=== PATIENT | male | born 1955 | race Caucasian/White ===

== ENCOUNTER 2018-04-03 13:55 | Outpatient (CLI) | payer MEDICARE | END 2018-04-03 13:56 | disposition critical access hospital (66) | LOC: EMS 13:55 | PROVIDERS: ATTEND Surgery | DX: R41.82 Altered mental status, unspecified (principal); R46.89 Other symptoms and signs involving appearance and behavior; Z72.89 Other problems related to lifestyle | CPT/HCPCS: A0425; A0427 ==

== ENCOUNTER 2018-04-03 14:35 | Inpatient (IN) | payer MEDICARE ==
[2018-04-03] MEDS ORDERED: LORazepam 2 MG/ML VIAL IVP STA (15:31)
[2018-04-03] MEDS ORDERED: THIAMINE INJ 100 MG, FOLIC ACID INJ 1 MG in SODIUM CHLORIDE 0.9% 100ML 100 ML IV STA (15:31)
[2018-04-03] MEDS ORDERED: MULTIVITAMIN 10 ML in SODIUM CHLORIDE 0.9% 1,000 ML IV STA (15:31)
[2018-04-03] MEDS ORDERED: MAGNESIUM SULFATE 2 GRAM 2 GM/50 ML BAG IV STA (15:31)
[2018-04-03 15:46] LABS: BASOPHILS % (AUTO) 0.2 %; EOSINOPHILS % (AUTO) 0.3 %; HGB - HEMOGLOBIN 11.1 g/dL (14.0-18.0); LYMPHOCYTES # (AUTO) 0.7 10^3/uL (1.5-3.5); LYMPHOCYTES % (AUTO) 10.5 %; MEAN CORPUSCULAR HEMOGLOBIN 34.9 pg (27.0-31.0); MEAN CORPUSCULAR HGB CONC 34.4 g/dL (32.0-36.0); MEAN CORPUSCULAR VOLUME 101.6 fL (80.0-94.0); MEAN PLATELET VOLUME 8.9 fL (7.4-11.4); MONOCYTES # (AUTO) 0.8 10^3/uL (0.0-1.0); MONOCYTES % (AUTO) 11.7 %; NEUTROPHILS # (AUTO) 5.2 10^3/uL (1.5-6.6); NEUTROPHILS % (AUTO) 77.3 %; PLT - PLATELET COUNT 57 10^3/uL (130-450); RED BLOOD COUNT 3.19 10^6/uL (4.70-6.10); RED CELL DISTRIBUTION WIDTH 14.8 % (12.0-15.0); WHITE BLOOD COUNT 6.7 x10^3/uL (4.8-10.8)
[2018-04-03 15:47] LABS: ALBUMIN/GLOBULIN RATIO 0.7 (1.0-2.2); BILIRUBIN,TOTAL 5.7 mg/dL (0.2-1.0); CALCIUM 7.7 mg/dL (8.5-10.3); CREATININE 0.6 mg/dL (0.6-1.2); TOTAL PROTEIN 7.4 g/dL (6.7-8.2)
--- NOTE | 2018-04-03 16:35 | ED Physician Documentation ---
PD HPI SEIZURE - Stated complaint Stated Complaint: BILAT LEGS NUMB - Chief complaint Chief Complaint: General - History obtained from History obtained from: Patient, Family, EMS - History of Present Illness Timing - onset: Today Witnessed: Witnessed Number of seizures: Single Description of seizure activity: Generalized Injury during seizure: None History of seizures: Prior EtOH wdrawal sz Contributing factors: EtOH withdrawal Similar symptoms before: No diagnosis Recently seen: Not recently seen - Additional information Additional information: 62-year-old male who is a very poor historian has history of alcohol abuse and he indicates that he feels fine and does not think he has any problem with alcohol. In the field he noted to the paramedics that he had HIV and he indicated to me history that he has had HIV for 15 years and he has never had treatment. He was unable to explain why he has never had treatment. He was later found to be HIV negative. He does complain of some difficulty walking stating that his legs are weak. He has been living with his sister in a house done on [facility] be there is apparently overgrown and the report from the sister is that he usually drinks about 5 glasses of vodka per day and yesterday he only had 2 and today he has had none. The sister indicates that he has had alcohol withdrawal seizure before. The patient will shakings heavily denies that he has any shakes. He is an unreliable historian. . Review of Systems Unable to obtain: Other (unreliable historian) Constitutional: denies: Fever Eyes: denies: Decreased vision Ears: denies: Ear pain Nose: denies: Rhinorrhea / runny nose, Congestion Throat: denies: Sore throat Cardiac: denies: Chest pain / pressure, Palpitations Respiratory: reports: Cough. denies: Dyspnea GI: denies: Abdominal Pain, Nausea, Vomiting : denies: Dysuria, Frequency Skin: denies: Rash Musculoskeletal: denies: Neck pain, Back pain, Extremity pain Neurologic: reports: Generalized weakness, Focal weakness (to both legs), Seizure PD PAST MEDICAL HISTORY - Past Medical History Past Medical History: Yes Cardiovascular: Hypertension Respiratory: COPD Endocrine/Autoimmune: None GI: None : None Psych: None Musculoskeletal: Chronic back pain Derm: None - Past Surgical History Past Surgical History: Yes Ortho: Rotator cuff repair - Present Medications Home Medications: Ambulatory Orders Medication Instructions Recorded Confirmed No Known Home Medications [No 04/03/18 04/03/18 Known Home Medications] - Allergies Allergies/Adverse Reactions: Allergies Allergy/AdvReac Type Severity Reaction Status Date / Time No Known Drug Allergies Allergy Verified 04/03/18 14:44 - Social History Does the pt smoke?: Yes Smoking Status: Current every day smoker Does the pt drink ETOH?: Yes ETOH Use: Liquor Does the pt have substance abuse?: No - Immunizations Immunizations are current?: Yes PD ED PE NORMAL - Vitals Vital signs reviewed: Yes - General General: Well developed/nourished, Other (Unkempt 62-year-old male who is shaking and having a difficult time keeping his eyes open.) - HEENT HEENT: Atraumatic, PERRL, EOMI, Ears normal, Other (dry mucous membranes ) - Neck Neck: Supple, no meningeal sign, No bony TTP - Cardiac Cardiac: No murmur, Other (tachy with distant heart sounds. ) - Respiratory Respiratory: No respiratory distress, Other (diminished breath sounds.) - Abdomen Abdomen: Soft, Non tender, Non distended - Back Back: No CVA TTP, No spinal TTP - Derm Derm: Other (his body is covered with bruises of various ages to the knees elbows feet calves and chest. ) - Extremities Extremities: No deformity, No edema, Other (There are multiple veruca to the fingers on both hands. ) - Neuro Neuro: Normal speech, Other (slow to respond with delay in execution of motor commands. ) Eye Opening: To Voice Motor: Obeys Commands Verbal: Confused GCS Score: 13 - Psych Psych: Normal mood, Normal affect Results - Vitals Vitals: Vital Signs - 24 hr 04/03/18 04/03/18 04/03/18 14:37 14:46 16:25 Temperature 37.4 C Heart Rate 106 H 94 Respiratory 15 15 Rate Blood Pressure 113/81 H 113/81 H 111/66 O2 Saturation 97 97 Oxygen O2 Source Room air - Labs Labs: Laboratory Tests 04/03/18 04/03/18 04/03/18 15:17 15:17 15:17 WBC 6.7 RBC 3.19 L Hgb 11.1 L Hct 32.4 L MCV 101.6 H MCH 34.9 H MCHC 34.4 RDW 14.8 Plt Count 57 L MPV 8.9 Neut # (Auto) 5.2 Lymph # (Auto) 0.7 L [place] # (Auto) 0.8 Eos # (Auto) 0.0 Baso # (Auto) 0.0 Absolute Nucleated RBC 0.01 Nucleated RBC % 0.1 Sodium 131 L Potassium 2.6 L Chloride 97 L Carbon Dioxide 24 Anion Gap 10.0 BUN 14 Creatinine 0.6 Estimated GFR (MDRD) 137 Glucose 102 H Calcium 7.7 L Total Bilirubin 5.7 H AST 173 H ALT 49 Alkaline Phosphatase 71 Troponin I < 0.04 Total Protein 7.4 Albumin 3.0 L Globulin 4.4 H Albumin/Globulin Ratio 0.7 L Lipase 40 - Rads (name of study) 2 veiw chest Radiology: Prelim report reviewed (Impression: Mildly low lung volumes with some hypoventilatory crowding. No focal consolidation or pleural effusions.), EMP read indepedently, See rad report CT head without Radiology: Prelim report reviewed (Impression: No acute intracranial abnormality identified.), EMP read indepedently, See rad report PD MEDICAL DECISION MAKING - ED course Complexity details: reviewed results, re-evaluated patient, considered differential, d/w patient ED course: 62-year-old male with no prior record here in the emergency department appears unkempt and is extremely weak. He is unable to sit up in bed for examination of the lungs. His body is covered in bruises he appears to have altered mental status despite an adequate time frame from his seizure. He is given IV banana bag after a liter of saline and ativan 2mg IV. He is too weak to sit up in the bed. Admission is sought and Dr. Granado has graciously agreed to care for the patient in the hospital. - Sepsis Event Vital Signs: Vital Signs - 24 hr 04/03/18 04/03/18 04/03/18 14:37 14:46 16:25 Temperature 37.4 C Heart Rate 106 H 94 Respiratory 15 15 Rate Blood Pressure 113/81 H 113/81 H 111/66 O2 Saturation 97 97 Oxygen O2 Source Room air Departure - Departure Disposition: [address] [facility] DC/Xfer Clinical Impression: Hypokalemia Alcohol withdrawal seizure Qualifiers: Complication of substance-induced condition: with perceptual disturbance Qualified Code(s): F10.232 - Alcohol dependence with withdrawal with perceptual disturbance Anemia Qualifiers: Anemia type: unspecified type Qualified Code(s): D64.9 - Anemia, unspecified Condition: Serious
[2018-04-03] MEDS ORDERED: POTASSIUM CHLORIDE 20 MEQ TABLET PO STA (17:02)
--- NOTE | 2018-04-03 17:43 | CT Report ---
Procedure Date: 04/03/2018 Accession Number: [id number] / [id number] Procedure: CT - Head W/O CPT Code: FULL RESULT: EXAM: CT HEAD EXAM DATE: 04/03/2018 05:27 PM. CLINICAL HISTORY: Cough, seizure, weakness, EtOH, altered mental status COMPARISON: None. TECHNIQUE: Multiaxial CT images were obtained from the foramen magnum to the vertex. Reformats: Coronal. IV contrast: None. In accordance with CT protocol optimization, one or more of the following dose reduction techniques were utilized for this exam: automated exposure control, adjustment of mA and/or KV based on patient size, or use of iterative reconstructive technique. FINDINGS: Parenchyma: No acute intracranial abnormality identified. No acute hemorrhage, mass effect, or midline shift. Small area of encephalomalacia at the high right frontal region. Minimal low-attenuation in the periventricular white matter. Extraaxial Spaces: No acute extra-axial collection. Ventricles: Appropriate in size and configuration. Sinuses and Orbits: Imaged paranasal sinuses, orbits, and mastoids show no significant abnormality. Bones: No depressed skull fracture. Other: None. IMPRESSION: No acute intracranial abnormality identified. RADIA
--- NOTE | 2018-04-03 17:44 | XRAY Report ---
Procedure Date: 04/03/2018 Accession Number: [id number] / [id number] Procedure: XR - Chest 2 View X-Ray CPT Code: 27315 FULL RESULT: EXAM: CHEST RADIOGRAPHY EXAM DATE: 04/03/2018 05:22 PM. CLINICAL HISTORY: Cough and seizure. COMPARISON: None. TECHNIQUE: 2 views. FINDINGS: Lungs/Pleura: Mildly low lung volumes on the frontal view was crowding. No focal consolidation. No pleural effusion. No pneumothorax. Mediastinum: Cardiac silhouette size appears unremarkable. Other: Degenerative change of the spine. IMPRESSION: Mildly low lung volumes with some hypoventilatory crowding. No focal consolidation or pleural effusions. RADIA
[2018-04-03] MEDS ORDERED: NICOTINE 14 MG PATCH TOP STA (19:53)
[2018-04-03] MEDS ORDERED: ONDANSETRON 4 MG/2 ML VIAL IVP PRN (19:54)
[2018-04-03] MEDS ORDERED: THIAMINE INJ 100 MG, FOLIC ACID INJ 1 MG in SODIUM CHLORIDE 0.9% 100ML 100 ML IV SCH (20:00)
[2018-04-03] MEDS: SODIUM CHLORIDE 0.9% 1,000 ML IV SCH (20:48)
[2018-04-03] MEDS: PANTOPRAZOLE 40 MG VIAL IVP SCH (20:49)
[2018-04-03 21:01] LABS: MUDS CUTOFF CONCENTRATIONS CUTOFF CONC BELOW:
[2018-04-03 21:04] LABS: GLUCOSE, URINE (UA) NEGATIVE (NEGATIVE); KETONES,URINE (UA) NEGATIVE (NEGATIVE); LEUKOCYTE ESTERASE, URINE NEGATIVE (NEGATIVE); NITRITE,URINE NEGATIVE (NEGATIVE); OCCULT BLOOD,URINE TRACE-LYSE (NEGATIVE); PH,URINE 6.5 PH (5.0-7.5); PROTEIN,URINE NEGATIVE (NEGATIVE); UROBILINOGEN,URINE >=8.0 E.U./dL (NORMAL)
[2018-04-03] MEDS: LORazepam 2 MG/ML VIAL IVP PRN (21:04)
[2018-04-03] MEDS: SODIUM CHLORIDE FLUSH 0.9% 10 ML SYRINGE IVP PRN (21:05)
[2018-04-03 21:20] LABS: BILIRUBIN,URINE NEGATIVE (NEGATIVE); CLARITY,URINE CLEAR (CLEAR); ICTOTEST,URINE NEGATIVE
[2018-04-03 21:21] LABS: AMPHETAMINE SCREEN,URINE NEGATIVE (NEGATIVE); BENZODIAZEPINES SCREEN, URINE POSITIVE (NEGATIVE); COCAINE SCREEN URINE NEGATIVE (NEGATIVE); METHADONE SCREEN, URINE NEGATIVE (NEGATIVE); METHAMPHETAMINES SCREEN, URINE NEGATIVE (NEGATIVE); OPIATE SCREEN, URINE NEGATIVE (NEGATIVE); OXYCODONE SCREEN, URINE NEGATIVE (NEGATIVE); PROPOXYPHENE SCREEN, URINE NEGATIVE (NEGATIVE); TRICYCLIC ANTIDEPRESSANT,URINE NEGATIVE (NEGATIVE)
[2018-04-03] MEDS: POTASSIUM CHLOR 10 MEQ/100 ML 10 MEQ/100 ML BAG IV SCH ×2 (22:03→23:06)
[2018-04-04] MEDS: POTASSIUM CHLOR 10 MEQ/100 ML 10 MEQ/100 ML BAG IV SCH ×10 (00:06→10:24)
[2018-04-04] MEDS: SODIUM CHLORIDE FLUSH 0.9% 10 ML SYRINGE IVP SCH ×4 (00:07→21:04)
[2018-04-04] MEDS: LORazepam 2 MG/ML VIAL IVP PRN ×2 (00:07→20:20)
[2018-04-04] MEDS ORDERED: IBUPROFEN 400 MG TABLET PO PRN (00:38)
--- NOTE | 2018-04-04 01:38 | HISTORY & PHYSICAL EXAMINATION ---
DATE OF SERVICE: 04/03/2018 Physician: Kiara Paez MD HISTORY OF PRESENT ILLNESS: This is a 62-year-old white male who is on no prescription medications, has had no prior emergency room visits or admissions here. He has a history of alcohol abuse. Apparently, the patient is a heavy alcohol drinker of 5 glasses of vodka per day. He decreased this to three glasses one day, then two glasses and then today stopped and had a seizure that was witnessed by his sister. The patient lives with his sister. He was brought in after the seizure; very obtunded, but also very weak, even after awakening, unable to sit and hold up his posture, sitting upright and dangling his feet. The patient is being admitted for alcohol withdrawal and management of his electrolyte abnormalities. PAST MEDICAL HISTORY: Alcohol abuse. MEDICATIONS: None. ALLERGIES: NONE. REVIEW OF SYSTEMS: A comprehensive review of systems was performed by speaking to the emergency room doctor who reached out to the family and chart review as the patient is currently obtunded after Ativan dosing in the ER. SOCIAL HISTORY: The patient is an alcoholic who also smokes daily, uses no illicit drugs. FAMILY HISTORY: No inherited diseases. PHYSICAL EXAMINATION GENERAL: A very disheveled white male who appears older than his age. He is somnolent after Ativan dosing. He moves his right arm and it is shaky. VITAL SIGNS: Blood pressure 113/81, pulse of 106 in sinus rhythm, afebrile, room air saturation 97%. HEENT: Unremarkable, except disheveled, poor dentition, dry oral mucosa. NECK: Without JVD or carotid bruits. LUNGS: Clear. HEART: Heart sounds distant. ABDOMEN: Soft. EXTREMITIES: Without clubbing, cyanosis or edema. Multiple skin tears, ecchymoses, especially large bilateral knee ecchymoses. L hand middle finger has warty, crusty yellow growth. NEUROLOGIC: Obtunded from Ativan. R hand tremulous when he moves it. LABORATORY DATA: Sodium 131, potassium 2.6, BUN 14, creatinine 0.6. AST 173, ALT 49, bilirubin 5.7. Troponin not detectable. No INR was done. White blood count 6.7 with a normal differential, hemoglobin 11.1 with an elevated MCV of 101.6, platelet count low at 57. IMAGING: Chest x-ray was done that showed hypoventilation, but no acute problems. Head CT was done that showed no stroke, no mass, hemorrhage or shift. No EKG was done. IMPRESSION 1. Alcohol withdrawal seizure. 2. Alcohol abuse. 3. Hypokalemia. 4. Hyponatremia. 5. Elevated liver function tests along with elevated bilirubin and low platelet count, all suggestive of alcoholic liver disease. 6. Anemia. PLAN: Admit the patient to the ICU. Begin neuro checks every 2 hours. Begin a CIWA protocol every 2 hours. Continue with his Ativan for management of his alcohol detoxification. Begin IV fluids with D5 normal saline with potassium. Replace thiamine and banana bag and multivitamins. Start a Nicoderm patch. Check a hepatitis panel because of the elevated liver tests and consider CT imaging of the abdomen if the LFTs do not decline. An abdomen ultrasound will be ordered to evaluate the gallbladder because of the out of proportion elevation of bilirubin compared to his LFTs. Obtain a serum toxicology screen and a urinalysis, culture if it is abnormal. Follow his daily CBC and CMP, magnesium. DEEP VENOUS THROMBOSIS PROPHYLAXIS: Sequential compression devices. CODE STATUS: FULL CODE. ATTESTATION: The patient is expected to be discharged or transferred to another facility within 96 hours: Yes. TD: 04/03/2018 19:03 CHA
[2018-04-04 05:11] LABS: VBG PH 7.519 (7.31-7.41)
[2018-04-04] MEDS ORDERED: POTASSIUM PHOSPHATE 15 MMOL in SODIUM CHLORIDE 0.9% 250 ML IV ONE (05:50)
[2018-04-04] MEDS ORDERED: MAGNESIUM SULFATE 2 GRAM 2 GM/50 ML BAG IV ONE (06:15)
[2018-04-04] MEDS ORDERED: CALCIUM GLUCONATE 2,000 MG in SODIUM CHLORIDE 0.9% 100ML 100 ML IV ONE (08:00)
--- NOTE | 2018-04-04 08:13 | Ultrasound Report ---
Procedure Date: 04/04/2018 Accession Number: [id number] / [id number] Procedure: US - Abdomen Limited CPT Code: FULL RESULT: EXAM: Abdomen Limited DATE: 04/04/2018 7:50 AM CLINICAL HISTORY: elevated bili, eval liver, pancr and gallbladder TECHNIQUE: Real-time scanning was performed, with advertising sales representative static images obtained. COMPARISON: None FINDINGS: The liver is diffusely echogenic, limiting evaluation. It measures 18.3 cm. There is apparent reversal of flow in the portal vein, but the patient's inability to comply with breathing instructions does hamper evaluation. The common bile duct measures 5 mm. The gallbladder demonstrates cholelithiasis, without evidence of wall thickening or pericholecystic fluid. Limited visualization of the pancreas is grossly unremarkable. IMPRESSION: Diffusely echogenic liver, with possible reversal of flow within the portal vein. This may represent cirrhosis and portal hypertension. Cholelithiasis. No evidence of biliary obstruction.
[2018-04-04] MEDS: PANTOPRAZOLE 40 MG VIAL IVP SCH ×2 (08:14→21:04)
[2018-04-04] MEDS ORDERED: D5NS W/20 MEQ KCL 1,000 ML IV STA (08:54)
[2018-04-04 09:15] LABS: INR 1.6 (0.8-1.2); PT - PROTHROMBIN TIME 17.5 secs (9.9-12.6)
[2018-04-04] MEDS ORDERED: POTASSIUM PHOSPHATE 15 MMOL in SODIUM CHLORIDE 0.9% 250 ML IV SCH ×2 (11:00→14:00)
[2018-04-04] MEDS: MINERAL OIL/HYDROPHIL PETROLAT 454 GM JAR TOP SCH ×2 (13:38→20:26)
[2018-04-04] MEDS: IBUPROFEN 800 MG TABLET PO PRN ×2 (13:53→20:21)
--- NOTE | 2018-04-04 13:58 | PROVIDER PROGRESS NOTE ---
Assessment/Plan - Problem List (1) Alcohol withdrawal seizure Qualifiers: Complication of substance-induced condition: uncomplicated Qualified Code(s ): F10.230 - Alcohol dependence with withdrawal, uncomplicated Assessment/Plan: No furthjer seizures. Pt is receiving Ativan during these first days of alcohol deox, on a CIWA protocoll Continue to monitor with Neuro checks and CIWA score and Ativan dosing. (2) Alcoholic cirrhosis of liver Qualifiers: Ascites presence: without ascites Qualified Code(s): K70.30 - Alcoholic cirrhosis of liver without ascites Assessment/Plan: Imaging shows cirrhotic liver with cysts and gallstones without obstruction. Avoid hepatotoxic agents. Continue to monitor LFTs. (3) Portal hypertension Assessment/Plan: No ascites seen, but imaging confirmed portal HTN. Continue gentle rehydration till able to hydrate po and more awake. (4) Hypokalemia Assessment/Plan: Replace K. Monitor BMP. (5) Hypophosphatemia Assessment/Plan: Replace phos. Monitor labs. (6) Anemia Qualifiers: Anemia type: unspecified type Qualified Code(s): D64.9 - Anemia, unspecified Assessment/Plan: Alex sample for guaic is still pending. Pt on empiric iv Protonix for GI ulcer prophylaxis. Will order B12, folate and Iron panel. - Current Meds Current Meds: Current Medications Generic Name Dose Route Start Last Admin Trade Name Freq PRN Reason Stop Dose Admin Emollient Ointment 1 applic 04/04/18 12:10 04/04/18 13:38 Hydrophor TOP 1 applic BID MIGUELITO Administration Sodium Chloride 1,000 mls @ 100 mls/hr 04/03/18 20:00 04/04/18 09:12 Normal Saline 0.9% IV 04/04/18 15:59 Infused .Q10H MIGUELITO Infusion Potassium Chloride/Dextrose/Sod Cl 1,000 mls @ 83.333 mls/hr 04/04/18 08:54 04/04/18 11:30 IV 04/04/18 20:53 83.333 mls/hr .Q12H STA Administration Lorazepam 1 mg 04/03/18 19:39 04/04/18 00:07 Ativan Inj (Vial) IVP 1 mg Q30M PRN Administration CIWA >8 Protocol Pantoprazole Sodium 40 mg 04/03/18 21:00 04/04/18 08:14 Protonix IVP 40 mg BID MIGUELITO Administration Sodium Chloride 10 ml 04/04/18 01:00 04/04/18 08:14 Normal Saline Flush 0.9% IVP 10 ml 0100,0900,1700 MIGUELITO Administration Sodium Chloride 10 ml 04/03/18 19:33 04/03/18 21:05 Normal Saline Flush 0.9% IVP 10 ml PRN PRN Administration NEEDED PER PROVIDER ORDERS - Lab Result Fish Bone Diagrams: 04/03/18 15:17 04/03/18 15:17 - EKG Results EKG Interpreted Independently: Yes EKG Comparison: No prior EKG EKG Findings: Sinus tachycardia, LA enlargement, low voltage in limb leads. - Additional Planning My Orders: My Active Orders 04/03/18 20:58 Guiaic [OCCULT BLOOD IN PAT. SINGLE] [RAPID] Routine 04/04/18 08:54 D5ns W/20 Meq KCl 1,000 ml IV 83.333 mls/hr 04/04/18 08:55 EKG - Electrocardiogram [RC] .ONCE 04/04/18 12:10 Mineral Oil/Hydrophil Petrolat [Hydrophor] 1 applic TOP BID 04/04/18 14:00 Potassium Phosphate 15 mmol Sodium Chloride 0.9% [Normal Saline 0.9%] 250 ml IV Q4H 04/04/18 Lunch DIET [Dysphagia Puree Diet] [DIET] 04/05/18 05:00 CALCIUM, IONIZED ([facility]) [BG] DAILYLAB CBC - COMP BLD CT W/AUTO DIFF [HEME] DAILYLAB CMP [COMPREHENSIVE METABOLIC PANEL] [CHEM] DAILYLAB MAGNESIUM [CHEM] DAILYLAB PHOSPHORUS [CHEM] DAILYLAB POTASSIUM [CHEM] DAILYLAB 04/06/18 05:00 CALCIUM, IONIZED ([facility]) [BG] DAILYLAB CBC - COMP BLD CT W/AUTO DIFF [HEME] DAILYLAB CMP [COMPREHENSIVE METABOLIC PANEL] [CHEM] DAILYLAB MAGNESIUM [CHEM] DAILYLAB PHOSPHORUS [CHEM] DAILYLAB POTASSIUM [CHEM] DAILYLAB 04/07/18 05:00 CALCIUM, IONIZED ([facility]) [BG] DAILYLAB MAGNESIUM [CHEM] DAILYLAB PHOSPHORUS [CHEM] DAILYLAB POTASSIUM [CHEM] DAILYLAB Subjective - Subjective Patient Reports: Resting Comfortably Nursing Reports: Other (Awakens briefly) Objective Vital Signs: Vital Signs - 24 hr 04/03/18 04/03/18 04/03/18 18:41 19:49 20:57 Temperature 37.0 C Heart Rate 84 Heart Rate [ 92 Monitoring electrodes] Respiratory 15 16 24 Rate Blood Pressure 108/44 L 118/68 Blood Pressure 123/69 [Right Brachial artery] O2 Saturation 98 98 04/03/18 04/03/18 04/03/18 21:05 22:00 22:39 Temperature Heart Rate Heart Rate [ 85 89 91 Monitoring electrodes] Respiratory 28 H 23 30 H Rate Blood Pressure Blood Pressure 125/79 96/52 L 117/79 [Right Brachial artery] O2 Saturation 98 98 97 04/03/18 04/04/18 04/04/18 23:00 00:00 01:00 Temperature 37.4 C Heart Rate Heart Rate [ 89 98 101 H Monitoring electrodes] Respiratory 24 115 H 19 Rate Blood Pressure Blood Pressure 118/79 121/86 H 116/77 [Right Brachial artery] O2 Saturation 98 93 95 04/04/18 04/04/18 04/04/18 02:00 02:09 03:01 Temperature Heart Rate Heart Rate [ 87 82 Monitoring electrodes] Respiratory 20 30 H Rate Blood Pressure Blood Pressure 115/74 116/79 [Right Brachial artery] O2 Saturation 95 97 97 04/04/18 04/04/18 04/04/18 04:00 05:00 06:00 Temperature 37.3 C Heart Rate Heart Rate [ 80 84 81 Monitoring electrodes] Respiratory 30 H 30 H 30 H Rate Blood Pressure Blood Pressure 115/73 121/78 126/86 H [Right Brachial artery] O2 Saturation 97 95 95 04/04/18 04/04/18 04/04/18 07:00 08:00 09:00 Temperature 36.2 C L Heart Rate Heart Rate [ 79 78 76 Monitoring electrodes] Respiratory 28 H 29 H 38 H Rate Blood Pressure Blood Pressure 125/80 96/75 106/62 [Right Brachial artery] O2 Saturation 99 94 94 04/04/18 04/04/18 04/04/18 10:00 11:00 12:00 Temperature Heart Rate Heart Rate [ 80 80 82 Monitoring electrodes] Respiratory 31 H 30 H 30 H Rate Blood Pressure Blood Pressure 171/90 H 121/96 H 134/78 H [Right Brachial artery] O2 Saturation 94 97 94 04/04/18 13:00 Temperature Heart Rate Heart Rate [ 98 Monitoring electrodes] Respiratory 44 H Rate Blood Pressure Blood Pressure 139/79 H [Right Brachial artery] O2 Saturation Oxygen O2 Source Room air I&O (Last 24 Hrs): Intake and Output Totals x24h 04/02/18 04/03/18 04/04/18 23:59 23:59 23:59 Intake Total 1261.2 2490 Output Total 200 675 Balance 1061.2 1815 General: Other (Awake but lethargic) HEENT: Other (Dry mucosa) Neck: Supple Neuro: Non Focal, Other (Lethargic) Cardiovascular: No murmurs Respiratory: No respiratory distress Abdomen: Soft, No tenderness Extremities: No edema, Other (Multiple ecchymoses) - Results Results: Laboratory Results WBC 6.7 x10^3/uL (4.8-10.8) 04/03/18 15:17 RBC 3.19 10^6/uL (4.70-6.10) L 04/03/18 15:17 Hgb 11.1 g/dL (14.0-18.0) L 04/03/18 15:17 Hct 32.4 % (42.0-52.0) L 04/03/18 15:17 MCV 101.6 fL (80.0-94.0) H 04/03/18 15:17 MCH 34.9 pg (27.0-31.0) H 04/03/18 15:17 MCHC 34.4 g/dL (32.0-36.0) 04/03/18 15:17 RDW 14.8 % (12.0-15.0) 04/03/18 15:17 Plt Count 57 10^3/uL (130-450) L 04/03/18 15:17 MPV 8.9 fL (7.4-11.4) 04/03/18 15:17 Neut # (Auto) 5.2 10^3/uL (1.5-6.6) 04/03/18 15:17 Lymph # (Auto) 0.7 10^3/uL (1.5-3.5) L 04/03/18 15:17 [place] # (Auto) 0.8 10^3/uL (0.0-1.0) 04/03/18 15:17 Eos # (Auto) 0.0 10^3/uL (0.0-0.7) 04/03/18 15:17 Baso # (Auto) 0.0 10^3/uL (0.0-0.1) 04/03/18 15:17 Absolute Nucleated RBC 0.01 x10^3/uL 04/03/18 15:17 Nucleated RBC % 0.1 /100WBC 04/03/18 15:17 PT 17.5 secs (9.9-12.6) H 04/04/18 09:02 INR 1.6 (0.8-1.2) H 04/04/18 09:02 VBG pH 7.519 (7.31-7.41) H 04/04/18 04:35 Ionized Calcium 0.95 mmol/L (1.15-1.33) L 04/04/18 04:35 Sodium 131 mmol/L (135-145) L 04/03/18 15:17 Potassium 2.6 mmol/L (3.5-5.0) L 04/03/18 15:17 Chloride 97 mmol/L (101-111) L 04/03/18 15:17 Carbon Dioxide 24 mmol/L (21-32) 04/03/18 15:17 Anion Gap 10.0 (6-13) 04/03/18 15:17 BUN 14 mg/dL (6-20) 04/03/18 15:17 Creatinine 0.6 mg/dL (0.6-1.2) 04/03/18 15:17 Estimated GFR (MDRD) 137 (>89) 04/03/18 15:17 Glucose 102 mg/dL (70-100) H 04/03/18 15:17 Calcium 7.7 mg/dL (8.5-10.3) L 04/03/18 15:17 Phosphorus 2.3 mg/dL (2.5-4.6) L 04/04/18 04:35 Total Bilirubin 5.7 mg/dL (0.2-1.0) H 04/03/18 15:17 GGT 215 IU/L (8-55) H 04/03/18 15:17 AST 173 IU/L (10-42) H 04/03/18 15:17 ALT 49 IU/L (10-60) 04/03/18 15:17 Alkaline Phosphatase 71 IU/L (42-121) 04/03/18 15:17 Troponin I < 0.04 ng/mL (<0.49) 04/03/18 15:17 Total Protein 7.4 g/dL (6.7-8.2) 04/03/18 15:17 Albumin 3.0 g/dL (3.2-5.5) L 04/03/18 15:17 Globulin 4.4 g/dL (2.1-4.2) H 04/03/18 15:17 Albumin/Globulin Ratio 0.7 (1.0-2.2) L 04/03/18 15:17 Lipase 40 U/L (22-51) 04/03/18 15:17 Urine Color ORANGE 04/03/18 20:55 Urine Clarity CLEAR (CLEAR) 04/03/18 20:55 Urine pH 6.5 PH (5.0-7.5) 04/03/18 20:55 Ur Specific [place] 1.015 (1.002-1.030) 04/03/18 20:55 Urine Protein NEGATIVE mg/dL (NEGATIVE) 04/03/18 20:55 Urine Glucose (UA) NEGATIVE mg/dL (NEGATIVE) 04/03/18 20:55 Urine Ketones NEGATIVE mg/dL (NEGATIVE) 04/03/18 20:55 Urine Occult Blood TRACE-LYSE (NEGATIVE) 04/03/18 20:55 Urine Nitrite NEGATIVE (NEGATIVE) 04/03/18 20:55 Urine Bilirubin NEGATIVE (NEGATIVE) 04/03/18 20:55 Urine Urobilinogen >=8.0 E.U./dL (NORMAL) H 04/03/18 20:55 Ur Leukocyte Esterase NEGATIVE (NEGATIVE) 04/03/18 20:55 Ur Microscopic Review NOT INDICATED 04/03/18 20:55 Urine Culture Comments NOT INDICATED 04/03/18 20:55 Urine Opiates Screen NEGATIVE (NEGATIVE) 04/03/18 20:56 Ur Oxycodone Screen NEGATIVE (NEGATIVE) 04/03/18 20:56 Urine Methadone Screen NEGATIVE (NEGATIVE) 04/03/18 20:56 Ur Propoxyphene Screen NEGATIVE (NEGATIVE) 04/03/18 20:56 Ur Barbiturates Screen NEGATIVE (NEGATIVE) 04/03/18 20:56 Ur Tricyclics Screen NEGATIVE (NEGATIVE) 04/03/18 20:56 Ur Phencyclidine Scrn NEGATIVE (NEGATIVE) 04/03/18 20:56 Ur Amphetamine Screen NEGATIVE (NEGATIVE) 04/03/18 20:56 U Methamphetamines Scrn NEGATIVE (NEGATIVE) 04/03/18 20:56 U Benzodiazepines Scrn POSITIVE (NEGATIVE) H 04/03/18 20:56 Urine Cocaine Screen NEGATIVE (NEGATIVE) 04/03/18 20:56 U Cannabinoids Screen NEGATIVE (NEGATIVE) 04/03/18 20:56 ABX Reporting Has patient been on IV antibiotics over the past 48 hours?: No
[2018-04-04] MEDS: THIAMINE INJ 100 MG, FOLIC ACID INJ 1 MG in SODIUM CHLORIDE 0.9% 100ML 100 ML IV SCH (18:42)
[2018-04-04] MEDS: MULTIVITAMIN 10 ML in SODIUM CHLORIDE 0.9% 1,000 ML IV SCH (18:42)
[2018-04-04] MEDS: SODIUM CHLORIDE 0.9% 1,000 ML IV SCH (21:32)
[2018-04-05] MEDS: LORazepam 2 MG/ML VIAL IVP PRN (01:37)
[2018-04-05] MEDS: SODIUM CHLORIDE FLUSH 0.9% 10 ML SYRINGE IVP SCH ×3 (01:38→16:27)
[2018-04-05 05:41] LABS: VBG PH 7.474 (7.31-7.41)
[2018-04-05 05:53] LABS: FOLATE 15.87 ng/mL (5.90 - >24.8)
[2018-04-05 06:41] LABS: BASOPHILS % (AUTO) 0.6 %; EOSINOPHILS # (AUTO) 0.1 10^3/uL (0.0-0.7); EOSINOPHILS % (AUTO) 1.7 %; HGB - HEMOGLOBIN 12.3 g/dL (14.0-18.0); LYMPHOCYTES # (AUTO) 1.2 10^3/uL (1.5-3.5); MEAN CORPUSCULAR HGB CONC 35.2 g/dL (32.0-36.0); MEAN CORPUSCULAR VOLUME 93.7 fL (80.0-94.0); MONOCYTES # (AUTO) 0.6 10^3/uL (0.0-1.0); MONOCYTES % (AUTO) 7.2 %; NEUTROPHILS # (AUTO) 5.7 10^3/uL (1.5-6.6); NEUTROPHILS % (AUTO) 74.5 %; PLT - PLATELET COUNT 180 10^3/uL (130-450); RED BLOOD COUNT 3.72 10^6/uL (4.70-6.10); RED CELL DISTRIBUTION WIDTH 14.1 % (12.0-15.0); WHITE BLOOD COUNT 7.7 x10^3/uL (4.8-10.8)
[2018-04-05 06:59] LABS: ALBUMIN 2.6 g/dL (3.2-5.5); ALBUMIN/GLOBULIN RATIO 0.7 (1.0-2.2); BILIRUBIN,TOTAL 4.1 mg/dL (0.2-1.0); CALCIUM 7.3 mg/dL (8.5-10.3); CREATININE 0.5 mg/dL (0.6-1.2); MAGNESIUM 1.4 mg/dL (1.7-2.8); PHOSPHORUS 1.9 mg/dL (2.5-4.6); TOTAL PROTEIN 6.6 g/dL (6.7-8.2)
[2018-04-05] MEDS ORDERED: POTASSIUM CHLORIDE 20 MEQ TABLET PO SCH (07:35)
[2018-04-05] MEDS: IBUPROFEN 800 MG TABLET PO PRN ×3 (08:21→18:04)
[2018-04-05] MEDS: MAGNESIUM OXIDE 400 MG TABLET PO SCH ×2 (08:22→14:20)
[2018-04-05] MEDS ORDERED: POTASSIUM PHOSPHATE 21 MMOL in SODIUM CHLORIDE 0.9% 250 ML IV ONE (08:30)
[2018-04-05] MEDS: PANTOPRAZOLE 40 MG VIAL IVP SCH ×2 (09:21→21:00)
[2018-04-05] MEDS: CALCIUM CITRATE 250 MG TABLET PO SCH ×4 (09:21→21:00)
[2018-04-05] MEDS: NEUTRA-PHOS 250 MG TABLET PO SCH ×2 (10:12→13:11)
[2018-04-05] MEDS: MINERAL OIL/HYDROPHIL PETROLAT 454 GM JAR TOP SCH ×2 (11:30→21:00)
--- NOTE | 2018-04-05 12:28 | XRAY Report ---
Procedure Date: 04/05/2018 Accession Number: [id number] / [id number] Procedure: XR - Chest 1 View X-Ray CPT Code: 52808 FULL RESULT: EXAM: Chest 1 View X-Ray DATE: 04/05/2018 10:41 AM CLINICAL HISTORY: new increased resp rate and rhonchi COMPARISON: 04/03/2018 TECHNIQUE: Single view of the chest. FINDINGS: Lungs/Pleura: Minimal left basilar atelectasis. No effusion or pneumothorax. Mediastinum: Within exam limitations, cardiomediastinal contour is normal. Other: Surgical anchors right humeral head. IMPRESSION: Minimal left basilar atelectasis. RADIA
[2018-04-05] MEDS: POTASSIUM CHLORIDE 20 MEQ TABLET PO SCH (13:10)
[2018-04-05] MEDS: guaiFENesin 600 MG TABLET PO SCH ×2 (13:11→21:00)
[2018-04-05] MEDS ORDERED: IOPAMIDOL-300 100 ML VIAL ONE (13:26)
[2018-04-05 13:41] LABS: CALCIUM 7.6 mg/dL (8.5-10.3); CREATININE 0.5 mg/dL (0.6-1.2)
[2018-04-05] MEDS ORDERED: IOPAMIDOL-300 100 ML VIAL IVP ONE (14:06)
[2018-04-05] MEDS: MAGNESIUM SULFATE 2 GRAM 2 GM/50 ML BAG IV SCH ×2 (14:27→15:23)
--- NOTE | 2018-04-05 14:45 | CT Report ---
Procedure Date: 04/05/2018 Accession Number: [id number] / [id number] Procedure: CT - Chest Angio (PE) CPT Code: FULL RESULT: EXAM: Chest Angio (PE) DATE: 04/05/2018 2:05 PM CLINICAL HISTORY: increased resp rate, new Aflutter COMPARISON: Plain film 04/05/2018 TECHNIQUE: Routine helical imaging was performed through the chest in the pulmonary arterial phase. IV Contrast: 100 mL Isovue 300 Reconstructions: Coronal and sagittal 3-D MIP reconstructions. Sagittal and coronal. In accordance with CT protocol optimization, one or more of the following dose reduction techniques were utilized for this exam: automated exposure control, adjustment of mA and/or KV based on patient size, or use of iterative reconstructive technique. FINDINGS: Pulmonary Arteries: Diagnostic quality: Adequate through the segmental arteries. No evidence for acute or chronic pulmonary emboli. RV/LV is within normal limits. There is no interventricular septal bowing. There is no reflux of contrast material in the IVC. Lungs/Pleura: Left greater than right basilar airspace disease, likely representing atelectasis. No effusion or pneumothorax. Mediastinum: Normal. No cardiac enlargement or adenopathy. No aortic dissection or aneurysm. Thoracic Aorta: Unremarkable. Upper Abdomen: Prominent vasculature in the upper abdomen, suggestive of varices. Nodular contour to the liver, suspicious for cirrhosis. Other: None. IMPRESSION: No evidence of pulmonary embolus. Mild basilar airspace disease, right likely representing atelectasis. Prominent vascular structures in the upper abdomen and nodular contour to the liver, suggestive of cirrhosis and varices. RADIA
[2018-04-05] MEDS: POTASSIUM CHLOR 10 MEQ/100 ML 10 MEQ/100 ML BAG IV SCH ×6 (15:16→18:12)
[2018-04-05] MEDS: NICOTINE 14 MG PATCH TOP SCH (15:28)
--- NOTE | 2018-04-05 16:14 | PROVIDER PROGRESS NOTE ---
Assessment/Plan - Problem List (1) Alcohol withdrawal seizure Qualifiers: Complication of substance-induced condition: uncomplicated Qualified Code(s ): F10.230 - Alcohol dependence with withdrawal, uncomplicated Assessment/Plan: Continue CIWA protocol and Ativan. Tomorrow will be >72 hours and will start to taper Ativan down. Will determine his wishes regarding any further inpt detox, after he awakens. (2) Alcoholic cirrhosis of liver Qualifiers: Ascites presence: without ascites Qualified Code(s): K70.30 - Alcoholic cirrhosis of liver without ascites Assessment/Plan: Low plts, elevated INR and elevated AST and bili noted. Continue to monitor. (3) Portal hypertension Assessment/Plan: No ascites was seen. Pt not edematous. Continue gentle hydration while sedated. (4) Hypokalemia Assessment/Plan: Replace and monitor. (5) Hypophosphatemia Assessment/Plan: Resolved with replacement. (6) Anemia Qualifiers: Anemia type: iron deficiency Qualified Code(s): D64.9 - Anemia, unspecified Assessment/Plan: B12 and folate levels are adequate. Luis mcintosh still pending. Fe studies are low, will start Iron po replacement. - Current Meds Current Meds: Current Medications Generic Name Dose Route Start Last Admin Trade Name Freq PRN Reason Stop Dose Admin Calcium Citrate 500 mg 04/05/18 09:00 04/05/18 13:11 PO 04/05/18 21:01 Not Given QID [facility] Protocol Emollient Ointment 1 applic 04/04/18 12:10 04/05/18 11:30 Hydrophor TOP 1 applic BID MIGUELITO Administration Guaifenesin 600 mg 04/05/18 10:00 04/05/18 13:11 Mucinex PO Not Given BID MIGUELITO Multivitamins 10 ml/ Sodium 1,010 mls @ 100 mls/hr 04/04/18 18:00 04/05/18 07 :41 Chloride IV Infused Q24H MIGUELITO Infusion Thiamine HCl 100 mg/ Folic 101.2 mls @ 50.6 mls/hr 04/04/18 18:00 04/04/18 21 :05 Acid 1 mg/ Sodium Chloride IV Infused Q24H MIGUELITO Infusion Ibuprofen 400 mg 04/04/18 07:56 04/05/18 14:31 Motrin PO 400 mg Q4HR PRN Administration PAIN Lorazepam 1 mg 04/03/18 19:39 04/05/18 01:37 Ativan Inj (Vial) IVP 1 mg Q30M PRN Administration CIWA >8 Protocol Nicotine 1 patch 04/05/18 16:00 04/05/18 15:28 Nicoderm TOP 1 patch DAILY MIGUELITO Administration Pantoprazole Sodium 40 mg 04/03/18 21:00 04/05/18 09:21 Protonix IVP 40 mg BID MIGUELITO Administration Potassium Chloride 40 meq 04/05/18 08:00 04/05/18 13:10 K-Dur PO Not Given DAILYWM MIGUELITO Sodium Chloride 10 ml 04/04/18 01:00 04/05/18 09:21 Normal Saline Flush 0.9% IVP 20 ml 0100,[id number],1700 MIGUELITO Administration Sodium Chloride 10 ml 04/03/18 19:33 04/03/18 21:05 Normal Saline Flush 0.9% IVP 10 ml PRN PRN Administration NEEDED PER PROVIDER ORDERS - Lab Result Fish Bone Diagrams: 04/05/18 06:30 04/05/18 13:25 - Additional Planning My Orders: My Active Orders 04/05/18 CUL, RESPIRATORY [RM] Urgent Guiaic [OCCULT BLOOD IN PAT. SINGLE] [RAPID] Urgent 04/05/18 08:00 Potassium Chloride [K-Dur] 40 meq PO DAILYWM 04/05/18 10:00 guaiFENesin [Mucinex] 600 mg PO BID 04/05/18 16:00 Nicotine 14 mg Patch [Nicoderm] 1 patch TOP DAILY 04/06/18 05:00 CALCIUM, IONIZED ([facility]) [BG] DAILYLAB CBC - COMP BLD CT W/AUTO DIFF [HEME] DAILYLAB CMP [COMPREHENSIVE METABOLIC PANEL] [CHEM] DAILYLAB MAGNESIUM [CHEM] DAILYLAB PHOSPHORUS [CHEM] DAILYLAB POTASSIUM [CHEM] DAILYLAB 04/07/18 05:00 CALCIUM, IONIZED ([facility]) [BG] DAILYLAB MAGNESIUM [CHEM] DAILYLAB PHOSPHORUS [CHEM] DAILYLAB POTASSIUM [CHEM] DAILYLAB Subjective - Subjective Patient Reports: Resting Comfortably Nursing Reports: Other (Pt awakens to eat and takes his pureed diet without complaints. His respiratory rate is increased today.) Objective Vital Signs: Vital Signs - 24 hr 04/04/18 04/04/18 04/04/18 17:00 18:00 19:00 Temperature Heart Rate [ 97 93 97 Monitoring electrodes] Respiratory 35 H 28 H 23 Rate Blood Pressure 129/110 H 133/86 H 159/103 H [Right Brachial artery] O2 Saturation 96 99 99 04/04/18 04/04/18 04/04/18 20:00 21:00 22:00 Temperature 37.0 C Heart Rate [ 95 92 96 Monitoring electrodes] Respiratory 35 H 36 H 31 H Rate Blood Pressure 153/91 H 132/96 H 160/98 H [Right Brachial artery] O2 Saturation 100 98 95 04/04/18 04/05/18 04/05/18 23:00 00:00 01:00 Temperature 36.4 C L Heart Rate [ 86 91 87 Monitoring electrodes] Respiratory 31 H 30 H 30 H Rate Blood Pressure 130/85 H 112/72 153/99 H [Right Brachial artery] O2 Saturation 96 97 97 04/05/18 04/05/18 04/05/18 02:00 03:00 04:00 Temperature 36.2 C L Heart Rate [ 92 98 81 Monitoring electrodes] Respiratory 28 H 29 H 32 H Rate Blood Pressure 127/81 H 142/90 H 135/85 H [Right Brachial artery] O2 Saturation 97 97 98 04/05/18 04/05/18 04/05/18 05:00 06:00 07:44 Temperature Heart Rate [ 84 92 94 Monitoring electrodes] Respiratory 32 H 39 H 15 Rate Blood Pressure 124/74 108/64 139/90 H [Right Brachial artery] O2 Saturation 95 98 04/05/18 04/05/18 04/05/18 07:53 08:51 10:00 Temperature 37.5 C Heart Rate [ 84 94 94 Monitoring electrodes] Respiratory 40 H 42 H 31 H Rate Blood Pressure 139/90 H 136/83 H [Right Brachial artery] O2 Saturation 95 100 98 04/05/18 04/05/18 04/05/18 11:00 11:54 12:00 Temperature 37.5 C Heart Rate [ 83 145 H 146 H Monitoring electrodes] Respiratory 25 H 27 H 28 H Rate Blood Pressure 146/90 H 101/72 98/71 [Right Brachial artery] O2 Saturation 96 97 04/05/18 04/05/18 04/05/18 13:00 13:33 14:00 Temperature Heart Rate [ 148 H 122 H 138 H Monitoring electrodes] Respiratory 30 H 27 H 27 H Rate Blood Pressure 103/78 113/76 [Right Brachial artery] O2 Saturation 96 97 98 04/05/18 04/05/18 14:14 15:00 Temperature Heart Rate [ 77 85 Monitoring electrodes] Respiratory 26 H 34 H Rate Blood Pressure 131/92 H 115/77 [Right Brachial artery] O2 Saturation 98 100 Oxygen O2 Source Room air I&O (Last 24 Hrs): Intake and Output Totals x24h 04/03/18 04/04/18 04/05/18 23:59 23:59 23:59 Intake Total 1261.2 5461.2 4623.667 Output Total 200 3100 2225 Balance 1061.2 2361.2 2398.667 General: Other (Sedated) HEENT: Mucous membr. moist/pink Neck: Supple, No JVD Neuro: Other (Sedated) Cardiovascular: Regular rate, No murmurs Respiratory: Rhonchi Abdomen: Soft, No tenderness, No hepatospenomegaly Extremities: No edema, Other (Multiple ecchymoses, his wart on L finger is covered with salve.) - Results Results: Laboratory Results WBC 7.7 x10^3/uL (4.8-10.8) 04/05/18 06:30 RBC 3.72 10^6/uL (4.70-6.10) L 04/05/18 06:30 Hgb 12.3 g/dL (14.0-18.0) L 04/05/18 06:30 Hct 34.9 % (42.0-52.0) L 04/05/18 06:30 MCV 93.7 fL (80.0-94.0) 04/05/18 06:30 MCH 33.0 pg (27.0-31.0) H 04/05/18 06:30 MCHC 35.2 g/dL (32.0-36.0) 04/05/18 06:30 RDW 14.1 % (12.0-15.0) 04/05/18 06:30 Plt Count 180 10^3/uL (130-450) 04/05/18 06:30 MPV 9.0 fL (7.4-11.4) 04/05/18 06:30 Neut # (Auto) 5.7 10^3/uL (1.5-6.6) 04/05/18 06:30 Lymph # (Auto) 1.2 10^3/uL (1.5-3.5) L 04/05/18 06:30 [place] # (Auto) 0.6 10^3/uL (0.0-1.0) 04/05/18 06:30 Eos # (Auto) 0.1 10^3/uL (0.0-0.7) 04/05/18 06:30 Baso # (Auto) 0.0 10^3/uL (0.0-0.1) 04/05/18 06:30 Absolute Nucleated RBC 0.00 x10^3/uL 04/05/18 06:30 Nucleated RBC % 0.0 /100WBC 04/05/18 06:30 PT 17.5 secs (9.9-12.6) H 04/04/18 09:02 INR 1.6 (0.8-1.2) H 04/04/18 09:02 VBG pH 7.474 (7.31-7.41) H 04/05/18 04:40 Ionized Calcium 1.00 mmol/L (1.15-1.33) L 04/05/18 04:40 Sodium 136 mmol/L (135-145) 04/05/18 13:25 Potassium 3.7 mmol/L (3.5-5.0) 04/05/18 13:25 Chloride 108 mmol/L (101-111) 04/05/18 13:25 Carbon Dioxide 22 mmol/L (21-32) 04/05/18 13:25 Anion Gap 6.0 (6-13) 04/05/18 13:25 BUN 6 mg/dL (6-20) 04/05/18 13:25 Creatinine 0.5 mg/dL (0.6-1.2) L 04/05/18 13:25 Estimated GFR (MDRD) 169 (>89) 04/05/18 13:25 Glucose 99 mg/dL (70-100) 04/05/18 13:25 Lactic Acid 1.2 mmol/L (0.5-2.2) 04/05/18 13:25 Calcium 7.6 mg/dL (8.5-10.3) L 04/05/18 13:25 Phosphorus 1.9 mg/dL (2.5-4.6) L 04/05/18 04:40 Magnesium 1.4 mg/dL (1.7-2.8) L 04/05/18 04:40 Iron 20 ug/dL (45-182) L 04/05/18 04:40 TIBC 193 ug/dL (250-450) L 04/05/18 04:40 % Saturation 10 % (20-50) L 04/05/18 04:40 Transferrin 138 mg/dL (180-329) L 04/05/18 04:40 Total Bilirubin 4.1 mg/dL (0.2-1.0) H 04/05/18 04:40 GGT 215 IU/L (8-55) H 04/03/18 15:17 AST 141 IU/L (10-42) H 04/05/18 04:40 ALT 42 IU/L (10-60) 04/05/18 04:40 Alkaline Phosphatase 68 IU/L (42-121) 04/05/18 04:40 Troponin I < 0.04 ng/mL (<0.49) 04/05/18 12:25 B-Natriuretic Peptide 1069 pg/mL (5-100) H 04/05/18 12:25 Total Protein 6.6 g/dL (6.7-8.2) L 04/05/18 04:40 Albumin 2.6 g/dL (3.2-5.5) L 04/05/18 04:40 Globulin 4.0 g/dL (2.1-4.2) 04/05/18 04:40 Albumin/Globulin Ratio 0.7 (1.0-2.2) L 04/05/18 04:40 Lipase 40 U/L (22-51) 04/03/18 15:17 Vitamin B12 1256 pg/mL (180-914) H 04/05/18 04:40 Folate 15.87 ng/mL (5.90 - >24.8) 04/05/18 04:40 Urine Color ORANGE 04/03/18 20:55 Urine Clarity CLEAR (CLEAR) 04/03/18 20:55 Urine pH 6.5 PH (5.0-7.5) 04/03/18 20:55 Ur Specific [place] 1.015 (1.002-1.030) 04/03/18 20:55 Urine Protein NEGATIVE mg/dL (NEGATIVE) 04/03/18 20:55 Urine Glucose (UA) NEGATIVE mg/dL (NEGATIVE) 04/03/18 20:55 Urine Ketones NEGATIVE mg/dL (NEGATIVE) 04/03/18 20:55 Urine Occult Blood TRACE-LYSE (NEGATIVE) 04/03/18 20:55 Urine Nitrite NEGATIVE (NEGATIVE) 04/03/18 20:55 Urine Bilirubin NEGATIVE (NEGATIVE) 04/03/18 20:55 Urine Urobilinogen >=8.0 E.U./dL (NORMAL) H 04/03/18 20:55 Ur Leukocyte Esterase NEGATIVE (NEGATIVE) 04/03/18 20:55 Ur Microscopic Review NOT INDICATED 04/03/18 20:55 Urine Culture Comments NOT INDICATED 04/03/18 20:55 Urine Opiates Screen NEGATIVE (NEGATIVE) 04/03/18 20:56 Ur Oxycodone Screen NEGATIVE (NEGATIVE) 04/03/18 20:56 Urine Methadone Screen NEGATIVE (NEGATIVE) 04/03/18 20:56 Ur Propoxyphene Screen NEGATIVE (NEGATIVE) 04/03/18 20:56 Ur Barbiturates Screen NEGATIVE (NEGATIVE) 04/03/18 20:56 Ur Tricyclics Screen NEGATIVE (NEGATIVE) 04/03/18 20:56 Ur Phencyclidine Scrn NEGATIVE (NEGATIVE) 04/03/18 20:56 Ur Amphetamine Screen NEGATIVE (NEGATIVE) 04/03/18 20:56 U Methamphetamines Scrn NEGATIVE (NEGATIVE) 04/03/18 20:56 U Benzodiazepines Scrn POSITIVE (NEGATIVE) H 04/03/18 20:56 Urine Cocaine Screen NEGATIVE (NEGATIVE) 04/03/18 20:56 U Cannabinoids Screen NEGATIVE (NEGATIVE) 04/03/18 20:56 ABX Reporting Has patient been on IV antibiotics over the past 48 hours?: No
[2018-04-05] MEDS: THIAMINE INJ 100 MG, FOLIC ACID INJ 1 MG in SODIUM CHLORIDE 0.9% 100ML 100 ML IV SCH (18:37)
[2018-04-05] MEDS: MULTIVITAMIN 10 ML in SODIUM CHLORIDE 0.9% 1,000 ML IV SCH (18:37)
[2018-04-05] MEDS ORDERED: ACETAMINOPHEN 500 MG TABLET PO PRN (20:31)
[2018-04-06] MEDS: IBUPROFEN 800 MG TABLET PO PRN (00:02)
[2018-04-06 06:02] LABS: VBG PH 7.456 (7.31-7.41)
[2018-04-06 06:03] LABS: BASOPHILS % (AUTO) 1.1 %; EOSINOPHILS # (AUTO) 0.2 10^3/uL (0.0-0.7); EOSINOPHILS % (AUTO) 3.9 %; MEAN CORPUSCULAR HEMOGLOBIN 35.7 pg (27.0-31.0); MEAN CORPUSCULAR HGB CONC 33.8 g/dL (32.0-36.0); MEAN CORPUSCULAR VOLUME 105.7 fL (80.0-94.0); MEAN PLATELET VOLUME 7.9 fL (7.4-11.4); MONOCYTES # (AUTO) 0.9 10^3/uL (0.0-1.0); MONOCYTES % (AUTO) 18.8 %; NEUTROPHILS # (AUTO) 2.5 10^3/uL (1.5-6.6); NEUTROPHILS % (AUTO) 54.2 %; PLT - PLATELET COUNT 80 10^3/uL (130-450); RED CELL DISTRIBUTION WIDTH 14.7 % (12.0-15.0); WHITE BLOOD COUNT 4.7 x10^3/uL (4.8-10.8)
[2018-04-06] MEDS: SODIUM CHLORIDE FLUSH 0.9% 10 ML SYRINGE IVP SCH ×3 (06:09→16:24)
[2018-04-06 06:16] LABS: ALBUMIN 2.6 g/dL (3.2-5.5); ALBUMIN/GLOBULIN RATIO 0.7 (1.0-2.2); BILIRUBIN,TOTAL 3.3 mg/dL (0.2-1.0); CALCIUM 7.9 mg/dL (8.5-10.3); CREATININE 0.6 mg/dL (0.6-1.2); MAGNESIUM 1.6 mg/dL (1.7-2.8); PHOSPHORUS 2.5 mg/dL (2.5-4.6); TOTAL PROTEIN 6.6 g/dL (6.7-8.2)
[2018-04-06] MEDS ORDERED: MAGNESIUM SULFATE 2 GRAM 2 GM/50 ML BAG IV ONE (08:00)
[2018-04-06] MEDS: guaiFENesin 600 MG TABLET PO SCH ×2 (08:28→20:23)
[2018-04-06] MEDS: POTASSIUM CHLORIDE 20 MEQ TABLET PO SCH (08:28)
[2018-04-06] MEDS: NICOTINE 14 MG PATCH TOP SCH (08:29)
[2018-04-06] MEDS: PANTOPRAZOLE 40 MG VIAL IVP SCH (08:29)
--- NOTE | 2018-04-06 08:36 | PROVIDER PROGRESS NOTE ---
Assessment/Plan - Problem List (1) Acute exacerbation of chronic low back pain Assessment/Plan: Pt reports that NSAIDS and Tylenol do not control his pain. He reports being on Morphine in the past and hated how he felt so he stopped using it. Will give Oxycodone po and may need Oxycontin. Will order PT to start. (2) Paroxysmal A-fib Assessment/Plan: Aflutter with 2:1 block, ventr rate 140, developed yesterday afternoon, and spontaneously resolved after several hours. W/U showed low K and Mg, normal troponin and very elevated BNP, no PE by CTA of chest. Will recheck a CXR today, for CHF, since Pt has been on iv hydration for 3 days. Will check a cardiac Echo for possible (alcoholic) cardiomyopathy. Pt has a CHADS score of 0 and he is at high risk of bleeding due to "auto- anticoagulation" with high INR from liver disease and low plts from liver disease. Therefore, he is not on anticogaulation or daily ASA. (3) Alcohol withdrawal seizure Qualifiers: Complication of substance-induced condition: uncomplicated Qualified Code(s ): F10.230 - Alcohol dependence with withdrawal, uncomplicated Assessment/Plan: No seizures since admission with CIWA protocol and intermittent Ativan iv dosing. Will taper off CIWA protocol. as today is 3rd day. Will transfer to [facility] bed. Will order PT and OT. (4) Alcoholic cirrhosis of liver Qualifiers: Ascites presence: without ascites Qualified Code(s): K70.30 - Alcoholic cirrhosis of liver without ascites Assessment/Plan: Esophageal varices were seen on chest imaging yesterday. Will try to advance his pureed diet to solids with protein and calorie snacks/ supplements. Will also assess Echo for possible alcoholic cardiomyopathy, given elevated BNP yesterday. (5) Portal hypertension Assessment/Plan: As above in #3. (6) Hypokalemia Assessment/Plan: He is on po KCl daily. Continue to monitor daily BMP. (7) Anemia Qualifiers: Anemia type: iron deficiency Assessment/Plan: Stool guaic test still pending. Pt on Iron replacement now, for low Iron stores found by Iron panel. Continue to monitor CBC daily. - Current Meds Current Meds: Current Medications Generic Name Dose Route Start Last Admin Trade Name Freq PRN Reason Stop Dose Admin Emollient Ointment 1 applic 04/04/18 12:10 04/05/18 21:00 Hydrophor TOP 1 applic BID MIGUELITO Administration Guaifenesin 600 mg 04/05/18 10:00 04/06/18 08:28 Mucinex PO 600 mg BID MIGUELITO Administration Multivitamins 10 ml/ Sodium 1,010 mls @ 100 mls/hr 04/04/18 18:00 04/06/18 04 :45 Chloride IV Infused Q24H MIGUELITO Infusion Thiamine HCl 100 mg/ Folic 101.2 mls @ 50.6 mls/hr 04/04/18 18:00 04/05/18 21 :00 Acid 1 mg/ Sodium Chloride IV Infused Q24H MIGUELITO Infusion Magnesium Sulfate 2 gm in 50 mls @ 50 mls/hr 04/06/18 08:00 04/06/18 08:28 Magnesium Sulfate IV 04/06/18 08:59 50 mls/hr ONCE ONE Administration Protocol Ibuprofen 400 mg 04/04/18 07:56 04/06/18 00:02 Motrin PO 400 mg Q4HR PRN Administration PAIN Lorazepam 1 mg 04/03/18 19:39 04/05/18 01:37 Ativan Inj (Vial) IVP 1 mg Q30M PRN Administration CIWA >8 Protocol Nicotine 1 patch 04/05/18 16:00 04/06/18 08:29 Nicoderm TOP 1 patch DAILY MIGUELITO Administration Pantoprazole Sodium 40 mg 04/03/18 21:00 04/06/18 08:29 Protonix IVP 40 mg BID MIGUELITO Administration Potassium Chloride 40 meq 04/05/18 08:00 04/06/18 08:28 K-Dur PO 40 meq DAILYWM MIGUELITO Administration Sodium Chloride 10 ml 04/04/18 01:00 04/06/18 08:29 Normal Saline Flush 0.9% IVP 30 ml 0100,0900,1700 MIGUELITO Administration Sodium Chloride 10 ml 04/03/18 19:33 04/03/18 21:05 Normal Saline Flush 0.9% IVP 10 ml PRN PRN Administration NEEDED PER PROVIDER ORDERS - Lab Result Fish Bone Diagrams: 04/06/18 05:45 04/06/18 05:45 - Additional Planning My Orders: My Active Orders 04/05/18 08:00 Potassium Chloride [K-Dur] 40 meq PO DAILYWM 04/05/18 10:00 guaiFENesin [Mucinex] 600 mg PO BID 04/05/18 16:00 Nicotine 14 mg Patch [Nicoderm] 1 patch TOP DAILY 04/05/18 16:15 CUL, RESPIRATORY [RM] Urgent 04/06/18 08:00 Magnesium Sulfate 2 Gram [Magnesium Sulfate] 2 gm in 50 ml IV ONCE 04/06/18 08:32 Chest 1 View X-Ray [XR] Routine 04/07/18 Echo Transthoracic Complete [ECHO] Routine 04/07/18 05:00 CBC - COMP BLD CT W/AUTO DIFF [HEME] DAILYLAB CMP [COMPREHENSIVE METABOLIC PANEL] [CHEM] DAILYLAB MAGNESIUM [CHEM] DAILYLAB 04/08/18 05:00 CBC - COMP BLD CT W/AUTO DIFF [HEME] DAILYLAB CMP [COMPREHENSIVE METABOLIC PANEL] [CHEM] DAILYLAB MAGNESIUM [CHEM] DAILYLAB 04/09/18 05:00 CBC - COMP BLD CT W/AUTO DIFF [HEME] DAILYLAB CMP [COMPREHENSIVE METABOLIC PANEL] [CHEM] DAILYLAB MAGNESIUM [CHEM] DAILYLAB Subjective - Subjective Patient Reports: Feeling Better, Resting Comfortably Nursing Reports: Other (Pt has LBP since an L1-L2 infection in his past. Yesterday he had calf "achiness" and also gets foot numbness sometimes.) Objective Vital Signs: Vital Signs - 24 hr 04/05/18 04/05/18 04/05/18 08:51 10:00 11:00 Temperature Heart Rate [ 94 94 83 Monitoring electrodes] Respiratory 42 H 31 H 25 H Rate Blood Pressure 139/90 H 136/83 H 146/90 H [Right Brachial artery] O2 Saturation 100 98 04/05/18 04/05/18 04/05/18 11:54 12:00 13:00 Temperature 37.5 C Heart Rate [ 145 H 146 H 148 H Monitoring electrodes] Respiratory 27 H 28 H 30 H Rate Blood Pressure 101/72 98/71 103/78 [Right Brachial artery] O2 Saturation 96 97 96 04/05/18 04/05/18 04/05/18 13:33 14:00 14:14 Temperature Heart Rate [ 122 H 138 H 77 Monitoring electrodes] Respiratory 27 H 27 H 26 H Rate Blood Pressure 113/76 131/92 H [Right Brachial artery] O2 Saturation 97 98 98 04/05/18 04/05/18 04/05/18 15:00 16:00 17:00 Temperature Heart Rate [ 85 75 87 Monitoring electrodes] Respiratory 34 H 24 25 H Rate Blood Pressure 115/77 105/71 [Right Brachial artery] O2 Saturation 100 97 100 04/05/18 04/05/18 04/05/18 18:00 19:00 20:00 Temperature 36.7 C Heart Rate [ 90 91 85 Monitoring electrodes] Respiratory 28 H 22 19 Rate Blood Pressure 110/79 116/77 115/67 [Right Brachial artery] O2 Saturation 98 99 99 04/05/18 04/05/18 04/05/18 21:00 22:00 23:00 Temperature Heart Rate [ 94 84 79 Monitoring electrodes] Respiratory 30 H 23 28 H Rate Blood Pressure 144/91 H 129/73 133/84 H [Right Brachial artery] O2 Saturation 100 99 99 04/06/18 04/06/18 04/06/18 00:00 01:00 02:00 Temperature 36.7 C Heart Rate [ 82 77 84 Monitoring electrodes] Respiratory 34 H 26 H 29 H Rate Blood Pressure 136/96 H 154/94 H 142/87 H [Right Brachial artery] O2 Saturation 99 100 04/06/18 04/06/18 04/06/18 03:00 04:00 05:00 Temperature Heart Rate [ 85 85 85 Monitoring electrodes] Respiratory 27 H 30 H 27 H Rate Blood Pressure 151/90 H 154/98 H 155/93 H [Right Brachial artery] O2 Saturation 100 99 99 04/06/18 04/06/18 04/06/18 06:00 07:00 08:00 Temperature 37.3 C Heart Rate [ 81 76 81 Monitoring electrodes] Respiratory 26 H 29 H 22 Rate Blood Pressure 153/98 H 122/70 141/89 H [Right Brachial artery] O2 Saturation 98 Oxygen O2 Source Room air I&O (Last 24 Hrs): Intake and Output Totals x24h 04/04/18 04/05/18 04/06/18 23:59 23:59 23:59 Intake Total 5461.2 6673.200 2751.667 Output Total 3100 2750 2375 Balance 2361.2 3923.200 376.667 General: Alert, Oriented x3 HEENT: Mucous membr. moist/pink Neck: Supple, No JVD Neuro: Other (Tremulous hands) Cardiovascular: Regular rate, No murmurs Respiratory: No respiratory distress, Breath sounds nml Abdomen: Soft Extremities: No edema, Other (Ecchymoses and L finger warts) - Results Results: Laboratory Results WBC 4.7 x10^3/uL (4.8-10.8) L 04/06/18 05:45 RBC 2.80 10^6/uL (4.70-6.10) L 04/06/18 05:45 Hgb 10.0 g/dL (14.0-18.0) L 04/06/18 05:45 Hct 29.5 % (42.0-52.0) L 04/06/18 05:45 MCV 105.7 fL (80.0-94.0) H 04/06/18 05:45 MCH 35.7 pg (27.0-31.0) H 04/06/18 05:45 MCHC 33.8 g/dL (32.0-36.0) 04/06/18 05:45 RDW 14.7 % (12.0-15.0) 04/06/18 05:45 Plt Count 80 10^3/uL (130-450) L 04/06/18 05:45 MPV 7.9 fL (7.4-11.4) 04/06/18 05:45 Neut # (Auto) 2.5 10^3/uL (1.5-6.6) 04/06/18 05:45 Lymph # (Auto) 1.0 10^3/uL (1.5-3.5) L 04/06/18 05:45 [place] # (Auto) 0.9 10^3/uL (0.0-1.0) 04/06/18 05:45 Eos # (Auto) 0.2 10^3/uL (0.0-0.7) 04/06/18 05:45 Baso # (Auto) 0.0 10^3/uL (0.0-0.1) 04/06/18 05:45 Absolute Nucleated RBC 0.00 x10^3/uL 04/06/18 05:45 Nucleated RBC % 0.0 /100WBC 04/06/18 05:45 PT 17.5 secs (9.9-12.6) H 04/04/18 09:02 INR 1.6 (0.8-1.2) H 04/04/18 09:02 VBG pH 7.456 (7.31-7.41) H 04/06/18 05:45 Ionized Calcium 1.08 mmol/L (1.15-1.33) L 04/06/18 05:45 Sodium 134 mmol/L (135-145) L 04/06/18 05:45 Potassium 3.9 mmol/L (3.5-5.0) 04/06/18 05:45 Chloride 105 mmol/L (101-111) 04/06/18 05:45 Carbon Dioxide 23 mmol/L (21-32) 04/06/18 05:45 Anion Gap 6.0 (6-13) 04/06/18 05:45 BUN 7 mg/dL (6-20) 04/06/18 05:45 Creatinine 0.6 mg/dL (0.6-1.2) 04/06/18 05:45 Estimated GFR (MDRD) 137 (>89) 04/06/18 05:45 Glucose 110 mg/dL (70-100) H 04/06/18 05:45 Lactic Acid 1.2 mmol/L (0.5-2.2) 04/05/18 13:25 Calcium 7.9 mg/dL (8.5-10.3) L 04/06/18 05:45 Phosphorus 2.5 mg/dL (2.5-4.6) 04/06/18 05:45 Magnesium 1.6 mg/dL (1.7-2.8) L 04/06/18 05:45 Iron 20 ug/dL (45-182) L 04/05/18 04:40 TIBC 193 ug/dL (250-450) L 04/05/18 04:40 % Saturation 10 % (20-50) L 04/05/18 04:40 Transferrin 138 mg/dL (180-329) L 04/05/18 04:40 Total Bilirubin 3.3 mg/dL (0.2-1.0) H 04/06/18 05:45 GGT 215 IU/L (8-55) H 04/03/18 15:17 AST 124 IU/L (10-42) H 04/06/18 05:45 ALT 44 IU/L (10-60) 04/06/18 05:45 Alkaline Phosphatase 93 IU/L (42-121) 04/06/18 05:45 Troponin I < 0.04 ng/mL (<0.49) 04/05/18 12:25 B-Natriuretic Peptide 1069 pg/mL (5-100) H 04/05/18 12:25 Total Protein 6.6 g/dL (6.7-8.2) L 04/06/18 05:45 Albumin 2.6 g/dL (3.2-5.5) L 04/06/18 05:45 Globulin 4.0 g/dL (2.1-4.2) 04/06/18 05:45 Albumin/Globulin Ratio 0.7 (1.0-2.2) L 04/06/18 05:45 Lipase 40 U/L (22-51) 04/03/18 15:17 Vitamin B12 1256 pg/mL (180-914) H 04/05/18 04:40 Folate 15.87 ng/mL (5.90 - >24.8) 04/05/18 04:40 Urine Color ORANGE 04/03/18 20:55 Urine Clarity CLEAR (CLEAR) 04/03/18 20:55 Urine pH 6.5 PH (5.0-7.5) 04/03/18 20:55 Ur Specific [place] 1.015 (1.002-1.030) 04/03/18 20:55 Urine Protein NEGATIVE mg/dL (NEGATIVE) 04/03/18 20:55 Urine Glucose (UA) NEGATIVE mg/dL (NEGATIVE) 04/03/18 20:55 Urine Ketones NEGATIVE mg/dL (NEGATIVE) 04/03/18 20:55 Urine Occult Blood TRACE-LYSE (NEGATIVE) 04/03/18 20:55 Urine Nitrite NEGATIVE (NEGATIVE) 04/03/18 20:55 Urine Bilirubin NEGATIVE (NEGATIVE) 04/03/18 20:55 Urine Urobilinogen >=8.0 E.U./dL (NORMAL) H 04/03/18 20:55 Ur Leukocyte Esterase NEGATIVE (NEGATIVE) 04/03/18 20:55 Ur Microscopic Review NOT INDICATED 04/03/18 20:55 Urine Culture Comments NOT INDICATED 04/03/18 20:55 Urine Opiates Screen NEGATIVE (NEGATIVE) 04/03/18 20:56 Ur Oxycodone Screen NEGATIVE (NEGATIVE) 04/03/18 20:56 Urine Methadone Screen NEGATIVE (NEGATIVE) 04/03/18 20:56 Ur Propoxyphene Screen NEGATIVE (NEGATIVE) 04/03/18 20:56 Ur Barbiturates Screen NEGATIVE (NEGATIVE) 04/03/18 20:56 Ur Tricyclics Screen NEGATIVE (NEGATIVE) 04/03/18 20:56 Ur Phencyclidine Scrn NEGATIVE (NEGATIVE) 04/03/18 20:56 Ur Amphetamine Screen NEGATIVE (NEGATIVE) 04/03/18 20:56 U Methamphetamines Scrn NEGATIVE (NEGATIVE) 04/03/18 20:56 U Benzodiazepines Scrn POSITIVE (NEGATIVE) H 04/03/18 20:56 Urine Cocaine Screen NEGATIVE (NEGATIVE) 04/03/18 20:56 U Cannabinoids Screen NEGATIVE (NEGATIVE) 04/03/18 20:56 ABX Reporting Has patient been on IV antibiotics over the past 48 hours?: No
--- NOTE | 2018-04-06 09:12 | XRAY Report ---
Procedure Date: 04/06/2018 Accession Number: [id number] / [id number] Procedure: XR - Chest 1 View X-Ray CPT Code: 69339 FULL RESULT: EXAM: CHEST RADIOGRAPHY EXAM DATE: 04/06/2018 08:51 AM. CLINICAL HISTORY: Airspace opacities on prior CT. Poss CHF. COMPARISON: CT and chest radiography 04/05/2018. TECHNIQUE: 1 view. FINDINGS: Lungs/Pleura: Mild retrocardiac opacities are similar to prior and may reflect atelectasis. No pneumothorax or large pleural effusion. Mediastinum: Within exam limitations, the cardiomediastinal contour is normal. Other: None. IMPRESSION: No definite evidence of congestive heart failure. No significant change from prior. [facility]
[2018-04-06] MEDS: MINERAL OIL/HYDROPHIL PETROLAT 454 GM JAR TOP SCH ×2 (11:25→20:23)
[2018-04-06] MEDS: oxyCODONE 5 MG TABLET PO PRN ×3 (12:20→21:17)
[2018-04-06] MEDS ORDERED: MAGNESIUM OXIDE 400 MG TABLET PO SCH (16:00)
[2018-04-06] MEDS: FOLIC ACID 1 MG TABLET PO SCH (16:24)
[2018-04-06] MEDS: FAMOTIDINE 20 MG TABLET PO SCH ×2 (16:24→20:23)
[2018-04-06] MEDS: OXYBUTYNIN 5MG TABLET PO SCH ×2 (16:24→20:23)
[2018-04-06] MEDS: THIAMINE 100 MG TABLET PO SCH (16:24)
[2018-04-07] MEDS: ACETAMINOPHEN 325 MG TABLET PO PRN ×3 (01:17→20:28)
[2018-04-07] MEDS: SODIUM CHLORIDE FLUSH 0.9% 10 ML SYRINGE IVP SCH ×3 (01:19→16:12)
[2018-04-07 05:46] LABS: BASOPHILS # (AUTO) 0.1 10^3/uL (0.0-0.1); BASOPHILS % (AUTO) 1.1 %; EOSINOPHILS # (AUTO) 0.1 10^3/uL (0.0-0.7); EOSINOPHILS % (AUTO) 2.3 %; HGB - HEMOGLOBIN 10.9 g/dL (14.0-18.0); LYMPHOCYTES # (AUTO) 1.2 10^3/uL (1.5-3.5); LYMPHOCYTES % (AUTO) 21.7 %; MEAN CORPUSCULAR HEMOGLOBIN 35.2 pg (27.0-31.0); MEAN CORPUSCULAR HGB CONC 33.3 g/dL (32.0-36.0); MEAN CORPUSCULAR VOLUME 105.8 fL (80.0-94.0); MEAN PLATELET VOLUME 7.8 fL (7.4-11.4); MONOCYTES # (AUTO) 1.1 10^3/uL (0.0-1.0); MONOCYTES % (AUTO) 19.7 %; NEUTROPHILS # (AUTO) 3.1 10^3/uL (1.5-6.6); NEUTROPHILS % (AUTO) 55.2 %; PLT - PLATELET COUNT 127 10^3/uL (130-450); RED CELL DISTRIBUTION WIDTH 14.9 % (12.0-15.0); WHITE BLOOD COUNT 5.6 x10^3/uL (4.8-10.8)
[2018-04-07 06:01] LABS: ALBUMIN 2.9 g/dL (3.2-5.5); ALBUMIN/GLOBULIN RATIO 0.7 (1.0-2.2); BILIRUBIN,TOTAL 3.7 mg/dL (0.2-1.0); CALCIUM 8.5 mg/dL (8.5-10.3); CREATININE 0.6 mg/dL (0.6-1.2); MAGNESIUM 1.5 mg/dL (1.7-2.8); TOTAL PROTEIN 7.3 g/dL (6.7-8.2)
[2018-04-07] MEDS: oxyCODONE 5 MG TABLET PO PRN (06:40)
[2018-04-07] MEDS ORDERED: MAGNESIUM SULFATE 2 GRAM 2 GM/50 ML BAG IV ONE (08:20)
[2018-04-07] MEDS: MULTIVITAMIN TABLET PO SCH (09:18)
[2018-04-07] MEDS: MAGNESIUM OXIDE 400 MG TABLET PO SCH ×2 (09:18→16:12)
[2018-04-07] MEDS: FOLIC ACID 1 MG TABLET PO SCH (09:18)
[2018-04-07] MEDS: guaiFENesin 600 MG TABLET PO SCH ×2 (09:19→20:28)
[2018-04-07] MEDS: POTASSIUM CHLORIDE 20 MEQ TABLET PO SCH (09:19)
[2018-04-07] MEDS: FAMOTIDINE 20 MG TABLET PO SCH ×2 (09:19→20:28)
[2018-04-07] MEDS: OXYBUTYNIN 5MG TABLET PO SCH ×2 (09:19→20:28)
[2018-04-07] MEDS: THIAMINE 100 MG TABLET PO SCH (09:19)
[2018-04-07] MEDS: MINERAL OIL/HYDROPHIL PETROLAT 454 GM JAR TOP SCH ×2 (09:20→20:28)
[2018-04-07] MEDS: NICOTINE 14 MG PATCH TOP SCH (09:20)
--- NOTE | 2018-04-07 12:15 | PROVIDER PROGRESS NOTE ---
Assessment/Plan - Problem List (1) Fever Assessment/Plan: Unclear etiology, therefore will get U/A and culture, blood culture x 2, repeat CXR. No DCh today. (2) Acute exacerbation of chronic low back pain Assessment/Plan: Stable with pain meds prn. (3) Paroxysmal A-fib Assessment/Plan: No recurrence of Afib on telemetry for 2 days. It was likely due to respiratory distress that day. CHADS score = 0 and with low plts and elevated INR plus esophageal varices, patient is not an ASA candidate. Echo, to check for alcoholic cardiomyopathy, is still pending. No DCh today yet. (4) Alcohol withdrawal seizure Qualifiers: Complication of substance-induced condition: uncomplicated Qualified Code(s ): F10.230 - Alcohol dependence with withdrawal, uncomplicated Assessment/Plan: Pt is off CIWA protocol, out of ICU and is ambulating, He does not want inpatient detox. (5) Alcoholic cirrhosis of liver Qualifiers: Ascites presence: without ascites Qualified Code(s): K70.30 - Alcoholic cirrhosis of liver without ascites Assessment/Plan: Continue Mg, Thiamine and MOV supplementation. Continue Pepcid. No ascites or leg edema present to start Spironolactone. No asterixis or clouded sensorium to start Lactulose. Will check an ammonia level. (6) Portal hypertension Assessment/Plan: As in #5 (7) Hypokalemia Assessment/Plan: Continue to replace electrolytes and trace elements and monitor daily labs. (8) Anemia Qualifiers: Anemia type: iron deficiency Assessment/Plan: B12 and Folate levels are adequate. Stool was guaic neg. Will start Iron replacement for low Iron levels. - Current Meds Current Meds: Current Medications Generic Name Dose Route Start Last Admin Trade Name Freq PRN Reason Stop Dose Admin Acetaminophen 650 mg 04/07/18 00:37 04/07/18 06:40 Tylenol PO 650 mg Q4HR PRN Administration Pain or Fever > 38C (100.4F) Emollient Ointment 1 applic 04/04/18 12:10 04/07/18 09:20 Hydrophor TOP 1 applic BID MIGUELITO Administration Famotidine 20 mg 04/06/18 16:00 04/07/18 09:19 Pepcid PO 20 mg BID MIGUELITO Administration Folic Acid 1 mg 04/06/18 17:00 04/07/18 09:18 PO 1 mg DAILY MIGUELITO Administration Guaifenesin 600 mg 04/05/18 10:00 04/07/18 09:19 Mucinex PO 600 mg BID MIGUELITO Administration Magnesium Oxide 400 mg 04/07/18 09:00 04/07/18 09:18 Mag Ox PO 400 mg BIDWM MIGUELITO Administration Multivitamins 1 tab 04/07/18 09:00 04/07/18 09:18 Theragran PO 1 tab DAILYWM MIGUELITO Administration Nicotine 1 patch 04/05/18 16:00 04/07/18 09:20 Nicoderm TOP 1 patch DAILY MIGUELITO Administration Oxybutynin Chloride 5 mg 04/06/18 16:00 04/07/18 09:19 Ditropan PO 5 mg BID MIGUELITO Administration Oxycodone HCl 5 mg 04/06/18 11:27 04/07/18 06:40 Roxicodone PO 5 mg Q4HR PRN Administration PAIN Potassium Chloride 20 meq 04/07/18 08:00 04/07/18 09:19 K-Dur PO 20 meq DAILYWM MIGUELITO Administration Sodium Chloride 10 ml 04/04/18 01:00 04/07/18 09:20 Normal Saline Flush 0.9% IVP 10 ml [id number],1700 MIGUELITO Administration Sodium Chloride 10 ml 04/03/18 19:33 04/03/18 21:05 Normal Saline Flush 0.9% IVP 10 ml PRN PRN Administration NEEDED PER PROVIDER ORDERS Thiamine HCl 100 mg 04/06/18 17:00 04/07/18 09:19 Vitamin B-1 PO 100 mg DAILY MIGUELITO Administration - Lab Result Fish Bone Diagrams: 04/07/18 05:25 04/07/18 05:25 - Additional Planning My Orders: My Active Orders 04/06/18 11:27 oxyCODONE [Roxicodone] 5 mg PO Q4HR PRN 04/06/18 16:00 Famotidine [Pepcid] 20 mg PO BID Oxybutynin [Ditropan] 5 mg PO BID 04/06/18 17:00 Folic Acid 1 mg PO DAILY Thiamine [Vitamin B-1] 100 mg PO DAILY 04/06/18 Dinner DIET [Regular Diet] [DIET] 04/07/18 Urinalysis w/ Micro, Reflex Cult If [UA w/ MICROSCOPIC, CULT IF] [URIN] Urgent 06/17/18 07:00 Echo Transthoracic Complete [ECHO] Routine 04/07/18 08:00 Potassium Chloride [K-Dur] 20 meq PO DAILYWM 04/07/18 08:18 Chest 1 View X-Ray [XR] Routine 04/07/18 08:54 CULTURE, BLOOD #1 [RM] Urgent 04/07/18 09:00 Magnesium Oxide [Mag Ox] 400 mg PO BIDWM Multivitamin [Theragran] 1 tab PO DAILYWM 04/07/18 09:37 CULTURE, BLOOD #2 [RM] Urgent 04/08/18 05:00 CBC - COMP BLD CT W/AUTO DIFF [HEME] DAILYLAB CMP [COMPREHENSIVE METABOLIC PANEL] [CHEM] DAILYLAB MAGNESIUM [CHEM] DAILYLAB 04/09/18 05:00 CBC - COMP BLD CT W/AUTO DIFF [HEME] DAILYLAB CMP [COMPREHENSIVE METABOLIC PANEL] [CHEM] DAILYLAB MAGNESIUM [CHEM] DAILYLAB Subjective - Subjective Patient Reports: Feeling Better, Resting Comfortably Nursing Reports: Other (Still has bilateral arm tremor) Objective Vital Signs: Vital Signs - 24 hr 04/06/18 04/06/18 04/06/18 15:31 16:47 20:57 Temperature 37.8 C H 37.8 C H 37.6 C H Heart Rate [ 84 77 Brachial] Heart Rate [ 83 Monitoring electrodes] Respiratory 28 H 18 18 Rate Blood Pressure 145/93 H 145/93 H 151/87 H [Right Brachial artery] O2 Saturation 99 99 99 04/06/18 04/07/18 04/07/18 23:40 03:33 05:10 Temperature 38.2 C H 37.9 C H 38.2 C H Heart Rate [ 132 H 83 Brachial] Heart Rate [ Monitoring electrodes] Respiratory 18 16 Rate Blood Pressure 137/99 H 147/73 H [Right Brachial artery] O2 Saturation 100 100 04/07/18 10:15 Temperature 37.1 C Heart Rate [ 72 Brachial] Heart Rate [ Monitoring electrodes] Respiratory 18 Rate Blood Pressure 129/81 H [Right Brachial artery] O2 Saturation 97 Oxygen O2 Source [With Activity] Room air O2 Source Room air I&O (Last 24 Hrs): Intake and Output Totals x24h 04/05/18 04/06/18 04/07/18 23:59 23:59 23:59 Intake Total 6673.200 4902.667 450 Output Total 2750 4520 200 Balance 3923.200 382.667 250 General: Alert, Oriented x3 HEENT: Mucous membr. moist/pink Neck: Supple, No JVD Neuro: Other (Fine tremor of hands) Cardiovascular: Regular rate, No murmurs Respiratory: No respiratory distress, Breath sounds nml Abdomen: Soft Extremities: No edema - Results Results: Laboratory Results WBC 5.6 x10^3/uL (4.8-10.8) 04/07/18 05:25 RBC 3.10 10^6/uL (4.70-6.10) L 04/07/18 05:25 Hgb 10.9 g/dL (14.0-18.0) L 04/07/18 05:25 Hct 32.8 % (42.0-52.0) L 04/07/18 05:25 MCV 105.8 fL (80.0-94.0) H 04/07/18 05:25 MCH 35.2 pg (27.0-31.0) H 04/07/18 05:25 MCHC 33.3 g/dL (32.0-36.0) 04/07/18 05:25 RDW 14.9 % (12.0-15.0) 04/07/18 05:25 Plt Count 127 10^3/uL (130-450) L 04/07/18 05:25 MPV 7.8 fL (7.4-11.4) 04/07/18 05:25 Neut # (Auto) 3.1 10^3/uL (1.5-6.6) 04/07/18 05:25 Lymph # (Auto) 1.2 10^3/uL (1.5-3.5) L 04/07/18 05:25 [place] # (Auto) 1.1 10^3/uL (0.0-1.0) H 04/07/18 05:25 Eos # (Auto) 0.1 10^3/uL (0.0-0.7) 04/07/18 05:25 Baso # (Auto) 0.1 10^3/uL (0.0-0.1) 04/07/18 05:25 Absolute Nucleated RBC 0.00 x10^3/uL 04/07/18 05:25 Nucleated RBC % 0.0 /100WBC 04/07/18 05:25 PT 17.5 secs (9.9-12.6) H 04/04/18 09:02 INR 1.6 (0.8-1.2) H 04/04/18 09:02 VBG pH 7.456 (7.31-7.41) H 04/06/18 05:45 Ionized Calcium 1.08 mmol/L (1.15-1.33) L 04/06/18 05:45 Sodium 133 mmol/L (135-145) L 04/07/18 05:25 Potassium 3.8 mmol/L (3.5-5.0) 04/07/18 05:25 Chloride 101 mmol/L (101-111) 04/07/18 05:25 Carbon Dioxide 26 mmol/L (21-32) 04/07/18 05:25 Anion Gap 6.0 (6-13) 04/07/18 05:25 BUN 8 mg/dL (6-20) 04/07/18 05:25 Creatinine 0.6 mg/dL (0.6-1.2) 04/07/18 05:25 Estimated GFR (MDRD) 137 (>89) 04/07/18 05:25 Glucose 109 mg/dL (70-100) H 04/07/18 05:25 Lactic Acid 1.4 mmol/L (0.5-2.2) 04/07/18 08:54 Calcium 8.5 mg/dL (8.5-10.3) 04/07/18 05:25 Phosphorus 2.5 mg/dL (2.5-4.6) 04/06/18 05:45 Magnesium 1.5 mg/dL (1.7-2.8) L 04/07/18 05:25 Iron 20 ug/dL (45-182) L 04/05/18 04:40 TIBC 193 ug/dL (250-450) L 04/05/18 04:40 % Saturation 10 % (20-50) L 04/05/18 04:40 Transferrin 138 mg/dL (180-329) L 04/05/18 04:40 Total Bilirubin 3.7 mg/dL (0.2-1.0) H 04/07/18 05:25 GGT 215 IU/L (8-55) H 04/03/18 15:17 AST 109 IU/L (10-42) H 04/07/18 05:25 ALT 47 IU/L (10-60) 04/07/18 05:25 Alkaline Phosphatase 85 IU/L (42-121) 04/07/18 05:25 Troponin I < 0.04 ng/mL (<0.49) 04/05/18 12:25 B-Natriuretic Peptide 1069 pg/mL (5-100) H 04/05/18 12:25 Total Protein 7.3 g/dL (6.7-8.2) 04/07/18 05:25 Albumin 2.9 g/dL (3.2-5.5) L 04/07/18 05:25 Globulin 4.4 g/dL (2.1-4.2) H 04/07/18 05:25 Albumin/Globulin Ratio 0.7 (1.0-2.2) L 04/07/18 05:25 Lipase 40 U/L (22-51) 04/03/18 15:17 Vitamin B12 1256 pg/mL (180-914) H 04/05/18 04:40 Folate 15.87 ng/mL (5.90 - >24.8) 04/05/18 04:40 Urine Color ORANGE 04/03/18 20:55 Urine Clarity CLEAR (CLEAR) 04/03/18 20:55 Urine pH 6.5 PH (5.0-7.5) 04/03/18 20:55 Ur Specific [place] 1.015 (1.002-1.030) 04/03/18 20:55 Urine Protein NEGATIVE mg/dL (NEGATIVE) 04/03/18 20:55 Urine Glucose (UA) NEGATIVE mg/dL (NEGATIVE) 04/03/18 20:55 Urine Ketones NEGATIVE mg/dL (NEGATIVE) 04/03/18 20:55 Urine Occult Blood TRACE-LYSE (NEGATIVE) 04/03/18 20:55 Urine Nitrite NEGATIVE (NEGATIVE) 04/03/18 20:55 Urine Bilirubin NEGATIVE (NEGATIVE) 04/03/18 20:55 Urine Urobilinogen >=8.0 E.U./dL (NORMAL) H 04/03/18 20:55 Ur Leukocyte Esterase NEGATIVE (NEGATIVE) 04/03/18 20:55 Ur Microscopic Review NOT INDICATED 04/03/18 20:55 Urine Culture Comments NOT INDICATED 04/03/18 20:55 Urine Opiates Screen NEGATIVE (NEGATIVE) 04/03/18 20:56 Ur Oxycodone Screen NEGATIVE (NEGATIVE) 04/03/18 20:56 Urine Methadone Screen NEGATIVE (NEGATIVE) 04/03/18 20:56 Ur Propoxyphene Screen NEGATIVE (NEGATIVE) 04/03/18 20:56 Ur Barbiturates Screen NEGATIVE (NEGATIVE) 04/03/18 20:56 Ur Tricyclics Screen NEGATIVE (NEGATIVE) 04/03/18 20:56 Ur Phencyclidine Scrn NEGATIVE (NEGATIVE) 04/03/18 20:56 Ur Amphetamine Screen NEGATIVE (NEGATIVE) 04/03/18 20:56 U Methamphetamines Scrn NEGATIVE (NEGATIVE) 04/03/18 20:56 U Benzodiazepines Scrn POSITIVE (NEGATIVE) H 04/03/18 20:56 Urine Cocaine Screen NEGATIVE (NEGATIVE) 04/03/18 20:56 U Cannabinoids Screen NEGATIVE (NEGATIVE) 04/03/18 20:56
--- NOTE | 2018-04-07 13:23 | XRAY Report ---
Procedure Date: 04/07/2018 Accession Number: [id number] / [id number] Procedure: XR - Chest 1 View X-Ray CPT Code: 84746 FULL RESULT: EXAM: CHEST RADIOGRAPHY EXAM DATE: 04/07/2018 08:39 AM. CLINICAL HISTORY: Cough, fever, eval for pneumonia. COMPARISON: 04/06/2018. TECHNIQUE: 1 view. FINDINGS: Exam mildly limited due to patient rotation. Lungs/pleura: No new opacities evident. No pleural effusion. No pneumothorax. Mediastinum: Within exam limitations, the cardiomediastinal contour is normal. Other: None. IMPRESSION: No acute radiographic abnormality identified. Exam mildly limited due to patient rotation. RADIA
[2018-04-07] MEDS: cefTRIAXone 1 GM in SODIUM CHLORIDE 0.9% MINIBAG 100 ML IV SCH (14:32)
[2018-04-07] MEDS: SODIUM CHLORIDE FLUSH 0.9% 10 ML SYRINGE IVP PRN (14:32)
[2018-04-07] MEDS ORDERED: VANCOMYCIN INJ 1 GM, VANCOMYCIN INJ 500 MG in SODIUM CHLORIDE 0.9% 500 ML IV ONE ×6 (16:00)
[2018-04-07 19:37] LABS: BILIRUBIN,URINE NEGATIVE (NEGATIVE); CLARITY,URINE CLEAR (CLEAR); GLUCOSE, URINE (UA) NEGATIVE (NEGATIVE); KETONES,URINE (UA) NEGATIVE (NEGATIVE); LEUKOCYTE ESTERASE, URINE NEGATIVE (NEGATIVE); NITRITE,URINE NEGATIVE (NEGATIVE); OCCULT BLOOD,URINE NEGATIVE (NEGATIVE); PH,URINE 7.5 PH (5.0-7.5); PROTEIN,URINE NEGATIVE (NEGATIVE); UROBILINOGEN,URINE 0.2 (NORMAL) E.U./dL (NORMAL)
[2018-04-07 19:41] LABS: BACTERIA,URINE None Seen /HPF (None Seen); RBC,URINE None Seen /HPF (0-5); SQUAMOUS EPITHELIAL CELL,UR NONE SEEN (<= Few)
[2018-04-08] MEDS: oxyCODONE 5 MG TABLET PO PRN (01:02)
[2018-04-08] MEDS: VANCOMYCIN INJ 1 GM in SODIUM CHLORIDE 0.9% 250 ML IV SCH ×4 (01:03→23:33)
[2018-04-08] MEDS: SODIUM CHLORIDE FLUSH 0.9% 10 ML SYRINGE IVP SCH ×4 (01:03→23:33)
[2018-04-08 05:33] LABS: BASOPHILS # (AUTO) 0.1 10^3/uL (0.0-0.1); BASOPHILS % (AUTO) 1.2 %; EOSINOPHILS # (AUTO) 0.1 10^3/uL (0.0-0.7); LYMPHOCYTES # (AUTO) 1.3 10^3/uL (1.5-3.5); LYMPHOCYTES % (AUTO) 19.6 %; MEAN CORPUSCULAR HEMOGLOBIN 35.1 pg (27.0-31.0); MEAN CORPUSCULAR HGB CONC 33.5 g/dL (32.0-36.0); MEAN CORPUSCULAR VOLUME 104.5 fL (80.0-94.0); MEAN PLATELET VOLUME 7.8 fL (7.4-11.4); MONOCYTES # (AUTO) 1.4 10^3/uL (0.0-1.0); MONOCYTES % (AUTO) 20.5 %; NEUTROPHILS # (AUTO) 3.9 10^3/uL (1.5-6.6); NEUTROPHILS % (AUTO) 57.7 %; PLT - PLATELET COUNT 150 10^3/uL (130-450); RED BLOOD COUNT 3.13 10^6/uL (4.70-6.10); RED CELL DISTRIBUTION WIDTH 14.8 % (12.0-15.0); WHITE BLOOD COUNT 6.7 x10^3/uL (4.8-10.8)
[2018-04-08 05:42] LABS: ALBUMIN 2.8 g/dL (3.2-5.5); ALBUMIN/GLOBULIN RATIO 0.6 (1.0-2.2); BILIRUBIN,TOTAL 3.4 mg/dL (0.2-1.0); CALCIUM 8.3 mg/dL (8.5-10.3); CREATININE 0.6 mg/dL (0.6-1.2); MAGNESIUM 1.6 mg/dL (1.7-2.8); TOTAL PROTEIN 7.6 g/dL (6.7-8.2)
[2018-04-08] MEDS: MAGNESIUM OXIDE 400 MG TABLET PO SCH ×2 (09:30→16:52)
[2018-04-08] MEDS: MULTIVITAMIN TABLET PO SCH (09:30)
[2018-04-08] MEDS: OXYBUTYNIN 5MG TABLET PO SCH ×2 (09:30→21:54)
[2018-04-08] MEDS: cefTRIAXone 1 GM in SODIUM CHLORIDE 0.9% MINIBAG 100 ML IV SCH (09:30)
[2018-04-08] MEDS: FAMOTIDINE 20 MG TABLET PO SCH ×2 (09:30→21:54)
[2018-04-08] MEDS: THIAMINE 100 MG TABLET PO SCH (09:30)
[2018-04-08] MEDS: FOLIC ACID 1 MG TABLET PO SCH (09:30)
[2018-04-08] MEDS: guaiFENesin 600 MG TABLET PO SCH ×2 (09:30→21:54)
[2018-04-08] MEDS: NICOTINE 14 MG PATCH TOP SCH (09:31)
[2018-04-08] MEDS: MINERAL OIL/HYDROPHIL PETROLAT 454 GM JAR TOP SCH ×2 (09:31→21:54)
[2018-04-08] MEDS: POTASSIUM CHLORIDE 20 MEQ TABLET PO SCH (09:39)
[2018-04-08] MEDS ORDERED: oxyCODONE 5 MG TABLET PO PRN (12:34)
--- NOTE | 2018-04-08 13:01 | PROVIDER PROGRESS NOTE ---
Assessment/Plan - Problem List (1) Fever Assessment/Plan: Patient again had a fever overnight, and may be lethargic from this again today. No source of infection is obvious yet: he had urinary frequency 2 days ago and cough with sputum 3 days ago but several CXRs showed no infiltrate. Continue empiric broad spectrum iv antibiotics. Await cultures. Check abdomen for spontaneous bacterial peritonitis. The patient will need several more days of inpatient care to evaluate the fever and treat the source. (2) Paroxysmal A-fib Assessment/Plan: No recurrence. It was likely due to abnormal electrolyte values or bronchitis. No ASA or anticoagulant can be used due to thrombocytopenia and elevated INR due to hepatic dysfunction. (3) Alcoholic cirrhosis of liver Qualifiers: Ascites presence: without ascites Qualified Code(s): K70.30 - Alcoholic cirrhosis of liver without ascites Assessment/Plan: Will assess for ascites with US. (4) Hypokalemia Assessment/Plan: Replace and monitor daily labs. (5) Hypomagnesemia Assessment/Plan: Replace and monitor daily labs. (6) Anemia Qualifiers: Anemia type: iron deficiency Assessment/Plan: Iron added to multivitamin. (7) Acute exacerbation of chronic low back pain Assessment/Plan: Resolved with pain meds. Will decrease narcotics which could be adding to his lethargy. Patient needs PT. (8) Alcohol withdrawal seizure Qualifiers: Complication of substance-induced condition: uncomplicated Qualified Code(s ): F10.230 - Alcohol dependence with withdrawal, uncomplicated Assessment/Plan: Resolved. - Current Meds Current Meds: Current Medications Generic Name Dose Route Start Last Admin Trade Name Freq PRN Reason Stop Dose Admin Acetaminophen 650 mg 04/07/18 00:37 04/07/18 20:28 Tylenol PO 650 mg Q4HR PRN Administration Pain or Fever > 38C (100.4F) Emollient Ointment 1 applic 04/04/18 12:10 04/08/18 09:31 Hydrophor TOP Not Given BID MIGUELITO Famotidine 20 mg 04/06/18 16:00 04/08/18 09:30 Pepcid PO 20 mg BID MIGUELITO Administration Folic Acid 1 mg 04/06/18 17:00 04/08/18 09:30 PO 1 mg DAILY MIGUELITO Administration Guaifenesin 600 mg 04/05/18 10:00 04/08/18 09:30 Mucinex PO 600 mg BID MIGUELITO Administration Ceftriaxone Sodium 1 gm/ 100 mls @ 200 mls/hr 04/07/18 14:01 04/08/18 11:21 Sodium Chloride IV Infused DAILY MIGUELITO Infusion Vancomycin HCl 1 gm/ Sodium 250 mls @ 166.667 mls/hr 04/08/18 00:00 04/08/18 11:22 Chloride IV Infused Q8H MIGUELITO Infusion Nicotine 1 patch 04/05/18 16:00 04/08/18 09:31 Nicoderm TOP 1 patch DAILY MIGUELITO Administration Oxybutynin Chloride 5 mg 04/06/18 16:00 04/08/18 09:30 Ditropan PO 5 mg BID MIGUELITO Administration Potassium Chloride 20 meq 04/07/18 08:00 04/08/18 09:39 K-Dur PO 20 meq DAILYWM MIGUELITO Administration Sodium Chloride 10 ml 04/04/18 01:00 04/08/18 09:31 Normal Saline Flush 0.9% IVP 10 ml 0100,0900,1700 MIGUELITO Administration Sodium Chloride 10 ml 04/03/18 19:33 04/07/18 14:32 Normal Saline Flush 0.9% IVP 10 ml PRN PRN Administration NEEDED PER PROVIDER ORDERS Thiamine HCl 100 mg 04/06/18 17:00 04/08/18 09:30 Vitamin B-1 PO 100 mg DAILY MIGUELITO Administration - Lab Result Fish Bone Diagrams: 04/08/18 05:20 04/08/18 05:20 - Additional Planning My Orders: My Active Orders 04/07/18 14:01 cefTRIAXone [Rocephin] 1 gm Sodium Chloride 0.9% Minibag [Normal Saline 0.9% Minibag] 100 ml IV DAILY 04/08/18 00:00 Vancomycin Inj [Vancomycin] 1 gm Sodium Chloride 0.9% [Normal Saline 0.9%] 250 ml IV Q8H 04/08/18 12:34 oxyCODONE [Roxicodone] 5 mg PO Q8HR PRN 04/08/18 13:00 Magnesium Sulfate 2 Gram [Magnesium Sulfate] 2 gm in 50 ml IV Q20M 04/08/18 15:30 VANCOMYCIN TROUGH [CHEM] Timed 04/08/18 17:00 Magnesium Oxide [Mag Ox] 400 mg PO TIDWM 04/09/18 05:00 CBC - COMP BLD CT W/AUTO DIFF [HEME] DAILYLAB CMP [COMPREHENSIVE METABOLIC PANEL] [CHEM] DAILYLAB MAGNESIUM [CHEM] DAILYLAB 04/09/18 08:00 Multivitamin W/Minerals [Theragran M] 1 tab PO DAILYWM Subjective - Subjective Patient Reports: Other (Fatigued) Nursing Reports: Other (Sleepy, but able to get OOB for breakfast) Objective Vital Signs: Vital Signs - 24 hr 04/07/18 04/07/18 04/07/18 15:35 19:49 23:55 Temperature 38.0 C H 38.3 C H 37.1 C Heart Rate [ Activity] Heart Rate [ 84 89 Brachial] Heart Rate [ 81 Monitoring electrodes] Heart Rate [ Supine] Respiratory 18 18 18 Rate Respiratory Rate [With Activity] Blood Pressure [Activity] Blood Pressure 134/75 H 148/93 H 124/81 H [Right Brachial artery] Blood Pressure [Supine] O2 Saturation 100 96 96 O2 Saturation [ With Activity] 04/08/18 04/08/18 04/08/18 05:00 08:11 10:53 Temperature 38.1 C H 37.9 C H Heart Rate [ 120 H Activity] Heart Rate [ 96 80 Brachial] Heart Rate [ Monitoring electrodes] Heart Rate [ 88 Supine] Respiratory 20 20 Rate Respiratory 24 Rate [With Activity] Blood Pressure 167/99 H [Activity] Blood Pressure 131/83 H 141/76 H [Right Brachial artery] Blood Pressure 149/95 H [Supine] O2 Saturation 95 95 O2 Saturation [ 95 With Activity] 04/08/18 11:51 Temperature 37.1 C Heart Rate [ Activity] Heart Rate [ 81 Brachial] Heart Rate [ Monitoring electrodes] Heart Rate [ Supine] Respiratory 20 Rate Respiratory Rate [With Activity] Blood Pressure [Activity] Blood Pressure 135/85 H [Right Brachial artery] Blood Pressure [Supine] O2 Saturation 99 O2 Saturation [ With Activity] Oxygen O2 Source [With Activity] Room air O2 Source Room air I&O (Last 24 Hrs): Intake and Output Totals x24h 04/06/18 04/07/18 04/08/18 23:59 23:59 23:59 Intake Total 4902.667 1680 1820 Output Total 4520 750 Balance 382.812 776 4859 General: Other (Lethargic) HEENT: Mucous membr. moist/pink Neck: Supple, No JVD Neuro: Other (Lethargic) Cardiovascular: Regular rate, No murmurs Respiratory: No respiratory distress, Breath sounds nml Abdomen: Soft Extremities: No edema, Other (Multiple ecchymoses and bandaged fingers) - Results Results: Laboratory Results WBC 6.7 x10^3/uL (4.8-10.8) 04/08/18 05:20 RBC 3.13 10^6/uL (4.70-6.10) L 04/08/18 05:20 Hgb 11.0 g/dL (14.0-18.0) L 04/08/18 05:20 Hct 32.7 % (42.0-52.0) L 04/08/18 05:20 MCV 104.5 fL (80.0-94.0) H 04/08/18 05:20 MCH 35.1 pg (27.0-31.0) H 04/08/18 05:20 MCHC 33.5 g/dL (32.0-36.0) 04/08/18 05:20 RDW 14.8 % (12.0-15.0) 04/08/18 05:20 Plt Count 150 10^3/uL (130-450) 04/08/18 05:20 MPV 7.8 fL (7.4-11.4) 04/08/18 05:20 Neut # (Auto) 3.9 10^3/uL (1.5-6.6) 04/08/18 05:20 Lymph # (Auto) 1.3 10^3/uL (1.5-3.5) L 04/08/18 05:20 [place] # (Auto) 1.4 10^3/uL (0.0-1.0) H 04/08/18 05:20 Eos # (Auto) 0.1 10^3/uL (0.0-0.7) 04/08/18 05:20 Baso # (Auto) 0.1 10^3/uL (0.0-0.1) 04/08/18 05:20 Absolute Nucleated RBC 0.00 x10^3/uL 04/08/18 05:20 Nucleated RBC % 0.0 /100WBC 04/08/18 05:20 PT 17.5 secs (9.9-12.6) H 04/04/18 09:02 INR 1.6 (0.8-1.2) H 04/04/18 09:02 VBG pH 7.456 (7.31-7.41) H 04/06/18 05:45 Ionized Calcium 1.08 mmol/L (1.15-1.33) L 04/06/18 05:45 Sodium 132 mmol/L (135-145) L 04/08/18 05:20 Potassium 3.8 mmol/L (3.5-5.0) 04/08/18 05:20 Chloride 102 mmol/L (101-111) 04/08/18 05:20 Carbon Dioxide 23 mmol/L (21-32) 04/08/18 05:20 Anion Gap 7.0 (6-13) 04/08/18 05:20 BUN 8 mg/dL (6-20) 04/08/18 05:20 Creatinine 0.6 mg/dL (0.6-1.2) 04/08/18 05:20 Estimated GFR (MDRD) 137 (>89) 04/08/18 05:20 Glucose 105 mg/dL (70-100) H 04/08/18 05:20 Lactic Acid 1.4 mmol/L (0.5-2.2) 04/07/18 08:54 Calcium 8.3 mg/dL (8.5-10.3) L 04/08/18 05:20 Phosphorus 2.5 mg/dL (2.5-4.6) 04/06/18 05:45 Magnesium 1.6 mg/dL (1.7-2.8) L 04/08/18 05:20 Iron 20 ug/dL (45-182) L 04/05/18 04:40 TIBC 193 ug/dL (250-450) L 04/05/18 04:40 % Saturation 10 % (20-50) L 04/05/18 04:40 Transferrin 138 mg/dL (180-329) L 04/05/18 04:40 Total Bilirubin 3.4 mg/dL (0.2-1.0) H 04/08/18 05:20 GGT 215 IU/L (8-55) H 04/03/18 15:17 AST 89 IU/L (10-42) H 04/08/18 05:20 ALT 44 IU/L (10-60) 04/08/18 05:20 Alkaline Phosphatase 67 IU/L (42-121) 04/08/18 05:20 Troponin I < 0.04 ng/mL (<0.49) 04/05/18 12:25 B-Natriuretic Peptide 1069 pg/mL (5-100) H 04/05/18 12:25 Total Protein 7.6 g/dL (6.7-8.2) 04/08/18 05:20 Albumin 2.8 g/dL (3.2-5.5) L 04/08/18 05:20 Globulin 4.8 g/dL (2.1-4.2) H 04/08/18 05:20 Albumin/Globulin Ratio 0.6 (1.0-2.2) L 04/08/18 05:20 Lipase 40 U/L (22-51) 04/03/18 15:17 Vitamin B12 1256 pg/mL (180-914) H 04/05/18 04:40 Folate 15.87 ng/mL (5.90 - >24.8) 04/05/18 04:40 Urine Color YELLOW 04/07/18 18:30 Urine Clarity CLEAR (CLEAR) 04/07/18 18:30 Urine pH 7.5 PH (5.0-7.5) 04/07/18 18:30 Ur Specific [place] 1.015 (1.002-1.030) 04/07/18 18:30 Urine Protein NEGATIVE mg/dL (NEGATIVE) 04/07/18 18:30 Urine Glucose (UA) NEGATIVE mg/dL (NEGATIVE) 04/07/18 18:30 Urine Ketones NEGATIVE mg/dL (NEGATIVE) 04/07/18 18:30 Urine Occult Blood NEGATIVE (NEGATIVE) 04/07/18 18:30 Urine Nitrite NEGATIVE (NEGATIVE) 04/07/18 18:30 Urine Bilirubin NEGATIVE (NEGATIVE) 04/07/18 18:30 Urine Urobilinogen 0.2 (NORMAL) E.U./dL (NORMAL) 04/07/18 18:30 Ur Leukocyte Esterase NEGATIVE (NEGATIVE) 04/07/18 18:30 Urine RBC None Seen /HPF (0-5) 04/07/18 18:30 Urine WBC 0-3 /HPF (0-3) 04/07/18 18:30 Ur Squamous Epith Cells NONE SEEN (<= Few) 04/07/18 18:30 Urine Bacteria None Seen /HPF (None Seen) 04/07/18 18:30 Ur Microscopic Review NOT INDICATED 04/03/18 20:55 Urine Culture Comments NOT INDICATED 04/07/18 18:30 Urine Opiates Screen NEGATIVE (NEGATIVE) 04/03/18 20:56 Ur Oxycodone Screen NEGATIVE (NEGATIVE) 04/03/18 20:56 Urine Methadone Screen NEGATIVE (NEGATIVE) 04/03/18 20:56 Ur Propoxyphene Screen NEGATIVE (NEGATIVE) 04/03/18 20:56 Ur Barbiturates Screen NEGATIVE (NEGATIVE) 04/03/18 20:56 Ur Tricyclics Screen NEGATIVE (NEGATIVE) 04/03/18 20:56 Ur Phencyclidine Scrn NEGATIVE (NEGATIVE) 04/03/18 20:56 Ur Amphetamine Screen NEGATIVE (NEGATIVE) 04/03/18 20:56 U Methamphetamines Scrn NEGATIVE (NEGATIVE) 04/03/18 20:56 U Benzodiazepines Scrn POSITIVE (NEGATIVE) H 04/03/18 20:56 Urine Cocaine Screen NEGATIVE (NEGATIVE) 04/03/18 20:56 U Cannabinoids Screen NEGATIVE (NEGATIVE) 04/03/18 20:56
[2018-04-08] MEDS: MAGNESIUM SULFATE 2 GRAM 2 GM/50 ML BAG IV SCH ×2 (13:12→14:17)
[2018-04-08 16:19] LABS: VANCOMYCIN,TROUGH 11.5 ug/mL (10.0-20.0)
[2018-04-09] MEDS: SODIUM CHLORIDE FLUSH 0.9% 10 ML SYRINGE IVP PRN (01:14)
--- NOTE | 2018-04-09 02:16 | Ultrasound Report ---
Procedure Date: 04/08/2018 Accession Number: [id number] / [id number] Procedure: US - Abdomen Complete CPT Code: FULL RESULT: EXAM: ABDOMEN ULTRASOUND EXAM DATE: 04/08/2018 10:51 PM. CLINICAL HISTORY: Poss ascites and SBP. COMPARISON: Right upper quadrant ultrasound 04/04/2018. TECHNIQUE: Real-time scanning was performed with static images obtained. FINDINGS: Liver: Heterogeneous, unchanged. 17.6 cm. Main portal vein flow: Hepatofugal Gallbladder: The gallbladder again appears contracted, with small calculi. Biliary System: Common bile duct measures 6 mm. No intrahepatic or extrahepatic ductal dilatation. Pancreas: Obscured by bowel gas. Kidneys: Right: 11.7 cm longitudinally. Normal. No contour-deforming mass, stones, or hydronephrosis. Left: 11.7 cm longitudinally. Normal. No contour-deforming mass, stones, or hydronephrosis. Spleen: 12.0 cm. Normal in size and echotexture. Aorta and Inferior Vena Cava: Unremarkable. Other: Prominent vessels in the left upper quadrant, likely representing varices. IMPRESSION: No evidence of ascites. Prominent vessels in the left upper quadrant, likely representing varices. RADIA
[2018-04-09] MEDS: ACETAMINOPHEN 325 MG TABLET PO PRN (05:42)
[2018-04-09 08:36] LABS: BASOPHILS # (AUTO) 0.1 10^3/uL (0.0-0.1); BASOPHILS % (AUTO) 1.3 %; EOSINOPHILS # (AUTO) 0.1 10^3/uL (0.0-0.7); EOSINOPHILS % (AUTO) 2.2 %; HGB - HEMOGLOBIN 10.2 g/dL (14.0-18.0); LYMPHOCYTES # (AUTO) 1.4 10^3/uL (1.5-3.5); LYMPHOCYTES % (AUTO) 22.1 %; MEAN CORPUSCULAR HEMOGLOBIN 35.2 pg (27.0-31.0); MEAN CORPUSCULAR HGB CONC 33.8 g/dL (32.0-36.0); MEAN CORPUSCULAR VOLUME 104.2 fL (80.0-94.0); MONOCYTES # (AUTO) 1.4 10^3/uL (0.0-1.0); MONOCYTES % (AUTO) 22.1 %; NEUTROPHILS # (AUTO) 3.2 10^3/uL (1.5-6.6); NEUTROPHILS % (AUTO) 52.3 %; PLT - PLATELET COUNT 155 10^3/uL (130-450); RED BLOOD COUNT 2.89 10^6/uL (4.70-6.10); RED CELL DISTRIBUTION WIDTH 14.5 % (12.0-15.0); WHITE BLOOD COUNT 6.1 x10^3/uL (4.8-10.8)
[2018-04-09] MEDS: cefTRIAXone 1 GM in SODIUM CHLORIDE 0.9% MINIBAG 100 ML IV SCH (08:59)
[2018-04-09] MEDS: VANCOMYCIN INJ 1 GM in SODIUM CHLORIDE 0.9% 250 ML IV SCH ×2 (09:00→16:18)
[2018-04-09] MEDS: MULTIVITAMIN W/MINERALS TABLET PO SCH (09:00)
[2018-04-09] MEDS: POTASSIUM CHLORIDE 20 MEQ TABLET PO SCH (09:00)
[2018-04-09] MEDS: OXYBUTYNIN 5MG TABLET PO SCH ×2 (09:00→20:37)
[2018-04-09] MEDS: FAMOTIDINE 20 MG TABLET PO SCH ×2 (09:00→20:37)
[2018-04-09] MEDS: THIAMINE 100 MG TABLET PO SCH (09:00)
[2018-04-09] MEDS: MAGNESIUM OXIDE 400 MG TABLET PO SCH ×3 (09:00→20:36)
[2018-04-09] MEDS: guaiFENesin 600 MG TABLET PO SCH ×2 (09:00→20:37)
[2018-04-09] MEDS: FOLIC ACID 1 MG TABLET PO SCH (09:00)
[2018-04-09] MEDS: NICOTINE 14 MG PATCH TOP SCH (09:01)
[2018-04-09] MEDS: MINERAL OIL/HYDROPHIL PETROLAT 454 GM JAR TOP SCH ×2 (09:01→20:37)
[2018-04-09] MEDS: SODIUM CHLORIDE FLUSH 0.9% 10 ML SYRINGE IVP SCH ×2 (09:01→16:21)
[2018-04-09 09:02] LABS: ALBUMIN 2.6 g/dL (3.2-5.5); ALBUMIN/GLOBULIN RATIO 0.6 (1.0-2.2); BILIRUBIN,TOTAL 2.3 mg/dL (0.2-1.0); CALCIUM 8.2 mg/dL (8.5-10.3); CREATININE 0.6 mg/dL (0.6-1.2); MAGNESIUM 1.7 mg/dL (1.7-2.8); TOTAL PROTEIN 6.7 g/dL (6.7-8.2)
--- NOTE | 2018-04-09 13:11 | PROVIDER PROGRESS NOTE ---
Assessment/Plan - Problem List (1) Fever Assessment/Plan: Most likely source still is UTI Continue empiric iv antibiotics Await culture results. Poss DCh tomorrow if has no fever for 24 hours (2) Paroxysmal A-fib Assessment/Plan: No recurrence. No ASA or anticoag use possible. (3) Alcoholic cirrhosis of liver Qualifiers: Ascites presence: without ascites Qualified Code(s): K70.30 - Alcoholic cirrhosis of liver without ascites Assessment/Plan: No ascites seen on abdomen US, thereore no Spironolactone to be started. (4) Hypomagnesemia Assessment/Plan: Resolved with replacement. (5) Anemia Qualifiers: Anemia type: iron deficiency Assessment/Plan: Pt on replacement. (6) Acute exacerbation of chronic low back pain Assessment/Plan: Resolved. Will decrease narcotics for pain even further, only at hs, due to fatigue. - Current Meds Current Meds: Current Medications Generic Name Dose Route Start Last Admin Trade Name Freq PRN Reason Stop Dose Admin Acetaminophen 650 mg 04/07/18 00:37 04/09/18 05:42 Tylenol PO 650 mg Q4HR PRN Administration Pain or Fever > 38C (100.4F) Emollient Ointment 1 applic 04/04/18 12:10 04/09/18 09:01 Hydrophor TOP 1 applic BID MIGUELITO Administration Famotidine 20 mg 04/06/18 16:00 04/09/18 09:00 Pepcid PO 20 mg BID MIGUELITO Administration Folic Acid 1 mg 04/06/18 17:00 04/09/18 09:00 PO 1 mg DAILY MIGUELITO Administration Guaifenesin 600 mg 04/05/18 10:00 04/09/18 09:00 Mucinex PO 600 mg BID MIGUELITO Administration Ceftriaxone Sodium 1 gm/ 100 mls @ 200 mls/hr 04/07/18 14:01 04/09/18 08:59 Sodium Chloride IV 200 mls/hr DAILY MIGUELITO Administration Vancomycin HCl 1 gm/ Sodium 250 mls @ 166.667 mls/hr 04/08/18 00:00 04/09/18 09:00 Chloride IV 167 mls/hr Q8H MIGUELITO Administration Magnesium Oxide 400 mg 04/08/18 17:00 04/09/18 09:00 Mag Ox PO 400 mg TIDWM MIGUELITO Administration Multivitamins/Minerals 1 tab 04/09/18 08:00 04/09/18 09:00 Theragran M PO 1 tab DAILYWM MIGUELITO Administration Nicotine 1 patch 04/05/18 16:00 04/09/18 09:01 Nicoderm TOP 1 patch DAILY MIGUELITO Administration Oxybutynin Chloride 5 mg 04/06/18 16:00 04/09/18 09:00 Ditropan PO 5 mg BID MIGUELITO Administration Potassium Chloride 20 meq 04/07/18 08:00 04/09/18 09:00 K-Dur PO 20 meq DAILYWM MIGUELITO Administration Sodium Chloride 10 ml 04/04/18 01:00 04/09/18 09:01 Normal Saline Flush 0.9% IVP 10 ml 0100,[id number],1700 MIGUELITO Administration Sodium Chloride 10 ml 04/03/18 19:33 04/09/18 01:14 Normal Saline Flush 0.9% IVP 10 ml PRN PRN Administration NEEDED PER PROVIDER ORDERS Thiamine HCl 100 mg 04/06/18 17:00 04/09/18 09:00 Vitamin B-1 PO 100 mg DAILY MIGUELITO Administration - Lab Result Fish Bone Diagrams: 04/09/18 08:20 04/09/18 08:20 - Additional Planning My Orders: My Active Orders 04/08/18 17:00 Magnesium Oxide [Mag Ox] 400 mg PO TIDWM 04/09/18 08:00 Multivitamin W/Minerals [Theragran M] 1 tab PO DAILYWM 04/09/18 20:00 oxyCODONE [Roxicodone] 2.5 mg PO QPM PRN 04/09/18 Lunch Regular Diet [DIET] 04/10/18 05:00 CBC - COMP BLD CT W/AUTO DIFF [HEME] DAILYLAB CMP [COMPREHENSIVE METABOLIC PANEL] [CHEM] DAILYLAB MAGNESIUM [CHEM] DAILYLAB 04/11/18 05:00 CBC - COMP BLD CT W/AUTO DIFF [HEME] DAILYLAB CMP [COMPREHENSIVE METABOLIC PANEL] [CHEM] DAILYLAB MAGNESIUM [CHEM] DAILYLAB 04/12/18 05:00 CBC - COMP BLD CT W/AUTO DIFF [HEME] DAILYLAB CMP [COMPREHENSIVE METABOLIC PANEL] [CHEM] DAILYLAB MAGNESIUM [CHEM] DAILYLAB Subjective - Subjective Patient Reports: Fatigue Nursing Reports: Other (Still had a low grade fever of 37.6) Objective Vital Signs: Vital Signs - 24 hr 04/08/18 04/08/18 04/09/18 15:49 21:00 00:55 Temperature 37.2 C 36.9 C 36.9 C Heart Rate [ 71 86 77 Brachial] Respiratory 20 20 16 Rate Blood Pressure 117/66 138/71 H 132/80 H [Right Brachial artery] O2 Saturation 93 97 97 04/09/18 04/09/18 04/09/18 05:00 07:37 12:56 Temperature 37.5 C 37.6 C H 36.6 C Heart Rate [ 83 88 41 L Brachial] Respiratory 18 16 18 Rate Blood Pressure 118/81 H 123/61 131/53 H [Right Brachial artery] O2 Saturation 97 100 Oxygen O2 Source [With Activity] Room air O2 Source Room air I&O (Last 24 Hrs): Intake and Output Totals x24h 04/07/18 04/08/18 04/09/18 23:59 23:59 23:59 Intake Total 1680 2370 1006 Output Total 750 Balance 930 2370 1006 General: Alert, Other (Groggy) HEENT: Mucous membr. moist/pink, Other (Poor dentition) Neck: Supple, No JVD Neuro: Other (intentional treamor of hands) Cardiovascular: Regular rate, No murmurs Respiratory: No respiratory distress, Breath sounds nml Abdomen: Soft Extremities: No edema - Results Results: Laboratory Results WBC 6.1 x10^3/uL (4.8-10.8) 04/09/18 08:20 RBC 2.89 10^6/uL (4.70-6.10) L 04/09/18 08:20 Hgb 10.2 g/dL (14.0-18.0) L 04/09/18 08:20 Hct 30.2 % (42.0-52.0) L 04/09/18 08:20 MCV 104.2 fL (80.0-94.0) H 04/09/18 08:20 MCH 35.2 pg (27.0-31.0) H 04/09/18 08:20 MCHC 33.8 g/dL (32.0-36.0) 04/09/18 08:20 RDW 14.5 % (12.0-15.0) 04/09/18 08:20 Plt Count 155 10^3/uL (130-450) 04/09/18 08:20 MPV 8.0 fL (7.4-11.4) 04/09/18 08:20 Neut # (Auto) 3.2 10^3/uL (1.5-6.6) 04/09/18 08:20 Lymph # (Auto) 1.4 10^3/uL (1.5-3.5) L 04/09/18 08:20 [place] # (Auto) 1.4 10^3/uL (0.0-1.0) H 04/09/18 08:20 Eos # (Auto) 0.1 10^3/uL (0.0-0.7) 04/09/18 08:20 Baso # (Auto) 0.1 10^3/uL (0.0-0.1) 04/09/18 08:20 Absolute Nucleated RBC 0.00 x10^3/uL 04/09/18 08:20 Nucleated RBC % 0.0 /100WBC 04/09/18 08:20 PT 17.5 secs (9.9-12.6) H 04/04/18 09:02 INR 1.6 (0.8-1.2) H 04/04/18 09:02 VBG pH 7.456 (7.31-7.41) H 04/06/18 05:45 Ionized Calcium 1.08 mmol/L (1.15-1.33) L 04/06/18 05:45 Sodium 132 mmol/L (135-145) L 04/09/18 08:20 Potassium 3.6 mmol/L (3.5-5.0) 04/09/18 08:20 Chloride 103 mmol/L (101-111) 04/09/18 08:20 Carbon Dioxide 23 mmol/L (21-32) 04/09/18 08:20 Anion Gap 6.0 (6-13) 04/09/18 08:20 BUN 9 mg/dL (6-20) 04/09/18 08:20 Creatinine 0.6 mg/dL (0.6-1.2) 04/09/18 08:20 Estimated GFR (MDRD) 137 (>89) 04/09/18 08:20 Glucose 123 mg/dL (70-100) H 04/09/18 08:20 Lactic Acid 1.4 mmol/L (0.5-2.2) 04/07/18 08:54 Calcium 8.2 mg/dL (8.5-10.3) L 04/09/18 08:20 Phosphorus 2.5 mg/dL (2.5-4.6) 04/06/18 05:45 Magnesium 1.7 mg/dL (1.7-2.8) 04/09/18 08:20 Iron 20 ug/dL (45-182) L 04/05/18 04:40 TIBC 193 ug/dL (250-450) L 04/05/18 04:40 % Saturation 10 % (20-50) L 04/05/18 04:40 Transferrin 138 mg/dL (180-329) L 04/05/18 04:40 Total Bilirubin 2.3 mg/dL (0.2-1.0) H 04/09/18 08:20 GGT 215 IU/L (8-55) H 04/03/18 15:17 AST 77 IU/L (10-42) H 04/09/18 08:20 ALT 38 IU/L (10-60) 04/09/18 08:20 Alkaline Phosphatase 73 IU/L (42-121) 04/09/18 08:20 Troponin I < 0.04 ng/mL (<0.49) 04/05/18 12:25 B-Natriuretic Peptide 1069 pg/mL (5-100) H 04/05/18 12:25 Total Protein 6.7 g/dL (6.7-8.2) 04/09/18 08:20 Albumin 2.6 g/dL (3.2-5.5) L 04/09/18 08:20 Globulin 4.1 g/dL (2.1-4.2) 04/09/18 08:20 Albumin/Globulin Ratio 0.6 (1.0-2.2) L 04/09/18 08:20 Lipase 40 U/L (22-51) 04/03/18 15:17 Vitamin B12 1256 pg/mL (180-914) H 04/05/18 04:40 Folate 15.87 ng/mL (5.90 - >24.8) 04/05/18 04:40 Urine Color YELLOW 04/07/18 18:30 Urine Clarity CLEAR (CLEAR) 04/07/18 18:30 Urine pH 7.5 PH (5.0-7.5) 04/07/18 18:30 Ur Specific [place] 1.015 (1.002-1.030) 04/07/18 18:30 Urine Protein NEGATIVE mg/dL (NEGATIVE) 04/07/18 18:30 Urine Glucose (UA) NEGATIVE mg/dL (NEGATIVE) 04/07/18 18:30 Urine Ketones NEGATIVE mg/dL (NEGATIVE) 04/07/18 18:30 Urine Occult Blood NEGATIVE (NEGATIVE) 04/07/18 18:30 Urine Nitrite NEGATIVE (NEGATIVE) 04/07/18 18:30 Urine Bilirubin NEGATIVE (NEGATIVE) 04/07/18 18:30 Urine Urobilinogen 0.2 (NORMAL) E.U./dL (NORMAL) 04/07/18 18:30 Ur Leukocyte Esterase NEGATIVE (NEGATIVE) 04/07/18 18:30 Urine RBC None Seen /HPF (0-5) 04/07/18 18:30 Urine WBC 0-3 /HPF (0-3) 04/07/18 18:30 Ur Squamous Epith Cells NONE SEEN (<= Few) 04/07/18 18:30 Urine Bacteria None Seen /HPF (None Seen) 04/07/18 18:30 Ur Microscopic Review NOT INDICATED 04/03/18 20:55 Urine Culture Comments NOT INDICATED 04/07/18 18:30 Last Dose Date 04/08/18 04/08/18 06:04 Last Dose Time 1122 04/08/18 06:04 Vancomycin Trough 11.5 ug/mL (10.0-20.0) 04/08/18 06:04 Urine Opiates Screen NEGATIVE (NEGATIVE) 04/03/18 20:56 Ur Oxycodone Screen NEGATIVE (NEGATIVE) 04/03/18 20:56 Urine Methadone Screen NEGATIVE (NEGATIVE) 04/03/18 20:56 Ur Propoxyphene Screen NEGATIVE (NEGATIVE) 04/03/18 20:56 Ur Barbiturates Screen NEGATIVE (NEGATIVE) 04/03/18 20:56 Ur Tricyclics Screen NEGATIVE (NEGATIVE) 04/03/18 20:56 Ur Phencyclidine Scrn NEGATIVE (NEGATIVE) 04/03/18 20:56 Ur Amphetamine Screen NEGATIVE (NEGATIVE) 04/03/18 20:56 U Methamphetamines Scrn NEGATIVE (NEGATIVE) 04/03/18 20:56 U Benzodiazepines Scrn POSITIVE (NEGATIVE) H 04/03/18 20:56 Urine Cocaine Screen NEGATIVE (NEGATIVE) 04/03/18 20:56 U Cannabinoids Screen NEGATIVE (NEGATIVE) 04/03/18 20:56
[2018-04-09] MEDS ORDERED: oxyCODONE 5 MG TABLET PO PRN (20:00)
[2018-04-09] MEDS: IBUPROFEN 600 MG TABLET PO SCH (23:51)
[2018-04-10] MEDS: VANCOMYCIN INJ 1 GM in SODIUM CHLORIDE 0.9% 250 ML IV SCH (00:02)
[2018-04-10] MEDS: SODIUM CHLORIDE FLUSH 0.9% 10 ML SYRINGE IVP SCH ×2 (00:02→08:27)
[2018-04-10 06:22] LABS: BASOPHILS # (AUTO) 0.2 10^3/uL (0.0-0.1); BASOPHILS % (AUTO) 2.8 %; EOSINOPHILS # (AUTO) 0.2 10^3/uL (0.0-0.7); EOSINOPHILS % (AUTO) 2.7 %; HGB - HEMOGLOBIN 11.3 g/dL (14.0-18.0); LYMPHOCYTES # (AUTO) 1.3 10^3/uL (1.5-3.5); LYMPHOCYTES % (AUTO) 22.5 %; MEAN CORPUSCULAR HEMOGLOBIN 35.1 pg (27.0-31.0); MEAN CORPUSCULAR HGB CONC 33.3 g/dL (32.0-36.0); MEAN CORPUSCULAR VOLUME 105.4 fL (80.0-94.0); MEAN PLATELET VOLUME 7.8 fL (7.4-11.4); MONOCYTES # (AUTO) 1.1 10^3/uL (0.0-1.0); MONOCYTES % (AUTO) 18.4 %; NEUTROPHILS # (AUTO) 3.1 10^3/uL (1.5-6.6); NEUTROPHILS % (AUTO) 53.6 %; PLT - PLATELET COUNT 193 10^3/uL (130-450); RED BLOOD COUNT 3.21 10^6/uL (4.70-6.10); RED CELL DISTRIBUTION WIDTH 14.5 % (12.0-15.0); WHITE BLOOD COUNT 5.8 x10^3/uL (4.8-10.8)
[2018-04-10 06:32] LABS: ALBUMIN 2.8 g/dL (3.2-5.5); ALBUMIN/GLOBULIN RATIO 0.6 (1.0-2.2); BILIRUBIN,TOTAL 2.6 mg/dL (0.2-1.0); CALCIUM 8.4 mg/dL (8.5-10.3); CREATININE 0.6 mg/dL (0.6-1.2); MAGNESIUM 1.6 mg/dL (1.7-2.8); TOTAL PROTEIN 7.4 g/dL (6.7-8.2)
[2018-04-10 07:45] VITALS: BP 122/59
[2018-04-10] MEDS: THIAMINE 100 MG TABLET PO SCH (08:26)
[2018-04-10] MEDS: MAGNESIUM OXIDE 400 MG TABLET PO SCH (08:26)
[2018-04-10] MEDS: MULTIVITAMIN W/MINERALS TABLET PO SCH (08:26)
[2018-04-10] MEDS: POTASSIUM CHLORIDE 20 MEQ TABLET PO SCH (08:26)
[2018-04-10] MEDS: OXYBUTYNIN 5MG TABLET PO SCH (08:27)
[2018-04-10] MEDS: guaiFENesin 600 MG TABLET PO SCH (08:27)
[2018-04-10] MEDS: FAMOTIDINE 20 MG TABLET PO SCH (08:27)
[2018-04-10] MEDS: NICOTINE 14 MG PATCH TOP SCH (08:27)
[2018-04-10] MEDS: FOLIC ACID 1 MG TABLET PO SCH (08:27)
[2018-04-10] MEDS: IBUPROFEN 600 MG TABLET PO SCH (08:32)
[2018-04-10] MEDS: MINERAL OIL/HYDROPHIL PETROLAT 454 GM JAR TOP SCH (08:32)
--- NOTE | 2018-04-10 09:26 | Discharge Plan ---
Discharge Plan Disposition: Home, Self Care Condition: Fair Prescriptions: Lorazepam [Ativan] 1 mg PO Q6HR PRN #30 tablet PRN Reason: Agitation Folic Acid 1 mg PO DAILY #30 tablet Multivitamin W/Minerals [Theragran M] 1 tab PO DAILYWM #30 tablet Thiamine [Vitamin B-1] 100 mg PO DAILY #30 tablet Diet: Regular Activity Restrictions: Activity as Tolerated Assistance Devices: Walker Weight Bearing: Full Weight Instruction Topics: ED Seizure Alcohol Withdrawal Additional Instructions or Follow Up instructions: You came to emergency department because you had an alcohol withdrawal seizure. While you were in the hospital you went through alcohol withdrawal and also had daily fevers. We worked her up for the fevers and did not find any obvious source of infection. Your fevers seem to have resolved and he seemed to be stable from alcohol withdrawal standpoint. You are well enough to be discharged home. We recommend that you stop drinking alcohol and also stop smoking cigarettes. I have prescribed you a multivitamin, folic acid, thiamine and Ativan to help with your alcohol withdrawal. Please take the Ativan as needed when you feel anxious or agitated. It also appears that you have cirrhosis of your liver from your chronic alcohol use. It is very important that you stop drinking alcohol as this will only get worse otherwise and you will end up needing a liver transplant. You can only be a candidate for liver transplant if you have stopped drinking for at least 6 months therefore again it is extremely important that you quit drinking. No Smoking: If you smoke, Please STOP! Call for help.
--- NOTE | 2018-04-10 10:46 | DISCHARGE SUMMARY ---
Discharge Summary Admit Date: 04/03/18 Discharge Date: 04/10/18 Discharging Provider: Mahad Tristan MD Primary Care Provider: None Code Status: Attempt Resuscitation Condition at Discharge: Fair Discharge Disposition: 01 Home, Self Care - DIAGNOSES Admission Diagnoses: 1. Alcohol withdrawal seizure 2. Alcohol abuse 3. Hypokalemia 4. Hyponatremia 5. Elevated LFTs 6. Anemia Discharge Diagnoses with Status of Each Condition: 1. Alcohol withdrawal: Stable 2. Urinary tract infection: Resolved 3. Paroxysmal atrial fibrillation: Stable 4. Alcoholic cirrhosis of liver: Stable 5. Hypomagnesemia: Resolved 6. Anemia, iron deficiency: Stable 7. Chronic low back pain: Stable 8. Tobacco abuse: Stable - HPI History of Present Illness: Patient is a 62-year-old gentleman with no prior past medical history or emergency room visits or admissions who presented to the emergency department with chief complaint of seizures. The patient has a history of alcohol abuse and drinks 5 glasses of vodka per day. He had decreased down to 3 glasses then to 2 glasses and had stopped just prior to admission. On day of admission the patient had a witnessed seizure which was witnessed by his sister. The patient lives with his sister and was brought into the emergency department after having had the seizure. The patient was found to be obtundent and also very weak even after his postictal state when he was more awake. The patient was unable to sit up or hold himself up. The patient was admitted to the hospital for alcohol withdrawal and management of his electrolyte abnormalities. - HOSPITAL COURSE Hospital Course: The patient was treated throughout the hospitalization for alcohol withdrawal with CIWA protocol and was given IV fluids, thiamine, folic acid, multivitamins and Ativan as needed. During the hospitalization the patient developed fever which was thought to be secondary to a urinary tract infection. The patient's urinalysis, urine culture and blood cultures were all negative. The patient was treated with IV antibiotics through out the hospitalization and had resolution of fevers for over 24 hours prior to discharge. The patient's antibiotics were stopped at discharge given negative cultures. The patient was much more stable from alcohol withdrawal standpoint at the time of discharge. The patient was given a prescription for Ativan to help with any further withdrawals. Patient was counseled about alcohol abuse as well as tobacco abuse. The patient's abdominal ultrasound did show evidence of liver cirrhosis and patient was advised to quit drinking. The patient did not have any ascites on examination or on ultrasound. The patient was not started on any diuretics. The patient did have an elevated INR, low platelets and an elevated total bilirubin suggestive of end-stage liver disease. It was explained to the patient that if he does not stop drinking he will likely from the cirrhosis. He was also told that he will need to follow-up and establish himself with a primary care physician as he may need a liver transplant in the future. The patient's LFTs did improve slowly during the hospitalization and would likely elevated due to alcoholic hepatitis. The patient's electrolytes were replaced including his magnesium, potassium and phosphorus. The patient was found to have paroxysmal atrial fibrillation without any recurrence during the hospitalization. The patient was in sinus rhythm at the time of discharge. The patient was not started on aspirin or any anticoagulation given his liver failure, low platelets and elevated INR. The patient did complain of low back pain during the hospitalization which was an exacerbation of his chronic back pain. The patient did receive some opioids during the hospitalization but was not discharged on any opioids. The patient was in stable condition at the time of discharge and will return home and hopefully stop drinking. - ALLERGIES Allergies/Adverse Reactions: Allergies Allergy/AdvReac Type Severity Reaction Status Date / Time No Known Drug Allergies Allergy Verified 04/03/18 14:44 - MEDICATIONS Home Medications: Ambulatory Orders Medication Instructions Recorded Confirmed Folic Acid 1 mg PO DAILY #30 tablet 04/10/18 Lorazepam [Ativan] 1 mg PO Q6HR PRN #30 tablet 04/10/18 Multivitamin W/Minerals [Theragran 1 tab PO DAILYWM #30 tablet 04/10/18 M] Thiamine [Vitamin B-1] 100 mg PO DAILY #30 tablet 04/10/18 - PHYSICAL EXAM AT DISCHARGE General Appearance: positive: No acute distress, Alert Eyes Bilateral: positive: Normal inspection, PERRL, EOMI, No lid inflammation, Conjunctivae nml, No scleral icterus ENT: positive: ENT inspection nml, Pharynx nml, Dry mucous membranes. negative : Purulent nasal drainage, Pharyngeal erythema, Oral lesions Neck: positive: Nml inspection, Thyroid nml, No JVD, Trachea midline. negative : Lymphadenopathy (R), Lymphadenopathy (L), Stiff neck, Carotid bruit, Tracheal deviation Respiratory: positive: Chest non-tender, No respiratory distress, Breath sounds nml. negative: Wheezes, Rales, Rhonchi Cardiovascular: positive: Regular rate & rhythm, No murmur, No gallop Peripheral Pulses: positive: 2+ Abdomen: positive: Non-tender, No organomegaly, Nml bowel sounds, No distention. negative: Guarding, Rebound, Hepatomegaly Back: positive: Nml inspection. negative: CVA tenderness (R), CVA tenderness (L ) Skin: positive: Color nml, No rash, Warm. negative: Diaphoresis, Pallor, Skin rash Extremities: positive: Non-tender, Full ROM, Nml appearance, No pedal edema Neurologic/Psychiatric: positive: Oriented x3, CN's nml (2-12), Motor nml, Sensation nml, Mood/affect nml - LABS Result Diagrams: 04/10/18 06:00 04/10/18 06:00 Other Lab Results: Laboratory Results WBC 5.8 x10^3/uL (4.8-10.8) 04/10/18 06:00 RBC 3.21 10^6/uL (4.70-6.10) L 04/10/18 06:00 Hgb 11.3 g/dL (14.0-18.0) L 04/10/18 06:00 Hct 33.9 % (42.0-52.0) L 04/10/18 06:00 MCV 105.4 fL (80.0-94.0) H 04/10/18 06:00 MCH 35.1 pg (27.0-31.0) H 04/10/18 06:00 MCHC 33.3 g/dL (32.0-36.0) 04/10/18 06:00 RDW 14.5 % (12.0-15.0) 04/10/18 06:00 Plt Count 193 10^3/uL (130-450) 04/10/18 06:00 MPV 7.8 fL (7.4-11.4) 04/10/18 06:00 Neut # (Auto) 3.1 10^3/uL (1.5-6.6) 04/10/18 06:00 Lymph # (Auto) 1.3 10^3/uL (1.5-3.5) L 04/10/18 06:00 [place] # (Auto) 1.1 10^3/uL (0.0-1.0) H 04/10/18 06:00 Eos # (Auto) 0.2 10^3/uL (0.0-0.7) 04/10/18 06:00 Baso # (Auto) 0.2 10^3/uL (0.0-0.1) H 04/10/18 06:00 Absolute Nucleated RBC 0.01 x10^3/uL 04/10/18 06:00 Nucleated RBC % 0.2 /100WBC 04/10/18 06:00 PT 17.5 secs (9.9-12.6) H 04/04/18 09:02 INR 1.6 (0.8-1.2) H 04/04/18 09:02 VBG pH 7.456 (7.31-7.41) H 04/06/18 05:45 Ionized Calcium 1.08 mmol/L (1.15-1.33) L 04/06/18 05:45 Sodium 136 mmol/L (135-145) 04/10/18 06:00 Potassium 3.8 mmol/L (3.5-5.0) 04/10/18 06:00 Chloride 102 mmol/L (101-111) 04/10/18 06:00 Carbon Dioxide 26 mmol/L (21-32) 04/10/18 06:00 Anion Gap 8.0 (6-13) 04/10/18 06:00 BUN 8 mg/dL (6-20) 04/10/18 06:00 Creatinine 0.6 mg/dL (0.6-1.2) 04/10/18 06:00 Estimated GFR (MDRD) 137 (>89) 04/10/18 06:00 Glucose 95 mg/dL (70-100) 04/10/18 06:00 Lactic Acid 1.4 mmol/L (0.5-2.2) 04/07/18 08:54 Calcium 8.4 mg/dL (8.5-10.3) L 04/10/18 06:00 Phosphorus 2.5 mg/dL (2.5-4.6) 04/06/18 05:45 Magnesium 1.6 mg/dL (1.7-2.8) L 04/10/18 06:00 Iron 20 ug/dL (45-182) L 04/05/18 04:40 TIBC 193 ug/dL (250-450) L 04/05/18 04:40 % Saturation 10 % (20-50) L 04/05/18 04:40 Transferrin 138 mg/dL (180-329) L 04/05/18 04:40 Total Bilirubin 2.6 mg/dL (0.2-1.0) H 04/10/18 06:00 GGT 215 IU/L (8-55) H 04/03/18 15:17 AST 88 IU/L (10-42) H 04/10/18 06:00 ALT 45 IU/L (10-60) 04/10/18 06:00 Alkaline Phosphatase 85 IU/L (42-121) 04/10/18 06:00 Troponin I < 0.04 ng/mL (<0.49) 04/05/18 12:25 B-Natriuretic Peptide 1069 pg/mL (5-100) H 04/05/18 12:25 Total Protein 7.4 g/dL (6.7-8.2) 04/10/18 06:00 Albumin 2.8 g/dL (3.2-5.5) L 04/10/18 06:00 Globulin 4.6 g/dL (2.1-4.2) H 04/10/18 06:00 Albumin/Globulin Ratio 0.6 (1.0-2.2) L 04/10/18 06:00 Lipase 40 U/L (22-51) 04/03/18 15:17 Vitamin B12 1256 pg/mL (180-914) H 04/05/18 04:40 Folate 15.87 ng/mL (5.90 - >24.8) 04/05/18 04:40 Urine Color YELLOW 04/07/18 18:30 Urine Clarity CLEAR (CLEAR) 04/07/18 18:30 Urine pH 7.5 PH (5.0-7.5) 04/07/18 18:30 Ur Specific [place] 1.015 (1.002-1.030) 04/07/18 18:30 Urine Protein NEGATIVE mg/dL (NEGATIVE) 04/07/18 18:30 Urine Glucose (UA) NEGATIVE mg/dL (NEGATIVE) 04/07/18 18:30 Urine Ketones NEGATIVE mg/dL (NEGATIVE) 04/07/18 18:30 Urine Occult Blood NEGATIVE (NEGATIVE) 04/07/18 18:30 Urine Nitrite NEGATIVE (NEGATIVE) 04/07/18 18:30 Urine Bilirubin NEGATIVE (NEGATIVE) 04/07/18 18:30 Urine Urobilinogen 0.2 (NORMAL) E.U./dL (NORMAL) 04/07/18 18:30 Ur Leukocyte Esterase NEGATIVE (NEGATIVE) 04/07/18 18:30 Urine RBC None Seen /HPF (0-5) 04/07/18 18:30 Urine WBC 0-3 /HPF (0-3) 04/07/18 18:30 Ur Squamous Epith Cells NONE SEEN (<= Few) 04/07/18 18:30 Urine Bacteria None Seen /HPF (None Seen) 04/07/18 18:30 Ur Microscopic Review NOT INDICATED 04/03/18 20:55 Urine Culture Comments NOT INDICATED 04/07/18 18:30 Last Dose Date 04/08/18 04/08/18 06:04 Last Dose Time 1122 04/08/18 06:04 Vancomycin Trough 11.5 ug/mL (10.0-20.0) 04/08/18 06:04 Urine Opiates Screen NEGATIVE (NEGATIVE) 04/03/18 20:56 Ur Oxycodone Screen NEGATIVE (NEGATIVE) 04/03/18 20:56 Urine Methadone Screen NEGATIVE (NEGATIVE) 04/03/18 20:56 Ur Propoxyphene Screen NEGATIVE (NEGATIVE) 04/03/18 20:56 Ur Barbiturates Screen NEGATIVE (NEGATIVE) 04/03/18 20:56 Ur Tricyclics Screen NEGATIVE (NEGATIVE) 04/03/18 20:56 Ur Phencyclidine Scrn NEGATIVE (NEGATIVE) 04/03/18 20:56 Ur Amphetamine Screen NEGATIVE (NEGATIVE) 04/03/18 20:56 U Methamphetamines Scrn NEGATIVE (NEGATIVE) 04/03/18 20:56 U Benzodiazepines Scrn POSITIVE (NEGATIVE) H 04/03/18 20:56 Urine Cocaine Screen NEGATIVE (NEGATIVE) 04/03/18 20:56 U Cannabinoids Screen NEGATIVE (NEGATIVE) 04/03/18 20:56 - DIAGNOSTIC IMAGING Diagnostic Imaging Results: Final report reviewed Diagnostic Imaging Results Comments: Chest x-ray Impression: Mildly low lung volumes with some hypoventilatory crowding. No focal consolidation or pleural effusions. CT head Impression: No acute intracranial abnormality identified. Abdominal ultrasound Impression: Diffusely echogenic liver, with possible reversal of flow within the portal vein. This may represent cirrhosis and portal hypertension. Cholelithiasis. No evidence of biliary obstruction. Chest x-ray 04/05/2018 Impression Minimal left basilar atelectasis Chest/thorax CT angiogram Impression: No evidence of pulmonary embolism. Mild basilar airspace disease, right likely representing atelectasis. Prominent vascular structures in the upper abdomen and nodular contour to the liver, suggestive of cirrhosis and varices. Chest x-ray 04/06/2018 Impression: No definite evidence of congestive heart failure. No significant change from prior Chest x-ray 04/07/2018 Impression: No acute radiographic abnormality identified. Exam mildly limited due to patient rotation. Abdominal ultrasound 04/08/2018 Impression: No evidence of ascites. Prominent vessel in the left upper quadrant, likely represents varices. - FOLLOW UP Follow Up: [place] need to follow-up for his liver cirrhosis. The patient was advised to quit drinking and smoking. We explained to the patient the risks involved if he continued to drink as he already has liver cirrhosis. The patient will need evaluation by surgery or GI for EGD to determine whether he has varices. The patient will also need close monitoring in the future as he may need a liver transplant. The patient was discharged with Ativan to help with his alcohol withdrawal. The patient was in stable condition at the time of discharge. We did not give the patient any antibiotics to go home with as he was treated here in the hospital with IV antibiotics and his fevers had resolved and cultures were negative. - TIME SPENT Time Spent in Discharge (Minutes): 45
== END 2018-04-10 11:30 | disposition home or self-care (01) | DRG 897 ==
LOC: ED 14:35 → ICU 18:20 → MS2 04-06 15:54
PROVIDERS: ADMIT Internal Medicine; ATTEND Internal Medicine
DX: F10.232 Alcohol dependence with withdrawal with perceptual disturbance (principal); F10.230 Alcohol dependence with withdrawal, uncomplicated; E87.1 Hypo-osmolality and hyponatremia; D64.9 Anemia, unspecified; R53.1 Weakness; R40.2412 Glasgow coma scale score 13-15, at arrival to emergency department; I10 Essential (primary) hypertension; J44.9 Chronic obstructive pulmonary disease, unspecified; F17.200 Nicotine dependence, unspecified, uncomplicated; N39.0 Urinary tract infection, site not specified; K76.6 Portal hypertension; I48.92 Unspecified atrial flutter; I85.10 Secondary esophageal varices without bleeding; R56.9 Unspecified convulsions; K70.30 Alcoholic cirrhosis of liver without ascites; K70.10 Alcoholic hepatitis without ascites; E87.6 Hypokalemia; E83.42 Hypomagnesemia; E83.39 Other disorders of phosphorus metabolism; D50.9 Iron deficiency anemia, unspecified; I48.0 Paroxysmal atrial fibrillation; M54.5 Low back pain; G89.29 Other chronic pain; B94.9 Sequelae of unspecified infectious and parasitic disease; B07.9 Viral wart, unspecified; R35.0 Frequency of micturition; R05 Cough; D69.59 Other secondary thrombocytopenia; Z72.0 Tobacco use
CPT/HCPCS: 36415; 70450; 71045; 71046; 71275; 76700; 76705; 80048; 80053; 80074; 80202; 80306; 81001; 81003; 82270; 82330; 82607; 82746; 82977; 83540; 83605; 83690; 83735; 83880; 84100; 84132; 84466; 84484; 85025; 85610; 87040; 87070; 87086; 87150; 87205; 87389; 93005; 93306; 96365; 96366; 96368; 96375; 99284

== ENCOUNTER 2018-07-02 15:16 | Outpatient (CLI) | payer MEDICARE, MEDICAID | END 2018-07-02 15:17 | disposition critical access hospital (66) | LOC: EMS 15:16 | PROVIDERS: ATTEND Surgery | DX: S09.90XA Unspecified injury of head, initial encounter (principal); R56.9 Unspecified convulsions; R41.82 Altered mental status, unspecified; W18.39XA Other fall on same level, initial encounter; Y92.512 Supermarket, store or market as the place of occurrence of the external cause | CPT/HCPCS: A0425; A0429 ==

== ENCOUNTER 2018-07-02 15:40 | Emergency (ER) | payer MEDICARE, MEDICAID ==
[2018-07-02] MEDS ORDERED: THIAMINE INJ 100 MG in SODIUM CHLORIDE 0.9% 50 ML IV STA (15:52)
[2018-07-02] MEDS ORDERED: LORazepam 2 MG/ML VIAL IVP STA (15:52)
[2018-07-02] MEDS ORDERED: SODIUM CHLORIDE 0.9% 1,000 ML IV ONE (15:52)
[2018-07-02] MEDS ORDERED: LORazepam 2 MG/ML VIAL ONE (15:53)
--- NOTE | 2018-07-02 15:55 | ED Physician Documentation ---
PD HPI SEIZURE - Stated complaint Stated Complaint: SEIZURE - History obtained from History obtained from: Patient, EMS - History of Present Illness Timing - onset: Today (He quit drinking a couple of days ago, ran out of money for alcohol. Today had a seizure. No obvious injury. He is clearly in alcohol withdrawal and admits to same and denies seizures. Does have a mild headache.) Review of Systems Ten Systems: 10 systems reviewed and negative Constitutional: denies: Fever, Chills GI: denies: Abdominal Pain, Nausea, Vomiting, Diarrhea, Hematemesis, Bloody / black stool : denies: Dysuria, Frequency PD PAST MEDICAL HISTORY - Past Medical History Cardiovascular: Hypertension Respiratory: COPD Neuro: None Endocrine/Autoimmune: None GI: None : None Psych: None Musculoskeletal: Chronic back pain Derm: None - Past Surgical History Past Surgical History: Yes Ortho: Rotator cuff repair, Other - Present Medications Home Medications: Ambulatory Orders Medication Instructions Recorded Confirmed Multivitamin W/Minerals [Theragran 1 tab PO DAILYWM #30 tablet 04/10/18 M] Thiamine [Vitamin B-1] 100 mg PO DAILY #30 tablet 04/10/18 - Allergies Allergies/Adverse Reactions: Allergies Allergy/AdvReac Type Severity Reaction Status Date / Time No Known Drug Allergies Allergy Verified 07/02/18 16:05 - Social History Does the pt smoke?: Yes Smoking Status: Current every day smoker Does the pt drink ETOH?: Yes Does the pt have substance abuse?: No - Family History Family history: reports: Non contributory - Immunizations Immunizations are current?: Yes PD ED PE NORMAL - Vitals Vital signs reviewed: Yes - General General: Alert and oriented X 3, Other (He is very tachycardic and shaky. He is alert and oriented but somewhat agitated.) - HEENT HEENT: PERRL, EOMI, Other (No tongue laceration) - Neck Neck: No bony TTP, Other (There is a occipital laceration with a large hematoma) - Cardiac Cardiac: Other (Quite tachycardic but no murmur) - Respiratory Respiratory: No respiratory distress, Clear bilaterally - Abdomen Abdomen: Normal bowel sounds, Soft, Non tender - Back Back: No CVA TTP, No spinal TTP - Derm Derm: Other (He has pretty significant warts on the hands.) - Extremities Extremities: No deformity, No tenderness to palpate, Normal ROM s pain, No allyson a, No calf tenderness / cord - Neuro Neuro: Alert and oriented X 3 Eye Opening: Spontaneous Motor: Obeys Commands Verbal: Confused GCS Score: 14 - Psych Psych: Normal mood, Normal affect Results - Vitals Vitals: Vital Signs - 24 hr 07/02/18 07/02/18 07/02/18 15:59 16:11 16:16 Temperature 36.8 C Heart Rate 153 H 150 H 156 H Respiratory 18 18 20 Rate Blood Pressure 143/107 H 128/100 H 136/110 H O2 Saturation 100 100 100 07/02/18 07/02/18 07/02/18 16:25 16:45 16:51 Temperature Heart Rate 156 H 155 H 151 H Respiratory 18 20 22 Rate Blood Pressure 107/94 H 127/102 H 137/99 H O2 Saturation 99 92 94 07/02/18 07/02/18 16:57 17:35 Temperature Heart Rate 78 84 Respiratory 20 22 Rate Blood Pressure 128/88 H 139/90 H O2 Saturation 100 100 Oxygen O2 Source [] Room air O2 Source Room air - EKG (time done) 1606 Rate: Rate (enter#) (148) Rhythm: Atrial flutter (Mostly 2-1 block) [place]: RAD Ischemia: Non specific changes Computer interpretation: Agree with computer - Labs Labs: Laboratory Tests 07/02/18 07/02/18 16:00 16:00 WBC 6.4 RBC 3.83 L Hgb 13.0 L Hct 38.0 L MCV 99.2 H MCH 34.0 H MCHC 34.3 RDW 15.0 Plt Count 87 L MPV 8.8 Neut # (Auto) 3.6 Lymph # (Auto) 1.9 [place] # (Auto) 0.7 Eos # (Auto) 0.1 Baso # (Auto) 0.1 Absolute Nucleated RBC 0.00 Nucleated RBC % 0.1 Sodium 134 L Potassium 2.7 L Chloride 99 L Carbon Dioxide 14 L Anion Gap 21.0 H BUN 14 Creatinine 0.7 Estimated GFR (MDRD) 115 Glucose 146 H Calcium 8.5 Magnesium 1.1 L Total Bilirubin 3.7 H AST 80 H ALT 32 Alkaline Phosphatase 77 Total Protein 8.4 H Albumin 3.5 Globulin 5.0 H Albumin/Globulin Ratio 0.7 L Lipase 43 Ethyl Alcohol < 5.0 - Rads (name of study) Ct Head and Cspine Radiology: EMP read contemporaneously (Scalp hematoma, atrophy. No acute intracranial injury.) Procedures - Laceration (location) Occiput Length in cm: 2 Wound type: Linear, Curved Anesthesia: Lidocaine 1% with epi Wound Preparation: Irrigated copiously NS Skin layer closure: Chuck Other: Tetanus UTD Complexity: Simple PD MEDICAL DECISION MAKING - ED course ED course: 62-year-old gentleman presents with severe alcohol withdrawal and seizure. Treated initially with Ativan. He is also noted to have new atrial flutter. Administered diltiazem without effect, this was followed with metoprolol which converted him to sinus rhythm with normal rate. Head CT and C-spine CT with were without acute intracranial changes but noting the scalp injury. He will need to be admitted for further evaluation and treatment given the severity of his withdrawal symptoms. Magnesium and potassium were repleted IV. Spoke with Dr. Paez for admission at 5:20 PM. However while I was talking to the patient about this he refused to stay in the hospital. He was alert and oriented 3. We discussed the danger of alcohol withdrawal and seizures and he is able to verbalize this back to me and is signed out AGAINST MEDICAL ADVICE. - Sepsis Event Vital Signs: Vital Signs - 24 hr 07/02/18 07/02/18 07/02/18 15:59 16:11 16:16 Temperature 36.8 C Heart Rate 153 H 150 H 156 H Respiratory 18 18 20 Rate Blood Pressure 143/107 H 128/100 H 136/110 H O2 Saturation 100 100 100 07/02/18 07/02/18 07/02/18 16:25 16:45 16:51 Temperature Heart Rate 156 H 155 H 151 H Respiratory 18 20 22 Rate Blood Pressure 107/94 H 127/102 H 137/99 H O2 Saturation 99 92 94 07/02/18 07/02/18 16:57 17:35 Temperature Heart Rate 78 84 Respiratory 20 22 Rate Blood Pressure 128/88 H 139/90 H O2 Saturation 100 100 Oxygen O2 Source [] Room air O2 Source Room air Departure - Departure Disposition: 07 Against Medical Advice Clinical Impression: Hypokalemia, Hypomagnesemia, Paroxysmal A-fib Alcoholic cirrhosis of liver Qualifiers: Ascites presence: without ascites Qualified Code(s): K70.30 - Alcoholic cirrhosis of liver without ascites Alcohol withdrawal seizure Qualifiers: Complication of substance-induced condition: uncomplicated Qualified Code(s): F10.230 - Alcohol dependence with withdrawal, uncomplicated Condition: Serious Comments: Return anytime if you change your mind about admission or worsen in any way. The chuck in her head need to come out in about 10 days, follow-up with your doctor for this.
[2018-07-02] MEDS ORDERED: diltiaZEM INJ 5 MG/ML VIAL IVP STA (16:09)
[2018-07-02 16:15] LABS: BASOPHILS # (AUTO) 0.1 10^3/uL (0.0-0.1); BASOPHILS % (AUTO) 1.1 %; EOSINOPHILS # (AUTO) 0.1 10^3/uL (0.0-0.7); EOSINOPHILS % (AUTO) 2.3 %; LYMPHOCYTES # (AUTO) 1.9 10^3/uL (1.5-3.5); LYMPHOCYTES % (AUTO) 29.3 %; MEAN CORPUSCULAR HGB CONC 34.3 g/dL (32.0-36.0); MEAN CORPUSCULAR VOLUME 99.2 fL (80.0-94.0); MEAN PLATELET VOLUME 8.8 fL (7.4-11.4); MONOCYTES # (AUTO) 0.7 10^3/uL (0.0-1.0); MONOCYTES % (AUTO) 10.8 %; NEUTROPHILS # (AUTO) 3.6 10^3/uL (1.5-6.6); NEUTROPHILS % (AUTO) 56.5 %; PLT - PLATELET COUNT 87 10^3/uL (130-450); RED BLOOD COUNT 3.83 10^6/uL (4.70-6.10); WHITE BLOOD COUNT 6.4 x10^3/uL (4.8-10.8)
[2018-07-02 16:28] LABS: ALBUMIN 3.5 g/dL (3.2-5.5); ALBUMIN/GLOBULIN RATIO 0.7 (1.0-2.2); ALKALINE PHOSPHATASE 77 IU/L (42-121); ALT ALANINE AMINOTRANSFERASE 32 IU/L (10-60); AST ASPARTATE AMINOTRANSFERASE 80 IU/L (10-42); BILIRUBIN,TOTAL 3.7 mg/dL (0.2-1.0); BUN - BLOOD UREA NITROGEN 14 mg/dL (6-20); CALCIUM 8.5 mg/dL (8.5-10.3); CARBON DIOXIDE - CO2 14 mmol/L (21-32); CHLORIDE 99 mmol/L (101-111); CREATININE 0.7 mg/dL (0.6-1.2); GFR - MDRD 115 (>89); GLUCOSE 146 mg/dL (70-100); LIPASE 43 U/L (22-51); MAGNESIUM 1.1 mg/dL (1.7-2.8); SODIUM 134 mmol/L (135-145); TOTAL PROTEIN 8.4 g/dL (6.7-8.2)
[2018-07-02] MEDS ORDERED: POTASSIUM CHLOR 10 MEQ/100 ML 10 MEQ/100 ML BAG IV ONE (16:30)
[2018-07-02] MEDS ORDERED: MAGNESIUM SULFATE 2 GRAM 2 GM/50 ML BAG IV ONE (16:30)
[2018-07-02] MEDS ORDERED: METOPROLOL 5 MG/5 ML VIAL IVP STA (16:46)
--- NOTE | 2018-07-02 16:58 | CT Report ---
Reason: head inj Procedure Date: 07/02/2018 Accession Number: [id number] / [id number] Procedure: CT - Head W/O CPT Code: FULL RESULT: EXAM: CT HEAD WITHOUT CONTRAST EXAM DATE: 07/02/2018 04:42 PM. CLINICAL HISTORY: Head injury. Fall, possible head injury. COMPARISON: CT head without contrast 04/03/2018. TECHNIQUE: Multiaxial CT images were obtained from the foramen magnum to the vertex. Reformats: Coronal. IV contrast: None. In accordance with CT protocol optimization, one or more of the following dose reduction techniques were utilized for this exam: automated exposure control, adjustment of mA and/or KV based on patient size, or use of iterative reconstructive technique. FINDINGS: Mild generalized cerebral atrophy with enlargement of the ventricles and sulci. Small focal chronic encephalomalacia is seen at the right superior frontal lobe extending to the centrum semiovale white matter, unchanged. No evidence for edema. No mass effect or midline shift. No evidence for acute intracranial hemorrhage. No extra-axial hematomas. Large right posterior scalp hematoma and soft tissue swelling. No evidence for acute fracture. Paranasal sinuses and mastoid air cells appear clear. IMPRESSION: Mild generalized atrophy. Small chronic right frontal lobe infarct, unchanged. No acute intracranial abnormalities are seen. Large right posterior scalp hematoma and soft tissue swelling. RADIA
--- NOTE | 2018-07-02 17:08 | CT Report ---
Reason: poss head inj Procedure Date: 07/02/2018 Accession Number: [id number] / [id number] Procedure: CT - Cervical Spine W/O CPT Code: FULL RESULT: EXAM: CT CERVICAL SPINE WITHOUT CONTRAST DATE: 07/02/2018 04:42 PM. HISTORY: Possible head injury. Fall. COMPARISONS: Noncontrast CT head 04/03/2018. TECHNIQUE: Thin-section axial images were acquired of the cervical spine without contrast. Post-processing: Coronal and sagittal reformats. Other: None. In accordance with CT protocol optimization, one or more of the following dose reduction techniques were utilized for this exam: automated exposure control, adjustment of mA and/or KV based on patient size, or use of iterative reconstructive technique. FINDINGS: No significant spondylolisthesis. Mild leftward curve. Large anterior osteophytes at C4-C5 with partial osseous fusion with the osteophyte off the C5 vertebral body. Mild degenerative disk disease at C5-T1. Minimal degenerative disk disease at C2-C3 and C3-C4. Mild diffuse bilateral facet arthropathy. No evidence for acute fracture. No acute soft tissue findings. Mild biapical centrilobular emphysema. Mild right apex paraseptal emphysema. IMPRESSION: 1. No evidence for acute fracture. 2. Chronic and degenerative changes as above. RADIA
[2018-07-02 17:36] VITALS: BP 139/90
[2018-07-02] MEDS ORDERED: LIDOCAINE 1%-EPI 1:100000 30 ML MDV ONE (17:49)
== END 2018-07-02 18:15 | disposition left against medical advice (07) ==
LOC: ED 15:40
DX: E87.6 Hypokalemia (principal); E83.42 Hypomagnesemia; I48.0 Paroxysmal atrial fibrillation; K70.30 Alcoholic cirrhosis of liver without ascites; F10.230 Alcohol dependence with withdrawal, uncomplicated; I10 Essential (primary) hypertension; J44.9 Chronic obstructive pulmonary disease, unspecified; F17.200 Nicotine dependence, unspecified, uncomplicated; S01.01XA Laceration without foreign body of scalp, initial encounter; Z53.20 Procedure and treatment not carried out because of patient's decision for unspecified reasons
CPT/HCPCS: 12001; 36415; 70450; 72125; 80053; 83690; 83735; 85025; 93005; 96361; 96374; 96375; 99284; J2060; J3411; J7040; 80320

== ENCOUNTER 2018-08-18 23:30 | Outpatient (CLI) | payer MEDICARE, MEDICAID | END 2018-08-18 23:31 | disposition critical access hospital (66) | LOC: EMS 23:30 | PROVIDERS: ATTEND Surgery | DX: R56.9 Unspecified convulsions (principal) | CPT/HCPCS: A0425; A0429 ==

== ENCOUNTER 2018-08-19 00:08 | Inpatient (IN) | payer MEDICARE, MEDICAID ==
--- NOTE | 2018-08-19 00:11 | ED Physician Documentation ---
PD HPI SEIZURE - Stated complaint Stated Complaint: SZ - History obtained from History obtained from: Patient, EMS - History of Present Illness Witnessed: Witnessed Number of seizures: Single Description of seizure activity: Generalized Injury during seizure: Other (lip laceration) Pain level max: 0 Pain level now: 0 History of seizures: Prior EtOH wdrawal sz Similar symptoms before: Diagnosis (alcohol-withdrawal seizures) Recently seen: Emergency Dept (evaluated last month under similar circumstances; plan was to admit, but patient elected to leave AMA) - Additional information Additional information: BIBA. Per medic report, patient's sister was in an adjacent room when she heard patient fall. She immediately checked on patient and found him seizing, description is c/w GTC seizure, lasted several minutes. Post-ictal on medics arrival (no longer seizing, but somnolent with gradually improving mentation en route). Patient says he last drank alcohol 2-3 days ago but that he had been drinking heavily and daily until then. He says he is not on any prescription medications Review of Systems Constitutional: reports: Reviewed and negative Eyes: reports: Reviewed and negative Ears: reports: Reviewed and negative Nose: reports: Reviewed and negative Throat: reports: Reviewed and negative Cardiac: reports: Reviewed and negative Respiratory: reports: Reviewed and negative GI: reports: Reviewed and negative : denies: Dysuria, Frequency Skin: reports: Laceration (s) (lip) Musculoskeletal: denies: Neck pain, Back pain Neurologic: reports: Seizure. denies: Generalized weakness, Focal weakness, Numbness, Headache PD PAST MEDICAL HISTORY - Past Medical History Past Medical History: Yes Neuro: Seizure disorder - Present Medications Home Medications: Ambulatory Orders Medication Instructions Recorded Confirmed Multivitamin W/Minerals [Theragran 1 tab PO DAILYWM #30 tablet 04/10/18 M] Thiamine [Vitamin B-1] 100 mg PO DAILY #30 tablet 04/10/18 - Allergies Allergies/Adverse Reactions: Allergies Allergy/AdvReac Type Severity Reaction Status Date / Time No Known Drug Allergies Allergy Verified 08/19/18 00:18 - Living Situation Living Situation: reports: With family Living Arrangement: reports: At home - Social History Does the pt drink ETOH?: Yes ETOH Use: Liquor PD ED PE NORMAL - Vitals Vital signs reviewed: Yes - General General: Alert and oriented X 3, No acute distress, Well developed/nourished - HEENT HEENT: PERRL, EOMI - Neck Neck: No bony TTP - Cardiac Cardiac: RRR, No murmur - Respiratory Respiratory: No respiratory distress, Clear bilaterally - Abdomen Abdomen: Soft, Non tender, Non distended - Back Back: No CVA TTP, No spinal TTP - Derm Derm: Normal color, Warm and dry - Extremities Extremities: No edema - Neuro Neuro: Alert and oriented X 3, 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, No motor deficit, No sensory deficit Eye Opening: Spontaneous Motor: Obeys Commands Verbal: Oriented GCS Score: 15 PD ED PE EXPANDED - HEENT HEENT Visual: 1 - laceration 2 - bruising, swelling 3 - laceration (healed laceration with chuck; two chuck are still in place (laceration site, which was sustained and repaired last month), three chuck are no longer in contact with the skin but are stuck in a large clump of matted hair and clotted blood) Results - Vitals Vitals: Vital Signs - 24 hr 08/19/18 08/19/18 00:14 02:12 Temperature 37.0 C Heart Rate 104 H 98 Respiratory 20 24 Rate Blood Pressure 151/98 H 137/93 H O2 Saturation 96 98 Oxygen O2 Source [With Activity] Room air O2 Source Room air - Labs Labs: Laboratory Tests 08/19/18 08/19/18 08/19/18 00:35 00:35 00:35 WBC 3.9 L RBC 3.65 L Hgb 12.7 L Hct 36.8 L MCV 100.8 H MCH 34.8 H MCHC 34.5 RDW 14.9 Plt Count 37 L MPV 8.3 Neut # (Auto) 3.2 Lymph # (Auto) 0.2 L [place] # (Auto) 0.5 Eos # (Auto) 0.0 Baso # (Auto) 0.0 Absolute Nucleated RBC 0.00 Nucleated RBC % 0.0 PT 17.8 H INR 1.6 H APTT 35.6 H Sodium 139 Potassium 3.1 L Chloride 99 L Carbon Dioxide 24 Anion Gap 16.0 H BUN 10 Creatinine 0.9 Estimated GFR (MDRD) 86 L Glucose 152 H Calcium 8.2 L Magnesium Total Bilirubin 3.6 H AST 127 H ALT 43 Alkaline Phosphatase 89 Total Protein 7.6 Albumin 3.3 Globulin 4.3 H Albumin/Globulin Ratio 0.8 L Lipase 27 Ethyl Alcohol < 5.0 08/19/18 00:35 WBC RBC Hgb Hct MCV MCH MCHC RDW Plt Count MPV Neut # (Auto) Lymph # (Auto) [place] # (Auto) Eos # (Auto) Baso # (Auto) Absolute Nucleated RBC Nucleated RBC % PT INR APTT Sodium Potassium Chloride Carbon Dioxide Anion Gap BUN Creatinine Estimated GFR (MDRD) Glucose Calcium Magnesium 1.1 L Total Bilirubin AST ALT Alkaline Phosphatase Total Protein Albumin Globulin Albumin/Globulin Ratio Lipase Ethyl Alcohol - Rads (name of study) CT head Radiology: Prelim report reviewed, See rad report Procedures - Laceration (location) Lip Length in cm: 1 Wound type: Linear Neurovascular status: Sensory intact, Motor intact, Vascular intact Anesthesia: Lidocaine 1% Skin layer closure: Interrupted, Size #-0 - enter number (5-0), Other (Vicryl) Other: Patient tolerated well, No complications, Neurovascular intact, Tetanus UTD Complexity: Simple PD MEDICAL DECISION MAKING - ED course Complexity details: reviewed old records, reviewed results, re-evaluated patient, considered differential, d/w patient ED course: patient was very tremulous on initial presentation, but this improved significa ntly after IV ativan. While awaiting test results, he gradually became increasingly tremulous again, requiring more IV ativan. He has a repaired scalp laceration that he thinks he sustained a week ago, although chart indicates this was last month; he recalls this after I reminded him that it was last month, and recognizes that the chuck were meant to be removed by now. He is pleasant and agreeable during ED stay Departure - Departure Disposition: [facility] DC/Xfer Clinical Impression: Alcohol withdrawal seizure Qualifiers: Complication of substance-induced condition: with delirium Qualified Code(s): F10.231 - Alcohol dependence with withdrawal delirium Condition: Stable Discharge Date/Time: 08/19/18 04:19
[2018-08-19] MEDS ORDERED: LORazepam 2 MG/ML VIAL ONE (00:22)
[2018-08-19] MEDS ORDERED: LORazepam 2 MG/ML VIAL IVP STA ×2 (00:23→02:31)
[2018-08-19] MEDS ORDERED: SODIUM CHLORIDE 0.9% 1,000 ML IV STA ×2 (00:23→02:31)
[2018-08-19 00:40] LABS: BASOPHILS % (AUTO) 0.2 %; EOSINOPHILS % (AUTO) 0.3 %; HGB - HEMOGLOBIN 12.7 g/dL (14.0-18.0); LYMPHOCYTES # (AUTO) 0.2 10^3/uL (1.5-3.5); LYMPHOCYTES % (AUTO) 5.5 %; MEAN CORPUSCULAR HEMOGLOBIN 34.8 pg (27.0-31.0); MEAN CORPUSCULAR HGB CONC 34.5 g/dL (32.0-36.0); MEAN CORPUSCULAR VOLUME 100.8 fL (80.0-94.0); MEAN PLATELET VOLUME 8.3 fL (7.4-11.4); MONOCYTES # (AUTO) 0.5 10^3/uL (0.0-1.0); MONOCYTES % (AUTO) 13.4 %; NEUTROPHILS # (AUTO) 3.2 10^3/uL (1.5-6.6); NEUTROPHILS % (AUTO) 80.6 %; PLT - PLATELET COUNT 37 10^3/uL (130-450); RED BLOOD COUNT 3.65 10^6/uL (4.70-6.10); RED CELL DISTRIBUTION WIDTH 14.9 % (12.0-15.0); WHITE BLOOD COUNT 3.9 x10^3/uL (4.8-10.8)
[2018-08-19 00:54] LABS: INR 1.6 (0.8-1.2); PT - PROTHROMBIN TIME 17.8 secs (9.9-12.6)
[2018-08-19 01:10] LABS: ALBUMIN 3.3 g/dL (3.2-5.5); ALBUMIN/GLOBULIN RATIO 0.8 (1.0-2.2); ALKALINE PHOSPHATASE 89 IU/L (42-121); ALT ALANINE AMINOTRANSFERASE 43 IU/L (10-60); AST ASPARTATE AMINOTRANSFERASE 127 IU/L (10-42); BILIRUBIN,TOTAL 3.6 mg/dL (0.2-1.0); BUN - BLOOD UREA NITROGEN 10 mg/dL (6-20); CALCIUM 8.2 mg/dL (8.5-10.3); CARBON DIOXIDE - CO2 24 mmol/L (21-32); CHLORIDE 99 mmol/L (101-111); CREATININE 0.9 mg/dL (0.6-1.2); GFR - MDRD 86 (>89); GLUCOSE 152 mg/dL (70-100); LIPASE 27 U/L (22-51); SODIUM 139 mmol/L (135-145); TOTAL PROTEIN 7.6 g/dL (6.7-8.2)
--- NOTE | 2018-08-19 01:26 | CT Report ---
Reason: fall, head injury, seizure Procedure Date: 08/19/2018 Accession Number: [id number] / [id number] Procedure: CT - Head W/O CPT Code: FULL RESULT: EXAM: CT HEAD EXAM DATE: 08/19/2018 01:11 AM. CLINICAL HISTORY: Fall, head injury, seizure. COMPARISON: 07/02/2018. TECHNIQUE: Multiaxial CT images were obtained from the foramen magnum to the vertex. Reformats: Sagittal and coronal. IV contrast: None. In accordance with CT protocol optimization, one or more of the following dose reduction techniques were utilized for this exam: automated exposure control, adjustment of mA and/or KV based on patient size, or use of iterative reconstructive technique. FINDINGS: Parenchyma: Old right frontal lobe injury, unchanged. No evidence of intracranial hemorrhage, interval infarct. Extraaxial Spaces: Normal for age. No subdural or epidural collections identified. Ventricles: Normal in size and position. Sinuses and Orbits: Imaged paranasal sinuses, orbits, and mastoids show no significant abnormality. Bones: No evidence of fracture or calvarial defect. Other: None. IMPRESSION: Encephalomalacia right frontal lobe, unchanged. No acute intracranial process identified. RADIA
[2018-08-19] MEDS ORDERED: PROCHLORPERAZINE 10 MG/2 ML VIAL IVP PRN (02:56)
[2018-08-19] MEDS ORDERED: LIDOCAINE 1% 2 ML VIAL SUBQ STA (03:06)
[2018-08-19] MEDS: D5NS W/20 MEQ KCL 1,000 ML IV SCH ×2 (04:19→20:44)
[2018-08-19 04:20] LABS: GLUCOSE, URINE (UA) NEGATIVE (NEGATIVE); KETONES,URINE (UA) NEGATIVE (NEGATIVE); LEUKOCYTE ESTERASE, URINE NEGATIVE (NEGATIVE); NITRITE,URINE NEGATIVE (NEGATIVE); OCCULT BLOOD,URINE SMALL (NEGATIVE); PH,URINE 8.5 PH (5.0-7.5); PROTEIN,URINE TRACE mg/dL (NEGATIVE); UROBILINOGEN,URINE 4 E.U./dL (NORMAL)
[2018-08-19] MEDS: LORazepam 2 MG/ML VIAL IVP PRN ×9 (04:22→22:15)
[2018-08-19 04:25] LABS: BILIRUBIN,URINE SMALL (NEGATIVE); CLARITY,URINE CLEAR (CLEAR); ICTOTEST,URINE POSITIVE
[2018-08-19 04:28] LABS: BACTERIA,URINE Rare /HPF (None Seen); CASTS, URINE 6-10 Hyaline Casts /LPF; MUCUS,URINE Moderate Strands; SQUAMOUS EPITHELIAL CELL,UR MOD Squamous (<= Few)
[2018-08-19 04:43] LABS: BASOPHILS % (AUTO) 0.4 %; HGB - HEMOGLOBIN 11.8 g/dL (14.0-18.0); LYMPHOCYTES # (AUTO) 0.7 10^3/uL (1.5-3.5); MEAN CORPUSCULAR HEMOGLOBIN 34.7 pg (27.0-31.0); MEAN CORPUSCULAR HGB CONC 34.6 g/dL (32.0-36.0); MEAN CORPUSCULAR VOLUME 100.1 fL (80.0-94.0); MEAN PLATELET VOLUME 9.3 fL (7.4-11.4); MONOCYTES # (AUTO) 0.6 10^3/uL (0.0-1.0); MONOCYTES % (AUTO) 15.7 %; NEUTROPHILS # (AUTO) 2.4 10^3/uL (1.5-6.6); NEUTROPHILS % (AUTO) 64.9 %; RED BLOOD COUNT 3.41 10^6/uL (4.70-6.10); RED CELL DISTRIBUTION WIDTH 15.6 % (12.0-15.0); WHITE BLOOD COUNT 3.7 x10^3/uL (4.8-10.8)
[2018-08-19 04:46] LABS: PLT - PLATELET COUNT 31 10^3/uL (130-450)
[2018-08-19 04:58] LABS: ALBUMIN 3.3 g/dL (3.2-5.5); ALBUMIN/GLOBULIN RATIO 0.8 (1.0-2.2); BILIRUBIN,TOTAL 4.3 mg/dL (0.2-1.0); CREATININE 0.7 mg/dL (0.6-1.2); PHOSPHORUS 2.5 mg/dL (2.5-4.6); TOTAL PROTEIN 7.5 g/dL (6.7-8.2)
[2018-08-19] MEDS ORDERED: VANCOMYCIN PER PHARMACY 100 GM in SODIUM CHLORIDE 0.9% 250 ML IV PRN (05:00)
[2018-08-19] MEDS: ACETAMINOPHEN 1,000 MG/100 ML 100 ML IV PRN ×2 (05:01→11:09)
[2018-08-19 05:11] LABS: PLATELET ESTIMATE, MANUAL DECREASED (<130,000) (NORMAL); PLATELET MORPHOLOGY NORMAL APPEARANCE (NORMAL); RBC MORPHOLOGY (MULTIPLE) NORMAL APPEARANCE (NORMAL)
--- NOTE | 2018-08-19 05:19 | HISTORY & PHYSICAL EXAMINATION ---
DATE OF SERVICE: 08/19/2018 Physician: Kiara Paez MD HISTORY OF PRESENT ILLNESS: This is a 62-year-old, white male with history of hepatitis C positive, alcohol abuse, prior admission for alcohol withdrawal seizures in March 2018, evaluation in the ER for alcohol withdrawal seizures 1 month ago and advised admission, but he signed himself out AMA before being admitted. He presents now with alcohol withdrawal seizures. He lives with his sister who heard a thud and went to see him in his room, where he was having a seizure. An ambulance was called and he was postictal. He was brought to the emergency room and found to have a lip laceration. There were also still sutures in his scalp from an old laceration from many months ago that had never been removed. Apparently, the patient had stopped drinking several days ago for unknown reasons. He normally drinks about 5 glasses of vodka per day. He denies any headache or pain. His lip laceration was sutured in the emergency room. He is being admitted to the ICU for the alcohol withdrawal seizure. PAST MEDICAL HISTORY: Alcohol abuse, alcoholic hepatitis by imaging studies done in March 2018, abnormal liver function tests and INR, macrocytic anemia, all consistent with his heavy alcohol abuse. Patient has no PCP and takes no medications. ALLERGIES: NONE. MEDICATIONS: None. SOCIAL HISTORY: He drinks at least 5 glasses of vodka per day, it is unclear if he takes any other alcohol intake. He stopped drinking 2 days ago for unknown reasons. He does smoke cigarettes. In the past, he has denied illicit drug use. FAMILY HISTORY: Noncontributory. REVIEW OF SYSTEMS: A comprehensive review of systems as performed by chart review and the pertinent positives are in the HPI. PHYSICAL EXAMINATION GENERAL: Unkept, white male. He is answering with short word sentences. He is disoriented. He thinks it is 1925. He thinks he has a different address and he possibly is oriented to self only. VITAL SIGNS: Blood pressure 151/97, pulse of 104 in sinus tachycardia, temperature 38 and room air saturation 96%. HEENT: Reveals disheveled hair. There is an area that was shaved on the top of the head to evaluate the old laceration and sutures were removed. His lower lip has a bandage on it, where he was sutured. His neck shows no JVD. CHEST: Clear. HEART: Sounds are distant. ABDOMEN: Soft. SKIN: The skin on the abdomen has a brownish growth, like a wart. EXTREMITIES: No edema. His fingers have multiple areas of brown, large wart growths. NEUROLOGIC: He is tremulous. He is oriented only to person. He has received Ativan several times since first coming to the emergency room, however. LABORATORIES: Sodium 139, potassium 3.1, creatinine 0.9, magnesium 1.1, AST 127, ALT 43, normal alkaline phosphatase, bilirubin 3.6, lipase 27. Toxicology shows no alcohol in the serum. The INR is 1.6. White blood count 3.9, hemoglobin 12.7 with an MCV of 100, platelet count low at 37. A CT of the head showed an old trauma of the frontal area, but no acute findings. IMPRESSION/DIAGNOSES 1. Alcohol withdrawal seizure. 2. Alcohol abuse with evidence of liver dysfunction. 3. Lip laceration following the seizure. 4. Hypokalemia. 5. Elevated liver function tests. 6. Macrocytic anemia. 7. Hyomagnesemia. 8. Thrombocytopenia. 9. Fever. PLAN: Admit the patient to the ICU on telemetry. Begin a CIWA protocol with Ativan IV to get him through his withdrawal. Seizure precautions. N.p.o. status, and use IV management for his potassium and magnesium replacement, IV hydration with saline and D5, and IV Tylenol for his fever. Obtain urine and blood cultures. Start empiric antibiotics to cover skin omid, adjust this as needed for results of cultures and urinalysis. CODE STATUS: FULL CODE. DEEP VENOUS THROMBOSIS PROPHYLAXIS: SCDs. ATTESTATION: The patient is expected to be discharged or transferred to another facility within 96 hours: Yes. TD: 08/19/2018 04:43 [facility]
[2018-08-19] MEDS: MAGNESIUM SULFATE 2 GRAM 2 GM/50 ML BAG IV SCH ×2 (05:25→06:20)
[2018-08-19] MEDS: POTASSIUM CHLOR 10 MEQ/100 ML 10 MEQ/100 ML BAG IV SCH ×4 (05:25→08:38)
[2018-08-19] MEDS ORDERED: VANCOMYCIN INJ 1.5 GM in SODIUM CHLORIDE 0.9% 250 ML IV SCH (06:00)
[2018-08-19] MEDS: FAMOTIDINE 20 MG/50 ML 50 ML IV SCH ×2 (09:28→20:44)
[2018-08-19] MEDS: MULTIVITAMIN 10 ML, THIAMINE INJ 100 MG, FOLIC ACID INJ 1 MG in SODIUM CHLORIDE 0.9% 1,... IV SCH (09:28)
[2018-08-19 10:05] LABS: VBG PH 7.571 (7.31-7.41)
[2018-08-19] MEDS ORDERED: CALCIUM GLUCONATE 1,000 MG in SODIUM CHLORIDE 0.9% 50 ML IV ONE ×2 (11:00→21:54)
--- NOTE | 2018-08-19 12:19 | PROVIDER PROGRESS NOTE ---
Subjective - Prog Note Date Prog Note Date: 08/19/18 Prog Note Time: 12:18 - Subjective Pt reports feeling: Improved (Pt admitted earlier this am. See H&P. Now more comfortable, VSS, responding well to Ativan 2 mg IV q 1 hr. Will cont to follow and adjust meds as needed.) Objective - Vital Signs/Intake & Output Vital Signs: Vital Signs x48h Temp Pulse Resp BP Pulse Ox 08/19/18 11:38 94 36 H 123/96 H 95 08/19/18 11:00 38.1 C H 98 26 H 123/96 H 97 08/19/18 10:00 99 25 H 133/87 H 98 08/19/18 09:00 102 H 27 H 135/83 H 95 08/19/18 07:54 38.0 C H 08/19/18 07:43 92 23 136/78 H 95 08/19/18 07:00 101 H 27 H 136/78 H 95 08/19/18 06:00 94 22 126/74 95 08/19/18 05:00 104 H 24 146/94 H 97 08/19/18 04:30 98 25 H 131/80 H 95 Intake & Output: Intake & Output 08/16/18 08/17/18 08/18/18 08/19/18 23:59 23:59 23:59 23:59 Intake Total 2062.500 Output Total 235 Balance 1827.500 - Lab Results Fish Bones: 08/19/18 04:28 08/19/18 04:28 Other Labs: Lab Results x24hrs 08/19/18 08/19/18 08/19/18 Range/Units 09:48 09:48 04:28 WBC (4.8-10.8) x10^3/uL RBC (4.70-6.10) 10^6/uL Hgb (14.0-18.0) g/dL Hct (42.0-52.0) % MCV (80.0-94.0) fL MCH (27.0-31.0) pg MCHC (32.0-36.0) g/dL RDW (12.0-15.0) % Plt Count (130-450) 10^3/uL MPV (7.4-11.4) fL Neut # (Auto) (1.5-6.6) 10^3/uL Lymph # (Auto) (1.5-3.5) 10^3/uL [place] # (Auto) (0.0-1.0) 10^3/uL Eos # (Auto) (0.0-0.7) 10^3/uL Baso # (Auto) (0.0-0.1) 10^3/uL Absolute Nucleated RBC x10^3/uL Nucleated RBC % /100WBC Manual Slide Review Platelet Estimate (NORMAL) Platelet Morphology (NORMAL) RBC Morph Micro Appear (NORMAL) PT (9.9-12.6) secs INR (0.8-1.2) APTT (24.9-33.3) secs VBG pH 7.571 H (7.31-7.41) Ionized Calcium 0.94 L (1.15-1.33) mmol/L Sodium 140 (135-145) mmol/L Potassium 3.0 L (3.5-5.0) mmol/L Chloride 101 (101-111) mmol/L Carbon Dioxide 26 (21-32) mmol/L Anion Gap 13.0 (6-13) BUN 11 (6-20) mg/dL Creatinine 0.7 (0.6-1.2) mg/dL Estimated GFR (MDRD) 115 (>89) Glucose 106 H (70-100) mg/dL Calcium 8.0 L (8.5-10.3) mg/dL Phosphorus 2.5 (2.5-4.6) mg/dL Magnesium 2.0 1.0 L* (1.7-2.8) mg/dL Total Bilirubin 4.3 H (0.2-1.0) mg/dL AST 125 H (10-42) IU/L ALT 42 (10-60) IU/L Alkaline Phosphatase 88 (42-121) IU/L Total Protein 7.5 (6.7-8.2) g/dL Albumin 3.3 (3.2-5.5) g/dL Globulin 4.2 (2.1-4.2) g/dL Albumin/Globulin Ratio 0.8 L (1.0-2.2) Lipase (22-51) U/L Urine Color Urine Clarity (CLEAR) Urine pH (5.0-7.5) PH Ur Specific [place] (1.002-1.030) Urine Protein (NEGATIVE) mg/dL Urine Glucose (UA) (NEGATIVE) mg/dL Urine Ketones (NEGATIVE) mg/dL Urine Occult Blood (NEGATIVE) Urine Nitrite (NEGATIVE) Urine Bilirubin (NEGATIVE) Urine Urobilinogen (NORMAL) E.U./dL Ur Leukocyte Esterase (NEGATIVE) Urine RBC (0-5) /HPF Urine WBC (0-3) /HPF Ur Squamous Epith Cells (<= Few) Urine Bacteria (None Seen) /HPF Urine Casts /LPF Urine Mucus Ur Microscopic Review Urine Culture Comments Ethyl Alcohol mg/dL 08/19/18 08/19/18 08/19/18 Range/Units 04:28 04:17 00:35 WBC 3.7 L (4.8-10.8) x10^3/uL RBC 3.41 L (4.70-6.10) 10^6/uL Hgb 11.8 L (14.0-18.0) g/dL Hct 34.2 L (42.0-52.0) % MCV 100.1 H (80.0-94.0) fL MCH 34.7 H (27.0-31.0) pg MCHC 34.6 (32.0-36.0) g/dL RDW 15.6 H (12.0-15.0) % Plt Count 31 L* (130-450) 10^3/uL MPV 9.3 (7.4-11.4) fL Neut # (Auto) 2.4 (1.5-6.6) 10^3/uL Lymph # (Auto) 0.7 L (1.5-3.5) 10^3/uL [place] # (Auto) 0.6 (0.0-1.0) 10^3/uL Eos # (Auto) 0.0 (0.0-0.7) 10^3/uL Baso # (Auto) 0.0 (0.0-0.1) 10^3/uL Absolute Nucleated RBC 0.00 x10^3/uL Nucleated RBC % 0.1 /100WBC Manual Slide Review Indicated Platelet Estimate DECREASED (<130,000) (NORMAL) Platelet Morphology NORMAL APPEARANCE (NORMAL) RBC Morph Micro Appear NORMAL APPEARANCE (NORMAL) PT (9.9-12.6) secs INR (0.8-1.2) APTT (24.9-33.3) secs VBG pH (7.31-7.41) Ionized Calcium (1.15-1.33) mmol/L Sodium (135-145) mmol/L Potassium (3.5-5.0) mmol/L Chloride (101-111) mmol/L Carbon Dioxide (21-32) mmol/L Anion Gap (6-13) BUN (6-20) mg/dL Creatinine (0.6-1.2) mg/dL Estimated GFR (MDRD) (>89) Glucose (70-100) mg/dL Calcium (8.5-10.3) mg/dL Phosphorus (2.5-4.6) mg/dL Magnesium 1.1 L (1.7-2.8) mg/dL Total Bilirubin (0.2-1.0) mg/dL AST (10-42) IU/L ALT (10-60) IU/L Alkaline Phosphatase (42-121) IU/L Total Protein (6.7-8.2) g/dL Albumin (3.2-5.5) g/dL Globulin (2.1-4.2) g/dL Albumin/Globulin Ratio (1.0-2.2) Lipase (22-51) U/L Urine Color YELLOW Urine Clarity CLEAR (CLEAR) Urine pH 8.5 H (5.0-7.5) PH Ur Specific [place] 1.015 (1.002-1.030) Urine Protein TRACE (NEGATIVE) mg/dL Urine Glucose (UA) NEGATIVE (NEGATIVE) mg/dL Urine Ketones NEGATIVE (NEGATIVE) mg/dL Urine Occult Blood SMALL H (NEGATIVE) Urine Nitrite NEGATIVE (NEGATIVE) Urine Bilirubin SMALL H (NEGATIVE) Urine Urobilinogen 4 H (NORMAL) E.U./dL Ur Leukocyte Esterase NEGATIVE (NEGATIVE) Urine RBC 6-10 H (0-5) /HPF Urine WBC 0-3 (0-3) /HPF Ur Squamous Epith Cells MOD Squamous H (<= Few) Urine Bacteria Rare (None Seen) /HPF Urine Casts 6-10 Hyaline Casts /LPF Urine Mucus Moderate Strands Ur Microscopic Review INDICATED Urine Culture Comments NOT INDICATED Ethyl Alcohol mg/dL 08/19/18 08/19/18 08/19/18 Range/Units 00:35 00:35 00:35 WBC 3.9 L (4.8-10.8) x10^3/uL RBC 3.65 L (4.70-6.10) 10^6/uL Hgb 12.7 L (14.0-18.0) g/dL Hct 36.8 L (42.0-52.0) % MCV 100.8 H (80.0-94.0) fL MCH 34.8 H (27.0-31.0) pg MCHC 34.5 (32.0-36.0) g/dL RDW 14.9 (12.0-15.0) % Plt Count 37 L (130-450) 10^3/uL MPV 8.3 (7.4-11.4) fL Neut # (Auto) 3.2 (1.5-6.6) 10^3/uL Lymph # (Auto) 0.2 L (1.5-3.5) 10^3/uL [place] # (Auto) 0.5 (0.0-1.0) 10^3/uL Eos # (Auto) 0.0 (0.0-0.7) 10^3/uL Baso # (Auto) 0.0 (0.0-0.1) 10^3/uL Absolute Nucleated RBC 0.00 x10^3/uL Nucleated RBC % 0.0 /100WBC Manual Slide Review Platelet Estimate (NORMAL) Platelet Morphology (NORMAL) RBC Morph Micro Appear (NORMAL) PT 17.8 H (9.9-12.6) secs INR 1.6 H (0.8-1.2) APTT 35.6 H (24.9-33.3) secs VBG pH (7.31-7.41) Ionized Calcium (1.15-1.33) mmol/L Sodium 139 (135-145) mmol/L Potassium 3.1 L (3.5-5.0) mmol/L Chloride 99 L (101-111) mmol/L Carbon Dioxide 24 (21-32) mmol/L Anion Gap 16.0 H (6-13) BUN 10 (6-20) mg/dL Creatinine 0.9 (0.6-1.2) mg/dL Estimated GFR (MDRD) 86 L (>89) Glucose 152 H (70-100) mg/dL Calcium 8.2 L (8.5-10.3) mg/dL Phosphorus (2.5-4.6) mg/dL Magnesium (1.7-2.8) mg/dL Total Bilirubin 3.6 H (0.2-1.0) mg/dL AST 127 H (10-42) IU/L ALT 43 (10-60) IU/L Alkaline Phosphatase 89 (42-121) IU/L Total Protein 7.6 (6.7-8.2) g/dL Albumin 3.3 (3.2-5.5) g/dL Globulin 4.3 H (2.1-4.2) g/dL Albumin/Globulin Ratio 0.8 L (1.0-2.2) Lipase 27 (22-51) U/L Urine Color Urine Clarity (CLEAR) Urine pH (5.0-7.5) PH Ur Specific [place] (1.002-1.030) Urine Protein (NEGATIVE) mg/dL Urine Glucose (UA) (NEGATIVE) mg/dL Urine Ketones (NEGATIVE) mg/dL Urine Occult Blood (NEGATIVE) Urine Nitrite (NEGATIVE) Urine Bilirubin (NEGATIVE) Urine Urobilinogen (NORMAL) E.U./dL Ur Leukocyte Esterase (NEGATIVE) Urine RBC (0-5) /HPF Urine WBC (0-3) /HPF Ur Squamous Epith Cells (<= Few) Urine Bacteria (None Seen) /HPF Urine Casts /LPF Urine Mucus Ur Microscopic Review Urine Culture Comments Ethyl Alcohol < 5.0 mg/dL
[2018-08-19] MEDS ORDERED: MAGNESIUM SULFATE 2 GRAM 2 GM/50 ML BAG IV ONE (14:41)
[2018-08-19] MEDS: SODIUM CHLORIDE FLUSH 0.9% 10 ML SYRINGE IVP SCH ×3 (15:40→22:14)
[2018-08-19 15:52] LABS: VBG PH 7.57 (7.31-7.41)
[2018-08-19] MEDS ORDERED: CALCIUM GLUCONATE 2,000 MG in SODIUM CHLORIDE 0.9% 100ML 100 ML IV ONE ×2 (15:54→17:41)
[2018-08-19] MEDS: FERROUS SULFATE 325 MG TABLET PO SCH (17:15)
[2018-08-19] MEDS: VANCOMYCIN INJ 1 GM in SODIUM CHLORIDE 0.9% 250 ML IV SCH (17:21)
[2018-08-19] MEDS: SODIUM CHLORIDE FLUSH 0.9% 10 ML SYRINGE IVP PRN ×2 (19:20→22:31)
[2018-08-19 21:37] LABS: VBG PH 7.567 (7.31-7.41)
[2018-08-20] MEDS: SODIUM CHLORIDE FLUSH 0.9% 10 ML SYRINGE IVP SCH ×3 (00:10→18:43)
[2018-08-20] MEDS: LORazepam 2 MG/ML VIAL IVP PRN ×7 (00:10→12:37)
[2018-08-20] MEDS: VANCOMYCIN INJ 1 GM in SODIUM CHLORIDE 0.9% 250 ML IV SCH ×3 (01:03→19:25)
[2018-08-20] MEDS: D5NS W/20 MEQ KCL 1,000 ML IV SCH ×3 (01:54→23:52)
[2018-08-20] MEDS: SODIUM CHLORIDE FLUSH 0.9% 10 ML SYRINGE IVP PRN (03:15)
[2018-08-20 04:57] LABS: EOSINOPHILS % (AUTO) 0.2 %; HGB - HEMOGLOBIN 10.3 g/dL (14.0-18.0); LYMPHOCYTES # (AUTO) 1.2 10^3/uL (1.5-3.5); LYMPHOCYTES % (AUTO) 23.4 %; MEAN CORPUSCULAR HEMOGLOBIN 35.1 pg (27.0-31.0); MEAN CORPUSCULAR HGB CONC 34.8 g/dL (32.0-36.0); MEAN CORPUSCULAR VOLUME 100.8 fL (80.0-94.0); MONOCYTES # (AUTO) 0.7 10^3/uL (0.0-1.0); MONOCYTES % (AUTO) 14.6 %; NEUTROPHILS # (AUTO) 3.1 10^3/uL (1.5-6.6); NEUTROPHILS % (AUTO) 60.8 %; RED BLOOD COUNT 2.94 10^6/uL (4.70-6.10); RED CELL DISTRIBUTION WIDTH 15.2 % (12.0-15.0)
[2018-08-20 05:00] LABS: PLT - PLATELET COUNT 29 10^3/uL (130-450)
[2018-08-20 05:04] LABS: VBG PH 7.629 (7.31-7.41)
[2018-08-20 05:15] LABS: ALBUMIN 2.9 g/dL (3.2-5.5); ALBUMIN/GLOBULIN RATIO 0.8 (1.0-2.2); BILIRUBIN,TOTAL 4.4 mg/dL (0.2-1.0); CALCIUM 7.8 mg/dL (8.5-10.3); CREATININE 0.6 mg/dL (0.6-1.2); MAGNESIUM 1.2 mg/dL (1.7-2.8); PHOSPHORUS 2.1 mg/dL (2.5-4.6); TOTAL PROTEIN 6.7 g/dL (6.7-8.2)
[2018-08-20] MEDS ORDERED: CALCIUM GLUCONATE 2,000 MG in SODIUM CHLORIDE 0.9% 100ML 100 ML IV ONE (05:16)
[2018-08-20 05:30] LABS: PLATELET ESTIMATE, MANUAL DECREASED (<130,000) (NORMAL); PLATELET MORPHOLOGY NORMAL APPEARANCE (NORMAL); RBC MORPHOLOGY (MULTIPLE) NORMAL APPEARANCE (NORMAL)
[2018-08-20] MEDS: POTASSIUM CHLOR 10 MEQ/100 ML 10 MEQ/100 ML BAG IV SCH ×4 (06:09→09:45)
[2018-08-20] MEDS: MAGNESIUM SULFATE 2 GRAM 2 GM/50 ML BAG IV SCH ×2 (06:10→07:00)
[2018-08-20] MEDS: ACETAMINOPHEN 1,000 MG/100 ML 100 ML IV PRN ×2 (07:31→15:20)
[2018-08-20] MEDS ORDERED: POTASSIUM PHOSPHATE 15 MMOL in SODIUM CHLORIDE 0.9% 250 ML IV ONE (08:00)
[2018-08-20] MEDS: FERROUS SULFATE 325 MG TABLET PO SCH ×2 (08:18→17:40)
[2018-08-20] MEDS: FAMOTIDINE 20 MG/50 ML 50 ML IV SCH ×2 (09:48→20:53)
[2018-08-20 10:01] LABS: VBG PH 7.521 (7.31-7.41)
[2018-08-20] MEDS: MULTIVITAMIN 10 ML, THIAMINE INJ 100 MG, FOLIC ACID INJ 1 MG in SODIUM CHLORIDE 0.9% 1,... IV SCH (10:09)
[2018-08-20] MEDS ORDERED: CALCIUM GLUCONATE 1,000 MG in SODIUM CHLORIDE 0.9% 50 ML IV ONE (11:30)
--- NOTE | 2018-08-20 12:32 | PROVIDER PROGRESS NOTE ---
Subjective - Prog Note Date Prog Note Date: 08/20/18 Prog Note Time: 10:15 - Subjective Pt reports feeling: No change (Alcohol Withdrawal) Subjective: 62 yo male with PMH of hepatitis C, HTN, COPD and alcohol abuse presented to the ED following seizure from alcohol withdrawal. This is the third admission for seizures due to alcohol withdrawal this year. Pt was transported via EMS with the report stating pt sister found him following hearing a fall on the ground. EMS reported he was not currently seizing when arrived on scene in a post-ictal state - somnolent. Pt has been receiving CIWA protocol with Ativan drip initiated due to patient agitation. GCS score of 11. Current Medications - Current Medications Current Medications: Current Medications Generic Name Dose Route Start Last Admin Trade Name Freq PRN Reason Stop Dose Admin Ferrous Sulfate 325 mg 08/19/18 17:00 08/20/18 08:18 Feosol PO Not Given BIDWM MIGUELITO Potassium Chloride/Dextrose/Sod Cl 1,000 mls @ 125 mls/hr 08/19/18 03:00 08/20/18 01:54 IV 125 mls/hr .Q8H MIGUELITO Administration Famotidine 50 mls @ 100 mls/hr 08/19/18 09:00 08/20/18 10:20 Pepcid 20 Mg/50 Ml IV Infused BID MIGUELITO Infusion Multivitamins 10 ml/ Thiamine 1,011.2 mls @ 100 mls/hr 08/19/18 09:00 08/20/18 14:00 HCl 100 mg/ Folic Acid 1 mg/ IV 100 mls/hr Sodium Chloride DAILY MIGUELITO Infusion Acetaminophen 100 mls @ 400 mls/hr 08/19/18 04:34 08/20/18 08:17 Ofirmev IV Infused Q6HR PRN Infusion Pain or Fever > 38C (100.4F) Vancomycin HCl 1 gm/ Sodium 250 mls @ 167 mls/hr 08/19/18 17:00 08/20/18 10:51 Chloride IV Infused Q8H MIGUELITO Infusion Lorazepam 100 mls @ 5 mls/hr 08/20/18 13:00 08/20/18 14:29 Ativan IV 9 mg/hr .Q20H MIGUELITO 9 mls/hr Titration Protocol 5 MG/HR Lorazepam 2 mg 08/19/18 07:02 08/20/18 12:37 Ativan Inj (Vial) IVP 2 mg Q1H PRN Administration Alcohol Withdrawal Nicotine 1 patch 08/20/18 13:00 08/20/18 13:46 Nicoderm TOP 1 patch DAILY MIUGELITO Administration Sodium Chloride 10 ml 08/19/18 09:00 08/20/18 10:13 Normal Saline Flush 0.9% IVP 10 ml 0100,0900,1700 MIGUELITO Administration Sodium Chloride 10 ml 08/19/18 02:56 08/20/18 03:15 Normal Saline Flush 0.9% IVP 10 ml PRN PRN Administration NEEDED PER PROVIDER ORDERS Objective - Vital Signs/Intake & Output Vital Signs: Vital Signs x48h Temp Pulse Resp BP Pulse Ox 08/20/18 11:59 38.1 C H 84 32 H 128/90 H 95 08/20/18 11:00 37.8 C H 87 92 H 119/83 H 2 L 08/20/18 10:00 37.8 C H 83 30 H 117/75 96 08/20/18 09:00 38.1 C H 87 36 H 124/81 H 90 L 08/20/18 08:00 39 C H 87 38 H 137/73 H 97 08/20/18 07:00 83 32 H 141/76 H 96 08/20/18 06:00 37.6 C H 86 35 H 129/82 H 97 08/20/18 05:00 79 37 H 139/86 H 95 Intake & Output: Intake & Output 08/17/18 08/18/18 08/19/18 08/20/18 23:59 23:59 23:59 23:59 Intake Total 5499.117 1938.183 Output Total 1260 1775 Balance 4239.117 163.183 - Objective General Appearance: positive: Moderate distress Eyes Bilateral: positive: PERRL Respiratory: positive: Other (Productive cough). negative: No respiratory distress (Tachypnea), Wheezes, Rales, Rhonchi Cardiovascular: positive: No murmur, No gallop, Tachycardia Peripheral Pulses: 2+ Radial (R), 2+ Radial (L), 2+ Dorsalis pedis (R), 2+ Dorsalis pedis (L) Abdomen: positive: Nml bowel sounds, No distention. negative: Guarding Skin: positive: Color nml, Other (3 cm warty growth epigastric skin location) Extremities: positive: No pedal edema, Other (R hand 2nd and 4th finger 2 cm warty growth, L hand 3rd and 4th 2 cm warty growth) Neurologic/Psychiatric: positive: Disoriented to person, Disoriented to place, Disoriented to time. negative: Oriented x3 (confused) - Lab Results Fish Bones: 08/20/18 04:52 08/20/18 04:52 Other Labs: Lab Results x24hrs 08/20/18 08/20/18 08/20/18 Range/Units 10:00 09:54 04:52 WBC (4.8-10.8) x10^3/uL RBC (4.70-6.10) 10^6/uL Hgb (14.0-18.0) g/dL Hct (42.0-52.0) % MCV (80.0-94.0) fL MCH (27.0-31.0) pg MCHC (32.0-36.0) g/dL RDW (12.0-15.0) % Plt Count (130-450) 10^3/uL MPV (7.4-11.4) fL Neut # (Auto) (1.5-6.6) 10^3/uL Lymph # (Auto) (1.5-3.5) 10^3/uL [place] # (Auto) (0.0-1.0) 10^3/uL Eos # (Auto) (0.0-0.7) 10^3/uL Baso # (Auto) (0.0-0.1) 10^3/uL Absolute Nucleated RBC x10^3/uL Nucleated RBC % /100WBC Manual Slide Review Platelet Estimate (NORMAL) Platelet Morphology (NORMAL) RBC Morph Micro Appear (NORMAL) VBG pH 7.521 H 7.629 H (7.31-7.41) Ionized Calcium 1.04 L 0.91 L (1.15-1.33) mmol/L Sodium (135-145) mmol/L Potassium (3.5-5.0) mmol/L Chloride (101-111) mmol/L Carbon Dioxide (21-32) mmol/L Anion Gap (6-13) BUN (6-20) mg/dL Creatinine (0.6-1.2) mg/dL Estimated GFR (MDRD) (>89) Glucose (70-100) mg/dL Calcium (8.5-10.3) mg/dL Phosphorus (2.5-4.6) mg/dL Magnesium 2.0 (1.7-2.8) mg/dL Total Bilirubin (0.2-1.0) mg/dL AST (10-42) IU/L ALT (10-60) IU/L Alkaline Phosphatase (42-121) IU/L Total Protein (6.7-8.2) g/dL Albumin (3.2-5.5) g/dL Globulin (2.1-4.2) g/dL Albumin/Globulin Ratio (1.0-2.2) 08/20/18 08/20/18 08/19/18 Range/Units 04:52 04:52 21:30 WBC 5.0 (4.8-10.8) x10^3/uL RBC 2.94 L (4.70-6.10) 10^6/uL Hgb 10.3 L (14.0-18.0) g/dL Hct 29.7 L (42.0-52.0) % MCV 100.8 H (80.0-94.0) fL MCH 35.1 H (27.0-31.0) pg MCHC 34.8 (32.0-36.0) g/dL RDW 15.2 H (12.0-15.0) % Plt Count 29 L* (130-450) 10^3/uL MPV 9.0 (7.4-11.4) fL Neut # (Auto) 3.1 (1.5-6.6) 10^3/uL Lymph # (Auto) 1.2 L (1.5-3.5) 10^3/uL [place] # (Auto) 0.7 (0.0-1.0) 10^3/uL Eos # (Auto) 0.0 (0.0-0.7) 10^3/uL Baso # (Auto) 0.0 (0.0-0.1) 10^3/uL Absolute Nucleated RBC 0.01 x10^3/uL Nucleated RBC % 0.2 /100WBC Manual Slide Review Indicated Platelet Estimate DECREASED (<130,000) (NORMAL) Platelet Morphology NORMAL APPEARANCE (NORMAL) RBC Morph Micro Appear NORMAL APPEARANCE (NORMAL) VBG pH 7.567 H (7.31-7.41) Ionized Calcium 1.00 L (1.15-1.33) mmol/L Sodium 138 (135-145) mmol/L Potassium 3.2 L (3.5-5.0) mmol/L Chloride 108 (101-111) mmol/L Carbon Dioxide 23 (21-32) mmol/L Anion Gap 7.0 (6-13) BUN 8 (6-20) mg/dL Creatinine 0.6 (0.6-1.2) mg/dL Estimated GFR (MDRD) 137 (>89) Glucose 112 H (70-100) mg/dL Calcium 7.8 L (8.5-10.3) mg/dL Phosphorus 2.1 L (2.5-4.6) mg/dL Magnesium 1.2 L (1.7-2.8) mg/dL Total Bilirubin 4.4 H (0.2-1.0) mg/dL AST 112 H (10-42) IU/L ALT 36 (10-60) IU/L Alkaline Phosphatase 74 (42-121) IU/L Total Protein 6.7 (6.7-8.2) g/dL Albumin 2.9 L (3.2-5.5) g/dL Globulin 3.8 (2.1-4.2) g/dL Albumin/Globulin Ratio 0.8 L (1.0-2.2) 08/19/18 08/19/18 08/19/18 Range/Units 15:45 14:08 14:08 WBC (4.8-10.8) x10^3/uL RBC (4.70-6.10) 10^6/uL Hgb (14.0-18.0) g/dL Hct (42.0-52.0) % MCV (80.0-94.0) fL MCH (27.0-31.0) pg MCHC (32.0-36.0) g/dL RDW (12.0-15.0) % Plt Count (130-450) 10^3/uL MPV (7.4-11.4) fL Neut # (Auto) (1.5-6.6) 10^3/uL Lymph # (Auto) (1.5-3.5) 10^3/uL [place] # (Auto) (0.0-1.0) 10^3/uL Eos # (Auto) (0.0-0.7) 10^3/uL Baso # (Auto) (0.0-0.1) 10^3/uL Absolute Nucleated RBC x10^3/uL Nucleated RBC % /100WBC Manual Slide Review Platelet Estimate (NORMAL) Platelet Morphology (NORMAL) RBC Morph Micro Appear (NORMAL) VBG pH 7.570 H (7.31-7.41) Ionized Calcium 0.95 L (1.15-1.33) mmol/L Sodium (135-145) mmol/L Potassium (3.5-5.0) mmol/L Chloride (101-111) mmol/L Carbon Dioxide (21-32) mmol/L Anion Gap (6-13) BUN (6-20) mg/dL Creatinine (0.6-1.2) mg/dL Estimated GFR (MDRD) (>89) Glucose (70-100) mg/dL Calcium 7.7 L (8.5-10.3) mg/dL Phosphorus (2.5-4.6) mg/dL Magnesium 1.7 (1.7-2.8) mg/dL Total Bilirubin (0.2-1.0) mg/dL AST (10-42) IU/L ALT (10-60) IU/L Alkaline Phosphatase (42-121) IU/L Total Protein (6.7-8.2) g/dL Albumin (3.2-5.5) g/dL Globulin (2.1-4.2) g/dL Albumin/Globulin Ratio (1.0-2.2) - Diagnostic Imaging Diagnostic Imaging Results: positive: Prelim report reviewed, Final report reviewed ABX Reporting Has patient been on IV antibiotics over the past 48 hours?: Yes Assessment/Plan - Problem List (1) Acute respiratory failure with hypoxemia Impression: as the day has progressed he has worsened with increasing respiratory rate to 60's, and copious thick lung secretions and initial blood gas showed respiratory alkalosis but no hypoxia or hypercapnea. As the hours proceded, he has dropped his O2 sats, requiring more oxygen. Respiratory feels he won't be able to do Bipap bc of agitation. As such intubated to stabilize him. Now on propofol drip. CXR shows retrocardiac infiltrate and I will add zosyn to the vancomycin. (2) Alcohol withdrawal seizure Impression: Plan: Due to patient agitation, tachycardia and tachypnea - treatment with IV Ativan under CIWA protocol continued. I then switched him to ativan drip. After intubation, will use propofol Banana bag continues. Qualifiers: Complication of substance-induced condition: with delirium Qualified Code(s): F10.231 - Alcohol dependence with withdrawal delirium (3) Alcoholic cirrhosis of liver Impression: Chronic Alcoholic Cirrhosis with thrombocytopenia. Plan: Monitor and replace electrolytes His liver enzymes are worsening in spite of resuscitation; bili is rising and urine darker and darker. He may be sliding in full liver failure. add prednisolone if score is >32. Hepatiis discriminant funciton score was 28. MELD 17. continue PPI. Qualifiers: Ascites presence: without ascites Qualified Code(s): K70.30 - Alcoholic cirrhosis of liver without ascites (4) Anemia Impression: Chronic Anemia due to alcoholic cirrhosis Plan: monitor CBC supplement vitamins per bannana bag. Qualifiers: Anemia type: folate deficiency Folate deficiency anemia type: other folate deficiency Qualified Code(s): D52.8 - Other folate deficiency anemias (5) Hepatitis C Impression: Laboratory Tests 04/03/18 04/03/18 15:17 15:17 Hep Bs Antigen NON-REACTIVE Hepatitis C Antibody REACTIVE A Hep C Ab Signal/Cutoff 26.00 H HCV RNA (PCR) IUs/ml 38184 H HCV RNA PCR log IUs/ml 4.77 H HIV 1&2 Ag/Ab, 4th Gen NON-REACTIVE HIV 1&2 Antibody Rapid NEGATIVE Once he gets through the acute withdrawal phase, will speak to him about any outpatient consult he may have had. Any treatment options he may been offered. Qualifiers: Viral hepatitis chronicity: chronic
[2018-08-20] MEDS ORDERED: LORazepam 100MG/100ML 100 ML IV SCH (13:00)
--- NOTE | 2018-08-20 13:26 | XRAY Report ---
Reason: cough, thick phlegm, tachypnea Procedure Date: 08/20/2018 Accession Number: [id number] / [id number] Procedure: XR - Chest 1 View X-Ray CPT Code: 97468 FULL RESULT: EXAM: CHEST RADIOGRAPHY EXAM DATE: 08/20/2018 01:03 PM. CLINICAL HISTORY: Cough, thick phlegm, tachypnea. COMPARISON: CHEST 1 VIEW 04/07/2018 8:30 AM. TECHNIQUE: 1 view. FINDINGS: Lungs/Pleura: Interval development of left retrocardiac opacity. No sizable pleural effusion or pneumothorax. Mediastinum: Within exam limitations, the cardiomediastinal contour is normal. Other: None. IMPRESSION: Left retrocardiac airspace disease. RADIA
[2018-08-20] MEDS: NICOTINE 14 MG PATCH TOP SCH (13:46)
[2018-08-20 15:54] LABS: ABG HCO3 19.2 mmol/L (22.0-26.0); ABG OXYGEN SATURATION 95 % (94-98); ABG PCO2 26 mmHg (34-45); ABG PH 7.49 (7.35-7.45); ABG PO2 72 mmHg (80-100)
[2018-08-20 15:55] LABS: ALLEN TEST POSITIVE
[2018-08-20] MEDS ORDERED: PROPOFOL 200 MG/20 ML VIAL IVP ONE ×2 (16:21→16:23)
[2018-08-20] MEDS ORDERED: SUCCINYLCHOLINE 200 MG/10 ML VIAL IVP ONE (16:22)
--- NOTE | 2018-08-20 16:34 | ED Physician Documentation ---
ED Addendum - Addendum Addendum: 08/20/18 16:33 I was called to the ICU by Dr. Whiteside to intubate this patient, on arrival he is clearly critically ill breathing nearly 60 times a minute and basically obtunded. He was administered 100 mg of propofol and after double checking his potassium this morning 200 mg of succinylcholine. Using the glide scope he was intubated with a 7.5 endotracheal tube at 23 at the lips, technically easy with good color change and breath sounds albeit diminished on the right however the nurse tells me that because of the pneumonia.
[2018-08-20] MEDS ORDERED: PROPOFOL 1000 MG/100 ML 100 ML IV ONE (16:47)
[2018-08-20] MEDS: PROPOFOL 1000 MG/100 ML 100 ML IV SCH (17:54)
[2018-08-20 18:06] LABS: VANCOMYCIN,TROUGH 13.7 ug/mL (10.0-20.0)
[2018-08-20 18:24] LABS: ABG HCO3 21.5 mmol/L (22.0-26.0); ABG OXYGEN SATURATION 99 % (94-98); ABG PCO2 32 mmHg (34-45); ABG PH 7.44 (7.35-7.45); ABG TCO2 22.5 MMOL/L (21.0-29.0); ALLEN TEST POSITIVE
[2018-08-20 18:26] LABS: ABG PO2 259 mmHg (80-100)
[2018-08-20] MEDS: PIPERACILLIN/TAZOBACTAM 3.375 GM in SODIUM CHLORIDE 0.9% MINIBAG 100 ML IV SCH ×2 (18:27→23:52)
--- NOTE | 2018-08-20 18:55 | XRAY Report ---
Reason: post intubation, intubation being done now Procedure Date: 08/20/2018 Accession Number: [id number] / [id number] Procedure: XR - Chest 1 View X-Ray CPT Code: 06118 FULL RESULT: EXAM: CHEST RADIOGRAPHY EXAM DATE: 08/20/2018 04:52 PM. CLINICAL HISTORY: Post intubation, intubation being done now. COMPARISON: 08/20/2018. TECHNIQUE: 1 view. FINDINGS: Lungs/Pleura: Mild vascular congestion. Mild bilateral groundglass. No large effusion. No pneumothorax. Endotracheal tube tip terminates approximately 7.8 cm above the danis. Mediastinum: Cardiac silhouette size appears mildly enlarged. Enteric tube extends below the diaphragm. Other: None. IMPRESSION: 1. Endotracheal tube tip terminates approximately 7.8 cm above the danis. 2. Enteric tube extends below the diaphragm. 3. Mildly low lung volumes with mild increased crowding/congestion and small amount of probable atelectasis or edema. RADIA
[2018-08-20] MEDS: LORAZEPAM IV SCH (20:15)
[2018-08-20] MEDS: SCOPOLAMINE PATCH TOP SCH (23:07)
[2018-08-21] MEDS: VANCOMYCIN INJ 1 GM in SODIUM CHLORIDE 0.9% 250 ML IV SCH ×3 (00:49→16:49)
[2018-08-21] MEDS: SODIUM CHLORIDE FLUSH 0.9% 10 ML SYRINGE IVP SCH ×3 (00:55→16:48)
--- NOTE | 2018-08-21 00:59 | XRAY Report ---
Reason: NG tube placement Procedure Date: 08/20/2018 Accession Number: [id number] / [id number] Procedure: XR - Chest 1 View X-Ray CPT Code: 10628 FULL RESULT: EXAM: CHEST RADIOGRAPHY EXAM DATE: 08/20/2018 10:30 PM. CLINICAL HISTORY: NG tube placement. COMPARISON: CHEST 1 VIEW 08/20/2018 4:37 PM. TECHNIQUE: 1 view. FINDINGS: Lungs/Pleura: Dense atelectasis or consolidation at the left base. Possible small left pleural effusion. No pneumothorax. Mediastinum: Within exam limitations, heart size upper normal. Other: Enteric tube in the stomach. IMPRESSION: 1. Enteric tube in the stomach. 2. Borderline heart size with dense atelectasis or consolidation at the left base and possible small left effusion. RADIA
[2018-08-21] MEDS: PROPOFOL 1000 MG/100 ML 100 ML IV SCH ×2 (01:31→16:00)
[2018-08-21] MEDS: D5NS W/20 MEQ KCL 1,000 ML IV SCH ×3 (04:47→21:35)
[2018-08-21 05:19] LABS: VBG PH 7.332 (7.31-7.41)
[2018-08-21 05:20] LABS: HGB - HEMOGLOBIN 10.4 g/dL (14.0-18.0); MEAN CORPUSCULAR HGB CONC 33.1 g/dL (32.0-36.0)
[2018-08-21 05:28] LABS: ALBUMIN 2.5 g/dL (3.2-5.5); ALBUMIN/GLOBULIN RATIO 0.6 (1.0-2.2); CREATININE 0.6 mg/dL (0.6-1.2); MAGNESIUM 1.4 mg/dL (1.7-2.8); TOTAL PROTEIN 6.5 g/dL (6.7-8.2)
[2018-08-21 05:31] LABS: BASOPHILS % (AUTO) 0.6 %; EOSINOPHILS % (AUTO) 1.4 %; LYMPHOCYTES % (AUTO) 19.7 %; MEAN PLATELET VOLUME 8.2 fL (7.4-11.4); MONOCYTES % (AUTO) 15.4 %; NEUTROPHILS % (AUTO) 62.9 %
[2018-08-21 05:34] LABS: MEAN CORPUSCULAR HEMOGLOBIN 34.8 pg (27.0-31.0); RED BLOOD COUNT 2.98 10^6/uL (4.70-6.10); RED CELL DISTRIBUTION WIDTH 15.3 % (12.0-15.0); WHITE BLOOD COUNT 4.5 x10^3/uL (4.8-10.8)
[2018-08-21 05:36] LABS: PLT - PLATELET COUNT 27 10^3/uL (130-450)
[2018-08-21 05:37] LABS: ABNORMAL LYMPHS % (MANUAL) 0 %
[2018-08-21] MEDS ORDERED: CALCIUM GLUCONATE 1,000 MG in SODIUM CHLORIDE 0.9% 50 ML IV ONE (05:45)
[2018-08-21] MEDS ORDERED: MAGNESIUM SULFATE 2 GRAM 2 GM/50 ML BAG IV ONE (05:45)
[2018-08-21] MEDS: PIPERACILLIN/TAZOBACTAM 3.375 GM in SODIUM CHLORIDE 0.9% MINIBAG 100 ML IV SCH ×4 (05:51→23:53)
[2018-08-21 06:00] LABS: BAND NEUTROPHILS % (MANUAL) 13 %; LYMPHOCYTES # (MANUAL) 0.7 10^3/uL (1.5-3.5); LYMPHOCYTES % (MANUAL) 15 %; METAMYELOCYTES % (MANUAL) 1 %; MONOCYTES # (MANUAL) 0.4 10^3/uL (0.0-1.0); MYELOCYTES % (MANUAL) 1 %; NEUTROPHILS # (MANUAL) 3.3 10^3/uL (1.5-6.6); NEUTROPHILS % (MANUAL) 61 %; PLATELET ESTIMATE, MANUAL DECREASED (<130,000) (NORMAL); RBC MORPHOLOGY (MULTIPLE) NORMAL APPEARANCE (NORMAL)
[2018-08-21 06:01] LABS: DIFFERENTIAL COMMENT MANUAL DIFFERENTIAL
[2018-08-21] MEDS: POTASSIUM CHLOR 10 MEQ/100 ML 10 MEQ/100 ML BAG IV SCH ×4 (06:30→09:40)
[2018-08-21] MEDS: SODIUM CHLORIDE FLUSH 0.9% 10 ML SYRINGE IVP PRN (06:34)
[2018-08-21 07:23] LABS: ABG BASE EXCESS -3.7 mmol/L (-2.0-3.0); ABG HCO3 19.7 mmol/L (22.0-26.0); ABG OXYGEN SATURATION 97 % (94-98); ABG PCO2 30 mmHg (34-45); ABG PH 7.43 (7.35-7.45); ABG PO2 93 mmHg (80-100); ABG TCO2 20.7 MMOL/L (21.0-29.0); ALLEN TEST POSITIVE
[2018-08-21] MEDS: FAMOTIDINE 20 MG/50 ML 50 ML IV SCH ×2 (08:47→20:48)
[2018-08-21] MEDS: NICOTINE 14 MG PATCH TOP SCH (08:54)
[2018-08-21] MEDS: FERROUS SULFATE 325 MG TABLET PO SCH ×2 (08:56→18:12)
[2018-08-21] MEDS ORDERED: LORazepam 100MG/100ML 100 ML IV ONE (10:29)
[2018-08-21] MEDS: LORAZEPAM IV SCH (10:35)
[2018-08-21] MEDS ORDERED: LORazepam 100MG/100ML 100 ML IV SCH (11:00)
[2018-08-21] MEDS: MULTIVITAMIN 10 ML, THIAMINE INJ 100 MG, FOLIC ACID INJ 1 MG in SODIUM CHLORIDE 0.9% 1,... IV SCH (11:13)
--- NOTE | 2018-08-21 13:45 | PROVIDER PROGRESS NOTE ---
Subjective - Prog Note Date Prog Note Date: 08/21/18 Prog Note Time: 11:00 - Subjective Pt reports feeling: No change Subjective: 62 yo male with PMH of hepatitis C, HTN, COPD and alcohol abuse on inpatient Day 3 presented to the ED following seizure from alcohol withdrawal. Due to tachypnea and respiratory distress, the patient was intubated 1 day prior. Patient stills remains intubated with CIWA protocol. Patients significant other and her family member visited for the first time today. Discussed with pt friend and her family member the treatment of care and case management was able to obtain further information. Pt friends state the patient has been unwell since last admission for seizure. Pt friends state he has used a walker with aid to stand and sit at home. Pt friend family member states significant alcohol abuse by both the patient and significant other. Pts daughter is in [place] and was unable to be contacted via phone. Case management will follow up to further contact daughter for power of compliance attorney discussion. Current Medications - Current Medications Current Medications: Current Medications Generic Name Dose Route Start Last Admin Trade Name Freq PRN Reason Stop Dose Admin Ferrous Sulfate 325 mg 08/19/18 17:00 08/21/18 08:56 Feosol PO Not Given BIDWM MIGUELITO Potassium Chloride/Dextrose/Sod Cl 1,000 mls @ 125 mls/hr 08/19/18 03:00 08/21/18 05:51 IV 0 mls/hr .Q8H MIGUELITO Infusion Famotidine 50 mls @ 100 mls/hr 08/19/18 09:00 08/21/18 09:15 Pepcid 20 Mg/50 Ml IV Infused BID MIGUELITO Infusion Multivitamins 10 ml/ Thiamine 1,011.2 mls @ 100 mls/hr 08/19/18 09:00 11:13 HCl 100 mg/ Folic Acid 1 mg/ IV 100 mls/hr Sodium Chloride DAILY MIGUELITO Administration Acetaminophen 100 mls @ 400 mls/hr 08/19/18 04:34 08/20/18 15:38 Ofirmev IV Infused Q6HR PRN Infusion Pain or Fever > 38C (100.4F) Vancomycin HCl 1 gm/ Sodium 250 mls @ 167 mls/hr 08/19/18 17:00 08/21/18 11:13 Chloride IV Infused Q8H MIGUELITO Infusion Propofol 100 mls @ 4.62 mls/hr 08/20/18 18:00 08/21/18 06:13 Diprivan IV 15 mcg/kg/min .[id number] MIGUELITO 6.93 mls/hr Titration Protocol 10 MCG/KG/MIN Piperacillin Sod/Tazobactam 100 mls @ 200 mls/hr 08/20/18 18:00 08/21/18 12:00 Sod 3.375 gm/ Sodium Chloride IV 200 mls/hr Q6H MIGUELITO Administration Lorazepam 200 mls @ 5 mls/hr 08/20/18 19:00 08/21/18 10:39 Ativan IV 10 mg/hr .Q40H MIGUELITO 10 mls/hr Titration Protocol 5 MG/HR Lorazepam 2 mg 08/19/18 07:02 08/20/18 12:37 Ativan Inj (Vial) IVP 2 mg Q1H PRN Administration Alcohol Withdrawal Nicotine 1 patch 08/20/18 13:00 08/21/18 08:54 Nicoderm TOP 1 patch DAILY MIGUELITO Administration Scopolamine HBr 1 patch 08/20/18 23:00 08/20/18 23:07 Transderm-Scop TOP 1 patch Q3D MIGUELITO Administration Sodium Chloride 10 ml 08/19/18 09:00 08/21/18 09:30 Normal Saline Flush 0.9% IVP 10 ml 0100,0900,1700 MIGUELITO Administration Sodium Chloride 10 ml 08/19/18 02:56 08/21/18 06:34 Normal Saline Flush 0.9% IVP 10 ml PRN PRN Administration NEEDED PER PROVIDER ORDERS Objective - Vital Signs/Intake & Output Reviewed Vital Signs: Yes Vital Signs: Vital Signs x48h Temp Pulse Pulse Resp BP Pulse Ox 08/21/18 13:00 64 63 14 114/63 95 08/21/18 12:00 35.8 C L 64 20 111/64 08/21/18 11:00 67 20 132/78 H 95 08/21/18 10:19 70 08/21/18 10:00 75 26 H 155/73 H 100 08/21/18 09:00 68 16 132/72 H 97 08/21/18 08:07 68 08/21/18 08:00 37.4 C 67 15 145/81 H 08/21/18 07:00 64 15 126/72 99 08/21/18 06:00 36.6 C 77 82 24 147/89 H 100 Intake & Output: Intake & Output 08/18/18 08/19/18 08/20/18 08/21/18 23:59 23:59 23:59 23:59 Intake Total 5499.117 4477.884 2264.663 Output Total 1260 3035 1130 Balance 4239.117 6539.851 8839.663 - Objective General Appearance: positive: No acute distress Eyes Bilateral: positive: Normal inspection, PERRL ENT: positive: ENT inspection nml, Other (currently intubated) Neck: positive: Nml inspection, Trachea midline Respiratory: positive: No respiratory distress, Breath sounds nml Cardiovascular: positive: Regular rate & rhythm, No murmur, No gallop Abdomen: positive: Non-tender, Nml bowel sounds, No distention Skin: positive: Color nml, No rash, Other (warty growths on right hand (2nd and 4th digit) and left hand (3rd and 4th digit), as well as epigastric region.) Extremities: positive: Non-tender, No pedal edema Neurologic/Psychiatric: positive: Disoriented to person, Disoriented to place, Disoriented to time. negative: Oriented x3 (Sedated via Propofol drip and CIWA protocol via Ativan) - Lab Results Fish Bones: 08/21/18 04:55 08/21/18 04:55 Other Labs: Lab Results x24hrs 08/21/18 08/21/18 08/21/18 Range/Units 07:13 04:55 04:55 WBC (4.8-10.8) x10^3/uL RBC (4.70-6.10) 10^6/uL Hgb (14.0-18.0) g/dL Hct (42.0-52.0) % MCV (80.0-94.0) fL MCH (27.0-31.0) pg MCHC (32.0-36.0) g/dL RDW (12.0-15.0) % Plt Count (130-450) 10^3/uL MPV (7.4-11.4) fL Neut # (Auto) Lymph # (Auto) Linn # (Auto) Eos # (Auto) Baso # (Auto) Absolute Nucleated RBC Total Counted Band Neuts % (Manual) (0 - 10) % Abnorm Lymph % (Manual) % Metamyelocytes % ( - 0) % Myelocytes % ( - 0) % Nucleated RBC % Neutrophils # (Manual) (1.5-6.6) 10^3/uL Lymphocytes # (Manual) (1.5-3.5) 10^3/uL Monocytes # (Manual) (0.0-1.0) 10^3/uL Eosinophils # (Manual) (0-0.7) 10^3/uL Basophils # (Manual) (0-0.1) 10^3/uL Differential Comment Platelet Estimate (NORMAL) RBC Morph Micro Appear (NORMAL) Bld Gas Analysis Time 0722 Sample Site RIGHT RADIAL ABG pH 7.43 (7.35-7.45) ABG pCO2 30 L (34-45) mmHg ABG pO2 93 (80-100) mmHg ABG HCO3 19.7 L (22.0-26.0) mmol/L ABG Total CO2 20.7 L (21.0-29.0) MMOL/L ABG O2 Saturation 97 (94-98) % ABG Base Excess -3.7 L (-2.0-3.0) mmol/L Ap Test POSITIVE VBG pH 7.332 (7.31-7.41) Ionized Calcium 1.04 L (1.15-1.33) mmol/L Respiration Rate 15 b/min O2 Delivery Device VENTILATOR O2 Liters/Min LPM Vent Mode SIMV FiO2 35.00 Tidal Volume 600 mL PEEP 5 cmH2O Pressure Support Vent 10 cmH2O Sodium (135-145) mmol/L Potassium (3.5-5.0) mmol/L Chloride (101-111) mmol/L Carbon Dioxide (21-32) mmol/L Anion Gap (6-13) BUN (6-20) mg/dL Creatinine (0.6-1.2) mg/dL Estimated GFR (MDRD) (>89) Glucose (70-100) mg/dL Lactic Acid (0.5-2.2) mmol/L Calcium (8.5-10.3) mg/dL Phosphorus 2.9 (2.5-4.6) mg/dL Magnesium (1.7-2.8) mg/dL Total Bilirubin (0.2-1.0) mg/dL AST (10-42) IU/L ALT (10-60) IU/L Alkaline Phosphatase (42-121) IU/L Total Protein (6.7-8.2) g/dL Albumin (3.2-5.5) g/dL Globulin (2.1-4.2) g/dL Albumin/Globulin Ratio (1.0-2.2) Last Dose Date Last Dose Time Vancomycin Trough (10.0-20.0) ug/mL 08/21/18 08/21/18 08/20/18 Range/Units 04:55 04:55 18:00 WBC 4.5 L (4.8-10.8) x10^3/uL RBC 2.98 L (4.70-6.10) 10^6/uL Hgb 10.4 L (14.0-18.0) g/dL Hct 31.3 L (42.0-52.0) % MCV 105.0 H (80.0-94.0) fL MCH 34.8 H (27.0-31.0) pg MCHC 33.1 (32.0-36.0) g/dL RDW 15.3 H (12.0-15.0) % Plt Count 27 L* (130-450) 10^3/uL MPV 8.2 (7.4-11.4) fL Neut # (Auto) Not Reportable Lymph # (Auto) Not Reportable Linn # (Auto) Not Reportable Eos # (Auto) Not Reportable Baso # (Auto) Not Reportable Absolute Nucleated RBC Not Reportable Total Counted 100 Band Neuts % (Manual) 13 H (0 - 10) % Abnorm Lymph % (Manual) 0 % Metamyelocytes % 1 H ( - 0) % Myelocytes % 1 H ( - 0) % Nucleated RBC % Not Reportable Neutrophils # (Manual) 3.3 (1.5-6.6) 10^3/uL Lymphocytes # (Manual) 0.7 L (1.5-3.5) 10^3/uL Monocytes # (Manual) 0.4 (0.0-1.0) 10^3/uL Eosinophils # (Manual) 0.0 (0-0.7) 10^3/uL Basophils # (Manual) 0.0 (0-0.1) 10^3/uL Differential Comment MANUAL DIFFERENTIAL Platelet Estimate DECREASED (<130,000) (NORMAL) RBC Morph Micro Appear NORMAL APPEARANCE (NORMAL) Bld Gas Analysis Time 1810 Sample Site ABG pH 7.44 (7.35-7.45) ABG pCO2 32 L (34-45) mmHg ABG pO2 259 H* (80-100) mmHg ABG HCO3 21.5 L (22.0-26.0) mmol/L ABG Total CO2 22.5 (21.0-29.0) MMOL/L ABG O2 Saturation 99 H (94-98) % ABG Base Excess -2.0 (-2.0-3.0) mmol/L Ap Test POSITIVE VBG pH (7.31-7.41) Ionized Calcium (1.15-1.33) mmol/L Respiration Rate 18 b/min O2 Delivery Device VENTILATOR O2 Liters/Min LPM Vent Mode SIMV FiO2 0.70 Tidal Volume 450 mL PEEP 5 cmH2O Pressure Support Vent 12 cmH2O Sodium 139 (135-145) mmol/L Potassium 3.3 L (3.5-5.0) mmol/L Chloride 108 (101-111) mmol/L Carbon Dioxide 22 (21-32) mmol/L Anion Gap 9.0 (6-13) BUN 8 (6-20) mg/dL Creatinine 0.6 (0.6-1.2) mg/dL Estimated GFR (MDRD) 137 (>89) Glucose 117 H (70-100) mg/dL Lactic Acid (0.5-2.2) mmol/L Calcium 7.0 L (8.5-10.3) mg/dL Phosphorus (2.5-4.6) mg/dL Magnesium 1.4 L (1.7-2.8) mg/dL Total Bilirubin 4.0 H (0.2-1.0) mg/dL AST 74 H (10-42) IU/L ALT 31 (10-60) IU/L Alkaline Phosphatase 63 (42-121) IU/L Total Protein 6.5 L (6.7-8.2) g/dL Albumin 2.5 L (3.2-5.5) g/dL Globulin 4.0 (2.1-4.2) g/dL Albumin/Globulin Ratio 0.6 L (1.0-2.2) Last Dose Date Last Dose Time Vancomycin Trough (10.0-20.0) ug/mL 08/20/18 08/20/18 08/20/18 Range/Units 17:31 15:45 13:54 WBC (4.8-10.8) x10^3/uL RBC (4.70-6.10) 10^6/uL Hgb (14.0-18.0) g/dL Hct (42.0-52.0) % MCV (80.0-94.0) fL MCH (27.0-31.0) pg MCHC (32.0-36.0) g/dL RDW (12.0-15.0) % Plt Count (130-450) 10^3/uL MPV (7.4-11.4) fL Neut # (Auto) Lymph # (Auto) Linn # (Auto) Eos # (Auto) Baso # (Auto) Absolute Nucleated RBC Total Counted Band Neuts % (Manual) (0 - 10) % Abnorm Lymph % (Manual) % Metamyelocytes % ( - 0) % Myelocytes % ( - 0) % Nucleated RBC % Neutrophils # (Manual) (1.5-6.6) 10^3/uL Lymphocytes # (Manual) (1.5-3.5) 10^3/uL Monocytes # (Manual) (0.0-1.0) 10^3/uL Eosinophils # (Manual) (0-0.7) 10^3/uL Basophils # (Manual) (0-0.1) 10^3/uL Differential Comment Platelet Estimate (NORMAL) RBC Morph Micro Appear (NORMAL) Bld Gas Analysis Time 1554 Sample Site RIGHT RADIAL ABG pH 7.49 H (7.35-7.45) ABG pCO2 26 L (34-45) mmHg ABG pO2 72 L (80-100) mmHg ABG HCO3 19.2 L (22.0-26.0) mmol/L ABG Total CO2 20.0 L (21.0-29.0) MMOL/L ABG O2 Saturation 95 (94-98) % ABG Base Excess -3.0 L (-2.0-3.0) mmol/L Ap Test POSITIVE VBG pH (7.31-7.41) Ionized Calcium (1.15-1.33) mmol/L Respiration Rate b/min O2 Delivery Device NASAL CANNULA O2 Liters/Min 2.00 LPM Vent Mode FiO2 Tidal Volume mL PEEP cmH2O Pressure Support Vent cmH2O Sodium (135-145) mmol/L Potassium (3.5-5.0) mmol/L Chloride (101-111) mmol/L Carbon Dioxide (21-32) mmol/L Anion Gap (6-13) BUN (6-20) mg/dL Creatinine (0.6-1.2) mg/dL Estimated GFR (MDRD) (>89) Glucose (70-100) mg/dL Lactic Acid 1.2 (0.5-2.2) mmol/L Calcium (8.5-10.3) mg/dL Phosphorus (2.5-4.6) mg/dL Magnesium (1.7-2.8) mg/dL Total Bilirubin (0.2-1.0) mg/dL AST (10-42) IU/L ALT (10-60) IU/L Alkaline Phosphatase (42-121) IU/L Total Protein (6.7-8.2) g/dL Albumin (3.2-5.5) g/dL Globulin (2.1-4.2) g/dL Albumin/Globulin Ratio (1.0-2.2) Last Dose Date 08/20/18 Last Dose Time 0907 Vancomycin Trough 13.7 (10.0-20.0) ug/mL - Diagnostic Imaging Diagnostic Imaging Results: positive: Final report reviewed Diagnostic Imaging Comments: Full result: Exam: Chest radiography Exam Date: 08/20/2018 10:30 PM Clinical History: NG tube placement. Comparison: Chest 1 View 08/20/2018 4:37 PM Technique: 1 view. Findings: Lungs/pleura: Dense atelectasis or consolidation at the left base. Possible small left pleural effusion. No pneumothorax. Mediastinum: within exam limitations, heart size upper normal. Other: Enteric tube in the stomach. Impression: 1. Enteric tube in the stomach 2. Borderline heart size with dense atelectasis or consolidation at the left base and possible small left effusion. Reading Radiologist: Jae Martines MD 08/21/18 0100 ABX Reporting Has patient been on IV antibiotics over the past 48 hours?: Yes Assessment/Plan - Problem List (1) Acute respiratory failure with hypoxemia Impression: Patient intubated and sedated. Day #2. Chest x-ray shows dense atelectasis and possible small left effusion. Plan: ABG to monitor for changes in blood gas Monitor pt vitals for possible weening of CIWA protocol and intubation IV abx with Vancomycin Day #3 and Pip/Tazo Day #2. Blood cultures from ER neg at 48 hours. (2) Alcohol withdrawal seizure Impression: Patient currently under CIWA protocol with ativan drip and intubated due to respiratory distress and impending failure. Only had one seizure Plan: Monitor vitals and decrease CIWA protocol monitoring response to alcohol withdrawal Qualifiers: Complication of substance-induced condition: with delirium Qualified Code(s): F10.231 - Alcohol dependence with withdrawal delirium (3) Alcoholic cirrhosis of liver Impression: Chronic issue with labs being monitored. Platelet count continues to remain decreased. Plan: Monitor CBC and BMP Pt receiving IVF, thiamine and folate Replace electrolytes, monitor ecchymoses and patient status Qualifiers: Ascites presence: without ascites Qualified Code(s): K70.30 - Alcoholic cirrhosis of liver without ascites (4) Anemia Impression: Chronic anemia due to alcoholic cirrhosis Plan: Folate and Thiamine replace Continue to monitor CBC Qualifiers: Anemia type: folate deficiency Folate deficiency anemia type: other folate deficiency Qualified Code(s): D52.8 - Other folate deficiency anemias (5) Hepatitis C Impression: Chronic Hepatitis untreated. Plan: Follow liver enzymes with CMP Once he gets through the acute withdrawal phase, will speak to him about any outpatient consult he may have had. Any treatment options he may been offered. Qualifiers: Viral hepatitis chronicity: chronic
[2018-08-21] MEDS: CHLORHEXIDINE GLUCONATE 15 ML UDC PO SCH ×2 (15:59→20:48)
[2018-08-22] MEDS: SODIUM CHLORIDE FLUSH 0.9% 10 ML SYRINGE IVP SCH ×3 (00:58→17:26)
[2018-08-22] MEDS: VANCOMYCIN INJ 1 GM in SODIUM CHLORIDE 0.9% 250 ML IV SCH ×4 (00:58→18:15)
[2018-08-22] MEDS: PROPOFOL 1000 MG/100 ML 100 ML IV SCH ×2 (03:05→17:40)
[2018-08-22] MEDS ORDERED: DEXTROSE 5% 50 ML IV ONE (03:43)
[2018-08-22] MEDS: LORazepam 100MG/100ML 100 ML IV SCH ×2 (04:13→22:52)
[2018-08-22 04:58] LABS: VBG PH 7.371 (7.31-7.41)
[2018-08-22 05:07] LABS: BASOPHILS % (AUTO) 0.7 %; EOSINOPHILS % (AUTO) 4.6 %; HGB - HEMOGLOBIN 9.5 g/dL (14.0-18.0); LYMPHOCYTES % (AUTO) 22.1 %; MEAN CORPUSCULAR HEMOGLOBIN 35.5 pg (27.0-31.0); MEAN CORPUSCULAR HGB CONC 33.9 g/dL (32.0-36.0); MEAN CORPUSCULAR VOLUME 104.9 fL (80.0-94.0); MEAN PLATELET VOLUME 8.8 fL (7.4-11.4); MONOCYTES % (AUTO) 18.9 %; NEUTROPHILS % (AUTO) 53.7 %; PLT - PLATELET COUNT 44 10^3/uL (130-450); RED BLOOD COUNT 2.69 10^6/uL (4.70-6.10); RED CELL DISTRIBUTION WIDTH 15.4 % (12.0-15.0); WHITE BLOOD COUNT 4.2 x10^3/uL (4.8-10.8)
[2018-08-22 05:33] LABS: ALBUMIN 2.3 g/dL (3.2-5.5); ALBUMIN/GLOBULIN RATIO 0.6 (1.0-2.2); BILIRUBIN,TOTAL 3.2 mg/dL (0.2-1.0); CREATININE 0.6 mg/dL (0.6-1.2); MAGNESIUM 1.3 mg/dL (1.7-2.8)
[2018-08-22 05:41] LABS: ABNORMAL LYMPHS % (MANUAL) 0 %
[2018-08-22 05:45] LABS: BAND NEUTROPHILS % (MANUAL) 7 %; EOSINOPHILS # (MANUAL) 0.1 10^3/uL (0-0.7); LYMPHOCYTES # (MANUAL) 0.8 10^3/uL (1.5-3.5); LYMPHOCYTES % (MANUAL) 19 %; METAMYELOCYTES % (MANUAL) 3 %; MONOCYTES # (MANUAL) 0.4 10^3/uL (0.0-1.0); MYELOCYTES % (MANUAL) 3 %; NEUTROPHILS # (MANUAL) 2.6 10^3/uL (1.5-6.6); NEUTROPHILS % (MANUAL) 54 %
[2018-08-22 05:46] LABS: DIFFERENTIAL COMMENT MANUAL DIFFERENTIAL; PLATELET ESTIMATE, MANUAL DECREASED (<130,000) (NORMAL); RBC MORPHOLOGY (MULTIPLE) NORMAL APPEARANCE (NORMAL)
[2018-08-22 05:50] LABS: ABG PCO2 31 mmHg (34-45); ABG PH 7.41 (7.35-7.45)
[2018-08-22 05:51] LABS: ABG HCO3 18.8 mmol/L (22.0-26.0); ABG OXYGEN SATURATION 97 % (94-98); ABG PO2 91 mmHg (80-100); ABG TCO2 19.7 MMOL/L (21.0-29.0); ALLEN TEST POSITIVE
[2018-08-22] MEDS: PIPERACILLIN/TAZOBACTAM 3.375 GM in SODIUM CHLORIDE 0.9% MINIBAG 100 ML IV SCH ×3 (05:55→17:31)
[2018-08-22] MEDS ORDERED: CALCIUM GLUCONATE 1,000 MG in SODIUM CHLORIDE 0.9% 50 ML IV ONE (06:30)
[2018-08-22] MEDS: SODIUM CHLORIDE FLUSH 0.9% 10 ML SYRINGE IVP PRN ×2 (06:31→20:40)
[2018-08-22] MEDS: MAGNESIUM SULFATE 2 GRAM 2 GM/50 ML BAG IV SCH ×2 (06:41→07:28)
[2018-08-22] MEDS: D5NS W/20 MEQ KCL 1,000 ML IV SCH ×2 (06:45→20:39)
[2018-08-22] MEDS: POTASSIUM CHLOR 10 MEQ/100 ML 10 MEQ/100 ML BAG IV SCH ×4 (07:38→11:15)
[2018-08-22] MEDS: FERROUS SULFATE 325 MG TABLET PO SCH ×2 (07:39→17:06)
[2018-08-22] MEDS: FAMOTIDINE 20 MG/50 ML 50 ML IV SCH ×2 (08:42→21:28)
[2018-08-22] MEDS: CHLORHEXIDINE GLUCONATE 15 ML UDC PO SCH ×2 (08:56→21:28)
[2018-08-22] MEDS: NICOTINE 14 MG PATCH TOP SCH (09:03)
--- NOTE | 2018-08-22 09:20 | PROVIDER PROGRESS NOTE ---
Subjective - Prog Note Date Prog Note Date: 08/22/18 Prog Note Time: 08:45 - Subjective Pt reports feeling: Improved Subjective: 62 yo male with PMH of hepatitis C, HTN, COPD and alcohol abuse on inpatient Day 4 presented to the ED following seizure from alcohol withdrawal. Due to tachypnea and respiratory distress, the patient was intubated Day #2 day . Patient stills remains intubated with CIWA protocol. Patient CIWA protocol decreased with vitals monitored for cessation of alcohol withdrawal. With decreased Ativan, patient respiratory rate increased into the 40s with rates exceeding 70's. CIWA protocol was resumed and patient remains stable. Current Medications - Current Medications Current Medications: Current Medications Generic Name Dose Route Start Last Admin Trade Name Freq PRN Reason Stop Dose Admin Chlorhexidine Gluconate 15 ml 08/21/18 12:00 08/22/18 08:56 Peridex PO 15 ml BID MIGUELITO Administration Ferrous Sulfate 325 mg 08/19/18 17:00 08/22/18 07:39 Feosol PO Not Given BIDWM MIGUELITO Potassium Chloride/Dextrose/Sod Cl 1,000 mls @ 125 mls/hr 08/19/18 03:00 08/22/18 06:45 IV 125 mls/hr .Q8H MIGUELITO Administration Famotidine 50 mls @ 100 mls/hr 08/19/18 09:00 08/22/18 08:42 Pepcid 20 Mg/50 Ml IV 100 mls/hr BID MIGUELITO Administration Multivitamins 10 ml/ Thiamine 1,011.2 mls @ 100 mls/hr 08/19/18 09:00 08/21/18 19:40 HCl 100 mg/ Folic Acid 1 mg/ IV Infused Sodium Chloride DAILY MIGUELITO Infusion Acetaminophen 100 mls @ 400 mls/hr 08/19/18 04:34 08/20/18 15:38 Ofirmev IV Infused Q6HR PRN Infusion Pain or Fever > 38C (100.4F) Propofol 100 mls @ 4.62 mls/hr 08/20/18 18:00 08/22/18 08:50 Diprivan IV 10 mcg/kg/min .[id number] MIGUELITO 4.62 mls/hr Titration Protocol 10 MCG/KG/MIN Piperacillin Sod/Tazobactam 100 mls @ 200 mls/hr 08/20/18 18:00 08/22/18 06:30 Sod 3.375 gm/ Sodium Chloride IV Infused Q6H MIGUELITO Infusion Lorazepam 100 mls @ 5 mls/hr 08/22/18 04:15 08/22/18 08:00 Ativan IV 6 mg/hr .Q20H MIGUELITO 6 mls/hr Titration Protocol 5 MG/HR Potassium Chloride 10 meq in 100 mls @ 100 mls/hr 08/22/18 08:00 08/22/18 09:15 Potassium Chloride IV 08/22/18 11:59 100 mls/hr Q1H MIGUELITO Administration Protocol Lorazepam 2 mg 08/19/18 07:02 08/20/18 12:37 Ativan Inj (Vial) IVP 2 mg Q1H PRN Administration Alcohol Withdrawal Nicotine 1 patch 08/20/18 13:00 08/22/18 09:03 Nicoderm TOP 1 patch DAILY MIGUELITO Administration Scopolamine HBr 1 patch 08/20/18 23:00 08/20/18 23:07 Transderm-Scop TOP 1 patch Q3D MIGUELITO Administration Sodium Chloride 10 ml 08/19/18 09:00 08/22/18 07:29 Normal Saline Flush 0.9% IVP 10 ml 0100,0900,1700 MIGUELITO Administration Sodium Chloride 10 ml 08/19/18 02:56 08/22/18 06:31 Normal Saline Flush 0.9% IVP 10 ml PRN PRN Administration NEEDED PER PROVIDER ORDERS Objective - Vital Signs/Intake & Output Reviewed Vital Signs: Yes Vital Signs: Vital Signs x48h Temp Pulse Pulse Resp BP Pulse Ox 08/22/18 08:00 36.7 C 61 27 H 139/81 H 98 08/22/18 07:15 65 08/22/18 07:00 59 L 16 123/66 96 08/22/18 06:00 36.6 C 64 19 150/78 H 100 08/22/18 05:26 65 08/22/18 05:00 36.8 C 62 17 125/86 H 99 08/22/18 04:00 37.0 C 61 15 142/76 H 98 08/22/18 03:30 62 08/22/18 03:00 60 14 123/74 97 08/22/18 02:09 60 08/22/18 02:00 59 L 14 121/74 97 Intake & Output: Intake & Output 08/19/18 08/20/18 08/21/18 08/22/18 23:59 23:59 23:59 23:59 Intake Total 5499.117 4477.884 4016.001 1942.404 Output Total 1260 3035 1880 745 Balance 4239.117 0853.850 2999.001 1197.404 - Objective General Appearance: positive: No acute distress, Other (intubated, ET tube, peripheral IV's) Eyes Bilateral: positive: Normal inspection ENT: positive: Other (With ET tube in place the swollen tongue and sutures in the tongue or not visible. Lacerated lip is improving. Swollen lip is improving.) Neck: positive: Nml inspection Respiratory: positive: Chest non-tender, No respiratory distress, Breath sounds nml Cardiovascular: positive: Regular rate & rhythm, No murmur, No gallop Peripheral Pulses: 2+ Radial (R), 2+ Radial (L) Abdomen: positive: Non-tender, Nml bowel sounds, No distention Skin: positive: Color nml, No rash, Warm Extremities: positive: Non-tender, Other (finger tips still covered w verucous growths) Neurologic/Psychiatric: positive: Other (on propofol and ativan. opens eyes. will get agitated if reduce ativan dose as manifested by increased resp rate, diaphoresis). negative: Oriented x3 (continued sedation due to intubation) - Lab Results Fish Bones: 08/22/18 04:10 08/22/18 04:10 Other Labs: Lab Results x24hrs 08/22/18 08/22/18 08/22/18 Range/Units 05:40 04:10 04:10 WBC (4.8-10.8) x10^3/uL RBC (4.70-6.10) 10^6/uL Hgb (14.0-18.0) g/dL Hct (42.0-52.0) % MCV (80.0-94.0) fL MCH (27.0-31.0) pg MCHC (32.0-36.0) g/dL RDW (12.0-15.0) % Plt Count (130-450) 10^3/uL MPV (7.4-11.4) fL Neut # (Auto) Lymph # (Auto) Hamilton # (Auto) Eos # (Auto) Baso # (Auto) Absolute Nucleated RBC Total Counted Band Neuts % (Manual) (0 - 10) % Reactive Lymphs % (Man) % Abnorm Lymph % (Manual) % Metamyelocytes % ( - 0) % Myelocytes % ( - 0) % Nucleated RBC % Neutrophils # (Manual) (1.5-6.6) 10^3/uL Lymphocytes # (Manual) (1.5-3.5) 10^3/uL Monocytes # (Manual) (0.0-1.0) 10^3/uL Eosinophils # (Manual) (0-0.7) 10^3/uL Basophils # (Manual) (0-0.1) 10^3/uL Differential Comment Platelet Estimate (NORMAL) RBC Morph Micro Appear (NORMAL) Bld Gas Analysis Time 0551 Sample Site RIGHT RADIAL ABG pH 7.41 (7.35-7.45) ABG pCO2 31 L (34-45) mmHg ABG pO2 91 (80-100) mmHg ABG HCO3 18.8 L (22.0-26.0) mmol/L ABG Total CO2 19.7 L (21.0-29.0) MMOL/L ABG O2 Saturation 97 (94-98) % ABG Base Excess -5.0 L (-2.0-3.0) mmol/L Ap Test POSITIVE VBG pH 7.371 (7.31-7.41) Ionized Calcium 1.03 L (1.15-1.33) mmol/L Respiration Rate 12 b/min O2 Delivery Device VENTILATOR Vent Mode SIMV FiO2 35.00 Tidal Volume 600 mL PEEP 5 cmH2O Pressure Support Vent 10 cmH2O Sodium 142 (135-145) mmol/L Potassium 3.3 L (3.5-5.0) mmol/L Chloride 115 H (101-111) mmol/L Carbon Dioxide 20 L (21-32) mmol/L Anion Gap 7.0 (6-13) BUN 6 (6-20) mg/dL Creatinine 0.6 (0.6-1.2) mg/dL Estimated GFR (MDRD) 137 (>89) Glucose 118 H (70-100) mg/dL Calcium 7.0 L (8.5-10.3) mg/dL Magnesium 1.3 L (1.7-2.8) mg/dL Total Bilirubin 3.2 H (0.2-1.0) mg/dL AST 61 H (10-42) IU/L ALT 26 (10-60) IU/L Alkaline Phosphatase 59 (42-121) IU/L Total Protein 6.0 L (6.7-8.2) g/dL Albumin 2.3 L (3.2-5.5) g/dL Globulin 3.7 (2.1-4.2) g/dL Albumin/Globulin Ratio 0.6 L (1.0-2.2) 08/22/18 Range/Units 04:10 WBC 4.2 L (4.8-10.8) x10^3/uL RBC 2.69 L (4.70-6.10) 10^6/uL Hgb 9.5 L (14.0-18.0) g/dL Hct 28.2 L (42.0-52.0) % MCV 104.9 H (80.0-94.0) fL MCH 35.5 H (27.0-31.0) pg MCHC 33.9 (32.0-36.0) g/dL RDW 15.4 H (12.0-15.0) % Plt Count 44 L (130-450) 10^3/uL MPV 8.8 (7.4-11.4) fL Neut # (Auto) Not Reportable Lymph # (Auto) Not Reportable Hamilton # (Auto) Not Reportable Eos # (Auto) Not Reportable Baso # (Auto) Not Reportable Absolute Nucleated RBC Not Reportable Total Counted 100 Band Neuts % (Manual) 7 (0 - 10) % Reactive Lymphs % (Man) 1 % Abnorm Lymph % (Manual) 0 % Metamyelocytes % 3 H ( - 0) % Myelocytes % 3 H ( - 0) % Nucleated RBC % Not Reportable Neutrophils # (Manual) 2.6 (1.5-6.6) 10^3/uL Lymphocytes # (Manual) 0.8 L (1.5-3.5) 10^3/uL Monocytes # (Manual) 0.4 (0.0-1.0) 10^3/uL Eosinophils # (Manual) 0.1 (0-0.7) 10^3/uL Basophils # (Manual) 0.0 (0-0.1) 10^3/uL Differential Comment MANUAL DIFFERENTIAL Platelet Estimate DECREASED (<130,000) (NORMAL) RBC Morph Micro Appear NORMAL APPEARANCE (NORMAL) Bld Gas Analysis Time Sample Site ABG pH (7.35-7.45) ABG pCO2 (34-45) mmHg ABG pO2 (80-100) mmHg ABG HCO3 (22.0-26.0) mmol/L ABG Total CO2 (21.0-29.0) MMOL/L ABG O2 Saturation (94-98) % ABG Base Excess (-2.0-3.0) mmol/L Ap Test VBG pH (7.31-7.41) Ionized Calcium (1.15-1.33) mmol/L Respiration Rate b/min O2 Delivery Device Vent Mode FiO2 Tidal Volume mL PEEP cmH2O Pressure Support Vent cmH2O Sodium (135-145) mmol/L Potassium (3.5-5.0) mmol/L Chloride (101-111) mmol/L Carbon Dioxide (21-32) mmol/L Anion Gap (6-13) BUN (6-20) mg/dL Creatinine (0.6-1.2) mg/dL Estimated GFR (MDRD) (>89) Glucose (70-100) mg/dL Calcium (8.5-10.3) mg/dL Magnesium (1.7-2.8) mg/dL Total Bilirubin (0.2-1.0) mg/dL AST (10-42) IU/L ALT (10-60) IU/L Alkaline Phosphatase (42-121) IU/L Total Protein (6.7-8.2) g/dL Albumin (3.2-5.5) g/dL Globulin (2.1-4.2) g/dL Albumin/Globulin Ratio (1.0-2.2) - Diagnostic Imaging Diagnostic Imaging Results: positive: Final report reviewed ABX Reporting Has patient been on IV antibiotics over the past 48 hours?: Yes Assessment/Plan - Problem List (1) Acute respiratory failure with hypoxemia Impression: Patient is on Day 3 of intubation. Patient was intubated due to respiratory distress and compromise due to alcohol withdrawal. Patient is vitals are stable and have decreased sedation from 11 mg/hr of Ativan to 6 mg/hr of ativan monitoring vitals. Plan: Continue to monitor vitals with decrease in sedation and CIWA protocol. Extubation based on vitals and patient toleration of alcohol withdrawal. (2) Pneumonia Impression: He has had a retrocardiac density on chest x-ray since admission. This is a gentleman who had a seizure and may have aspirated. Unclear was also community- acquired pneumonia the patient is an alcoholic and immunocompromise. He has been on vancomycin since admission which would be day #4 today. He has been on Zosyn starting the next day which should make this day #3. Blood cultures are negative. MRSA nares negative. Qualifiers: Pneumonia type: aspiration pneumonia Aspiration pneumonia type: due to vomit Laterality: left Lung location: lower lobe of lung Qualified Code(s): J69.0 - Pneumonitis due to inhalation of food and vomit (3) Alcohol withdrawal seizure Impression: none since admission. Qualifiers: Complication of substance-induced condition: with delirium Qualified Code(s): F10.231 - Alcohol dependence with withdrawal delirium (4) Alcoholic cirrhosis of liver Impression: Chronic issue. Patient is currently in alcohol withdrawal. Labs reveal hypocalcemia and hypomagnesium. Platelet count increase from 1 day prior. Plan: Monitor labs Replace electrolytes Qualifiers: Ascites presence: without ascites Qualified Code(s): K70.30 - Alcoholic cirrhosis of liver without ascites (5) Anemia Impression: Chronic issue due alcoholic cirrhosis. Vitals sign remain stable and monitoring CBC. He has dropped from admission and we attibute that to the 17 liters of fluid he has received. Will decrease maintenance IVF since he's getting some from propofol, ativan, abx drips. Plan: Continue to monitor CBC Replace folate and thiamine Qualifiers: Anemia type: folate deficiency Folate deficiency anemia type: other folate deficiency Qualified Code(s): D52.8 - Other folate deficiency anemias (6) Hepatitis C Impression: unknown if he's gotten treatment. Qualifiers: Viral hepatitis chronicity: chronic
[2018-08-22] MEDS: MULTIVITAMIN 10 ML, THIAMINE INJ 100 MG, FOLIC ACID INJ 1 MG in SODIUM CHLORIDE 0.9% 1,... IV SCH (10:30)
[2018-08-22 15:36] LABS: ABG BASE EXCESS -4.9 mmol/L (-2.0-3.0); ABG HCO3 17.2 mmol/L (22.0-26.0); ABG PH 7.48 (7.35-7.45); ABG PO2 76 mmHg (80-100); ABG TCO2 17.9 MMOL/L (21.0-29.0)
[2018-08-22 15:37] LABS: ABG OXYGEN SATURATION 96 % (94-98); ALLEN TEST POSITIVE
[2018-08-22 15:40] LABS: ABG PCO2 24 mmHg (34-45)
[2018-08-22 16:52] LABS: VANCOMYCIN,TROUGH 20.7 ug/mL (10.0-20.0)
[2018-08-22] MEDS ORDERED: MAGNESIUM SULFATE 2 GRAM 2 GM/50 ML BAG IV ONE (17:00)
[2018-08-23] MEDS: PIPERACILLIN/TAZOBACTAM 3.375 GM in SODIUM CHLORIDE 0.9% MINIBAG 100 ML IV SCH ×4 (00:15→18:09)
[2018-08-23] MEDS: VANCOMYCIN INJ 1 GM in SODIUM CHLORIDE 0.9% 250 ML IV SCH ×3 (01:59→17:38)
[2018-08-23] MEDS: SODIUM CHLORIDE FLUSH 0.9% 10 ML SYRINGE IVP SCH ×3 (02:05→21:17)
[2018-08-23 05:21] LABS: VBG PH 7.436 (7.31-7.41)
[2018-08-23 05:31] LABS: ABG BASE EXCESS -4.1 mmol/L (-2.0-3.0); ABG HCO3 19.1 mmol/L (22.0-26.0); ABG OXYGEN SATURATION 97 % (94-98); ABG PCO2 29 mmHg (34-45); ABG PH 7.44 (7.35-7.45); ABG PO2 85 mmHg (80-100); ALLEN TEST POSITIVE
[2018-08-23] MEDS: PROPOFOL 1000 MG/100 ML 100 ML IV SCH ×2 (07:16→22:05)
[2018-08-23] MEDS: FERROUS SULFATE 325 MG TABLET PO SCH ×2 (08:04→21:18)
--- NOTE | 2018-08-23 08:09 | PROVIDER PROGRESS NOTE ---
Subjective - Prog Note Date Prog Note Date: 08/23/18 Prog Note Time: 19:12 - Subjective Pt reports feeling: No change Subjective: 62 yo male with PMH of hepatitis C, HTN, COPD and alcohol abuse on inpatient Day 5 presented to the ED following seizure from alcohol withdrawal. Due to tachypnea and respiratory distress, the patient was intubated Day #3 . Patient stills remains intubated with CIWA protocol. Patients CIWA Protocol Ativan has been reduced to 4 mg/hr from the original 11 mg/hr required. Patient was placed on vent assist yesterday and remains on ventilator assist. There is no leak and the patient appears in no distress. Attempted to switch patient to SIMV and lower propofol while monitoring vitals for possible extubation. Patient tachypnea continued and returned ventilation to assist control. Routine chest x-ray also showed ET tube malposition and ET tube was advanced. Patient continued on assist control. When the ET tube was advanced, copious, copious secretions of come out. Sputum has been submitted for culture. As a day has progressed, we had had his FiO2 at 35%. And O2 sat was 99%. Blood pressures been stable and is in the 160s over 90s and he is afebrile. Starting this afternoon his static and dynamic compliance is now in the 30s where it was in the 50s. His peak pressures stable in the 20s. He has dropped his O2 sat on the same 35% FiO2. He is now 91-92%. Subtle deterioration on his vent status after being on the vent for the last 2 days with a worsening chest x-ray as the overall clinical scenario. Current Medications - Current Medications Current Medications: Current Medications Generic Name Dose Route Start Last Admin Trade Name Geoffreyq PRN Reason Stop Dose Admin Chlorhexidine Gluconate 15 ml 08/21/18 12:00 08/22/18 21:28 Peridex PO 15 ml BID MIGUELITO Administration Ferrous Sulfate 325 mg 08/19/18 17:00 08/23/18 08:04 Feosol PO Not Given BIDWM MIGUELITO Famotidine 50 mls @ 100 mls/hr 08/19/18 09:00 08/22/18 21:58 Pepcid 20 Mg/50 Ml IV Infused BID MIGUELITO Infusion Multivitamins 10 ml/ Thiamine 1,011.2 mls @ 100 mls/hr 08/19/18 09:00 08/22/18 20:39 HCl 100 mg/ Folic Acid 1 mg/ IV Infused Sodium Chloride DAILY MIGUELITO Infusion Acetaminophen 100 mls @ 400 mls/hr 08/19/18 04:34 08/20/18 15:38 Ofirmev IV Infused Q6HR PRN Infusion Pain or Fever > 38C (100.4F) Propofol 100 mls @ 4.62 mls/hr 08/20/18 18:00 08/23/18 08:04 Diprivan IV 14.2 mcg/kg/min .[id number] MIGUELITO 6.56 mls/hr Titration Protocol 10 MCG/KG/MIN Piperacillin Sod/Tazobactam 100 mls @ 200 mls/hr 08/20/18 18:00 08/23/18 06:45 Sod 3.375 gm/ Sodium Chloride IV Infused Q6H MIGUELITO Infusion Lorazepam 100 mls @ 5 mls/hr 08/22/18 04:15 08/23/18 08:04 Ativan IV 4 mg/hr .Q20H MIGUELITO 4 mls/hr Titration Protocol 5 MG/HR Vancomycin HCl 1 gm/ Sodium 250 mls @ 167 mls/hr 08/22/18 10:00 08/23/18 03:30 Chloride IV Infused Q8H MIGUELITO Infusion Potassium Chloride/Dextrose/Sod Cl 1,000 mls @ 80 mls/hr 08/22/18 15:58 08/23/18 08:03 IV 80 mls/hr .[id number] MIGUELITO Infusion Lorazepam 2 mg 08/19/18 07:02 08/20/18 12:37 Ativan Inj (Vial) IVP 2 mg Q1H PRN Administration Alcohol Withdrawal Nicotine 1 patch 08/20/18 13:00 08/22/18 09:03 Nicoderm TOP 1 patch DAILY MIGUELITO Administration Scopolamine HBr 1 patch 08/20/18 23:00 08/20/18 23:07 Transderm-Scop TOP 1 patch Q3D MIGUELITO Administration Sodium Chloride 10 ml 08/19/18 09:00 08/23/18 02:05 Normal Saline Flush 0.9% IVP Not Given 0100,0900,1700 MIGUELITO Sodium Chloride 10 ml 08/19/18 02:56 08/22/18 20:40 Normal Saline Flush 0.9% IVP 10 ml PRN PRN Administration NEEDED PER PROVIDER ORDERS Objective - Vital Signs/Intake & Output Reviewed Vital Signs: Yes Vital Signs: Vital Signs x48h Temp Pulse Pulse Resp BP Pulse Ox 08/23/18 08:00 37.1 C 60 17 160/82 H 97 08/23/18 07:36 67 08/23/18 06:55 61 18 128/77 95 08/23/18 06:00 65 20 143/72 H 97 08/23/18 05:11 60 08/23/18 05:00 60 20 149/82 H 100 08/23/18 04:00 59 L 20 152/86 H 99 08/23/18 03:10 58 L 08/23/18 03:00 55 L 20 145/73 H 98 08/23/18 02:00 63 20 139/80 H 97 08/23/18 01:04 59 L 08/23/18 01:00 58 L 20 129/83 H 98 Intake & Output: Intake & Output 08/20/18 08/21/18 08/22/18 08/23/18 23:59 23:59 23:59 23:59 Intake Total 4477.884 4016.001 5007.239 1649.095 Output Total 3035 1880 2095 865 Balance 9692.089 2035.001 2912.239 784.095 - Objective General Appearance: positive: No acute distress, Other (Sedated and intubated) Eyes Bilateral: positive: Normal inspection, PERRL ENT: positive: Other (repaired laceration on lip and tongue from previous fall from seizure) Neck: positive: Nml inspection, Trachea midline Respiratory: positive: Chest non-tender, No respiratory distress, Breath sounds nml. negative: Wheezes, Rales, Rhonchi Cardiovascular: positive: Regular rate & rhythm, No murmur, No gallop Peripheral Pulses: 2+ Radial (R), 2+ Radial (L) Abdomen: positive: Non-tender, Nml bowel sounds, No distention Rectal: negative: Bloody stool Skin: positive: Color nml, No rash, Warm, Dry, Other (verrucious growths on finger tips and epigastric region) Extremities: positive: Non-tender, Nml appearance, No pedal edema Neurologic/Psychiatric: negative: Oriented x3 (sedated for intubation) - Lab Results Fish Bones: 08/22/18 04:10 08/23/18 08:06 Other Labs: Lab Results x24hrs 08/23/18 08/23/18 08/22/18 Range/Units 05:20 04:40 16:32 Bld Gas Analysis Time 0531 Sample Site RIGHT RADIAL ABG pH 7.44 (7.35-7.45) ABG pCO2 29 L (34-45) mmHg ABG pO2 85 (80-100) mmHg ABG HCO3 19.1 L (22.0-26.0) mmol/L ABG Total CO2 20.0 L (21.0-29.0) MMOL/L ABG O2 Saturation 97 (94-98) % ABG Base Excess -4.1 L (-2.0-3.0) mmol/L Ap Test POSITIVE VBG pH 7.436 H (7.31-7.41) Ionized Calcium 1.01 L (1.15-1.33) mmol/L Respiration Rate 20 b/min O2 Delivery Device VENTILATOR Vent Mode ACCESSED/CONTROL FiO2 35.00 Tidal Volume 540 mL PEEP 5 cmH2O POC Whole Bld Glucose (70 - 100) mg/dL Magnesium 1.6 L (1.7-2.8) mg/dL Last Dose Date Last Dose Time Vancomycin Trough (10.0-20.0) ug/mL 08/22/18 08/22/18 08/19/18 Range/Units 16:32 15:25 20:31 Bld Gas Analysis Time 1536 Sample Site RIGHT RADIAL ABG pH 7.48 H (7.35-7.45) ABG pCO2 24 L* (34-45) mmHg ABG pO2 76 L (80-100) mmHg ABG HCO3 17.2 L (22.0-26.0) mmol/L ABG Total CO2 17.9 L (21.0-29.0) MMOL/L ABG O2 Saturation 96 (94-98) % ABG Base Excess -4.9 L (-2.0-3.0) mmol/L Pa Test POSITIVE VBG pH (7.31-7.41) Ionized Calcium (1.15-1.33) mmol/L Respiration Rate 20 b/min O2 Delivery Device VENTILATOR Vent Mode ASSIST CONTROL FiO2 35.00 Tidal Volume 600 mL PEEP 3 cmH2O POC Whole Bld Glucose 97 (70 - 100) mg/dL Magnesium (1.7-2.8) mg/dL Last Dose Date 08/22/18 Last Dose Time 0850 Vancomycin Trough 20.7 H (10.0-20.0) ug/mL 08/19/18 08/19/18 08/19/18 Range/Units 16:47 11:40 07:46 Bld Gas Analysis Time Sample Site ABG pH (7.35-7.45) ABG pCO2 (34-45) mmHg ABG pO2 (80-100) mmHg ABG HCO3 (22.0-26.0) mmol/L ABG Total CO2 (21.0-29.0) MMOL/L ABG O2 Saturation (94-98) % ABG Base Excess (-2.0-3.0) mmol/L Ap Test VBG pH (7.31-7.41) Ionized Calcium (1.15-1.33) mmol/L Respiration Rate b/min O2 Delivery Device Vent Mode FiO2 Tidal Volume mL PEEP cmH2O POC Whole Bld Glucose 95 99 93 (70 - 100) mg/dL Magnesium (1.7-2.8) mg/dL Last Dose Date Last Dose Time Vancomycin Trough (10.0-20.0) ug/mL - Diagnostic Imaging Diagnostic Imaging Comments: Final Report PT NAME: SHABBIR MARCUS MR#: [id number] ADM IN/ICU AGE: 62 CI DT/TM: 08/23/1812/09/1036 PCP: : 1955 ATT: Nancy Whiteside MD SEX: M ORD: Nancy Whiteside MD EXAM: [id number] XR/[id number] ([id number]) Reason: ventilator patient w/ pneumonia Procedure Date: 08/23/2018 Accession Number: [id number] / [id number] Procedure: XR - Chest 1 View X-Ray CPT Code: 58846 FULL RESULT: EXAM: CHEST RADIOGRAPHY EXAM DATE: 08/23/2018 10:54 AM. CLINICAL HISTORY: Ventilator patient with pneumonia. COMPARISON: CHEST 1 VIEW 08/20/2018 10:14 PM. TECHNIQUE: 1 view. FINDINGS: Interval opacification of essentially the left hemithorax likely a combination of consolidation and pleural effusion. Right lung is clear. Mediastinal shift to the left is exacerbated by rotation. The cardiomediastinal silhouette is not effectively evaluated. The endotracheal tube terminates 8.8 cm above the danis approximately at the thoracic inlet and could be advanced. Enteric tube terminates below the inferior confines of the radiograph, appropriate positioning. IMPRESSION: Consider advancing the endotracheal tube 4 cm for improved positioning. RADIA Mma Fighter: Reading Radiologist: Keny Flores MD Releasing Radiologist: Keny Flores MD Released Date Time: 08/23/181215 Report 15 cc: Nancy Whiteside MD; Sergio Bailon MD Principal [employer] Clerk Name: Keny Flores Provider ID: [id number] Final Report PT NAME: SHABBIR MARCUS MR#: [id number] ADM IN/ICU AGE: 62 CI DT/TM: 08/23/1812/09/1211 PCP: : 1955 ATT: Nancy Whiteside MD SEX: M ORD: Nancy Whiteside MD EXAM: [id number] XR/[id number] ([id number]) Reason: new position of ET tube Procedure Date: 08/23/2018 Accession Number: [id number] / [id number] Procedure: XR - Chest 1 View X-Ray CPT Code: 82220 FULL RESULT: EXAM: CHEST RADIOGRAPHY EXAM DATE: 08/23/2018 01:05 PM. CLINICAL HISTORY: Endotracheal tube repositioning. COMPARISON: CHEST 1 VIEW 08/23/2018 10:38 AM. TECHNIQUE: 1 view. FINDINGS: Lungs/Pleura: Interval improvement in aeration of the left lung with persistent left-sided volume loss and opacification of the left hemithorax presumably at least in part due to pleural effusion. No pneumothorax. Mediastinum: Within exam limitations, the cardiomediastinal contour is normal. Other: The endotracheal tube now terminates 5.5 cm above the danis, adequate positioning. Enteric tube remains well-positioned. IMPRESSION: Improvement in endotracheal tube positioning. Improvement in lung aeration. RADIA Mma Fighter: Reading Radiologist: Keny Flores MD Releasing Radiologist: Keny Flores MD Released Date Time: 08/23/181339 Report 134 cc: Nancy Whiteside MD; Sergio Bailon MD Principal [employer] Clerk Name: Keny Flores Provider ID: [id number] ABX Reporting Has patient been on IV antibiotics over the past 48 hours?: Yes Assessment/Plan - Problem List (1) Acute respiratory failure with hypoxemia Impression: Patient is on Day 4 of intubation. Patient was intubated due to respiratory distress and compromise due to alcohol withdrawal. Patient is vitals are stable and have decreased sedation from 6 mg/hr of Ativan yesterday to 4 mg/hr of ativan monitoring vitals. Patient continues to show tachypnea and agitation on decrease sedation. Chest X-ray revealed the ET tube at 8.8 cm above the danis. Radiologist suggested advancing the ET 4 cm. Advanced ET tube and repeated chest x-ray and showed the endotracheal tube now terminates 5.5 cm above the danis, adequate positioning. Enteric tube remains well-positioned. Then as the day has progressed, subtle deterioration with regards to oxygen requirement and static compliance on the vent. Respiratory therapy and diet and managing him are wondering if he is starting to deteriorate with regards to worsening pneumonia or sliding into ARDS. Plan: I had planned to Continue to monitor vitals with decrease in sedation and CIWA protocol. Extubation based on vitals and patient toleration of alcohol withdrawal tomorrow. But this patient gets tachypneic with just lowering his sedation. Does not tolerate going to SIMV and pressure support. Needs to go back on assist control. Even with changing his ET tube placement and getting more secretions out and improving his lungs, subtle indication that he is not doing well. I have spoken to [facility]. They are willing to take the patient in transf er. As such she will be transferred tonight. (2) Pneumonia Impression: He has had a retrocardiac density on chest x-ray since admission. This is a gentleman who had a seizure and may have aspirated. Unclear was also community- acquired pneumonia the patient is an alcoholic and immunocompromise. He has been on vancomycin since admission which would be day #5 today. He has been on Zosyn starting the next day which should make this day #4. Blood cultures are negative. MRSA nares negative. 08/23/18 Chest X-ray reveals Interval improvement in aeration of the left lung with persistent left-sided volume loss and opacification of the left hemithorax presumably at least in part due to pleural effusion. No pneumothorax. Qualifiers: Pneumonia type: aspiration pneumonia Aspiration pneumonia type: due to vomit Laterality: left Lung location: lower lobe of lung Qualified Code(s): J69.0 - Pneumonitis due to inhalation of food and vomit (3) Alcohol withdrawal seizure Impression: None since admission Plan: Continue CIWA protocol Qualifiers: Complication of substance-induced condition: with delirium Qualified Code(s): F10.231 - Alcohol dependence with withdrawal delirium (4) Alcoholic cirrhosis of liver Impression: Chronic issue. Patient is currently in alcohol withdrawal. Plan: CBC and CMP to monitor labs and electrolyte replacement Qualifiers: Ascites presence: without ascites Qualified Code(s): K70.30 - Alcoholic cirrhosis of liver without ascites (5) Anemia Impression: Chronic issue due alcoholic cirrhosis. Vitals sign remain stable and monitoring CBC. He has dropped from admission and we attibute that to the 17 liters of fluid he has received As of yesterday. Will decrease maintenance IVF since he's getting some from propofol, ativan, abx drips. Plan: Continue to monitor CBC Replace folate and thiamine Qualifiers: Anemia type: folate deficiency Folate deficiency anemia type: other folate deficiency Qualified Code(s): D52.8 - Other folate deficiency anemias (6) Hepatitis C Impression: Unknown if he has received treatment Laboratory Tests 04/03/18 04/03/18 15:17 15:17 Hep Bs Antigen NON-REACTIVE Hepatitis C Antibody REACTIVE A Hep C Ab Signal/Cutoff 26.00 H HCV RNA (PCR) IUs/ml 85390 H HCV RNA PCR log IUs/ml 4.77 H HIV 1&2 Ag/Ab, 4th Gen NON-REACTIVE HIV 1&2 Antibody Rapid NEGATIVE Once he is an outpatient, may be a candidate for treatment. Unclear in this gentleman who has an alcohol problem, a tenuous home situation with his friend/significant other. Qualifiers: Viral hepatitis chronicity: chronic
[2018-08-23] MEDS: MULTIVITAMIN 10 ML, THIAMINE INJ 100 MG, FOLIC ACID INJ 1 MG in SODIUM CHLORIDE 0.9% 1,... IV SCH (08:21)
[2018-08-23 08:22] LABS: ALBUMIN 2.3 g/dL (3.2-5.5); CALCIUM 6.9 mg/dL (8.5-10.3); CREATININE 0.5 mg/dL (0.6-1.2); MAGNESIUM 1.4 mg/dL (1.7-2.8)
[2018-08-23] MEDS: D5NS W/20 MEQ KCL 1,000 ML IV SCH (08:36)
[2018-08-23] MEDS: FAMOTIDINE 20 MG/50 ML 50 ML IV SCH ×2 (08:45→21:24)
[2018-08-23] MEDS: CHLORHEXIDINE GLUCONATE 15 ML UDC PO SCH ×2 (08:49→21:24)
[2018-08-23] MEDS: NICOTINE 14 MG PATCH TOP SCH (08:49)
[2018-08-23] MEDS ORDERED: MAGNESIUM SULFATE 2 GRAM 2 GM/50 ML BAG IV ONE (11:02)
--- NOTE | 2018-08-23 11:09 | XRAY Report ---
Reason: ventilator patient w/ pneumonia Procedure Date: 08/23/2018 Accession Number: [id number] / [id number] Procedure: XR - Chest 1 View X-Ray CPT Code: 29830 FULL RESULT: EXAM: CHEST RADIOGRAPHY EXAM DATE: 08/23/2018 10:54 AM. CLINICAL HISTORY: Ventilator patient with pneumonia. COMPARISON: CHEST 1 VIEW 08/20/2018 10:14 PM. TECHNIQUE: 1 view. FINDINGS: Interval opacification of essentially the left hemithorax likely a combination of consolidation and pleural effusion. Right lung is clear. Mediastinal shift to the left is exacerbated by rotation. The cardiomediastinal silhouette is not effectively evaluated. The endotracheal tube terminates 8.8 cm above the danis approximately at the thoracic inlet and could be advanced. Enteric tube terminates below the inferior confines of the radiograph, appropriate positioning. IMPRESSION: Consider advancing the endotracheal tube 4 cm for improved positioning. RADIA
[2018-08-23] MEDS: POTASSIUM CHLOR 10 MEQ/100 ML 10 MEQ/100 ML BAG IV SCH ×4 (11:40→14:51)
[2018-08-23] MEDS ORDERED: CALCIUM GLUCONATE 1,000 MG in SODIUM CHLORIDE 0.9% 50 ML IV ONE (13:00)
--- NOTE | 2018-08-23 13:36 | XRAY Report ---
Reason: new position of ET tube Procedure Date: 08/23/2018 Accession Number: [id number] / [id number] Procedure: XR - Chest 1 View X-Ray CPT Code: 83901 FULL RESULT: EXAM: CHEST RADIOGRAPHY EXAM DATE: 08/23/2018 01:05 PM. CLINICAL HISTORY: Endotracheal tube repositioning. COMPARISON: CHEST 1 VIEW 08/23/2018 10:38 AM. TECHNIQUE: 1 view. FINDINGS: Lungs/Pleura: Interval improvement in aeration of the left lung with persistent left-sided volume loss and opacification of the left hemithorax presumably at least in part due to pleural effusion. No pneumothorax. Mediastinum: Within exam limitations, the cardiomediastinal contour is normal. Other: The endotracheal tube now terminates 5.5 cm above the danis, adequate positioning. Enteric tube remains well-positioned. IMPRESSION: Improvement in endotracheal tube positioning. Improvement in lung aeration. RADIA
[2018-08-23] MEDS ORDERED: POTASSIUM PHOSPHATE 15 MMOL in SODIUM CHLORIDE 0.9% 250 ML IV ONE (17:00)
[2018-08-23] MEDS: SODIUM CHLORIDE FLUSH 0.9% 10 ML SYRINGE IVP PRN ×3 (18:17→22:55)
--- NOTE | 2018-08-23 21:16 | Discharge Plan ---
Discharge Plan Disposition: 02 Transfer Acute Care Hosp Condition: Poor No Smoking: If you smoke, Please STOP! Call for help.
[2018-08-23] MEDS: SCOPOLAMINE PATCH TOP SCH (23:03)
[2018-08-23] MEDS: LORazepam 100MG/100ML 100 ML IV SCH (23:14)
[2018-08-23 23:21] VITALS: BP 166/98
--- NOTE | 2018-08-24 00:29 | CT Report ---
Reason: new ET tube with left lung opacitication Procedure Date: 08/23/2018 Accession Number: [id number] / [id number] Procedure: CT - Chest W/O CPT Code: FULL RESULT: EXAM: CT CHEST EXAM DATE: 08/23/2018 07:51 PM. CLINICAL HISTORY: New ET tube with left lung opacification. COMPARISONS: CHEST ANGIO 04/05/2018 2:00 PM. TECHNIQUE: Routine helical CT imaging was performed through the chest. IV contrast: None. Reconstructions: Coronal and sagittal. In accordance with CT protocol optimization, one or more of the following dose reduction techniques were utilized for this exam: automated exposure control, adjustment of mA and/or KV based on patient size, or use of iterative reconstructive technique. FINDINGS: Lungs/Pleura: Moderate left pleural effusion. There is extensive left lower lobe airspace consolidation with some involvement of the posterior segment of the left upper lobe. Small right pleural effusion with hypoventilatory changes. No pneumothorax. Tip of endotracheal tube 4 cm above the danis. Mediastinum: Normal. No adenopathy or masses. The heart and great vessels are normal. Bones: Unremarkable. Visualized Abdomen: A small gallbladder calcification likely secondary to stones noted. The liver demonstrates mild contour nodularity. Other: None. IMPRESSION: 1. Moderate left pleural effusion with left lower and upper lobe consolidation likely secondary to pneumonia and/or atelectasis. 2. Small right pleural effusion. 3. Satisfactory endotracheal tube position. 4. Cirrhosis. RADIA
--- NOTE | 2018-08-24 03:28 | DISCHARGE SUMMARY ---
Physician: Nancy Whiteside MD DATE OF ADMISSION: 08/19/2018 DATE OF DISCHARGE: 08/23/2018 DISCHARGE DIAGNOSES 1. Acute respiratory failure with hypoxemia. 2. Pneumonia. 3. Alcohol withdrawal seizure. 4. Alcoholic cirrhosis of the liver. 5. Macrocytic anemia. 6. Hepatitis C. DISCHARGE MEDICATIONS ON TRANSFER 1. Ofirmev 1000 mg every 6 hours as needed for pain, fever, headache. 2. Chlorhexidine mouthwash b.i.d. for jhon care. 3. Pepcid 20 mg per 50 mL b.i.d. 4. Ferrous sulfate 325 mg p.o. b.i.d. when able to take p.o. 5. Ativan 2 mg IV push q.1 hour p.r.n. 6. Ativan drip at 100 mL at 5 mL per hour IV. 7. Multivitamin with thiamine and folic acid. 8. Nicoderm patch 14 mcg daily. 9. Zosyn 3.375 grams q.6 hours. 10. D5 normal saline with 20 mEq potassium. 11. Compazine IV q.6 hours p.r.n. 12. Propofol drip. 13. Transdermal scopolamine patch one topically every 3 days. 14. Vancomycin 1 gram every 8 hours. The patient has received numerous calcium riders, magnesium riders, potassium riders, and potassium phosphate riders. PRINCIPAL PROCEDURES 1. Head CT with encephalomalacia of the right frontal lobe, unchanged from 09/01/2017 CT of the head. Otherwise, no acute changes. 2. Daily chest x-rays. Before intubation and after intubation. When compared to the previous chest x-ray of 04/07/2018, the first chest x-ray showed development of a left retrocardiac opacity, but otherwise was unremarkable chest. He then went on to develop consolidation at the left lung base as his stay went on. On the day of discharge, chest x-ray in the morning showed opacification of the left hemithorax with a combination of consolidation and pleural effusion. Right lung was clear. The endotracheal tube was 8.8 cm above the danis. We advanced the endotracheal tube, and repeat chest x-ray on the day of discharge showed improvement in the endotracheal tube positioning, improvement in lung aeration. Still persistent left-sided volume loss and opacification of the left hemithorax. 3. Methicillin-resistant Staphylococcus aureus nares negative. 4. Blood cultures from 08/19/2018 negative after two days. 5. Sputum cultures received on 08/23/2018 and pending at the time of discharge. HOSPITAL COURSE: The patient is a 62-year-old white male with hepatitis C, alcohol abuse, and prior admission for alcohol withdrawal seizures in March 2018. He was again seen in the emergency room one month ago because he was having alcohol withdrawal seizures then, and it was advised that he be admitted, but he signed himself out AMA before being admitted. He now presents with another alcohol withdrawal seizure. It has been an interesting social scenario. He was initially identified as living with his sister who heard a thud and went to see him in the bathroom. When he was having a seizure, she called an ambulance, and he was postictal and brought to the emergency room. Later in his stay, his "sister" was identified as a significant other/partner. They live together; but, because she has no legal rights, she identifies herself as his sister in order to get information and have some say on his care. She does state that he drinks five glasses of vodka a day. He did stop drinking two days prior to admission for unknown reasons. In the emergency room, he had a lip laceration, and a tongue laceration. He also still had chuck in his scalp from the laceration from March of 2018 when he had his first withdrawal seizure. He never followed up with getting those taken out. He was an unkempt white male, able to answer with short word sentences. Disoriented. He thinks it is 1925 and could not give his address. Oriented to self only. Blood pressure was 151/97, pulse 104, temperature 38, and room air saturation 96%. The top of his scalp had to be shaved to take out the old chuck. His lungs were clear. Tachycardic. Distant cardiac sounds. Abdomen soft. He had numerous verrucous growth on his anterior abdominal skin wall and the tops of his fingers. Sodium 139, potassium 3.1, creatinine 0.9, magnesium 1.1. AST 127, ALT 43, bilirubin 3.6. Toxicology without alcohol. INR 1.6. White cell count 3.9, hemoglobin 12.7 with an MCV of 100. He was diagnosed as having alcohol withdrawal seizures, with evidence of alcohol abuse and liver dysfunction. He had the lip laceration following the seizure and embedded chuck in his scalp. Those were removed. The patient was placed on med/surg and started on CIWA protocol with banana bags. His agitation became severe enough that he needed to be placed on an Ativan drip, and he was transitioned to the ICU on 08/20/2018. During his transition, he started breathing at a rate of 70. Fever continued to 38.1, sometimes as high as 39. Blood cultures were negative. As the day progressed and his agitation or respiratory rate was not able to be controlled with Ativan in increasing doses, it was felt prudent to intubate this patient because we felt that he was going to eventually exhaust himself with his respiratory rate that was consistently in the 70s. His breath was malodorous, he was increasingly somnolent. Once he was intubated on assist-control, his respiratory rate dropped down into the 20s, and he required an FiO2 of 30%-35% to maintain 100% saturation. Peak pressures were low, and he was easy to ventilate. He was identified as having that left retrocardiac density and had been already treated with vancomycin and Zosyn. Blood cultures were negative. Over the next 48 hours, he remained stable. We did note that when we tried to lighten sedation and see if we could extubate him, his respiratory rate would increase to the 60s and 70s again. We did discuss placing an NG tube for nutrition, but we were hoping that we could extubate him and then start feeding him. During his stay in ICU, he was on electrolyte replacement protocol with replacement of potassium, calcium, and phosphorus. We monitored the CBC to make sure he was not going to need transfusion or having evidence of GI bleed in this alcohol abuser with alcoholic liver disease. Platelets did drop; the lowest they dropped was to 27,000 and were 44,000 on the day of discharge. He did not require transfusion. On the day of discharge, there was a subtle change in the patient's status. The followup chest x-ray for that day now showed complete opacification of the left lung with consolidation and/or pleural effusion. We noted that the ET tube had moved and was too high up, and we repositioned it. When we repositioned it, copious, copious amounts of anders/white, thick phlegm was removed. Sputum was submitted for culture. With repositioning of the ET tube, he did have some improvement in the aeration of his lung. However, static and dynamic pressures for his lung compliance started to change. There was a subtle increase in the requirement of FiO2. Trying to extubate him resulted in only increased respiratory rate. We felt that this gentleman was at increased risk for ARDS. He was worsening on our management as opposed to improving on our management. Because this is a critical access hospital and we do not have dedicated intensivists, we felt it prudent to transfer to a higher level of care for vent management and possible impending ARDS. I spoke to [place], and the maintenance painter video production assistant, Dr. Martínez, graciously accepted the patient in transfer. At transfer, temperature was 37.1, pulse 64, blood pressure 149/77, respirations 19, and he is 95% on now an FiO2 of 40%. He has coarse rhonchi in the left lung anteriorly, no breath sounds in the left mid axillary line and when I turn him over on the left back. Right lung is clear. Regular rate and rhythm. Abdomen that is soft, unable to be assessed for tenderness. No rigidness, no fluid wave. The extremities are remarkable for edema and the verrucous growth on his fingers. He is intubated, and does respond to voice and vigorous shaking. Greater than 30 minutes was spent in coordinating discharge. At discharge, it is anticipated the patient may need rehabilitation to improve his strength. Even before admission, the patient was already having malnourishment issues and decreased strength issues from his alcoholism. He does live with a significant other as we determined. They do have one child from 41 years ago, and that child lives in the [facility]. TD: 08/23/2018 21:54 CHA
== END 2018-08-23 23:40 | disposition short-term general hospital (02) | DRG 896 ==
LOC: EDUNIT# → ED 00:08 → ICU 02:56
PROVIDERS: ADMIT Internal Medicine; ATTEND Specialist
PROC: 5A1945Z Respiratory Ventilation, 24-96 Consecutive Hours (ICD-10-PCS; principal; 2018-08-20)
PROC: 0BH17EZ Insertion of Endotracheal Airway into Trachea, Via Natural or Artificial Opening (ICD-10-PCS; 2018-08-20)
DX: F10.231 Alcohol dependence with withdrawal delirium (principal); J80 Acute respiratory distress syndrome; J69.0 Pneumonitis due to inhalation of food and vomit; E46 Unspecified protein-calorie malnutrition; E87.3 Alkalosis; R56.9 Unspecified convulsions; D52.8 Other folate deficiency anemias; B18.2 Chronic viral hepatitis C; K70.30 Alcoholic cirrhosis of liver without ascites; E87.6 Hypokalemia; S01.511A Laceration without foreign body of lip, initial encounter; S01.512A Laceration without foreign body of oral cavity, initial encounter; W19.XXXA Unspecified fall, initial encounter; Y92.002 Bathroom of unspecified non-institutional (private) residence as the place of occurrence of the external cause; S01.01XD Laceration without foreign body of scalp, subsequent encounter; K70.10 Alcoholic hepatitis without ascites; J44.9 Chronic obstructive pulmonary disease, unspecified; E83.42 Hypomagnesemia; D69.59 Other secondary thrombocytopenia; E83.51 Hypocalcemia; I10 Essential (primary) hypertension; B07.9 Viral wart, unspecified; R40.2424 Glasgow coma scale score 9-12, 24 hours or more after hospital admission; Z18.89 Other specified retained foreign body fragments; Z78.1 Physical restraint status; Z72.0 Tobacco use; Z91.19 Patient's noncompliance with other medical treatment and regimen
CPT/HCPCS: 12011; 36415; 36600; 70450; 71045; 71250; 80053; 80202; 80320; 81001; 81003; 82040; 82310; 82330; 82565; 82803; 83605; 83690; 83735; 84100; 84132; 85025; 85610; 85730; 87040; 87070; 87086; 87150; 87205; 94002; 94003; 96361; 96374; 96376; 99284; 99285

== ENCOUNTER 2018-11-13 15:58 | Outpatient (CLI) | payer MEDICARE, MEDICAID ==
[2018-11-13 17:46] LABS: BASOPHILS # (AUTO) 0.1 10^3/uL (0.0-0.1); EOSINOPHILS # (AUTO) 0.1 10^3/uL (0.0-0.7); LYMPHOCYTES # (AUTO) 1.6 10^3/uL (1.5-3.5); LYMPHOCYTES % (AUTO) 30.3 %; MEAN CORPUSCULAR HGB CONC 33.3 g/dL (32.0-36.0); MEAN CORPUSCULAR VOLUME 96.1 fL (80.0-94.0); MEAN PLATELET VOLUME 8.9 fL (7.4-11.4); MONOCYTES # (AUTO) 0.7 10^3/uL (0.0-1.0); MONOCYTES % (AUTO) 13.6 %; NEUTROPHILS # (AUTO) 2.9 10^3/uL (1.5-6.6); NEUTROPHILS % (AUTO) 54.1 %; PLT - PLATELET COUNT 91 10^3/uL (130-450); RED BLOOD COUNT 4.08 10^6/uL (4.70-6.10); RED CELL DISTRIBUTION WIDTH 16.4 % (12.0-15.0); WHITE BLOOD COUNT 5.4 x10^3/uL (4.8-10.8)
[2018-11-13 18:03] LABS: ALBUMIN 3.7 g/dL (3.2-5.5); ALBUMIN/GLOBULIN RATIO 0.8 (1.0-2.2); BILIRUBIN,TOTAL 3.2 mg/dL (0.2-1.0); CALCIUM 8.8 mg/dL (8.5-10.3); CREATININE 0.7 mg/dL (0.6-1.2); TOTAL PROTEIN 8.6 g/dL (6.7-8.2)
== END 2018-11-13 15:59 | disposition home or self-care (01) ==
LOC: LAB.F 15:58
PROVIDERS: ATTEND Physician Assistant Medical
DX: R56.9 Unspecified convulsions (principal)
CPT/HCPCS: 36415; 80053; 85025

== ENCOUNTER 2018-12-28 01:13 | Outpatient (CLI) | payer MEDICARE, MEDICAID | END 2018-12-28 01:14 | disposition EMS.NT | LOC: EMS 01:13 | PROVIDERS: ATTEND Surgery | DX: Z03.89 Encounter for observation for other suspected diseases and conditions ruled out (principal) ==

== ENCOUNTER 2019-01-02 20:39 | Outpatient (CLI) | payer SELFPAY | END 2019-01-02 20:40 | disposition EMS.NT | LOC: EMS 20:39 | PROVIDERS: ATTEND Surgery | DX: Z03.89 Encounter for observation for other suspected diseases and conditions ruled out (principal) ==

== ENCOUNTER 2019-01-21 14:32 | Outpatient (CLI) | payer MEDICARE, MEDICAID | END 2019-01-21 14:33 | disposition critical access hospital (66) | LOC: EMS 14:32 | PROVIDERS: ATTEND Surgery | DX: R53.1 Weakness (principal) | CPT/HCPCS: A0425; A0429 ==

== ENCOUNTER 2019-01-21 15:12 | Emergency (ER) | payer MEDICARE, MEDICAID ==
--- NOTE | 2019-01-21 15:35 | ED Physician Documentation ---
History of Present Illness - Stated complaint Stated Complaint: WEAKNESS - Chief complaint Chief Complaint: General - History obtained from History obtained from: Patient - Additonal information Additional information: Patient is a 63-year-old male with history of likely alcohol induced liver cirrhosis, hepatitis C, anemia presenting with concern for "nerves being shot". Patient reports his last alcohol intake yesterday and denies other recreational drug use. Patient also denies collocated alcohol withdrawal, but per chart review, has likely had seizures from alcohol withdrawal. Patient denies seizure activity, falls, trauma, as well as chest pain, difficulty breathing, abdominal pain, nausea, vomiting, urinary changes, stool changes. Patient also denies fever. His home medications are metoprolol and Xanax, however, unable to confirm that per chart review at this time. Patient did not take his home medications this morning, but does not give a reason why he did not take them. Patient does have home health available to him. No other improving or worsening factors noted. Review of Systems Constitutional: denies: Fever GI: denies: Abdominal Pain PD PAST MEDICAL HISTORY - Past Medical History Cardiovascular: Hypertension Respiratory: COPD Neuro: Seizure disorder Endocrine/Autoimmune: None GI: None : None Psych: None Musculoskeletal: Chronic back pain Derm: None - Past Surgical History Past Surgical History: Yes Ortho: Rotator cuff repair, Other - Present Medications Home Medications: Ambulatory Orders Medication Instructions Recorded Confirmed Multivitamin W/Minerals [Theragran 1 tab PO DAILYWM #30 tablet 04/10/18 M] Thiamine [Vitamin B-1] 100 mg PO DAILY #30 tablet 04/10/18 Alprazolam [Xanax] 01/21/19 Aspirin [Aspirin EC] 01/21/19 Folic Acid 01/21/19 Gabapentin 01/21/19 Metoprolol Tartrate 01/21/19 01/21/19 - Allergies Allergies/Adverse Reactions: Allergies Allergy/AdvReac Type Severity Reaction Status Date / Time No Known Drug Allergies Allergy Verified 01/21/19 15:14 - Social History Does the pt smoke?: Yes Smoking Status: Current every day smoker Does the pt drink ETOH?: Yes Does the pt have substance abuse?: No - Immunizations Immunizations are current?: Yes - POLST Patient has POLST: No PD ED PE NORMAL - General General: Other (Extremely frail and thin appearing male resting comfortably in bed, disheveled and with poor hygiene) - HEENT HEENT: Atraumatic, PERRL. No: Moist mucous membranes (Slightly dry mucous membranes), Dentition benign (Poor dental hygiene throughout) - Cardiac Cardiac: RRR, No murmur - Respiratory Respiratory: No respiratory distress, Clear bilaterally - Abdomen Abdomen: Normal bowel sounds, Non tender, Non distended - Derm Derm: Other (Appearance of fungal changes diffusely of her fingers and nails) - Extremities Extremities: No deformity - Neuro Neuro: Other (Slightly tremulous throughout) - Psych Psych: Other (Flat affect) Results - Vitals Vitals: Vital Signs - 24 hr 01/21/19 01/21/19 01/21/19 15:15 15:24 17:21 Temperature 36.9 C Heart Rate 80 86 Respiratory 18 18 Rate Blood Pressure 146/126 H 165/92 H O2 Saturation 99 99 01/21/19 01/21/19 18:57 20:44 Temperature Heart Rate 93 97 Respiratory 21 20 Rate Blood Pressure 159/110 H 150/83 H O2 Saturation 95 99 Oxygen O2 Source [] Room air O2 Source Room air - EKG (time done) 1557 Rate: Rate (enter#) (79) Rhythm: NSR Intervals: Prolonged QT (Borderline) Ischemia: Non specific changes Other comments: Other comments (Significant artifact and somewhat poor quality given patient movement) - Labs Labs: Laboratory Tests 01/21/19 01/21/19 01/21/19 15:45 15:45 15:45 WBC 5.4 RBC 4.04 L Hgb 13.0 L Hct 38.7 L MCV 95.8 H MCH 32.3 H MCHC 33.7 RDW 14.5 Plt Count 57 L MPV 8.4 Neut # (Auto) 3.4 Lymph # (Auto) 1.1 L [place] # (Auto) 0.9 Eos # (Auto) 0.0 Baso # (Auto) 0.0 Absolute Nucleated RBC 0.00 Nucleated RBC % 0.0 Sodium 136 Potassium 3.6 Chloride 98 L Carbon Dioxide 25 Anion Gap 13.0 BUN 17 Creatinine 0.8 Estimated GFR (MDRD) 98 Glucose 98 Calcium 8.9 Total Bilirubin 4.1 H AST 102 H ALT 40 Alkaline Phosphatase 84 Ammonia Troponin I < 0.04 Total Protein 8.5 H Albumin 3.6 Globulin 4.9 H Albumin/Globulin Ratio 0.7 L Lipase 36 Urine Color Urine Clarity Urine pH Ur Specific [place] Urine Protein Urine Glucose (UA) Urine Ketones Urine Occult Blood Urine Nitrite Urine Bilirubin Urine Urobilinogen Ur Leukocyte Esterase Urine RBC Urine WBC Ur Squamous Epith Cells Urine Bacteria Ur Microscopic Review Urine Culture Comments Urine Opiates Screen Ur Oxycodone Screen Urine Methadone Screen Ur Propoxyphene Screen Ur Barbiturates Screen Ur Tricyclics Screen Ur Phencyclidine Scrn Ur Amphetamine Screen U Methamphetamines Scrn U Benzodiazepines Scrn Urine Cocaine Screen U Cannabinoids Screen Ethyl Alcohol 01/21/19 01/21/19 01/21/19 17:15 17:25 19:07 WBC RBC Hgb Hct MCV MCH MCHC RDW Plt Count MPV Neut # (Auto) Lymph # (Auto) [place] # (Auto) Eos # (Auto) Baso # (Auto) Absolute Nucleated RBC Nucleated RBC % Sodium Potassium Chloride Carbon Dioxide Anion Gap BUN Creatinine Estimated GFR (MDRD) Glucose Calcium Total Bilirubin AST ALT Alkaline Phosphatase Ammonia 23.6 Troponin I Total Protein Albumin Globulin Albumin/Globulin Ratio Lipase Urine Color DARK YELLOW Urine Clarity HAZY Urine pH 8.0 H Ur Specific [place] 1.025 Urine Protein 100 H Urine Glucose (UA) NEGATIVE Urine Ketones 15 H Urine Occult Blood SMALL H Urine Nitrite NEGATIVE Urine Bilirubin NEGATIVE Urine Urobilinogen >=8.0 H Ur Leukocyte Esterase NEGATIVE Urine RBC 0-5 Urine WBC 0-3 Ur Squamous Epith Cells NONE SEEN Urine Bacteria None Seen Ur Microscopic Review INDICATED Urine Culture Comments NOT INDICATED Urine Opiates Screen NEGATIVE Ur Oxycodone Screen NEGATIVE Urine Methadone Screen NEGATIVE Ur Propoxyphene Screen NEGATIVE Ur Barbiturates Screen NEGATIVE Ur Tricyclics Screen NEGATIVE Ur Phencyclidine Scrn NEGATIVE Ur Amphetamine Screen NEGATIVE U Methamphetamines Scrn NEGATIVE U Benzodiazepines Scrn NEGATIVE Urine Cocaine Screen NEGATIVE U Cannabinoids Screen NEGATIVE Ethyl Alcohol < 5.0 PD MEDICAL DECISION MAKING - ED course Complexity details: reviewed old records, reviewed results, re-evaluated patient, considered differential, d/w patient ED course: Patient has minimal complaints upon arrival to the ED. Patient is also specifically requesting vodka, and this request was denied. Patient started instead on banana bag and received home medications once are confirmed with his pharmacy, including alprazolam and metoprolol. Feel the patient's complaints and physical exam findings are likely related to alcohol use, although he does not appear acutely intoxicated, he may be experiencing mild alcohol withdrawal symptoms, which are addressed with his home medications. Physical exam reveals a chronically ill gentleman with general poor hygiene, but no evidence of obvious trauma, new neurological deficit, or systemic illness.Screening lab work, including troponin, as well as EKG. EKG and troponin did not find evidence of acute ischemia and have low suspicion for cardiac disease such as ACS, myocardial infarction, unstable angina today. Remainder of screening lab work relatively unremarkable and reflective of his known underlying disease processes, including anemia. No need for blood transfusion at this time. At this time, have low suspicion for new stroke, as well as low suspicion for new types of infection including pneumonia, intra-abdominal infection, or UTI. Patient sitting at bedside by himself. Per report, patient normally uses a walker at home and has caregivers available to him. Feel that he is likely at his usual baseline and does not require further interventions or acute hospitalization at this time. Unfortunately, patient significant other and caregivers unable to be contacted at this time. Do not feel the patient is safe to discharge by himself via taxi or able to meet criteria for return home by ambulance. While attempting to further contact his family members or caregivers, will obtain further workup to ensure no other pathology occurring. Additional workup also returned relatively unremarkable. Ammonia level within normal limits. Urinalysis unremarkable. CT head also did not find evidence of acute intracranial pathology such as stroke. At this time, patient not requiring further interventions, but he is not a completely safe discharge alone such as in a taxi and will continue to try to obtain contact with a significant other caregiver. Likely, patient will need to remain in the ED overnight. Hopefully, he will either continue to further clear his mental status or someone will be able to be reached. Social work consulted. Departure - Departure Clinical Impression: Alcohol use Alcoholic cirrhosis of liver Qualifiers: Ascites presence: without ascites Qualified Code(s): K70.30 - Alcoholic cirrhosis of liver without ascites Condition: Fair Instructions: ED Alcohol Abuse Follow-Up: your,doctor [Other] - Within 3 Days
[2019-01-21] MEDS ORDERED: FOLIC ACID INJ 1 MG, THIAMINE INJ 100 MG, MAGNESIUM SULFATE 2 GM, MULTIVITAMIN 10 ML in... IV STA ×5 (15:42)
[2019-01-21 15:59] LABS: BASOPHILS % (AUTO) 0.8 %; EOSINOPHILS % (AUTO) 0.3 %; LYMPHOCYTES # (AUTO) 1.1 10^3/uL (1.5-3.5); LYMPHOCYTES % (AUTO) 20.9 %; MEAN CORPUSCULAR HEMOGLOBIN 32.3 pg (27.0-31.0); MEAN CORPUSCULAR HGB CONC 33.7 g/dL (32.0-36.0); MEAN CORPUSCULAR VOLUME 95.8 fL (80.0-94.0); MEAN PLATELET VOLUME 8.4 fL (7.4-11.4); MONOCYTES # (AUTO) 0.9 10^3/uL (0.0-1.0); MONOCYTES % (AUTO) 16.2 %; NEUTROPHILS # (AUTO) 3.4 10^3/uL (1.5-6.6); NEUTROPHILS % (AUTO) 61.8 %; PLT - PLATELET COUNT 57 10^3/uL (130-450); RED BLOOD COUNT 4.04 10^6/uL (4.70-6.10); RED CELL DISTRIBUTION WIDTH 14.5 % (12.0-15.0); WHITE BLOOD COUNT 5.4 x10^3/uL (4.8-10.8)
[2019-01-21] MEDS ORDERED: ALPRAZolam 0.25 MG TABLET PO STA (15:59)
[2019-01-21 16:09] LABS: ALBUMIN 3.6 g/dL (3.2-5.5); ALBUMIN/GLOBULIN RATIO 0.7 (1.0-2.2); BILIRUBIN,TOTAL 4.1 mg/dL (0.2-1.0); CALCIUM 8.9 mg/dL (8.5-10.3); CREATININE 0.8 mg/dL (0.6-1.2); TOTAL PROTEIN 8.5 g/dL (6.7-8.2)
[2019-01-21] MEDS ORDERED: SODIUM CHLORIDE 0.9% 1,000 ML IV ONE (17:21)
--- NOTE | 2019-01-21 18:43 | CT Report ---
Reason: altered, chronic alcoholic Procedure Date: 01/21/2019 Accession Number: [id number] / [id number] Procedure: CT - HEAD WO CPT Code: FULL RESULT: EXAM: CT HEAD EXAM DATE: 01/21/2019 05:39 PM. CLINICAL HISTORY: Altered, chronic alcoholic. COMPARISON: HEAD W/O 08/19/2018 1:07 AM. TECHNIQUE: Multiaxial CT images were obtained from the foramen magnum to the vertex. Reformats: Sagittal and coronal. IV contrast: None. In accordance with CT protocol optimization, one or more of the following dose reduction techniques were utilized for this exam: automated exposure control, adjustment of mA and/or KV based on patient size, or use of iterative reconstructive technique. FINDINGS: Parenchyma: Redemonstration of right frontal lobe encephalomalacia. No intraparenchymal hemorrhage. No evidence of mass, midline shift or CT findings of acute territorial infarction. Dennis-white differentiation is distinct. Extraaxial Spaces: No subdural or epidural collections identified. Ventricles: No hydrocephalus Sinuses: Severe mucosal thickening in the left maxillary sinus. Bones: No evidence of acute fracture or calvarial defect. Other: None. IMPRESSION: No acute intracranial abnormalities. RADIA
[2019-01-21 19:12] LABS: MUDS CUTOFF CONCENTRATIONS CUTOFF CONC BELOW:
[2019-01-21 19:14] LABS: GLUCOSE, URINE (UA) NEGATIVE (NEGATIVE); KETONES,URINE (UA) 15 mg/dL (NEGATIVE); LEUKOCYTE ESTERASE, URINE NEGATIVE (NEGATIVE); NITRITE,URINE NEGATIVE (NEGATIVE); OCCULT BLOOD,URINE SMALL (NEGATIVE); PROTEIN,URINE 100 mg/dL (NEGATIVE); UROBILINOGEN,URINE >=8.0 E.U./dL (NORMAL)
[2019-01-21 19:20] LABS: BILIRUBIN,URINE NEGATIVE (NEGATIVE); CLARITY,URINE HAZY (CLEAR); ICTOTEST,URINE NEGATIVE
[2019-01-21 19:21] LABS: BACTERIA,URINE None Seen /HPF (None Seen); RBC,URINE 0-5 /HPF (0-5); SQUAMOUS EPITHELIAL CELL,UR NONE SEEN (<= Few)
[2019-01-21 19:23] LABS: AMPHETAMINE SCREEN,URINE NEGATIVE (NEGATIVE); BENZODIAZEPINES SCREEN, URINE NEGATIVE (NEGATIVE); COCAINE SCREEN URINE NEGATIVE (NEGATIVE); METHADONE SCREEN, URINE NEGATIVE (NEGATIVE); METHAMPHETAMINES SCREEN, URINE NEGATIVE (NEGATIVE); OPIATE SCREEN, URINE NEGATIVE (NEGATIVE); OXYCODONE SCREEN, URINE NEGATIVE (NEGATIVE); PROPOXYPHENE SCREEN, URINE NEGATIVE (NEGATIVE); TRICYCLIC ANTIDEPRESSANT,URINE NEGATIVE (NEGATIVE)
[2019-01-21] MEDS ORDERED: LORazepam 1 MG TABLET PO STA (23:56)
[2019-01-22] MEDS ORDERED: LORazepam 2 MG/ML VIAL IVP STA (08:28)
[2019-01-22] MEDS ORDERED: METOPROLOL SUCCINATE 25 MG TABLET PO SCH (09:00)
--- NOTE | 2019-01-22 10:28 | ED Physician Documentation ---
ED Addendum - Addendum Addendum: 01/22/19 10:[id number] alcoholic male is now an early stage of alcohol withdrawal and this morning he is mentating much better and able to ambulate in the halls without difficulty. He is administered Ativan intravenously for the shakes with significant improvement. He states that he is invested in discontinuing the use of alcohol and the transition social worker is consulted in the case. We were able to get a hold of his significant other "Maritza" who does not have a way to come and get the patient and a taxi is summoned to bring the patient back to his home.
[2019-01-22 11:40] VITALS: BP 121/73
== END 2019-01-22 12:11 | disposition home or self-care (01) ==
LOC: EDUNIT# → ED 15:12
DX: F10.230 Alcohol dependence with withdrawal, uncomplicated (principal); K70.30 Alcoholic cirrhosis of liver without ascites; I10 Essential (primary) hypertension; D64.9 Anemia, unspecified; I45.81 Long QT syndrome; F17.200 Nicotine dependence, unspecified, uncomplicated; Z79.82 Long term (current) use of aspirin
CPT/HCPCS: 36415; 70450; 80053; 81001; 82140; 83690; 84484; 85025; 93005; 96361; 96365; 96375; 99284; 99285; A9270; J2060; J3411; J8499; 80306; 80320; 81003; 87086

== ENCOUNTER 2019-05-12 11:32 | Outpatient (CLI) | payer MEDICARE | END 2019-05-12 11:33 | disposition critical access hospital (66) | LOC: EMS 11:32 | PROVIDERS: ATTEND Surgery | DX: R53.1 Weakness (principal) | CPT/HCPCS: A0425; A0429 ==

== ENCOUNTER 2019-05-12 12:20 | Inpatient (IN) | payer MEDICAID, MEDICARE ==
--- NOTE | 2019-05-12 12:28 | ED Physician Documentation ---
History of Present Illness - Stated complaint Stated Complaint: WEAKNESS - Chief complaint Chief Complaint: General - History obtained from History obtained from: Patient - Additonal information Additional information: Patient is a 63-year-old male with history of chronic alcohol use, hep C, anemia, hypertension, COPD presenting with recurrent falls. Patient describes his feet not working appropriately and denies any injuries during these falls. Patient reports he is able to get back up from his falls. Patient reports continuing to use alcohol and marijuana. Patient reports last alcohol intake was yesterday and is now tremulous. Patient does report issues with alcohol withdrawal including tremors, although he states he often has tremors at baseline. Patient denies headache, chest pain, difficulty breathing, cough, fever, abdominal pain, nausea, vomiting, urinary changes, or stool changes. No other improving or worsening factors noted. Review of Systems Constitutional: denies: Fever Cardiac: denies: Chest pain / pressure, Palpitations Respiratory: denies: Dyspnea, Cough GI: denies: Abdominal Pain, Nausea, Vomiting, Diarrhea : denies: Dysuria Musculoskeletal: denies: Extremity pain Neurologic: denies: Focal weakness, Numbness, Headache, Head injury, LOC PD PAST MEDICAL HISTORY - Past Medical History Past Medical History: Yes Cardiovascular: Hypertension Respiratory: COPD Neuro: Seizure disorder Endocrine/Autoimmune: None GI: None : None Psych: None Musculoskeletal: Chronic back pain Derm: None - Past Surgical History Past Surgical History: Yes Ortho: Rotator cuff repair, Other - Present Medications Home Medications: Ambulatory Orders Medication Instructions Recorded Confirmed Alprazolam [Xanax] 0.5 mg PO Q6HR 01/21/19 05/12/19 Metoprolol Tartrate 25 mg PO DAILY 01/21/19 05/12/19 - Allergies Allergies/Adverse Reactions: Allergies Allergy/AdvReac Type Severity Reaction Status Date / Time No Known Drug Allergies Allergy Verified 05/12/19 12:24 - Social History Does the pt smoke?: Yes Smoking Status: Current every day smoker Does the pt drink ETOH?: Yes Does the pt have substance abuse?: No - Immunizations Immunizations are current?: Yes - POLST Patient has POLST: No PD ED PE NORMAL - Vitals Vital signs reviewed: Yes - General General: Alert and oriented X 3, No acute distress. No: Well developed/nourished (Extremely poor hygiene throughout, chronically ill- appearing) - HEENT HEENT: Atraumatic, Moist mucous membranes. No: Dentition benign (Poor dentition) - Neck Neck: Supple, no meningeal sign - Cardiac Cardiac: No murmur. No: RRR (Tachycardic) - Respiratory Respiratory: No respiratory distress, Clear bilaterally - Abdomen Abdomen: Normal bowel sounds, Soft, Non tender, Non distended - Derm Derm: Normal color, Warm and dry, No rash, Other (Multiple dermal horns and fungal infections of nails) - Extremities Extremities: No deformity, No tenderness to palpate, No edema - Neuro Neuro: Alert and oriented X 3, No motor deficit, No sensory deficit - Psych Psych: Normal mood, Normal affect Results - Vitals Vitals: Vital Signs - 24 hr 05/12/19 05/12/19 05/12/19 12:22 13:31 15:00 Temperature 36.4 C L Heart Rate 120 H 66 128 H Respiratory 18 24 27 H Rate Blood Pressure 127/91 H 105/79 96/64 O2 Saturation 99 93 95 05/12/19 05/12/19 05/12/19 15:12 15:16 15:21 Temperature Heart Rate 115 H 113 H 119 H Respiratory 27 H 21 21 Rate Blood Pressure 98/80 133/100 H 118/96 H O2 Saturation 96 98 96 05/12/19 05/12/19 05/12/19 15:40 16:09 16:14 Temperature Heart Rate 152 H 148 H 148 H Respiratory 20 23 22 Rate Blood Pressure 108/87 H 143/103 H 123/97 H O2 Saturation 94 93 94 Oxygen O2 Source [] Room air O2 Source Room air - EKG (time done) 1226 Rate: Rate (enter#) (143) Rhythm: Atrial fibrillation Intervals: Prolonged QT 1445 Rate: Rate (enter#) (134) Rhythm: Atrial fibrillation Intervals: Prolonged QT - Labs Labs: Laboratory Tests 05/12/19 05/12/19 05/12/19 12:45 12:45 12:45 WBC 3.6 L RBC 3.62 L Hgb 12.9 L Hct 36.8 L MCV 101.7 H MCH 35.6 H MCHC 35.1 RDW 14.1 Plt Count 30 L* MPV 10.8 Neut # (Auto) 2.0 Lymph # (Auto) 1.0 L [place] # (Auto) 0.5 Eos # (Auto) 0.0 Baso # (Auto) 0.0 Absolute Nucleated RBC 0.00 Nucleated RBC % 0.0 Manual Slide Review Indicated WBC Morphology 1+ TOXIC G Platelet Estimate DECREASED (<130,000) Platelet Morphology NORMAL APPEARANCE RBC Morph Micro Appear 1+ POLYCHROMASIA PT 17.4 H INR 1.6 H APTT 36.1 H Sodium 143 Potassium 3.1 L Chloride 103 Carbon Dioxide 23 Anion Gap 17.0 H BUN 9 Creatinine 0.6 Estimated GFR (MDRD) 137 Glucose 104 H Lactic Acid Calcium 8.1 L Total Bilirubin 4.7 H AST 197 H ALT 61 H Alkaline Phosphatase 81 Troponin I High Sens B-Natriuretic Peptide Total Protein 8.0 Albumin 3.3 Globulin 4.7 H Albumin/Globulin Ratio 0.7 L Lipase 38 TSH Urine Color Urine Clarity Urine pH Ur Specific [place] Urine Protein Urine Glucose (UA) Urine Ketones Urine Occult Blood Urine Nitrite Urine Bilirubin Urine Urobilinogen Ur Leukocyte Esterase Urine RBC Urine WBC Ur Squamous Epith Cells Urine Bacteria Ur Microscopic Review Urine Culture Comments Salicylates < 4.0 Urine Opiates Screen Ur Oxycodone Screen Urine Methadone Screen Ur Propoxyphene Screen Acetaminophen < 10 L Ur Barbiturates Screen Ur Tricyclics Screen Ur Phencyclidine Scrn Ur Amphetamine Screen U Methamphetamines Scrn U Benzodiazepines Scrn Urine Cocaine Screen U Cannabinoids Screen Ethyl Alcohol 131.1 Blood Type Blood Type Recheck Antibody Screen 05/12/19 05/12/19 05/12/19 12:45 12:45 12:45 WBC RBC Hgb Hct MCV MCH MCHC RDW Plt Count MPV Neut # (Auto) Lymph # (Auto) [place] # (Auto) Eos # (Auto) Baso # (Auto) Absolute Nucleated RBC Nucleated RBC % Manual Slide Review WBC Morphology Platelet Estimate Platelet Morphology RBC Morph Micro Appear PT INR APTT Sodium Potassium Chloride Carbon Dioxide Anion Gap BUN Creatinine Estimated GFR (MDRD) Glucose Lactic Acid 3.8 H* Calcium Total Bilirubin AST ALT Alkaline Phosphatase Troponin I High Sens 15.2 B-Natriuretic Peptide 157 H Total Protein Albumin Globulin Albumin/Globulin Ratio Lipase TSH Urine Color Urine Clarity Urine pH Ur Specific [place] Urine Protein Urine Glucose (UA) Urine Ketones Urine Occult Blood Urine Nitrite Urine Bilirubin Urine Urobilinogen Ur Leukocyte Esterase Urine RBC Urine WBC Ur Squamous Epith Cells Urine Bacteria Ur Microscopic Review Urine Culture Comments Salicylates Urine Opiates Screen Ur Oxycodone Screen Urine Methadone Screen Ur Propoxyphene Screen Acetaminophen Ur Barbiturates Screen Ur Tricyclics Screen Ur Phencyclidine Scrn Ur Amphetamine Screen U Methamphetamines Scrn U Benzodiazepines Scrn Urine Cocaine Screen U Cannabinoids Screen Ethyl Alcohol Blood Type Blood Type Recheck Antibody Screen 05/12/19 05/12/19 05/12/19 12:45 13:30 13:38 WBC RBC Hgb Hct MCV MCH MCHC RDW Plt Count MPV Neut # (Auto) Lymph # (Auto) [place] # (Auto) Eos # (Auto) Baso # (Auto) Absolute Nucleated RBC Nucleated RBC % Manual Slide Review WBC Morphology Platelet Estimate Platelet Morphology RBC Morph Micro Appear PT INR APTT Sodium Potassium Chloride Carbon Dioxide Anion Gap BUN Creatinine Estimated GFR (MDRD) Glucose Lactic Acid Calcium Total Bilirubin AST ALT Alkaline Phosphatase Troponin I High Sens B-Natriuretic Peptide Total Protein Albumin Globulin Albumin/Globulin Ratio Lipase TSH 1.35 Urine Color YELLOW Urine Clarity CLEAR Urine pH 7.0 Ur Specific [place] 1.010 Urine Protein 30 H Urine Glucose (UA) NEGATIVE Urine Ketones NEGATIVE Urine Occult Blood TRACE-INTA Urine Nitrite NEGATIVE Urine Bilirubin NEGATIVE Urine Urobilinogen >=8.0 H Ur Leukocyte Esterase NEGATIVE Urine RBC 0-5 Urine WBC 0-3 Ur Squamous Epith Cells NONE SEEN Urine Bacteria None Seen Ur Microscopic Review INDICATED Urine Culture Comments NOT INDICATED Salicylates Urine Opiates Screen NEGATIVE Ur Oxycodone Screen NEGATIVE Urine Methadone Screen NEGATIVE Ur Propoxyphene Screen NEGATIVE Acetaminophen Ur Barbiturates Screen NEGATIVE Ur Tricyclics Screen NEGATIVE Ur Phencyclidine Scrn NEGATIVE Ur Amphetamine Screen NEGATIVE U Methamphetamines Scrn NEGATIVE U Benzodiazepines Scrn POSITIVE H Urine Cocaine Screen NEGATIVE U Cannabinoids Screen NEGATIVE Ethyl Alcohol Blood Type O POSITIVE Blood Type Recheck Antibody Screen NEGATIVE 05/12/19 13:38 WBC RBC Hgb Hct MCV MCH MCHC RDW Plt Count MPV Neut # (Auto) Lymph # (Auto) [place] # (Auto) Eos # (Auto) Baso # (Auto) Absolute Nucleated RBC Nucleated RBC % Manual Slide Review WBC Morphology Platelet Estimate Platelet Morphology RBC Morph Micro Appear PT INR APTT Sodium Potassium Chloride Carbon Dioxide Anion Gap BUN Creatinine Estimated GFR (MDRD) Glucose Lactic Acid Calcium Total Bilirubin AST ALT Alkaline Phosphatase Troponin I High Sens B-Natriuretic Peptide Total Protein Albumin Globulin Albumin/Globulin Ratio Lipase TSH Urine Color Urine Clarity Urine pH Ur Specific [place] Urine Protein Urine Glucose (UA) Urine Ketones Urine Occult Blood Urine Nitrite Urine Bilirubin Urine Urobilinogen Ur Leukocyte Esterase Urine RBC Urine WBC Ur Squamous Epith Cells Urine Bacteria Ur Microscopic Review Urine Culture Comments Salicylates Urine Opiates Screen Ur Oxycodone Screen Urine Methadone Screen Ur Propoxyphene Screen Acetaminophen Ur Barbiturates Screen Ur Tricyclics Screen Ur Phencyclidine Scrn Ur Amphetamine Screen U Methamphetamines Scrn U Benzodiazepines Scrn Urine Cocaine Screen U Cannabinoids Screen Ethyl Alcohol Blood Type Blood Type Recheck O POSITIVE Antibody Screen PD MEDICAL DECISION MAKING - ED course Complexity details: reviewed old records, reviewed results, re-evaluated patient, considered differential, d/w patient, d/w platform consultant ED course: Patient presenting with generalized weakness and reported recurrent falls although no specific injuries. No evidence of trauma or new neurological deficit on exam. Patient does admit to heavy alcohol use with last drink yesterday and patient is presenting with signs of acute alcohol withdrawal. Patient started on IV fluid, as well as Ativan. EKG obtained which did find evidence of atrial fibrillation with RVR. Upon extensive chart review, does appear the patient has had arrhythmia in the past. Patient received diltiazem and Lopressor with eventual control of rate, although this is noted only by palpation as he is significantly tremulous, of the sling operator is obtaining heart rates in the 160s and above, which are unlikely to be accurate. Patient also continued on Ativan medications for alcohol withdrawal component. Cardiac enzymes otherwise within normal limits. Screening lab work revealed many abnormalities, again chronic including thrombocytopenia and general pancytopenia likely due to patient's known liver cirrhosis and comorbidities. Lactic acid also elevated and patient continued on fluid resuscitation. Do not feel patient will require transfusion at this time. Patient amenable to hospitalization and feel this is his best option.'s discussed with hospitalist who is also agreeable to admission. Departure - Departure Disposition: 67 [facility] DC/Xfer Clinical Impression: Alcohol withdrawal Qualifiers: Complication of substance-induced condition: with unspecified complication Qualified Code(s): F10.239 - Alcohol dependence with withdrawal, unspecified
[2019-05-12] MEDS ORDERED: SODIUM CHLORIDE 0.9% 1,000 ML IV ONE ×2 (12:31→13:37)
[2019-05-12] MEDS ORDERED: LORazepam 2 MG/ML VIAL IVP STA ×2 (12:41→16:40)
[2019-05-12 12:56] LABS: BASOPHILS % (AUTO) 1.1 %; EOSINOPHILS % (AUTO) 0.6 %; HGB - HEMOGLOBIN 12.9 g/dL (14.0-18.0); LYMPHOCYTES % (AUTO) 27.6 %; MEAN CORPUSCULAR HEMOGLOBIN 35.6 pg (27.0-31.0); MEAN CORPUSCULAR HGB CONC 35.1 g/dL (32.0-36.0); MEAN CORPUSCULAR VOLUME 101.7 fL (80.0-94.0); MEAN PLATELET VOLUME 10.8 fL (7.4-11.4); MONOCYTES # (AUTO) 0.5 10^3/uL (0.0-1.0); NEUTROPHILS % (AUTO) 57.4 %; RED BLOOD COUNT 3.62 10^6/uL (4.70-6.10); RED CELL DISTRIBUTION WIDTH 14.1 % (12.0-15.0); WHITE BLOOD COUNT 3.6 x10^3/uL (4.8-10.8)
[2019-05-12 13:12] LABS: PLT - PLATELET COUNT 30 10^3/uL (130-450)
--- NOTE | 2019-05-12 13:15 | XRAY Report ---
Reason: chest pain Procedure Date: 05/12/2019 Accession Number: [id number] / [id number] Procedure: XR - Chest 1 View X-Ray CPT Code: 80513 FULL RESULT: EXAM: CHEST RADIOGRAPHY EXAM DATE: 05/12/2019 01:00 PM. CLINICAL HISTORY: Chest pain. COMPARISON: CHEST 1 VIEW 08/23/2018 1:05 PM. TECHNIQUE: 1 view. FINDINGS: Lungs/Pleura: Compared to 2018, previously seen marked left airspace disease has resolved. Assessment of the left lower lung is limited by the large cardiac silhouette and the single AP view of technique. No sizable pneumothorax or pleural effusion. Mediastinum: Mild cardiomegaly is redemonstrated. Other: None. IMPRESSION: Limited examination with mild cardiomegaly. RADIA
[2019-05-12 13:16] LABS: ACETAMINOPHEN < 10 ug/mL (10-30); ALBUMIN 3.3 g/dL (3.2-5.5); ALBUMIN/GLOBULIN RATIO 0.7 (1.0-2.2); ALKALINE PHOSPHATASE 81 IU/L (42-121); ALT ALANINE AMINOTRANSFERASE 61 IU/L (10-60); AST ASPARTATE AMINOTRANSFERASE 197 IU/L (10-42); BILIRUBIN,TOTAL 4.7 mg/dL (0.2-1.0); BUN - BLOOD UREA NITROGEN 9 mg/dL (6-20); CALCIUM 8.1 mg/dL (8.5-10.3); CARBON DIOXIDE - CO2 23 mmol/L (21-32); CHLORIDE 103 mmol/L (101-111); CREATININE 0.6 mg/dL (0.6-1.2); GFR - MDRD 137 (>89); GLUCOSE 104 mg/dL (70-100); LIPASE 38 U/L (22-51); SALICYLATE < 4.0 mg/dL; SODIUM 143 mmol/L (135-145)
[2019-05-12 13:19] LABS: INR 1.6 (0.8-1.2); PT - PROTHROMBIN TIME 17.4 secs (9.9-12.6)
[2019-05-12 13:27] LABS: PARTIAL THROMBOPLASTIN TIME 36.1 secs (24.9-33.3)
[2019-05-12 13:42] LABS: PLATELET ESTIMATE, MANUAL DECREASED (<130,000) (NORMAL); PLATELET MORPHOLOGY NORMAL APPEARANCE (NORMAL)
[2019-05-12 13:45] LABS: MUDS CUTOFF CONCENTRATIONS CUTOFF CONC BELOW:
[2019-05-12 13:54] LABS: GLUCOSE, URINE (UA) NEGATIVE (NEGATIVE); KETONES,URINE (UA) NEGATIVE (NEGATIVE); LEUKOCYTE ESTERASE, URINE NEGATIVE (NEGATIVE); NITRITE,URINE NEGATIVE (NEGATIVE); OCCULT BLOOD,URINE TRACE-INTA (NEGATIVE); PROTEIN,URINE 30 mg/dL (NEGATIVE); UROBILINOGEN,URINE >=8.0 E.U./dL (NORMAL)
[2019-05-12 14:05] LABS: BILIRUBIN,URINE NEGATIVE (NEGATIVE); CLARITY,URINE CLEAR (CLEAR); ICTOTEST,URINE NEGATIVE
[2019-05-12 14:06] LABS: AMPHETAMINE SCREEN,URINE NEGATIVE (NEGATIVE); BENZODIAZEPINES SCREEN, URINE POSITIVE (NEGATIVE); COCAINE SCREEN URINE NEGATIVE (NEGATIVE); METHADONE SCREEN, URINE NEGATIVE (NEGATIVE); METHAMPHETAMINES SCREEN, URINE NEGATIVE (NEGATIVE); OPIATE SCREEN, URINE NEGATIVE (NEGATIVE); OXYCODONE SCREEN, URINE NEGATIVE (NEGATIVE); PROPOXYPHENE SCREEN, URINE NEGATIVE (NEGATIVE); TRICYCLIC ANTIDEPRESSANT,URINE NEGATIVE (NEGATIVE)
[2019-05-12 14:14] LABS: BACTERIA,URINE None Seen /HPF (None Seen); RBC,URINE 0-5 /HPF (0-5); SQUAMOUS EPITHELIAL CELL,UR NONE SEEN (<= Few)
[2019-05-12] MEDS ORDERED: diltiaZEM INJ 5 MG/ML VIAL IVP STA (14:54)
[2019-05-12] MEDS ORDERED: METOPROLOL 5 MG/5 ML VIAL IVP STA (15:36)
[2019-05-12] MEDS ORDERED: ONDANSETRON ODT 4 MG TABLET TL PRN (16:40)
[2019-05-12] MEDS ORDERED: ONDANSETRON 4 MG/2 ML VIAL IVP PRN (16:40)
[2019-05-12] MEDS ORDERED: oxyCODONE 5 MG TABLET PO PRN (16:40)
[2019-05-12] MEDS ORDERED: THIAMINE INJ 100 MG in SODIUM CHLORIDE 0.9% 50 ML IV STA (16:47)
[2019-05-12] MEDS ORDERED: FOLIC ACID INJ 1 MG in SODIUM CHLORIDE 0.9% 1,000 ML IV STA (16:47)
[2019-05-12] MEDS ORDERED: FOLIC ACID INJ 1 MG, THIAMINE INJ 100 MG, MAGNESIUM SULFATE 2 GM, MULTIVITAMIN 10 ML in... IV STA ×5 (17:10)
[2019-05-12] MEDS: PANTOPRAZOLE 40 MG VIAL IVP SCH (19:27)
[2019-05-12] MEDS: SODIUM CHLORIDE FLUSH 0.9% 10 ML SYRINGE IVP SCH (19:27)
[2019-05-12] MEDS ORDERED: POTASSIUM CHLORIDE 20 MEQ TABLET PO ONE (21:49)
--- NOTE | 2019-05-12 22:38 | HISTORY & PHYSICAL EXAMINATION ---
DATE OF SERVICE: 05/12/2019 Physician: Nancy Whiteside MD PRIMARY CARE PROVIDER: Elvira Vidal PA-C. ADMITTING PROVIDER: Nancy Whiteside MD CHIEF COMPLAINT: "My feet don't want to work." HISTORY OF PRESENT ILLNESS: The gentleman is a 63-year-old man who has chronic alcohol abuse, hepatitis C, with chronic alcoholic liver disease. He is well known to our service and has been admitted for alcohol withdrawal seizures in March 2018, June 2018, July 2018, and a few encounters in the emergency room. He lives with his sister and his . He continues to drink several glasses of vodka a day. His last drink was yesterday. But prior to this, he says he just has not been able to stay steady on his feet. He keeps on falling down. It feels like his legs are "mushy" and his feet are not able to be felt on the floor when he gets up to walk. He does not have an appetite, and he does not think he has not been eating very much or drinking very much. He denies fever, chills, abdominal pain, diarrhea. He denies urgency, frequency. He does not have any particular cough. He does smoke on a daily basis and has COPD and does not take oxygen at home. He denies coughing, wheezing, phlegm production. He was seen in the emergency room by Dr. Dey. Afebrile at 36.4, tachycardic at a rate of 120, respirations unlabored at 18, and blood pressure 127/91. He was 99% on room air. He is an alert and oriented, tremulous white male, who looks much older than stated age. Extremely poor hygiene, chronically ill-appearing, with moist mucous membranes. A tachycardic regular rate and rhythm and a benign abdomen. His white cell count is chronically low at 3.6, hemoglobin is 12.9, hematocrit 36.8. Platelets are low at 30,000. Again, these are chronic findings for him. INR is 1.6. He is hypokalemic at 3.1. Liver enzymes are mildly elevated with a bilirubin of 4.7, AST 197, ALT 61. Urinalysis is negative, and tox screen is positive for benzodiazepines. Dr. Dey would like him admitted for alcohol withdrawal. In the emergency room, he also had atrial fibrillation, and he did receive diltiazem and Lopressor with eventual control of rate. He was given Ativan. The only other concerning feature was an elevated lactic acid, of which there is no clear source, at 3.8. PAST MEDICAL HISTORY 1. Chronic alcohol abuse with alcoholic hepatitis, chronic alcoholic liver disease without ascites. 2. Hepatitis C with unknown treatment. He does not recall ever having interferon. 3. Hypertension. 4. Chronic obstructive pulmonary disease. 5. Alcohol withdrawal seizure disorder. 6. Chronic back pain. 7. Chronic tobacco abuse. 8. History of rotator cuff repair with chronic shoulder pain. ALLERGIES: NO KNOWN DRUG ALLERGIES. MEDICATIONS 1. Xanax 0.5 every 6 hours as needed. 2. Metoprolol tartrate 25 mg daily. It is unclear if he takes these on a daily basis. SOCIAL HISTORY: He says that he is still drinking vodka. Sometimes he says three glasses a day, sometimes he says seven glasses a day. He does not drink beer. He does not drink wine. He smokes one pack per day on a daily basis. He said he started in his late teens. He denies any use of heroin, cocaine, LSD, methamphetamines. He has been unemployed for several years. FAMILY HISTORY He thinks mom and dad are , he is not sure. He says he has some children, but he cannot tell me how many. He also cannot tell me if they are healthy, where they live. REVIEW OF SYSTEMS: Difficult to obtain in this gentleman, who is quite still inebriated, also sedated from Ativan in the ER. He tells me that he is not coughing, wheezing, does not have any chest pain. Denies abdominal pain or problems. Other review of systems difficult to obtain, but essentially negative other than chronic back pain, but no focal neurological deficit with the back pain. He has been having numbness of his feet that has been getting worse over the last few months. Lately, he feels like he is walking on stumps of meat. He feels like he cannot keep his balance. He cannot tell if he is losing his memory or not. He does not think that he has had a seizure since the last alcohol withdrawal seizure. PHYSICAL EXAMINATION VITAL SIGNS: On examination, temperature is 36.9, pulse was up to 148 and is now down to 93. Blood pressure 133/92, respirations 16 and 99% on room air. GENERAL: He is an extremely disheveled, cachectic, white male, who is awake, alert enough to respond to my voice and answer my questions with brief answers. Tremulous, but comfortable. HEAD AND NECK: He has horrible dentition. Halitosis. Moist oral mucosa. Normal facial symmetry, and speech is slightly slurred. Sclerae muddy, slightly icteric. Pupils are sluggish but reactive. Neck has shotty anterior cervical adenopathy, supple, no goiter or bruits. LUNGS: Coarse upper airway sounds with slightly prolonged end-exhalation phase, but no rhonchi, wheezing, tachypnea, or increased respiratory effort. HEART: PMI is normally placed with a regular rate and rhythm that is hard and knocking, no murmur. ABDOMEN: Soft, liver edge palpable below the right costal margin, but there is no fluid wave, hypoactive bowel sounds, nontender. Spleen is also palpable, slightly, the left upper quadrant. Shotty groin adenopathy present. EXTREMITIES: With severely diffuse decreased muscle mass. No clubbing or cyanosis. He has severe deforming onychomycosis of his fingernails. Not all of them. In addition to that, he has verrucous growth on the right third finger that is up to 2 cm in size height off of the finger and another 2 cm wide. No clubbing, cyanosis, or edema. Good foot pulses and good radial pulses. NEUROLOGIC: He has slurred speech, but otherwise intact cranial nerves with #I not tested. Upper and lower extremity strength testing is intact in that he is weak, but able to follow commands, grasp my hands, lift up his arms, lift up his legs. He has intermittent tremors and is tremulous speaking to me, in his hands. No focal deficits. Dense neuropathy as I palpate his feet about to the distal one-third of his legs. Brisk knee reflexes. Plantar and dorsiflexion strength testing is weak, but intact. LABORATORY/DATA Labs were reviewed in history of present illness. BNP is 157. Troponin is 15.2. Ammonia level 23. White cell count is chronically hyponatremic. This is the lowest he has been. He is usually 4.2 to 5.4. Today he is 3.6. Hemoglobin is usually lower at 9.5 to 10.4 and his higher today at 12.9. MCV is 101.7. Platelets have dropped as low as 29 and today is 30. Chest x-ray has mild cardiomegaly, but no acute intrapulmonary processes. In reviewing the chart for hepatitis status, he has hepatitis C antibody reactive on 04/03/2018. HCV RNA by PCR is 58,800. HIV is nonreactive. Hepatitis B surface antigen nonreactive. ASSESSMENT PLAN 1. Alcohol dependence with withdrawal. The patient's alcohol level is 131. I doubt his last alcohol drink was yesterday. The patient has a history of severe withdrawal, seizures, and he usually stays for several days. Plan: a. Inpatient admission. b. ATTESTATION: The patient will be discharged within 96 hours. c. Banana bag for the next three days. d. Magnesium 1 g IV push. e. CIWA protocol with low-dose p.r.n. Ativan. 2. Alcoholic liver disease with cirrhosis, no history of ascites. The patient also has hepatitis C contributing to his cirrhosis. Most likely has chronic hepatosplenomegaly resulting in thrombocytopenia. The patient says he has no desire to stop drinking. We will call his PCP office tomorrow and find out if he is being followed on a regular basis. We will also discuss with the family what his thought process has been over the last few months, if not years. Social work consult. 3. I suspect dehydration. He has moist oral mucosa, but his hemoglobin and hematocrit are much higher than usual. As such, I suspect hemoconcentration. Banana bag will be given daily. We will see if hemoglobin drops with that. 4. History of hepatitis C. Again, we will investigate with PCP office if he has ever been treated. 5. Hypertension history. Takes metoprolol at home, unclear if he is compliant. We will watch blood pressure here and treat as needed. 6. Chronic obstructive pulmonary disease, currently stable on exam. No acute exacerbation. Albuterol p.r.n. 7. Hypokalemia. Supplement. 8. Lactic acidosis, most likely from alcoholic liver disease. We will check status with repeat level. At this time, no evidence of infection in that chest x-ray is clear, he does not have a fever, review of systems is negative for urinary or abdominal complaints. He is also not on metoprolol. DO NOT RESUSCITATE STATUS. He says he does not know if he has ever talked about that with his , so I will verify that. DEEP VENOUS THROMBOSIS PROPHYLAXIS: At this time, will just be compression stockings since his platelets are already low. TD: 05/12/2019 20:37 [email or web address]
[2019-05-13] MEDS: SODIUM CHLORIDE FLUSH 0.9% 10 ML SYRINGE IVP SCH ×3 (01:33→17:28)
[2019-05-13 05:20] LABS: BASOPHILS % (AUTO) 0.7 %; EOSINOPHILS # (AUTO) 0.1 10^3/uL (0.0-0.7); EOSINOPHILS % (AUTO) 1.2 %; HGB - HEMOGLOBIN 12.6 g/dL (14.0-18.0); LYMPHOCYTES # (AUTO) 1.3 10^3/uL (1.5-3.5); LYMPHOCYTES % (AUTO) 32.5 %; MEAN CORPUSCULAR HEMOGLOBIN 34.3 pg (27.0-31.0); MEAN CORPUSCULAR HGB CONC 33.5 g/dL (32.0-36.0); MEAN CORPUSCULAR VOLUME 102.5 fL (80.0-94.0); MEAN PLATELET VOLUME 12.3 fL (7.4-11.4); MONOCYTES # (AUTO) 0.5 10^3/uL (0.0-1.0); MONOCYTES % (AUTO) 10.9 %; NEUTROPHILS # (AUTO) 2.2 10^3/uL (1.5-6.6); NEUTROPHILS % (AUTO) 54.2 %; RED BLOOD COUNT 3.67 10^6/uL (4.70-6.10); RED CELL DISTRIBUTION WIDTH 14.1 % (12.0-15.0); WHITE BLOOD COUNT 4.1 x10^3/uL (4.8-10.8)
[2019-05-13 05:24] LABS: PLT - PLATELET COUNT 26 10^3/uL (130-450)
[2019-05-13 05:30] LABS: INR 1.6 (0.8-1.2); PT - PROTHROMBIN TIME 17.9 secs (9.9-12.6)
[2019-05-13 05:35] LABS: CALCIUM 7.1 mg/dL (8.5-10.3); CREATININE 0.6 mg/dL (0.6-1.2)
[2019-05-13 05:36] LABS: ALBUMIN 3.3 g/dL (3.2-5.5); ALBUMIN/GLOBULIN RATIO 0.7 (1.0-2.2); TOTAL PROTEIN 7.8 g/dL (6.7-8.2)
[2019-05-13 05:51] LABS: PLATELET ESTIMATE, MANUAL DECREASED (<130,000) (NORMAL); PLATELET MORPHOLOGY NORMAL APPEARANCE (NORMAL); RBC MORPHOLOGY (MULTIPLE) NORMAL APPEARANCE (NORMAL)
--- NOTE | 2019-05-13 07:42 | PROVIDER PROGRESS NOTE ---
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 His blood pressure is a little elevated, but no severe tachycardia. No seizures. Current Medications - Current Medications Current Medications: Active Medications Multivitamins 10 ml/ Thiamine HCl 100 mg/ Folic Acid 1 mg/Sodium Chloride 1,011.2 mls @ 100 mls/hr IV Q24H [facility] Stop: 05/16/19 03:07 Potassium Chloride (Potassium Chloride) 10 meq in 100 mls @ 100 mls/hr IV Q1H [facility] Stop: 05/13/19 10:59 Lorazepam (Ativan Inj (Vial)) 1 mg IVP Q30M PRN; Protocol PRN Reason: CIWA >8 Ondansetron HCl (Zofran Inj) 4 mg IVP Q6HR PRN PRN Reason: Nausea / Vomiting Ondansetron HCl (Zofran Odt) 4 mg TL Q6HR PRN PRN Reason: Nausea / Vomiting Oxycodone HCl (Roxicodone) 5 mg PO Q4HR PRN PRN Reason: Pain 5 to 7 Pantoprazole Sodium (Protonix) 40 mg IVP QDAC [facility] Last Admin: 05/12/19 19:27 Dose: 40 mg Polyethylene Glycol (Miralax) 17 gm PO DAILY [facility] Potassium Chloride (K-Dur) 20 meq PO TID [facility] Stop: 05/13/19 22:01 Sodium Chloride (Normal Saline Flush 0.9%) 10 ml IVP PRN PRN PRN Reason: NEEDED PER PROVIDER ORDERS Sodium Chloride (Normal Saline Flush 0.9%) 10 ml IVP 0100,0900,1700 [facility] Last Admin: 05/13/19 01:33 Dose: Not Given Alprazolam [Xanax] 0.5 mg PO Q6HR 01/21/19 Metoprolol Tartrate 25 mg PO DAILY 01/21/19 Objective - Vital Signs/Intake & Output Vital Signs: Vital Signs x48h Temp Pulse Resp BP Pulse Ox 05/13/19 04:45 36.7 C 92 20 144/84 H 96 05/12/19 23:57 36.4 C L 107 H 20 129/83 H 97 Intake & Output: Intake & Output 05/10/19 05/11/19 05/12/19 05/13/19 23:59 23:59 23:59 23:59 Intake Total 1999 1015.2 Output Total 1 Balance 1998 1015.2 - Lab Results Fish Bones: 05/13/19 05:09 05/13/19 05:09 Other Labs: Lab Results x24hrs 05/13/19 05/13/19 05/13/19 Range/Units 05:09 05:09 05:09 WBC (4.8-10.8) x10^3/uL RBC (4.70-6.10) 10^6/uL Hgb (14.0-18.0) g/dL Hct (42.0-52.0) % MCV (80.0-94.0) fL MCH (27.0-31.0) pg MCHC (32.0-36.0) g/dL RDW (12.0-15.0) % Plt Count (130-450) 10^3/uL MPV (7.4-11.4) fL Neut # (Auto) (1.5-6.6) 10^3/uL Lymph # (Auto) (1.5-3.5) 10^3/uL Hardy # (Auto) (0.0-1.0) 10^3/uL Eos # (Auto) (0.0-0.7) 10^3/uL Baso # (Auto) (0.0-0.1) 10^3/uL Absolute Nucleated RBC x10^3/uL Nucleated RBC % /100WBC Manual Slide Review WBC Morphology (NORMAL) Platelet Estimate (NORMAL) Platelet Morphology (NORMAL) RBC Morph Micro Appear (NORMAL) PT (9.9-12.6) secs INR (0.8-1.2) APTT (24.9-33.3) secs Sodium 140 (135-145) mmol/L Potassium 3.2 L (3.5-5.0) mmol/L Chloride 100 L (101-111) mmol/L Carbon Dioxide 19 L (21-32) mmol/L Anion Gap 21.0 H (6-13) BUN 8 (6-20) mg/dL Creatinine 0.6 (0.6-1.2) mg/dL Estimated GFR (MDRD) 137 (>89) Glucose 82 (70-100) mg/dL Lactic Acid 1.4 (0.5-2.2) mmol/L Calcium 7.1 L (8.5-10.3) mg/dL Magnesium 1.2 L (1.7-2.8) mg/dL Total Bilirubin 7.0 H (0.2-1.0) mg/dL AST 168 H (10-42) IU/L ALT 54 (10-60) IU/L Alkaline Phosphatase 79 (42-121) IU/L Troponin I High Sens (2.3-19.7) pg/mL B-Natriuretic Peptide (5-100) pg/mL Total Protein 7.8 (6.7-8.2) g/dL Albumin 3.3 (3.2-5.5) g/dL Globulin 4.5 H (2.1-4.2) g/dL Albumin/Globulin Ratio 0.7 L (1.0-2.2) Lipase (22-51) U/L TSH (0.34-5.60) uIU/mL Urine Color Urine Clarity (CLEAR) Urine pH (5.0-7.5) PH Ur Specific [place] (1.002-1.030) Urine Protein (NEGATIVE) mg/dL Urine Glucose (UA) (NEGATIVE) mg/dL Urine Ketones (NEGATIVE) mg/dL Urine Occult Blood (NEGATIVE) Urine Nitrite (NEGATIVE) Urine Bilirubin (NEGATIVE) Urine Urobilinogen (NORMAL) E.U./dL Ur Leukocyte Esterase (NEGATIVE) Urine RBC (0-5) /HPF Urine WBC (0-3) /HPF Ur Squamous Epith Cells (<= Few) Urine Bacteria (None Seen) /HPF Ur Microscopic Review Urine Culture Comments Salicylates mg/dL Urine Opiates Screen (NEGATIVE) Ur Oxycodone Screen (NEGATIVE) Urine Methadone Screen (NEGATIVE) Ur Propoxyphene Screen (NEGATIVE) Acetaminophen (10-30) ug/mL Ur Barbiturates Screen (NEGATIVE) Ur Tricyclics Screen (NEGATIVE) Ur Phencyclidine Scrn (NEGATIVE) Ur Amphetamine Screen (NEGATIVE) U Methamphetamines Scrn (NEGATIVE) U Benzodiazepines Scrn (NEGATIVE) Urine Cocaine Screen (NEGATIVE) U Cannabinoids Screen (NEGATIVE) Ethyl Alcohol mg/dL Blood Type Blood Type Recheck Antibody Screen 05/13/19 05/13/19 05/12/19 Range/Units 05:09 05:09 20:51 WBC 4.1 L (4.8-10.8) x10^3/uL RBC 3.67 L (4.70-6.10) 10^6/uL Hgb 12.6 L (14.0-18.0) g/dL Hct 37.6 L (42.0-52.0) % MCV 102.5 H (80.0-94.0) fL MCH 34.3 H (27.0-31.0) pg MCHC 33.5 (32.0-36.0) g/dL RDW 14.1 (12.0-15.0) % Plt Count 26 L* (130-450) 10^3/uL MPV 12.3 H (7.4-11.4) fL Neut # (Auto) 2.2 (1.5-6.6) 10^3/uL Lymph # (Auto) 1.3 L (1.5-3.5) 10^3/uL Hardy # (Auto) 0.5 (0.0-1.0) 10^3/uL Eos # (Auto) 0.1 (0.0-0.7) 10^3/uL Baso # (Auto) 0.0 (0.0-0.1) 10^3/uL Absolute Nucleated RBC 0.00 x10^3/uL Nucleated RBC % 0.0 /100WBC Manual Slide Review WBC Morphology NORMAL APPEARANCE (NORMAL) Platelet Estimate DECREASED (<130,000) (NORMAL) Platelet Morphology NORMAL APPEARANCE (NORMAL) RBC Morph Micro Appear NORMAL APPEARANCE (NORMAL) PT 17.9 H (9.9-12.6) secs INR 1.6 H (0.8-1.2) APTT (24.9-33.3) secs Sodium (135-145) mmol/L Potassium (3.5-5.0) mmol/L Chloride (101-111) mmol/L Carbon Dioxide (21-32) mmol/L Anion Gap (6-13) BUN (6-20) mg/dL Creatinine (0.6-1.2) mg/dL Estimated GFR (MDRD) (>89) Glucose (70-100) mg/dL Lactic Acid 2.4 H (0.5-2.2) mmol/L Calcium (8.5-10.3) mg/dL Magnesium (1.7-2.8) mg/dL Total Bilirubin (0.2-1.0) mg/dL AST (10-42) IU/L ALT (10-60) IU/L Alkaline Phosphatase (42-121) IU/L Troponin I High Sens (2.3-19.7) pg/mL B-Natriuretic Peptide (5-100) pg/mL Total Protein (6.7-8.2) g/dL Albumin (3.2-5.5) g/dL Globulin (2.1-4.2) g/dL Albumin/Globulin Ratio (1.0-2.2) Lipase (22-51) U/L TSH (0.34-5.60) uIU/mL Urine Color Urine Clarity (CLEAR) Urine pH (5.0-7.5) PH Ur Specific [place] (1.002-1.030) Urine Protein (NEGATIVE) mg/dL Urine Glucose (UA) (NEGATIVE) mg/dL Urine Ketones (NEGATIVE) mg/dL Urine Occult Blood (NEGATIVE) Urine Nitrite (NEGATIVE) Urine Bilirubin (NEGATIVE) Urine Urobilinogen (NORMAL) E.U./dL Ur Leukocyte Esterase (NEGATIVE) Urine RBC (0-5) /HPF Urine WBC (0-3) /HPF Ur Squamous Epith Cells (<= Few) Urine Bacteria (None Seen) /HPF Ur Microscopic Review Urine Culture Comments Salicylates mg/dL Urine Opiates Screen (NEGATIVE) Ur Oxycodone Screen (NEGATIVE) Urine Methadone Screen (NEGATIVE) Ur Propoxyphene Screen (NEGATIVE) Acetaminophen (10-30) ug/mL Ur Barbiturates Screen (NEGATIVE) Ur Tricyclics Screen (NEGATIVE) Ur Phencyclidine Scrn (NEGATIVE) Ur Amphetamine Screen (NEGATIVE) U Methamphetamines Scrn (NEGATIVE) U Benzodiazepines Scrn (NEGATIVE) Urine Cocaine Screen (NEGATIVE) U Cannabinoids Screen (NEGATIVE) Ethyl Alcohol mg/dL Blood Type Blood Type Recheck Antibody Screen 05/12/19 05/12/19 05/12/19 Range/Units 13:38 13:38 13:30 WBC (4.8-10.8) x10^3/uL RBC (4.70-6.10) 10^6/uL Hgb (14.0-18.0) g/dL Hct (42.0-52.0) % MCV (80.0-94.0) fL MCH (27.0-31.0) pg MCHC (32.0-36.0) g/dL RDW (12.0-15.0) % Plt Count (130-450) 10^3/uL MPV (7.4-11.4) fL Neut # (Auto) (1.5-6.6) 10^3/uL Lymph # (Auto) (1.5-3.5) 10^3/uL Hardy # (Auto) (0.0-1.0) 10^3/uL Eos # (Auto) (0.0-0.7) 10^3/uL Baso # (Auto) (0.0-0.1) 10^3/uL Absolute Nucleated RBC x10^3/uL Nucleated RBC % /100WBC Manual Slide Review WBC Morphology (NORMAL) Platelet Estimate (NORMAL) Platelet Morphology (NORMAL) RBC Morph Micro Appear (NORMAL) PT (9.9-12.6) secs INR (0.8-1.2) APTT (24.9-33.3) secs Sodium (135-145) mmol/L Potassium (3.5-5.0) mmol/L Chloride (101-111) mmol/L Carbon Dioxide (21-32) mmol/L Anion Gap (6-13) BUN (6-20) mg/dL Creatinine (0.6-1.2) mg/dL Estimated GFR (MDRD) (>89) Glucose (70-100) mg/dL Lactic Acid (0.5-2.2) mmol/L Calcium (8.5-10.3) mg/dL Magnesium (1.7-2.8) mg/dL Total Bilirubin (0.2-1.0) mg/dL AST (10-42) IU/L ALT (10-60) IU/L Alkaline Phosphatase (42-121) IU/L Troponin I High Sens (2.3-19.7) pg/mL B-Natriuretic Peptide (5-100) pg/mL Total Protein (6.7-8.2) g/dL Albumin (3.2-5.5) g/dL Globulin (2.1-4.2) g/dL Albumin/Globulin Ratio (1.0-2.2) Lipase (22-51) U/L TSH (0.34-5.60) uIU/mL Urine Color YELLOW Urine Clarity CLEAR (CLEAR) Urine pH 7.0 (5.0-7.5) PH Ur Specific [place] 1.010 (1.002-1.030) Urine Protein 30 H (NEGATIVE) mg/dL Urine Glucose (UA) NEGATIVE (NEGATIVE) mg/dL Urine Ketones NEGATIVE (NEGATIVE) mg/dL Urine Occult Blood TRACE-INTA (NEGATIVE) Urine Nitrite NEGATIVE (NEGATIVE) Urine Bilirubin NEGATIVE (NEGATIVE) Urine Urobilinogen >=8.0 H (NORMAL) E.U./dL Ur Leukocyte Esterase NEGATIVE (NEGATIVE) Urine RBC 0-5 (0-5) /HPF Urine WBC 0-3 (0-3) /HPF Ur Squamous Epith Cells NONE SEEN (<= Few) Urine Bacteria None Seen (None Seen) /HPF Ur Microscopic Review INDICATED Urine Culture Comments NOT INDICATED Salicylates mg/dL Urine Opiates Screen NEGATIVE (NEGATIVE) Ur Oxycodone Screen NEGATIVE (NEGATIVE) Urine Methadone Screen NEGATIVE (NEGATIVE) Ur Propoxyphene Screen NEGATIVE (NEGATIVE) Acetaminophen (10-30) ug/mL Ur Barbiturates Screen NEGATIVE (NEGATIVE) Ur Tricyclics Screen NEGATIVE (NEGATIVE) Ur Phencyclidine Scrn NEGATIVE (NEGATIVE) Ur Amphetamine Screen NEGATIVE (NEGATIVE) U Methamphetamines Scrn NEGATIVE (NEGATIVE) U Benzodiazepines Scrn POSITIVE H (NEGATIVE) Urine Cocaine Screen NEGATIVE (NEGATIVE) U Cannabinoids Screen NEGATIVE (NEGATIVE) Ethyl Alcohol mg/dL Blood Type O POSITIVE Blood Type Recheck O POSITIVE Antibody Screen NEGATIVE 05/12/19 05/12/19 05/12/19 Range/Units 12:45 12:45 12:45 WBC (4.8-10.8) x10^3/uL RBC (4.70-6.10) 10^6/uL Hgb (14.0-18.0) g/dL Hct (42.0-52.0) % MCV (80.0-94.0) fL MCH (27.0-31.0) pg MCHC (32.0-36.0) g/dL RDW (12.0-15.0) % Plt Count (130-450) 10^3/uL MPV (7.4-11.4) fL Neut # (Auto) (1.5-6.6) 10^3/uL Lymph # (Auto) (1.5-3.5) 10^3/uL [place] # (Auto) (0.0-1.0) 10^3/uL Eos # (Auto) (0.0-0.7) 10^3/uL Baso # (Auto) (0.0-0.1) 10^3/uL Absolute Nucleated RBC x10^3/uL Nucleated RBC % /100WBC Manual Slide Review WBC Morphology (NORMAL) Platelet Estimate (NORMAL) Platelet Morphology (NORMAL) RBC Morph Micro Appear (NORMAL) PT (9.9-12.6) secs INR (0.8-1.2) APTT (24.9-33.3) secs Sodium (135-145) mmol/L Potassium (3.5-5.0) mmol/L Chloride (101-111) mmol/L Carbon Dioxide (21-32) mmol/L Anion Gap (6-13) BUN (6-20) mg/dL Creatinine (0.6-1.2) mg/dL Estimated GFR (MDRD) (>89) Glucose (70-100) mg/dL Lactic Acid 3.8 H* (0.5-2.2) mmol/L Calcium (8.5-10.3) mg/dL Magnesium (1.7-2.8) mg/dL Total Bilirubin (0.2-1.0) mg/dL AST (10-42) IU/L ALT (10-60) IU/L Alkaline Phosphatase (42-121) IU/L Troponin I High Sens (2.3-19.7) pg/mL B-Natriuretic Peptide 157 H (5-100) pg/mL Total Protein (6.7-8.2) g/dL Albumin (3.2-5.5) g/dL Globulin (2.1-4.2) g/dL Albumin/Globulin Ratio (1.0-2.2) Lipase (22-51) U/L TSH 1.35 (0.34-5.60) uIU/mL Urine Color Urine Clarity (CLEAR) Urine pH (5.0-7.5) PH Ur Specific [place] (1.002-1.030) Urine Protein (NEGATIVE) mg/dL Urine Glucose (UA) (NEGATIVE) mg/dL Urine Ketones (NEGATIVE) mg/dL Urine Occult Blood (NEGATIVE) Urine Nitrite (NEGATIVE) Urine Bilirubin (NEGATIVE) Urine Urobilinogen (NORMAL) E.U./dL Ur Leukocyte Esterase (NEGATIVE) Urine RBC (0-5) /HPF Urine WBC (0-3) /HPF Ur Squamous Epith Cells (<= Few) Urine Bacteria (None Seen) /HPF Ur Microscopic Review Urine Culture Comments Salicylates mg/dL Urine Opiates Screen (NEGATIVE) Ur Oxycodone Screen (NEGATIVE) Urine Methadone Screen (NEGATIVE) Ur Propoxyphene Screen (NEGATIVE) Acetaminophen (10-30) ug/mL Ur Barbiturates Screen (NEGATIVE) Ur Tricyclics Screen (NEGATIVE) Ur Phencyclidine Scrn (NEGATIVE) Ur Amphetamine Screen (NEGATIVE) U Methamphetamines Scrn (NEGATIVE) U Benzodiazepines Scrn (NEGATIVE) Urine Cocaine Screen (NEGATIVE) U Cannabinoids Screen (NEGATIVE) Ethyl Alcohol mg/dL Blood Type Blood Type Recheck Antibody Screen 05/12/19 05/12/19 05/12/19 Range/Units 12:45 12:45 12:45 WBC (4.8-10.8) x10^3/uL RBC (4.70-6.10) 10^6/uL Hgb (14.0-18.0) g/dL Hct (42.0-52.0) % MCV (80.0-94.0) fL MCH (27.0-31.0) pg MCHC (32.0-36.0) g/dL RDW (12.0-15.0) % Plt Count (130-450) 10^3/uL MPV (7.4-11.4) fL Neut # (Auto) (1.5-6.6) 10^3/uL Lymph # (Auto) (1.5-3.5) 10^3/uL [place] # (Auto) (0.0-1.0) 10^3/uL Eos # (Auto) (0.0-0.7) 10^3/uL Baso # (Auto) (0.0-0.1) 10^3/uL Absolute Nucleated RBC x10^3/uL Nucleated RBC % /100WBC Manual Slide Review WBC Morphology (NORMAL) Platelet Estimate (NORMAL) Platelet Morphology (NORMAL) RBC Morph Micro Appear (NORMAL) PT 17.4 H (9.9-12.6) secs INR 1.6 H (0.8-1.2) APTT 36.1 H (24.9-33.3) secs Sodium 143 (135-145) mmol/L Potassium 3.1 L (3.5-5.0) mmol/L Chloride 103 (101-111) mmol/L Carbon Dioxide 23 (21-32) mmol/L Anion Gap 17.0 H (6-13) BUN 9 (6-20) mg/dL Creatinine 0.6 (0.6-1.2) mg/dL Estimated GFR (MDRD) 137 (>89) Glucose 104 H (70-100) mg/dL Lactic Acid (0.5-2.2) mmol/L Calcium 8.1 L (8.5-10.3) mg/dL Magnesium (1.7-2.8) mg/dL Total Bilirubin 4.7 H (0.2-1.0) mg/dL AST 197 H (10-42) IU/L ALT 61 H (10-60) IU/L Alkaline Phosphatase 81 (42-121) IU/L Troponin I High Sens 15.2 (2.3-19.7) pg/mL B-Natriuretic Peptide (5-100) pg/mL Total Protein 8.0 (6.7-8.2) g/dL Albumin 3.3 (3.2-5.5) g/dL Globulin 4.7 H (2.1-4.2) g/dL Albumin/Globulin Ratio 0.7 L (1.0-2.2) Lipase 38 (22-51) U/L TSH (0.34-5.60) uIU/mL Urine Color Urine Clarity (CLEAR) Urine pH (5.0-7.5) PH Ur Specific [place] (1.002-1.030) Urine Protein (NEGATIVE) mg/dL Urine Glucose (UA) (NEGATIVE) mg/dL Urine Ketones (NEGATIVE) mg/dL Urine Occult Blood (NEGATIVE) Urine Nitrite (NEGATIVE) Urine Bilirubin (NEGATIVE) Urine Urobilinogen (NORMAL) E.U./dL Ur Leukocyte Esterase (NEGATIVE) Urine RBC (0-5) /HPF Urine WBC (0-3) /HPF Ur Squamous Epith Cells (<= Few) Urine Bacteria (None Seen) /HPF Ur Microscopic Review Urine Culture Comments Salicylates < 4.0 mg/dL Urine Opiates Screen (NEGATIVE) Ur Oxycodone Screen (NEGATIVE) Urine Methadone Screen (NEGATIVE) Ur Propoxyphene Screen (NEGATIVE) Acetaminophen < 10 L (10-30) ug/mL Ur Barbiturates Screen (NEGATIVE) Ur Tricyclics Screen (NEGATIVE) Ur Phencyclidine Scrn (NEGATIVE) Ur Amphetamine Screen (NEGATIVE) U Methamphetamines Scrn (NEGATIVE) U Benzodiazepines Scrn (NEGATIVE) Urine Cocaine Screen (NEGATIVE) U Cannabinoids Screen (NEGATIVE) Ethyl Alcohol 131.1 mg/dL Blood Type Blood Type Recheck Antibody Screen 05/12/19 Range/Units 12:45 WBC 3.6 L (4.8-10.8) x10^3/uL RBC 3.62 L (4.70-6.10) 10^6/uL Hgb 12.9 L (14.0-18.0) g/dL Hct 36.8 L (42.0-52.0) % MCV 101.7 H (80.0-94.0) fL MCH 35.6 H (27.0-31.0) pg MCHC 35.1 (32.0-36.0) g/dL RDW 14.1 (12.0-15.0) % Plt Count 30 L* (130-450) 10^3/uL MPV 10.8 (7.4-11.4) fL Neut # (Auto) 2.0 (1.5-6.6) 10^3/uL Lymph # (Auto) 1.0 L (1.5-3.5) 10^3/uL Hardy # (Auto) 0.5 (0.0-1.0) 10^3/uL Eos # (Auto) 0.0 (0.0-0.7) 10^3/uL Baso # (Auto) 0.0 (0.0-0.1) 10^3/uL Absolute Nucleated RBC 0.00 x10^3/uL Nucleated RBC % 0.0 /100WBC Manual Slide Review Indicated WBC Morphology 1+ TOXIC G (NORMAL) Platelet Estimate DECREASED (<130,000) (NORMAL) Platelet Morphology NORMAL APPEARANCE (NORMAL) RBC Morph Micro Appear 1+ POLYCHROMASIA (NORMAL) PT (9.9-12.6) secs INR (0.8-1.2) APTT (24.9-33.3) secs Sodium (135-145) mmol/L Potassium (3.5-5.0) mmol/L Chloride (101-111) mmol/L Carbon Dioxide (21-32) mmol/L Anion Gap (6-13) BUN (6-20) mg/dL Creatinine (0.6-1.2) mg/dL Estimated GFR (MDRD) (>89) Glucose (70-100) mg/dL Lactic Acid (0.5-2.2) mmol/L Calcium (8.5-10.3) mg/dL Magnesium (1.7-2.8) mg/dL Total Bilirubin (0.2-1.0) mg/dL AST (10-42) IU/L ALT (10-60) IU/L Alkaline Phosphatase (42-121) IU/L Troponin I High Sens (2.3-19.7) pg/mL B-Natriuretic Peptide (5-100) pg/mL Total Protein (6.7-8.2) g/dL Albumin (3.2-5.5) g/dL Globulin (2.1-4.2) g/dL Albumin/Globulin Ratio (1.0-2.2) Lipase (22-51) U/L TSH (0.34-5.60) uIU/mL Urine Color Urine Clarity (CLEAR) Urine pH (5.0-7.5) PH Ur Specific [place] (1.002-1.030) Urine Protein (NEGATIVE) mg/dL Urine Glucose (UA) (NEGATIVE) mg/dL Urine Ketones (NEGATIVE) mg/dL Urine Occult Blood (NEGATIVE) Urine Nitrite (NEGATIVE) Urine Bilirubin (NEGATIVE) Urine Urobilinogen (NORMAL) E.U./dL Ur Leukocyte Esterase (NEGATIVE) Urine RBC (0-5) /HPF Urine WBC (0-3) /HPF Ur Squamous Epith Cells (<= Few) Urine Bacteria (None Seen) /HPF Ur Microscopic Review Urine Culture Comments Salicylates mg/dL Urine Opiates Screen (NEGATIVE) Ur Oxycodone Screen (NEGATIVE) Urine Methadone Screen (NEGATIVE) Ur Propoxyphene Screen (NEGATIVE) Acetaminophen (10-30) ug/mL Ur Barbiturates Screen (NEGATIVE) Ur Tricyclics Screen (NEGATIVE) Ur Phencyclidine Scrn (NEGATIVE) Ur Amphetamine Screen (NEGATIVE) U Methamphetamines Scrn (NEGATIVE) U Benzodiazepines Scrn (NEGATIVE) Urine Cocaine Screen (NEGATIVE) U Cannabinoids Screen (NEGATIVE) Ethyl Alcohol mg/dL Blood Type Blood Type Recheck Antibody Screen ABX Reporting Has patient been on IV antibiotics over the past 48 hours?: No Assessment/Plan - Problem List (1) Alcohol withdrawal Impression: So far he is required 1 mg of Ativan yesterday at 16: 42. He is also receiving his second banana bag today. No change in treatment for now as he goes thru withdrawal. Qualifiers: Complication of substance-induced condition: uncomplicated Qualified Code(s): F10.230 - Alcohol dependence with withdrawal, uncomplicated (2) Alcoholic cirrhosis of liver Impression: with splenomegaly. Also has Hep C and the status of that disease is uncertain. He has resultant portal hypertension with hepatosplenomegaly and thrombocytopenis. WBC is low and presumed to be from bone marrow suppression. he has been warned that the combination of his alcohol use plus his Hep C is lethal. Qualifiers: (3) Hypokalemia Impression: supplment po 40 meq tid for 3 doses. recheck in am. (4) Hypertension Impression: resume is listed metoprolol Qualifiers: Hypertension type: essential hypertension Qualified Code(s): I10 - Essential (primary) hypertension
[2019-05-13] MEDS: PANTOPRAZOLE 40 MG VIAL IVP SCH (08:48)
[2019-05-13] MEDS: POLYETHYLENE GLYCOL 3350 17 GM PACKET PO SCH (08:48)
[2019-05-13] MEDS: METOPROLOL TARTRATE 25 MG TABLET PO SCH ×2 (08:49→20:29)
[2019-05-13] MEDS: POTASSIUM CHLORIDE 20 MEQ TABLET PO SCH ×3 (08:50→17:17)
[2019-05-13] MEDS: SODIUM CHLORIDE FLUSH 0.9% 10 ML SYRINGE IVP PRN (08:50)
[2019-05-13] MEDS: POTASSIUM CHLOR 10 MEQ/100 ML 10 MEQ/100 ML BAG IV SCH ×2 (08:54→11:22)
[2019-05-13] MEDS: MULTIVITAMIN 10 ML, THIAMINE INJ 100 MG, FOLIC ACID INJ 1 MG in SODIUM CHLORIDE 0.9% 1,... IV SCH (17:10)
[2019-05-13] MEDS: LORazepam 2 MG/ML VIAL IVP PRN ×5 (20:30→23:19)
[2019-05-13] MEDS: NICOTINE 14 MG PATCH TOP SCH (22:41)
[2019-05-13 23:10] LABS: VBG BASE EXCESS -1.5 mmol/L (-2 - +2); VBG PCO2 22.7 mmHg (41-51); VBG PH 7.542 (7.31-7.41); VBG PO2 95.3 mmHg (25-47); VBG TOTAL CO2 19.8 mmol/L (24-29)
[2019-05-13 23:39] LABS: BILIRUBIN,DIRECT 2.9 mg/dL (0.1-0.5); BILIRUBIN,TOTAL 6.9 mg/dL (0.2-1.0); CREATININE 0.7 mg/dL (0.6-1.2); PHOSPHORUS 1.5 mg/dL (2.5-4.6)
[2019-05-13 23:40] LABS: ALBUMIN 3.3 g/dL (3.2-5.5); TOTAL PROTEIN 7.9 g/dL (6.7-8.2)
[2019-05-13 23:41] LABS: MAGNESIUM 0.9 mg/dL (1.7-2.8)
[2019-05-13] MEDS ORDERED: SODIUM PHOSPHATE 20 MMOL in SODIUM CHLORIDE 0.9% 250 ML IV ONE (23:43)
[2019-05-13] MEDS ORDERED: MAGNESIUM SULFATE 2 GRAM 2 GM/50 ML BAG IV ONE (23:44)
[2019-05-14] MEDS: LORazepam 2 MG/ML VIAL IVP PRN ×15 (00:14→09:30)
[2019-05-14] MEDS: SODIUM CHLORIDE 0.9% 500 ML IV PRN (01:19)
[2019-05-14] MEDS ORDERED: SODIUM CHLORIDE 0.9% 500 ML ONE (01:21)
[2019-05-14] MEDS ORDERED: MAGNESIUM SULFATE 2 GRAM 2 GM/50 ML BAG IV ONE (01:30)
[2019-05-14] MEDS: SODIUM CHLORIDE FLUSH 0.9% 10 ML SYRINGE IVP SCH ×3 (01:55→17:27)
[2019-05-14] MEDS ORDERED: MAGNESIUM OXIDE 400 MG TABLET PO ONE (02:00)
[2019-05-14] MEDS ORDERED: NEUTRA-PHOS 250 MG TABLET PO ONE (02:00)
[2019-05-14] MEDS: SODIUM CHLORIDE FLUSH 0.9% 10 ML SYRINGE IVP PRN ×2 (02:19→05:20)
[2019-05-14] MEDS: LACTATED RINGERS 1,000 ML IV SCH (03:29)
[2019-05-14 05:05] LABS: BASOPHILS % (AUTO) 0.5 %; EOSINOPHILS # (AUTO) 0.1 10^3/uL (0.0-0.7); EOSINOPHILS % (AUTO) 0.6 %; HGB - HEMOGLOBIN 11.6 g/dL (14.0-18.0); LYMPHOCYTES # (AUTO) 2.2 10^3/uL (1.5-3.5); MEAN CORPUSCULAR HEMOGLOBIN 34.8 pg (27.0-31.0); MEAN CORPUSCULAR HGB CONC 34.1 g/dL (32.0-36.0); MEAN CORPUSCULAR VOLUME 102.1 fL (80.0-94.0); MEAN PLATELET VOLUME 11.9 fL (7.4-11.4); MONOCYTES # (AUTO) 0.8 10^3/uL (0.0-1.0); MONOCYTES % (AUTO) 10.2 %; NEUTROPHILS # (AUTO) 4.6 10^3/uL (1.5-6.6); NEUTROPHILS % (AUTO) 59.1 %; RED BLOOD COUNT 3.33 10^6/uL (4.70-6.10); WHITE BLOOD COUNT 7.7 x10^3/uL (4.8-10.8)
[2019-05-14 05:09] LABS: INR 1.6 (0.8-1.2); PLT - PLATELET COUNT 31 10^3/uL (130-450); PT - PROTHROMBIN TIME 18.5 secs (9.9-12.6)
[2019-05-14 05:21] LABS: ALBUMIN/GLOBULIN RATIO 0.7 (1.0-2.2); CALCIUM 7.5 mg/dL (8.5-10.3); CREATININE 0.7 mg/dL (0.6-1.2); MAGNESIUM 2.1 mg/dL (1.7-2.8); PHOSPHORUS 1.7 mg/dL (2.5-4.6); TOTAL PROTEIN 7.4 g/dL (6.7-8.2)
[2019-05-14 05:27] LABS: PLATELET ESTIMATE, MANUAL DECREASED (<130,000) (NORMAL); PLATELET MORPHOLOGY NORMAL APPEARANCE (NORMAL); RBC MORPHOLOGY (MULTIPLE) NORMAL APPEARANCE (NORMAL)
[2019-05-14] MEDS ORDERED: POTASSIUM PHOSPHATE 15 MMOL in SODIUM CHLORIDE 0.9% 250 ML IV ONE ×2 (06:05→08:00)
[2019-05-14] MEDS ORDERED: CALCIUM GLUCONATE 1000 MG/10 ML VIAL IVP STA (06:15)
--- NOTE | 2019-05-14 06:27 | PROVIDER PROGRESS NOTE ---
Reconditioner Note - Reconditioner Note Reconditioner Note: Overnight, the patient became increasingly tremulous and diaphoretic. He also began to have visual hallucinations of animals being in the room. He remained persistently tachycardic with heart rates in the 130's and increasingly tachypnic with respiratory rates varying from 30's to 40's. His blood pressure remained stable in the 120's systolic. His CIWA has also been >12 overnight and he has been requiring Lorazepam 1mg IV every 30 mins. He is at times oriented to self, year, and month but at other times, he is disoriented. It appears he is now going through alcohol withdrawal. Repeat labs were drawn which showed significant electrolyte abnormalities including severe hypomagnesemia and hypophosphatemia. He also had a minimally elevated lactic acid and CK. A decision was made to transfer the patient to the ICU given his clinical decline, electrolytes derangements, and the fact that he has had severe withdrawal in the past. A second IV was placed for electrolyte replacement and IV hydration. At this time, I will increase his Lorazepam to 1mg every 20mins PRN and monitor him closely in the ICU setting. He is currently DNR but I am concerned that he may potentially require a benzodiazepine infusion as pushes may not suffice. If he does require an infusion, I will speak with his to discuss goals of care and if temporary mechanical ventilation would correspond with the patient's wishes.
[2019-05-14] MEDS ORDERED: LORazepam 100MG/100ML D5W 100 ML IV SCH (08:00)
--- NOTE | 2019-05-14 08:00 | PROVIDER PROGRESS NOTE ---
Subjective - Prog Note Date Prog Note Date: 05/14/19 Prog Note Time: 08:01 - Subjective Subjective: He deteriorated late in the evening yesterday with regards to his withdrawal. More tachycardic, more tremulous, more confused. Hypertensive. Transferred to the ICU and is been getting increasing doses of Ativan. Right now we have increased him to every 30 minutes to control his tremors. Current Medications - Current Medications Current Medications: Active Medications Multivitamins 10 ml/ Thiamine HCl 100 mg/ Folic Acid 1 mg/Sodium Chloride 1,011.2 mls @ 100 mls/hr IV Q24H MIGUELITO Stop: 05/16/19 03:07 Last Infusion: 05/14/19 03:49 Dose: Infused Lactated Ringer's (Lr) 1,000 mls @ 100 mls/hr IV .Q10H MIGUELITO Last Admin: 05/14/19 03:29 Dose: 100 mls/hr Sodium Chloride (Normal Saline 0.9%) 500 mls @ 0 mls/hr IV Q24H PRN PRN Reason: TKO RATE Last Admin: 05/14/19 01:19 Dose: 20 mls/hr Potassium Phosphate 15 mmol/ (Sodium Chloride) 255 mls @ 42.5 mls/hr IV ONCE ONE Stop: 05/14/19 13:59 Lorazepam (Ativan) 100 mls @ 0.79 mls/hr IV .Q72H MIGUELITO; Protocol Lorazepam (Ativan Inj (Vial)) 2 mg IVP Q30M PRN; Protocol PRN Reason: CIWA >8 Last Admin: 05/14/19 07:50 Dose: 2 mg Metoprolol Tartrate (Lopressor) 25 mg PO BID MIGUELITO Last Admin: 05/13/19 20:29 Dose: 25 mg Nicotine (Nicoderm) 1 patch TOP DAILY [facility] Last Admin: 05/13/19 22:41 Dose: 1 patch Ondansetron HCl (Zofran Inj) 4 mg IVP Q6HR PRN PRN Reason: Nausea / Vomiting Ondansetron HCl (Zofran Odt) 4 mg TL Q6HR PRN PRN Reason: Nausea / Vomiting Oxycodone HCl (Roxicodone) 5 mg PO Q4HR PRN PRN Reason: Pain 5 to 7 Polyethylene Glycol (Miralax) 17 gm PO DAILY MIGUELITO Last Admin: 05/13/19 08:48 Dose: 17 gm Sodium Chloride (Normal Saline Flush 0.9%) 10 ml IVP PRN PRN PRN Reason: NEEDED PER PROVIDER ORDERS Last Admin: 05/14/19 05:20 Dose: 10 ml Sodium Chloride (Normal Saline Flush 0.9%) 10 ml IVP 0100,0900,1700 [facility] Last Admin: 05/14/19 07:38 Dose: 20 ml Alprazolam [Xanax] 0.5 mg PO Q6HR 01/21/19 Metoprolol Tartrate 25 mg PO DAILY 01/21/19 Objective - Vital Signs/Intake & Output Reviewed Vital Signs: Yes Vital Signs: Vital Signs Temp Pulse Pulse Resp BP BP Pulse Ox 05/14/19 07:00 142 H 70 H 110/85 H 94 05/14/19 06:00 143 H 44 H 111/84 H 96 05/14/19 05:26 37.3 C 135 H 53 H 93 05/14/19 05:00 142 H 51 H 117/95 H 93 05/14/19 04:00 37.3 C 135 H 53 H 105/69 93 Intake & Output: Intake & Output 05/11/19 05/12/19 05/13/19 05/14/19 23:59 23:59 23:59 23:59 Intake Total 1999 3178.2 1111.2 Output Total 1 200 Balance 1998 2978.2 1111.2 - Objective General Appearance: positive: Alert, Other (He either thinks we're all beautiful, or we're "all funny". He pulled his "ashtray" close to him. He is using 1 of the plastic cups for drinking water. He knows he is in the hospital. Not much else. Tremulous lips, hands, tachycardic, cooperative) Eyes Bilateral: positive: PERRL Eyes: OU Scleral icterus ENT: positive: Other (poor, poor dentition w carries, and old matter on his teeth) Neck: positive: No JVD, Lymphadenopathy (R), Lymphadenopathy (L). negative: Stiff neck, Carotid bruit Respiratory: positive: Chest non-tender, No respiratory distress. negative: Wheezes, Rhonchi Cardiovascular: positive: Regular rate & rhythm, Tachycardia, Systolic murmur. negative: Gallop/S4, Friction rub Abdomen: positive: Non-tender, No organomegaly, Nml bowel sounds, No distention, Hepatomegaly, Splenomegaly Skin: positive: Warm, Dry, Pallor Extremities: positive: Full ROM Neurologic/Psychiatric: positive: CN's nml (2-12), Disoriented to place, Disoriented to time, Slurred/abnml speech. negative: Motor nml (tremors, pass pointing/grabbing) - Lab Results Fish Bones: 05/14/19 04:50 05/14/19 04:50 Other Labs: Lab Results x24hrs 05/14/19 05/14/19 05/14/19 Range/Units 04:50 04:50 04:50 WBC (4.8-10.8) x10^3/uL RBC (4.70-6.10) 10^6/uL Hgb (14.0-18.0) g/dL Hct (42.0-52.0) % MCV (80.0-94.0) fL MCH (27.0-31.0) pg MCHC (32.0-36.0) g/dL RDW (12.0-15.0) % Plt Count (130-450) 10^3/uL MPV (7.4-11.4) fL Neut # (Auto) (1.5-6.6) 10^3/uL Lymph # (Auto) (1.5-3.5) 10^3/uL Cherry # (Auto) (0.0-1.0) 10^3/uL Eos # (Auto) (0.0-0.7) 10^3/uL Baso # (Auto) (0.0-0.1) 10^3/uL Absolute Nucleated RBC x10^3/uL Nucleated RBC % /100WBC WBC Morphology (NORMAL) Platelet Estimate (NORMAL) Platelet Morphology (NORMAL) RBC Morph Micro Appear (NORMAL) PT 18.5 H (9.9-12.6) secs INR 1.6 H (0.8-1.2) VBG pH (7.31-7.41) VBG pCO2 (41-51) mmHg VBG pO2 (25-47) mmHg VBG HCO3 (23-28) mmol/L VBG Total CO2 (24-29) mmol/L VBG O2 Saturation (60-80) % VBG Base Excess (-2 - +2) mmol/L Sodium 139 (135-145) mmol/L Potassium 3.9 (3.5-5.0) mmol/L Chloride 104 (101-111) mmol/L Carbon Dioxide 17 L (21-32) mmol/L Anion Gap 18.0 H (6-13) BUN 12 (6-20) mg/dL Creatinine 0.7 (0.6-1.2) mg/dL Estimated GFR (MDRD) 114 (>89) Glucose 102 H (70-100) mg/dL Lactic Acid 1.7 (0.5-2.2) mmol/L Calcium 7.5 L (8.5-10.3) mg/dL Phosphorus 1.7 L (2.5-4.6) mg/dL Magnesium 2.1 (1.7-2.8) mg/dL Total Bilirubin 7.0 H (0.2-1.0) mg/dL Direct Bilirubin (0.1-0.5) mg/dL AST 125 H (10-42) IU/L ALT 44 (10-60) IU/L Alkaline Phosphatase 67 (42-121) IU/L Total Creatine Kinase (22-269) IU/L Total Protein 7.4 (6.7-8.2) g/dL Albumin 3.0 L (3.2-5.5) g/dL Globulin 4.4 H (2.1-4.2) g/dL Albumin/Globulin Ratio 0.7 L (1.0-2.2) Nasal Screen MRSA (PCR) (NEGATIVE) 05/14/19 05/14/19 05/13/19 Range/Units 04:50 00:50 23:04 WBC 7.7 (4.8-10.8) x10^3/uL RBC 3.33 L (4.70-6.10) 10^6/uL Hgb 11.6 L (14.0-18.0) g/dL Hct 34.0 L (42.0-52.0) % MCV 102.1 H (80.0-94.0) fL MCH 34.8 H (27.0-31.0) pg MCHC 34.1 (32.0-36.0) g/dL RDW 14.0 (12.0-15.0) % Plt Count 31 L* (130-450) 10^3/uL MPV 11.9 H (7.4-11.4) fL Neut # (Auto) 4.6 (1.5-6.6) 10^3/uL Lymph # (Auto) 2.2 (1.5-3.5) 10^3/uL Cherry # (Auto) 0.8 (0.0-1.0) 10^3/uL Eos # (Auto) 0.1 (0.0-0.7) 10^3/uL Baso # (Auto) 0.0 (0.0-0.1) 10^3/uL Absolute Nucleated RBC 0.02 x10^3/uL Nucleated RBC % 0.3 /100WBC WBC Morphology NORMAL APPEARANCE (NORMAL) Platelet Estimate DECREASED (<130,000) (NORMAL) Platelet Morphology NORMAL APPEARANCE (NORMAL) RBC Morph Micro Appear NORMAL APPEARANCE (NORMAL) PT (9.9-12.6) secs INR (0.8-1.2) VBG pH 7.542 H (7.31-7.41) VBG pCO2 22.7 L (41-51) mmHg VBG pO2 95.3 H (25-47) mmHg VBG HCO3 19.1 L (23-28) mmol/L VBG Total CO2 19.8 L (24-29) mmol/L VBG O2 Saturation 97.7 H (60-80) % VBG Base Excess -1.5 (-2 - +2) mmol/L Sodium (135-145) mmol/L Potassium (3.5-5.0) mmol/L Chloride (101-111) mmol/L Carbon Dioxide (21-32) mmol/L Anion Gap (6-13) BUN (6-20) mg/dL Creatinine (0.6-1.2) mg/dL Estimated GFR (MDRD) (>89) Glucose (70-100) mg/dL Lactic Acid (0.5-2.2) mmol/L Calcium (8.5-10.3) mg/dL Phosphorus (2.5-4.6) mg/dL Magnesium (1.7-2.8) mg/dL Total Bilirubin (0.2-1.0) mg/dL Direct Bilirubin (0.1-0.5) mg/dL AST (10-42) IU/L ALT (10-60) IU/L Alkaline Phosphatase (42-121) IU/L Total Creatine Kinase (22-269) IU/L Total Protein (6.7-8.2) g/dL Albumin (3.2-5.5) g/dL Globulin (2.1-4.2) g/dL Albumin/Globulin Ratio (1.0-2.2) Nasal Screen MRSA (PCR) NEGATIVE (NEGATIVE) 05/13/19 05/13/19 Range/Units 23:04 23:04 WBC (4.8-10.8) x10^3/uL RBC (4.70-6.10) 10^6/uL Hgb (14.0-18.0) g/dL Hct (42.0-52.0) % MCV (80.0-94.0) fL MCH (27.0-31.0) pg MCHC (32.0-36.0) g/dL RDW (12.0-15.0) % Plt Count (130-450) 10^3/uL MPV (7.4-11.4) fL Neut # (Auto) (1.5-6.6) 10^3/uL Lymph # (Auto) (1.5-3.5) 10^3/uL Cherry # (Auto) (0.0-1.0) 10^3/uL Eos # (Auto) (0.0-0.7) 10^3/uL Baso # (Auto) (0.0-0.1) 10^3/uL Absolute Nucleated RBC x10^3/uL Nucleated RBC % /100WBC WBC Morphology (NORMAL) Platelet Estimate (NORMAL) Platelet Morphology (NORMAL) RBC Morph Micro Appear (NORMAL) PT (9.9-12.6) secs INR (0.8-1.2) VBG pH (7.31-7.41) VBG pCO2 (41-51) mmHg VBG pO2 (25-47) mmHg VBG HCO3 (23-28) mmol/L VBG Total CO2 (24-29) mmol/L VBG O2 Saturation (60-80) % VBG Base Excess (-2 - +2) mmol/L Sodium 138 (135-145) mmol/L Potassium 4.4 (3.5-5.0) mmol/L Chloride 103 (101-111) mmol/L Carbon Dioxide 18 L (21-32) mmol/L Anion Gap 17.0 H (6-13) BUN 10 (6-20) mg/dL Creatinine 0.7 (0.6-1.2) mg/dL Estimated GFR (MDRD) 114 (>89) Glucose 110 H (70-100) mg/dL Lactic Acid 2.4 H (0.5-2.2) mmol/L Calcium 8.0 L (8.5-10.3) mg/dL Phosphorus 1.5 L (2.5-4.6) mg/dL Magnesium 0.9 L* (1.7-2.8) mg/dL Total Bilirubin 6.9 H (0.2-1.0) mg/dL Direct Bilirubin 2.9 H (0.1-0.5) mg/dL AST 148 H (10-42) IU/L ALT 52 (10-60) IU/L Alkaline Phosphatase 74 (42-121) IU/L Total Creatine Kinase 304 H (22-269) IU/L Total Protein 7.9 (6.7-8.2) g/dL Albumin 3.3 (3.2-5.5) g/dL Globulin 4.6 H (2.1-4.2) g/dL Albumin/Globulin Ratio (1.0-2.2) Nasal Screen MRSA (PCR) (NEGATIVE) Assessment/Plan - Problem List (1) Alcohol withdrawal Impression: He is now day 3 of being in the hospital with alcohol withdrawal. The initial 24 to 48 hours were actually relatively benign. He was tremulous, but alert, oriented. Last night he is become disoriented, much more severely tremulous, tachycardic, hypertensive. An EKG was done yesterday to make sure he was not in A. fib. It was sinus tach. He is now in the ICU. Is day #3 of bannana bag. Plan: Ativan is every 30 minutes now. We will start him on Ativan drip. Qualifiers: Complication of substance-induced condition: uncomplicated Qualified Code(s): F10.230 - Alcohol dependence with withdrawal, uncomplicated (2) Alcoholic cirrhosis of liver Impression: with splenomegaly. Also has Hep C and the status of that disease is uncertain. He has resultant portal hypertension with hepatosplenomegaly and thrombocytopenis. WBC is low and presumed to be from bone marrow suppression. he has been warned that the combination of his alcohol use plus his Hep C is lethal. Qualifiers: (3) Hypokalemia Impression: supplment po 40 meq tid for 3 doses on 05/13. This morning his potassium is normal. recheck in am. (4) Hypertension Impression: resumed his listed metoprolol on 05/13 @ 25 mg po bid. Will increase to 50 mg po bid Qualifiers: Hypertension type: essential hypertension Qualified Code(s): I10 - Esse ntial (primary) hypertension (2) Alcoholic cirrhosis of liver Qualifiers:
[2019-05-14] MEDS: NICOTINE 14 MG PATCH TOP SCH (08:08)
[2019-05-14] MEDS: METOPROLOL TARTRATE 25 MG TABLET PO SCH (09:37)
[2019-05-14] MEDS: SODIUM CHLORIDE 0.9% 1,000 ML IV SCH ×2 (10:23→20:47)
[2019-05-14] MEDS: POLYETHYLENE GLYCOL 3350 17 GM PACKET PO SCH (10:23)
[2019-05-14] MEDS: LORazepam 100MG/100ML D5W 100 ML IV PRN (10:49)
[2019-05-14] MEDS: PANTOPRAZOLE 40 MG VIAL IVP SCH (10:49)
[2019-05-14] MEDS: MULTIVITAMIN 10 ML, THIAMINE INJ 100 MG, FOLIC ACID INJ 1 MG in SODIUM CHLORIDE 0.9% 1,... IV SCH (17:27)
[2019-05-14] MEDS ORDERED: METOPROLOL TARTRATE 25 MG TABLET PO SCH (21:00)
[2019-05-15] MEDS: METOPROLOL 5 MG/5 ML VIAL IVP SCH ×4 (00:04→18:00)
[2019-05-15] MEDS: LORazepam 100MG/100ML D5W 100 ML IV PRN ×2 (00:19→14:00)
[2019-05-15] MEDS: SODIUM CHLORIDE FLUSH 0.9% 10 ML SYRINGE IVP SCH ×3 (01:18→17:08)
[2019-05-15] MEDS: SODIUM CHLORIDE 0.9% 1,000 ML IV SCH ×2 (04:00→13:40)
[2019-05-15] MEDS: MIN OIL/DIMETHICON/COCONUT OIL 92 GM TUBE TOP PRN (04:07)
[2019-05-15 05:07] LABS: BASOPHILS % (AUTO) 0.4 %; HGB - HEMOGLOBIN 10.6 g/dL (14.0-18.0); LYMPHOCYTES % (AUTO) 24.2 %; MEAN CORPUSCULAR HEMOGLOBIN 35.2 pg (27.0-31.0); MEAN CORPUSCULAR HGB CONC 32.9 g/dL (32.0-36.0); MEAN PLATELET VOLUME 11.9 fL (7.4-11.4); MONOCYTES % (AUTO) 16.1 %; NEUTROPHILS % (AUTO) 58.9 %; RED BLOOD COUNT 3.01 10^6/uL (4.70-6.10); RED CELL DISTRIBUTION WIDTH 14.9 % (12.0-15.0); WHITE BLOOD COUNT 5.2 x10^3/uL (4.8-10.8)
[2019-05-15 05:11] LABS: INR 1.7 (0.8-1.2); PT - PROTHROMBIN TIME 19.4 secs (9.9-12.6)
[2019-05-15 05:30] LABS: PLT - PLATELET COUNT 31 10^3/uL (130-450)
[2019-05-15 05:31] LABS: ABNORMAL LYMPHS % (MANUAL) 0 %
[2019-05-15 05:34] LABS: CALCIUM 7.2 mg/dL (8.5-10.3); CREATININE 0.6 mg/dL (0.6-1.2)
[2019-05-15 05:35] LABS: ALBUMIN 2.7 g/dL (3.2-5.5); ALBUMIN/GLOBULIN RATIO 0.6 (1.0-2.2); BILIRUBIN,TOTAL 6.6 mg/dL (0.2-1.0); MAGNESIUM 1.5 mg/dL (1.7-2.8); PHOSPHORUS 2.6 mg/dL (2.5-4.6); TOTAL PROTEIN 6.9 g/dL (6.7-8.2)
[2019-05-15] MEDS ORDERED: MAGNESIUM SULFATE 2 GRAM 2 GM/50 ML BAG IV ONE (05:44)
[2019-05-15 05:58] LABS: BAND NEUTROPHILS % (MANUAL) 2 %; BASOPHILS # (MANUAL) 0.1 10^3/uL (0-0.1); BASOPHILS % (MANUAL) 1 %; DIFFERENTIAL COMMENT MANUAL DIFFERENTIAL; LYMPHOCYTES # (MANUAL) 1.7 10^3/uL (1.5-3.5); LYMPHOCYTES % (MANUAL) 32 %; MONOCYTES # (MANUAL) 0.5 10^3/uL (0.0-1.0); PLATELET ESTIMATE, MANUAL DECREASED (<130,000) (NORMAL); RBC MORPHOLOGY (MULTIPLE) NORMAL APPEARANCE (NORMAL)
[2019-05-15 06:02] LABS: VBG PH 7.465 (7.31-7.41)
[2019-05-15] MEDS ORDERED: CALCIUM GLUCONATE 2,000 MG in SODIUM CHLORIDE 0.9% 100ML 100 ML IV ONE (06:06)
[2019-05-15] MEDS: PANTOPRAZOLE 40 MG VIAL IVP SCH (06:13)
[2019-05-15] MEDS: POTASSIUM CHLOR 10 MEQ/100 ML 10 MEQ/100 ML BAG IV SCH ×4 (06:13→09:30)
[2019-05-15] MEDS ORDERED: LACTATED RINGERS 500 ML IV ONE (07:55)
[2019-05-15] MEDS: LACTATED RINGERS 1,000 ML IV SCH (08:34)
[2019-05-15] MEDS ORDERED: LACTATED RINGERS 1,000 ML IV ONE (08:41)
[2019-05-15] MEDS: NICOTINE 14 MG PATCH TOP SCH (08:46)
--- NOTE | 2019-05-15 10:58 | XRAY Report ---
Reason: rhonchi, tachypnea Procedure Date: 05/15/2019 Accession Number: [id number] / [id number] Procedure: XR - Chest 1 View X-Ray CPT Code: 23248 FULL RESULT: EXAM: CHEST RADIOGRAPHY EXAM DATE: 05/15/2019 08:09 AM. CLINICAL HISTORY: Rhonchi, tachypnea. COMPARISON: CHEST 1 VIEW 05/12/2019 12:50 PM. TECHNIQUE: 1 view. FINDINGS: Lungs/Pleura: Left basilar infiltrate or atelectasis No pleural effusion. No pneumothorax. Decreased lung volumes Mediastinum: Mild cardiomegaly Other: Right shoulder anchors IMPRESSION: Left basal infiltrate or atelectasis RADIA
--- NOTE | 2019-05-15 11:32 | PROVIDER PROGRESS NOTE ---
Subjective - Prog Note Date Prog Note Date: 05/15/19 Prog Note Time: 11:43 - Subjective Subjective: 2 nights ago he started getting more tachypneic, tachycardic and transferred to the ICU for increasing Ativan and worsening CIWA score. I started him on Ativan drip yesterday afternoon. Between yesterday and today he is tachypnea, tachycardic, and becoming less and less responsive. Ativan drip is stayed about the same. No fever, no hypoxia, but copious copious secretions have to be suctioned. Starting to drop his blood pressure this morning. Current Medications - Current Medications Current Medications: Active Medications Multivitamins 10 ml/ Thiamine HCl 100 mg/ Folic Acid 1 mg/Sodium Chloride 1,011.2 mls @ 100 mls/hr IV Q24H MIGUELITO Stop: 05/16/19 03:07 Last Infusion: 05/15/19 04:00 Dose: Infused Sodium Chloride (Normal Saline 0.9%) 500 mls @ 0 mls/hr IV Q24H PRN PRN Reason: TKO RATE Last Infusion: 05/15/19 02:20 Dose: Infused Lorazepam (Ativan) 100 mls @ 5 mls/hr IV .Q20H PRN; Protocol PRN Reason: ALCOHOL WITHDRAWAL Last Titration: 05/15/19 11:00 Dose: 7 mg/hr, 7 mls/hr Sodium Chloride (Normal Saline 0.9%) 1,000 mls @ 125 mls/hr IV .Q8H MIGUELITO Last Infusion: 05/15/19 11:00 Dose: 125 mls/hr Levofloxacin (Levaquin 750 Mg/150 Ml) 750 mg in 150 mls @ 100 mls/hr IV Q24H [facility]O Lorazepam (Ativan Inj (Vial)) 2 mg IVP Q30M PRN; Protocol PRN Reason: CIWA >8 Last Admin: 05/14/19 09:30 Dose: 2 mg Metoprolol Tartrate (Lopressor Inj) 5 mg IVP Q6HR [facility]O Last Admin: 05/15/19 06:15 Dose: Not Given Mineral Oil (Cavilon) 1 applic TOP PRN PRN PRN Reason: Skin Care Last Admin: 05/15/19 04:07 Dose: 1 applic Nicotine (Nicoderm) 1 patch TOP DAILY [facility]O Last Admin: 05/15/19 08:46 Dose: 1 patch Ondansetron HCl (Zofran Inj) 4 mg IVP Q6HR PRN PRN Reason: Nausea / Vomiting Pantoprazole Sodium (Protonix) 40 mg IVP QDAC [facility] [place] Last Admin: 05/15/19 06:13 Dose: 40 mg Sodium Chloride (Normal Saline Flush 0.9%) 10 ml IVP PRN PRN PRN Reason: NEEDED PER PROVIDER ORDERS Last Admin: 05/14/19 05:20 Dose: 10 ml Sodium Chloride (Normal Saline Flush 0.9%) 10 ml IVP 0100,0900,1700 [facility] [place] Last Admin: 05/15/19 08:47 Dose: 10 ml Alprazolam [Xanax] 0.5 mg PO Q6HR 01/21/19 Metoprolol Tartrate 25 mg PO DAILY 01/21/19 Objective - Vital Signs/Intake & Output Reviewed Vital Signs: Yes Vital Signs: Vital Signs Temp Pulse Resp BP Pulse Ox 05/15/19 11:00 133 H 60 H 105/77 96 05/15/19 10:00 120 H 43 H 97/73 94 05/15/19 09:00 145 H 50 H 103/85 H 97 05/15/19 08:00 36.3 C L 125 H 52 H 106/76 94 Intake & Output: Intake & Output 05/12/19 05/13/19 05/14/19 05/15/19 23:59 23:59 23:59 23:59 Intake Total 1999 3178.2 3541.200 3304.733 Output Total 1 200 Balance 1998 2978.2 3541.200 3304.733 - Objective General Appearance: positive: Lethargic Eyes Bilateral: positive: PERRL Eyes: OU Scleral icterus ENT: positive: Dry mucous membranes Neck: positive: No JVD. negative: Stiff neck, Carotid bruit Respiratory: positive: Rales, Rhonchi, Other (Can barely open his eyes to voice. Grunting respiration. Tachypneic. Fast, shallow, severely tachypneic. Was that way yesterday but seemed to tolerated. Today he seems to be tiring.) Cardiovascular: positive: Regular rate & rhythm, Tachycardia. negative: Gallop/S4, Friction rub Abdomen: positive: Non-tender, No organomegaly, Nml bowel sounds, No distention Skin: positive: Warm, Diaphoresis, Pallor Extremities: positive: Full ROM (Barely opens eyes to voice, does withdraw to pain), No pedal edema - Lab Results Fish Bones: 05/15/19 04:55 05/15/19 04:55 Other Labs: Lab Results x24hrs 05/15/19 05/15/19 05/15/19 Range/Units 05:56 04:55 04:55 WBC (4.8-10.8) x10^3/uL RBC (4.70-6.10) 10^6/uL Hgb (14.0-18.0) g/dL Hct (42.0-52.0) % MCV (80.0-94.0) fL MCH (27.0-31.0) pg MCHC (32.0-36.0) g/dL RDW (12.0-15.0) % Plt Count (130-450) 10^3/uL MPV (7.4-11.4) fL Neut # (Auto) Lymph # (Auto) Wilcox # (Auto) Eos # (Auto) Baso # (Auto) Absolute Nucleated RBC Total Counted Band Neuts % (Manual) (0 - 10) % Abnorm Lymph % (Manual) % Nucleated RBC % Neutrophils # (Manual) (1.5-6.6) 10^3/uL Lymphocytes # (Manual) (1.5-3.5) 10^3/uL Monocytes # (Manual) (0.0-1.0) 10^3/uL Eosinophils # (Manual) (0-0.7) 10^3/uL Basophils # (Manual) (0-0.1) 10^3/uL Differential Comment Platelet Estimate (NORMAL) RBC Morph Micro Appear (NORMAL) PT 19.4 H (9.9-12.6) secs INR 1.7 H (0.8-1.2) VBG pH 7.465 H (7.31-7.41) Ionized Calcium 0.95 L (1.15-1.33) mmol/L Sodium 144 (135-145) mmol/L Potassium 3.3 L (3.5-5.0) mmol/L Chloride 113 H (101-111) mmol/L Carbon Dioxide 20 L (21-32) mmol/L Anion Gap 11.0 (6-13) BUN 11 (6-20) mg/dL Creatinine 0.6 (0.6-1.2) mg/dL Estimated GFR (MDRD) 137 (>89) Glucose 123 H (70-100) mg/dL Calcium 7.2 L (8.5-10.3) mg/dL Phosphorus 2.6 (2.5-4.6) mg/dL Magnesium 1.5 L (1.7-2.8) mg/dL Total Bilirubin 6.6 H (0.2-1.0) mg/dL AST 88 H (10-42) IU/L ALT 36 (10-60) IU/L Alkaline Phosphatase 54 (42-121) IU/L Total Protein 6.9 (6.7-8.2) g/dL Albumin 2.7 L (3.2-5.5) g/dL Globulin 4.2 (2.1-4.2) g/dL Albumin/Globulin Ratio 0.6 L (1.0-2.2) 05/15/ Range/Units 04:55 WBC 5.2 (4.8-10.8) x10^3/uL RBC 3.01 L (4.70-6.10) 10^6/uL Hgb 10.6 L (14.0-18.0) g/dL Hct 32.2 L (42.0-52.0) % MCV 107.0 H (80.0-94.0) fL MCH 35.2 H (27.0-31.0) pg MCHC 32.9 (32.0-36.0) g/dL RDW 14.9 (12.0-15.0) % Plt Count 31 L* (130-450) 10^3/uL MPV 11.9 H (7.4-11.4) fL Neut # (Auto) Not Reportable Lymph # (Auto) Not Reportable Wilcox # (Auto) Not Reportable Eos # (Auto) Not Reportable Baso # (Auto) Not Reportable Absolute Nucleated RBC Not Reportable Total Counted 100 Band Neuts % (Manual) 2 (0 - 10) % Abnorm Lymph % (Manual) 0 % Nucleated RBC % Not Reportable Neutrophils # (Manual) 3.0 (1.5-6.6) 10^3/uL Lymphocytes # (Manual) 1.7 (1.5-3.5) 10^3/uL Monocytes # (Manual) 0.5 (0.0-1.0) 10^3/uL Eosinophils # (Manual) 0.0 (0-0.7) 10^3/uL Basophils # (Manual) 0.1 (0-0.1) 10^3/uL Differential Comment MANUAL DIFFERENTIAL Platelet Estimate DECREASED (<130,000) (NORMAL) RBC Morph Micro Appear NORMAL APPEARANCE (NORMAL) PT (9.9-12.6) secs INR (0.8-1.2) VBG pH (7.31-7.41) Ionized Calcium (1.15-1.33) mmol/L Sodium (135-145) mmol/L Potassium (3.5-5.0) mmol/L Chloride (101-111) mmol/L Carbon Dioxide (21-32) mmol/L Anion Gap (6-13) BUN (6-20) mg/dL Creatinine (0.6-1.2) mg/dL Estimated GFR (MDRD) (>89) Glucose (70-100) mg/dL Calcium (8.5-10.3) mg/dL Phosphorus (2.5-4.6) mg/dL Magnesium (1.7-2.8) mg/dL Total Bilirubin (0.2-1.0) mg/dL AST (10-42) IU/L ALT (10-60) IU/L Alkaline Phosphatase (42-121) IU/L Total Protein (6.7-8.2) g/dL Albumin (3.2-5.5) g/dL Globulin (2.1-4.2) g/dL Albumin/Globulin Ratio (1.0-2.2) - Diagnostic Imaging Diagnostic Imaging Results: positive: Final report reviewed (Chest x-ray ordered today shows left lower lobe airspace disease that is new) Assessment/Plan - Problem List (1) Left lower lobe pneumonia Impression: Patient was admitted May 12. Did well on low-dose Ativan overnight into the . The evening of the deteriorated with regards to tremulousness, tachycardia, hypertension, and Ativan increased to every 30 minutes. On the morning of the Ativan drip started. During the day he started having grunting respirations with continued tachypnea but was maintaining his vital signs. This morning he is starting to drop his blood pressure. . Blood pressure was stable up until this morning. He has not had a fever. Chest x-ray done this morning shows new left lower lobe infiltrate.Intake and output not w ell recorded since he does not have a Gonzalez. So the only thing I am seeing his IV intake. I do not think he is fluid overloaded. Plan: Levaquin 750 mg IV piggyback daily Blood and sputum cultures ABG Lactic acid (2) Alcohol withdrawal Impression: He is now day 3 of being in the hospital with alcohol withdrawal. The initial 24 to 48 hours were actually relatively benign. He was tremulous, but alert, oriented. Last night he is become disoriented, much more severely tremulous, tachycardic, hypertensive. An EKG was done yesterday to make sure he was not in A. fib. It was sinus tach. He is now in the ICU. Is day #3 of bannana bag. Plan: Ativan is every 30 minutes now. We will start him on Ativan drip. Qualifiers: Complication of substance-induced condition: uncomplicated Qualified Code(s): F10.230 - Alcohol dependence with withdrawal, uncomplicated (3) Alcoholic cirrhosis of liver Impression: with splenomegaly. Also has Hep C and the status of that disease is uncertain. He has resultant portal hypertension with hepatosplenomegaly and thro mbocytopenis. WBC is low and presumed to be from bone marrow suppression. he has been warned that the combination of his alcohol use plus his Hep C is lethal. Plan:Keep an eye in his platelets. Transfuse at the recommendations in a patient who has infection. Qualifiers: (4) Hypokalemia Impression: supplment po 40 meq tid for 3 doses on 05/13. On electrolyte replacement protocol (4) Hypertension Impression: resumed his listed metoprolol on 05/13 @ 25 mg po bid. Will increase to 50 mg po bid Qualifiers: Hypertension type: essential hypertension Qualified Code(s): I10 - Essential (primary) hypertension (3) Alcoholic cirrhosis of liver Qualifiers:
[2019-05-15] MEDS: levoFLOXacin 750 MG/150 ML 750 MG/150 ML BAG IV SCH (12:00)
[2019-05-15 12:33] LABS: ABG HCO3 18.4 mmol/L (22.0-26.0); ABG OXYGEN SATURATION 95 % (94-98); ABG PCO2 26 mmHg (34-45); ABG PH 7.47 (7.35-7.45); ABG PO2 78 mmHg (80-100); ABG TCO2 19.2 MMOL/L (21.0-29.0); ALLEN TEST POSITIVE
[2019-05-15] MEDS: SODIUM CHLORIDE 0.9% 500 ML IV PRN ×2 (13:45→14:30)
[2019-05-15] MEDS: MULTIVITAMIN 10 ML, THIAMINE INJ 100 MG, FOLIC ACID INJ 1 MG in SODIUM CHLORIDE 0.9% 1,... IV SCH (17:01)
[2019-05-16] MEDS: METOPROLOL 5 MG/5 ML VIAL IVP SCH ×4 (00:13→18:32)
[2019-05-16] MEDS: SODIUM CHLORIDE FLUSH 0.9% 10 ML SYRINGE IVP SCH ×3 (01:10→17:23)
[2019-05-16 06:05] LABS: CALCIUM 6.9 mg/dL (8.5-10.3); MAGNESIUM 1.5 mg/dL (1.7-2.8); PHOSPHORUS 1.9 mg/dL (2.5-4.6)
[2019-05-16] MEDS: SODIUM CHLORIDE 0.9% 1,000 ML IV SCH ×2 (06:11→22:23)
[2019-05-16] MEDS: PANTOPRAZOLE 40 MG VIAL IVP SCH (06:51)
[2019-05-16] MEDS ORDERED: POTASSIUM PHOSPHATE 15 MMOL in SODIUM CHLORIDE 0.9% 250 ML IV ONE ×2 (07:00→07:01)
[2019-05-16] MEDS ORDERED: MAGNESIUM SULFATE 2 GRAM 2 GM/50 ML BAG IV ONE ×2 (07:01→07:02)
[2019-05-16] MEDS ORDERED: CALCIUM GLUCONATE 1,000 MG in SODIUM CHLORIDE 0.9% 50 ML IV ONE (07:01)
[2019-05-16 07:32] LABS: VBG PH 7.385 (7.31-7.41)
[2019-05-16 07:35] LABS: CREATININE 0.6 mg/dL (0.6-1.2)
[2019-05-16 07:41] LABS: BASOPHILS % (AUTO) 0.3 %; EOSINOPHILS % (AUTO) 0.3 %; HGB - HEMOGLOBIN 10.5 g/dL (14.0-18.0); LYMPHOCYTES # (AUTO) 1.1 10^3/uL (1.5-3.5); LYMPHOCYTES % (AUTO) 26.9 %; MEAN CORPUSCULAR HEMOGLOBIN 35.8 pg (27.0-31.0); MEAN CORPUSCULAR HGB CONC 32.7 g/dL (32.0-36.0); MEAN CORPUSCULAR VOLUME 109.6 fL (80.0-94.0); MEAN PLATELET VOLUME 11.2 fL (7.4-11.4); MONOCYTES # (AUTO) 0.8 10^3/uL (0.0-1.0); MONOCYTES % (AUTO) 19.8 %; NEUTROPHILS # (AUTO) 2.1 10^3/uL (1.5-6.6); NEUTROPHILS % (AUTO) 52.2 %; PLT - PLATELET COUNT 39 10^3/uL (130-450); RED BLOOD COUNT 2.93 10^6/uL (4.70-6.10); RED CELL DISTRIBUTION WIDTH 15.1 % (12.0-15.0); WHITE BLOOD COUNT 3.9 x10^3/uL (4.8-10.8)
[2019-05-16 08:30] LABS: PLATELET ESTIMATE, MANUAL DECREASED (<130,000) (NORMAL); PLATELET MORPHOLOGY RARE GIANT PLATELETS (NORMAL)
--- NOTE | 2019-05-16 08:34 | PROVIDER PROGRESS NOTE ---
Subjective - Prog Note Date Prog Note Date: 05/16/19 Prog Note Time: 08:39 - Subjective Subjective: grunting stopped yesterday but still very fast shallow resp rate. responds to voice w eyes and sometimes tracks as of last night but nonverbal Current Medications - Current Medications Current Medications: Active Medications Lorazepam (Ativan) 100 mls @ 5 mls/hr IV .Q20H PRN; Protocol PRN Reason: ALCOHOL WITHDRAWAL Last Titration: 05/16/19 08:00 Dose: 4 mg/hr, 4 mls/hr Sodium Chloride (Normal Saline 0.9%) 1,000 mls @ 125 mls/hr IV .Q8H [facility] Last Infusion: 05/16/19 08:00 Dose: 125 mls/hr Levofloxacin (Levaquin 750 Mg/150 Ml) 750 mg in 150 mls @ 100 mls/hr IV Q24H [facility]ITO Last Infusion: 05/15/19 13:30 Dose: Infused Sodium Chloride (Normal Saline 0.9%) 500 mls @ 0 mls/hr IV Q24H PRN PRN Reason: TKO RATE Last Infusion: 05/15/19 19:00 Dose: 20 mls/hr Potassium Phosphate 15 mmol/ (Sodium Chloride) 255 mls @ 42.5 mls/hr IV ONCE ONE Stop: 05/16/19 13:00 Magnesium Sulfate (Magnesium Sulfate) 2 gm in 50 mls @ 50 mls/hr IV ONCE MIGUELITO; Protocol Stop: 05/16/19 10:00 Calcium Gluconate 1,000 mg/ (Sodium Chloride) 60 mls @ 60 mls/hr IV ONCE MIGUELITO Stop: 05/16/19 10:00 Lorazepam (Ativan Inj (Vial)) 2 mg IVP Q30M PRN; Protocol PRN Reason: CIWA >8 Last Admin: 05/14/19 09:30 Dose: 2 mg Metoprolol Tartrate (Lopressor Inj) 5 mg IVP Q6HR M[facility]ITO Last Admin: 05/16/19 06:11 Dose: 5 mg Mineral Oil (Cavilon) 1 applic TOP PRN PRN PRN Reason: Skin Care Last Admin: 05/15/19 04:07 Dose: 1 applic Nicotine (Nicoderm) 1 patch TOP DAILY MIGUELITO Last Admin: 05/15/19 08:46 Dose: 1 patch Ondansetron HCl (Zofran Inj) 4 mg IVP Q6HR PRN PRN Reason: Nausea / Vomiting Pantoprazole Sodium (Protonix) 40 mg IVP QDAC [facility] Last Admin: 05/16/19 06:51 Dose: 40 mg Sodium Chloride (Normal Saline Flush 0.9%) 10 ml IVP PRN PRN PRN Reason: NEEDED PER PROVIDER ORDERS Last Admin: 05/14/19 05:20 Dose: 10 ml Sodium Chloride (Normal Saline Flush 0.9%) 10 ml IVP 0100,0900,1700 [facility] Last Admin: 05/16/19 01:10 Dose: Not Given Alprazolam [Xanax] 0.5 mg PO Q6HR 01/21/19 Metoprolol Tartrate 25 mg PO DAILY 01/21/19 Objective - Vital Signs/Intake & Output Reviewed Vital Signs: Yes Vital Signs: Vital Signs Temp Pulse Resp BP BP Pulse Ox 05/16/19 08:00 116 H 57 H 117/96 H 99 05/16/19 07:00 120 H 43 H 122/97 H 99 05/16/19 06:11 118/92 H 05/16/19 06:00 36.0 C L 104 H 55 H 118/92 H 98 05/16/19 05:00 122 H 43 H 107/93 H 99 Intake & Output: Intake & Output 05/13/19 05/14/19 05/15/19 05/16/19 23:59 23:59 23:59 23:59 Intake Total 3178.2 3541.200 4540.700 1483.783 Output Total 200 720 223 Balance 2978.2 3541.200 3820.700 1260.783 - Objective General Appearance: positive: Other (dishevelled white male looks older than stated age. responds to voice by opening eyes briefly. does turn head to voice.) Eyes Bilateral: positive: PERRL ENT: positive: Other (mouth breathing w dry lips, teeth are covered w matter) Neck: positive: No JVD. negative: Stiff neck, Carotid bruit Respiratory: positive: Chest non-tender, Rhonchi, Other (fast shallow respiration). negative: Wheezes, Rales Cardiovascular: positive: Regular rate & rhythm, Tachycardia. negative: Gallop/S4, Friction rub Abdomen: positive: Non-tender, No organomegaly, Nml bowel sounds, No distention Skin: positive: Warm, Dry Extremities: positive: Pedal edema Neurologic/Psychiatric: positive: Other (eyes open to speech, incomprehensible sounds, withdraws from pain, on ativan drip=GCS 9) - Lab Results Fish Bones: 05/16/19 07:24 05/16/19 05:30 Other Labs: Lab Results x24hrs 05/16/19 05/16/19 05/16/19 Range/Units 07:25 07:24 05:30 WBC 3.9 L (4.8-10.8) x10^3/uL RBC 2.93 L (4.70-6.10) 10^6/uL Hgb 10.5 L (14.0-18.0) g/dL Hct 32.1 L (42.0-52.0) % MCV 109.6 H (80.0-94.0) fL MCH 35.8 H (27.0-31.0) pg MCHC 32.7 (32.0-36.0) g/dL RDW 15.1 H (12.0-15.0) % Bld Gas Analysis Time ABG pH (7.35-7.45) ABG pCO2 (34-45) mmHg ABG pO2 (80-100) mmHg ABG HCO3 (22.0-26.0) mmol/L ABG Total CO2 (21.0-29.0) MMOL/L ABG O2 Saturation (94-98) % ABG Base Excess (-2.0-3.0) mmol/L Ap Test VBG pH 7.385 (7.31-7.41) Ionized Calcium 0.96 L (1.15-1.33) mmol/L Sodium 145 (135-145) mmol/L Potassium 4.1 (3.5-5.0) mmol/L Chloride 115 H (101-111) mmol/L Carbon Dioxide 20 L (21-32) mmol/L Anion Gap 10.0 (6-13) BUN 11 (6-20) mg/dL Creatinine 0.6 (0.6-1.2) mg/dL Estimated GFR (MDRD) 137 (>89) Glucose 113 H (70-100) mg/dL Lactic Acid (0.5-2.2) mmol/L Calcium 7.0 L (8.5-10.3) mg/dL Phosphorus (2.5-4.6) mg/dL Magnesium (1.7-2.8) mg/dL Albumin (3.2-5.5) g/dL 05/16/19 05/16/19 05/15/19 Range/Units 05:30 05:30 12:23 WBC (4.8-10.8) x10^3/uL RBC (4.70-6.10) 10^6/uL Hgb (14.0-18.0) g/dL Hct (42.0-52.0) % MCV (80.0-94.0) fL MCH (27.0-31.0) pg MCHC (32.0-36.0) g/dL RDW (12.0-15.0) % Bld Gas Analysis Time 1234 ABG pH 7.47 H (7.35-7.45) ABG pCO2 26 L (34-45) mmHg ABG pO2 78 L (80-100) mmHg ABG HCO3 18.4 L (22.0-26.0) mmol/L ABG Total CO2 19.2 L (21.0-29.0) MMOL/L ABG O2 Saturation 95 (94-98) % ABG Base Excess -4.0 L (-2.0-3.0) mmol/L Ap Test POSITIVE VBG pH (7.31-7.41) Ionized Calcium (1.15-1.33) mmol/L Sodium (135-145) mmol/L Potassium 4.0 (3.5-5.0) mmol/L Chloride (101-111) mmol/L Carbon Dioxide (21-32) mmol/L Anion Gap (6-13) BUN (6-20) mg/dL Creatinine (0.6-1.2) mg/dL Estimated GFR (MDRD) (>89) Glucose (70-100) mg/dL Lactic Acid (0.5-2.2) mmol/L Calcium 6.9 L (8.5-10.3) mg/dL Phosphorus 1.9 L (2.5-4.6) mg/dL Magnesium 1.5 L (1.7-2.8) mg/dL Albumin 2.5 L (3.2-5.5) g/dL 05/15/19 Range/Units 12:05 WBC (4.8-10.8) x10^3/uL RBC (4.70-6.10) 10^6/uL Hgb (14.0-18.0) g/dL Hct (42.0-52.0) % MCV (80.0-94.0) fL MCH (27.0-31.0) pg MCHC (32.0-36.0) g/dL RDW (12.0-15.0) % Bld Gas Analysis Time ABG pH (7.35-7.45) ABG pCO2 (34-45) mmHg ABG pO2 (80-100) mmHg ABG HCO3 (22.0-26.0) mmol/L ABG Total CO2 (21.0-29.0) MMOL/L ABG O2 Saturation (94-98) % ABG Base Excess (-2.0-3.0) mmol/L Ap Test VBG pH (7.31-7.41) Ionized Calcium (1.15-1.33) mmol/L Sodium (135-145) mmol/L Potassium (3.5-5.0) mmol/L Chloride (101-111) mmol/L Carbon Dioxide (21-32) mmol/L Anion Gap (6-13) BUN (6-20) mg/dL Creatinine (0.6-1.2) mg/dL Estimated GFR (MDRD) (>89) Glucose (70-100) mg/dL Lactic Acid 1.9 (0.5-2.2) mmol/L Calcium (8.5-10.3) mg/dL Phosphorus (2.5-4.6) mg/dL Magnesium (1.7-2.8) mg/dL Albumin (3.2-5.5) g/dL Assessment/Plan - Problem List (1) Left lower lobe pneumonia Impression: (1) Left lower lobe pneumonia Impression: Patient was admitted May 12. Did well on low-dose Ativan overnight into the . The evening of the deteriorated with regards to tremulousness, tachycardia, hypertension, and Ativan increased to every 30 minutes. On the morning of the Ativan drip started. During the day he started having grunting respirations with continued tachypnea but was maintaining his vital signs. This morning he is starting to drop his blood pressure. . Blood pressure was stable up until 25th am. He has not had a fever. Chest x-ray done showed new left lower lobe infiltrate. Intake and output not well recorded since he does not have a Gonzalez. So the only thing I am seeing his IV intake. I do not think he is fluid overloaded. Plan: Levaquin 750 mg IV piggyback daily, Day #2 today. Blood cultures received and in process, and sputum cultures done. So far gram stain not helpful ABG showed maintained oxygenation and no hypercapnea of acidosis Lactic acid was 1.9. (2) Alcohol withdrawal slowly improved on basis of pulse, BP, O2 need. Impression: He is now day 4 of being in the hospital with alcohol withdrawal. The initial 24 to 48 hours were actually relatively benign. He was tremulous, but alert, oriented. 23 pm he is become disoriented, much more severely tremulous, tachycardic, hypertensive. An EKG was done 05/14 to make sure he was not in A. fib. It was sinus tach. He is now in the ICU. Is day #4 of bannana bag. Plan: Ativan was every 30 minutes. Started on Ativan drip 05/14. can stop bannana bag Qualifiers: Complication of substance-induced condition: uncomplicated Qualified Code(s): F10.230 - Alcohol dependence with withdrawal, uncomplicated (3) Alcoholic cirrhosis of liver Impression: with splenomegaly. Also has Hep C and the status of that disease is uncertain. He has resultant portal hypertension with hepatosplenomegaly and thrombocytopen is. WBC is low and presumed to be from bone marrow suppression. he has been warned that the combination of his alcohol use plus his Hep C is lethal. Plan:Keep an eye in his platelets. Transfuse at the recommendations in a patient who has infection. Qualifiers: (4) Hypokalemia Impression: supplement po 40 meq tid for 3 doses on 05/13. On electrolyte replacement protocol (5) Hypertension Impression: resumed his listed metoprolol on 05/13 @ 25 mg po bid. Will increase to 50 mg po bid. Pulse went from 140's to 104-120 now. Improving. Qualifiers: Hypertension type: essential hypertension Qualified Code(s): I10 - Essential (primary) hypertension
[2019-05-16] MEDS ORDERED: MAGNESIUM SULFATE 2 GRAM 2 GM/50 ML BAG IV SCH (09:00)
[2019-05-16] MEDS ORDERED: CALCIUM GLUCONATE 1,000 MG in SODIUM CHLORIDE 0.9% 50 ML IV SCH (09:00)
[2019-05-16] MEDS: LORazepam 100MG/100ML D5W 100 ML IV PRN (09:45)
[2019-05-16] MEDS: NICOTINE 14 MG PATCH TOP SCH (10:00)
[2019-05-16] MEDS: SODIUM CHLORIDE 0.9% 500 ML IV PRN (13:13)
[2019-05-16] MEDS: levoFLOXacin 750 MG/150 ML 750 MG/150 ML BAG IV SCH (15:30)
--- NOTE | 2019-05-16 17:27 | XRAY Report ---
Reason: ng tube placement verification Procedure Date: 05/16/2019 Accession Number: [id number] / [id number] Procedure: XR - Chest 1 View X-Ray CPT Code: 54414 FULL RESULT: EXAM: CHEST RADIOGRAPHY EXAM DATE: 05/16/2019 03:59 PM. CLINICAL HISTORY: NG tube placement verification. COMPARISON: CHEST 1 VIEW 05/15/2019 7:54 AM. TECHNIQUE: 1 view. FINDINGS: Lungs/Pleura: Increasing left retrocardiac opacity. New mild blunting left lateral costophrenic angle. New mild platelike atelectasis right lung base. No pneumothorax. Normal lung volumes. Mediastinum: Stable mild cardiomegaly. Interval placement of an NG tube with the tip gastric fundus. No tracheal shift. Other: 2 anchors right humeral head. IMPRESSION: 1. Tip of the NG tube in the gastric fundus. 2. Increasing left lower lobe consolidation/atelectasis with a new small left pleural effusion. 3. Mild cardiomegaly. RADIA
[2019-05-17 05:20] LABS: MAGNESIUM 1.5 mg/dL (1.7-2.8); PHOSPHORUS 1.4 mg/dL (2.5-4.6)
[2019-05-17 05:28] LABS: ALBUMIN 2.3 g/dL (3.2-5.5); ALBUMIN/GLOBULIN RATIO 0.5 (1.0-2.2); BILIRUBIN,TOTAL 4.3 mg/dL (0.2-1.0); CALCIUM 7.2 mg/dL (8.5-10.3); CREATININE 0.7 mg/dL (0.6-1.2); TOTAL PROTEIN 6.5 g/dL (6.7-8.2)
[2019-05-17] MEDS: METOPROLOL 5 MG/5 ML VIAL IVP SCH ×4 (06:17→18:10)
[2019-05-17] MEDS: SODIUM CHLORIDE FLUSH 0.9% 10 ML SYRINGE IVP SCH ×3 (06:19→17:08)
[2019-05-17 06:27] LABS: MAGNESIUM 1.6 mg/dL (1.7-2.8); PHOSPHORUS 1.4 mg/dL (2.5-4.6)
[2019-05-17] MEDS ORDERED: MAGNESIUM SULFATE 2 GRAM 2 GM/50 ML BAG IV ONE (06:35)
[2019-05-17] MEDS ORDERED: POTASSIUM PHOSPHATE 15 MMOL in SODIUM CHLORIDE 0.9% 250 ML IV ONE (06:35)
[2019-05-17] MEDS: D5.45NS W/20 MEQ KCL 1,000 ML IV SCH ×2 (07:06→23:39)
[2019-05-17] MEDS: SODIUM CHLORIDE FLUSH 0.9% 10 ML SYRINGE IVP PRN ×2 (08:21→11:43)
[2019-05-17] MEDS: PANTOPRAZOLE 40 MG VIAL IVP SCH (08:21)
[2019-05-17] MEDS ORDERED: LACTULOSE 10 GM/15 ML BOTTLE PR SCH (09:00)
[2019-05-17] MEDS: NICOTINE 14 MG PATCH TOP SCH (10:17)
--- NOTE | 2019-05-17 10:43 | PROVIDER PROGRESS NOTE ---
Subjective - Prog Note Date Prog Note Date: 05/17/19 Prog Note Time: 10:53 - Subjective Subjective: He is still on Ativan drip. Still tachypneic. Pulse rate has slowed down from the 140s to the 110s. Systolic blood pressures been maintaining. However he is gone up on his oxygen requirements and is up to 4 L this morning. Still with phlegm production from the back of his throat but less and less so. Current Medications - Current Medications Current Medications: Active Medications Furosemide (Lasix Inj 20mg Vial) 20 mg IVP DAILY [facility] Lorazepam (Ativan) 100 mls @ 5 mls/hr IV .Q20H PRN; Protocol PRN Reason: ALCOHOL WITHDRAWAL Last Titration: 05/17/19 07:49 Dose: 2 mg/hr, 2 mls/hr Levofloxacin (Levaquin 750 Mg/150 Ml) 750 mg in 150 mls @ 100 mls/hr IV Q24H [facility] Last Infusion: 05/16/19 17:00 Dose: Infused Sodium Chloride (Normal Saline 0.9%) 500 mls @ 0 mls/hr IV Q24H PRN PRN Reason: TKO RATE Last Infusion: 05/17/19 07:50 Dose: 20 mls/hr Potassium Chloride/Dextrose/Sod Cl (D5.45ns W/20 Meq Kcl) 1,000 mls @ 75 mls/hr IV .[id number] [facility]O Last Infusion: 05/17/19 07:50 Dose: 75 mls/hr Potassium Phosphate 15 mmol/ (Sodium Chloride) 255 mls @ 42.5 mls/hr IV ONCE ONE Stop: 05/17/19 12:34 Last Admin: 05/17/19 10:17 Dose: 42.5 mls/hr Lactulose (Enulose) 30 gm NG BID MIGUELITO Lorazepam (Ativan Inj (Vial)) 2 mg IVP Q30M PRN; Protocol PRN Reason: CIWA >8 Last Admin: 05/14/19 09:30 Dose: 2 mg Metoprolol Tartrate (Lopressor Inj) 5 mg IVP Q6HR [facility] Last Admin: 05/17/19 06:18 Dose: 5 mg Mineral Oil (Cavilon) 1 applic TOP PRN PRN PRN Reason: Skin Care Last Admin: 05/15/19 04:07 Dose: 1 applic Nicotine (Nicoderm) 1 patch TOP DAILY [facility] Last Admin: 05/17/19 10:17 Dose: 1 patch Ondansetron HCl (Zofran Inj) 4 mg IVP Q6HR PRN PRN Reason: Nausea / Vomiting Pantoprazole Sodium (Protonix) 40 mg IVP QDAC [facility] Last Admin: 05/17/19 08:21 Dose: 40 mg Sodium Chloride (Normal Saline Flush 0.9%) 10 ml IVP PRN PRN PRN Reason: NEEDED PER PROVIDER ORDERS Last Admin: 05/17/19 08:21 Dose: 20 ml Sodium Chloride (Normal Saline Flush 0.9%) 10 ml IVP 0100,0900,1700 [facility] Last Admin: 05/17/19 10:27 Dose: Not Given Alprazolam [Xanax] 0.5 mg PO Q6HR PRN 01/21/19 Metoprolol Succinate [Toprol Xl] 25 mg PO DAILY 05/16/19 Objective - Vital Signs/Intake & Output Reviewed Vital Signs: Yes Vital Signs: Vital Signs Temp Pulse Resp BP Pulse Ox 05/17/19 10:00 124 H 50 H 116/86 H 96 05/17/19 09:00 122 H 58 H 118/95 H 94 05/17/19 08:51 36.7 C 05/17/19 08:00 125 H 37 H 123/100 H 98 05/17/19 07:00 36.2 C L 123 H 52 H 126/99 H 99 Intake & Output: Intake & Output 05/14/19 05/15/19 05/16/19 05/17/19 23:59 23:59 23:59 23:59 Intake Total 3541.200 4540.700 3625.700 996.300 Output Total 720 874 457 Balance 3541.200 3820.700 2751.700 539.300 - Objective General Appearance: positive: Mild distress, Other (Eyelids flutter with my voice, but not opening his eyes today. NG in place, started yesterday for tube feeds. Is having high residuals.) Eyes Bilateral: positive: PERRL Eyes: OU Scleral icterus ENT: positive: Other (Copious amounts of anders-colored phlegm in the back of his throat) Respiratory: positive: Chest non-tender, Rhonchi (That I think more transmitted from the back of his throat than true lung sounds.) Cardiovascular: positive: Regular rate & rhythm, Tachycardia. negative: Gallop/S4, Friction rub Abdomen: positive: Non-tender, Nml bowel sounds, No distention, Hepatomegaly, Splenomegaly Skin: positive: Warm, Dry, Pallor Extremities: positive: Pedal edema Neurologic/Psychiatric: positive: Other (Eyelids flutter to voice, does withdraw to pain, no spontaneous movement, no spontaneous verbalization) - Lab Results Fish Bones: 05/16/19 07:24 05/17/19 04:56 Other Labs: Lab Results x24hrs 05/17/19 05/17/19 05/17/19 Range/Units 04:56 04:56 04:56 Sodium 149 H (135-145) mmol/L Potassium 3.5 (3.5-5.0) mmol/L Chloride 121 H* (101-111) mmol/L Carbon Dioxide 18 L (21-32) mmol/L Anion Gap 10.0 (6-13) BUN 13 (6-20) mg/dL Creatinine 0.7 (0.6-1.2) mg/dL Estimated GFR (MDRD) 114 (>89) Glucose 127 H (70-100) mg/dL Calcium 7.2 L (8.5-10.3) mg/dL Phosphorus 1.4 L (2.5-4.6) mg/dL Magnesium 1.5 L (1.7-2.8) mg/dL Total Bilirubin 4.3 H (0.2-1.0) mg/dL AST 67 H (10-42) IU/L ALT 27 (10-60) IU/L Alkaline Phosphatase 57 (42-121) IU/L Ammonia 79.5 H (7-35) umol/L Total Protein 6.5 L (6.7-8.2) g/dL Albumin 2.3 L (3.2-5.5) g/dL Globulin 4.2 (2.1-4.2) g/dL Albumin/Globulin Ratio 0.5 L (1.0-2.2) Prealbumin 4 L (18-45) mg/dL 05/17/19 Range/Units 04:50 Sodium (135-145) mmol/L Potassium (3.5-5.0) mmol/L Chloride (101-111) mmol/L Carbon Dioxide (21-32) mmol/L Anion Gap (6-13) BUN (6-20) mg/dL Creatinine (0.6-1.2) mg/dL Estimated GFR (MDRD) (>89) Glucose (70-100) mg/dL Calcium (8.5-10.3) mg/dL Phosphorus 1.4 L (2.5-4.6) mg/dL Magnesium 1.6 L (1.7-2.8) mg/dL Total Bilirubin (0.2-1.0) mg/dL AST (10-42) IU/L ALT (10-60) IU/L Alkaline Phosphatase (42-121) IU/L Ammonia (7-35) umol/L Total Protein (6.7-8.2) g/dL Albumin (3.2-5.5) g/dL Globulin (2.1-4.2) g/dL Albumin/Globulin Ratio (1.0-2.2) Prealbumin (18-45) mg/dL Assessment/Plan - Problem List (1) Left lower lobe pneumonia Impression: Patient was admitted May 12. Did well on low-dose Ativan overnight into the . The evening of the deteriorated with regards to tremulousness, tachycardia, hypertension, and Ativan increased to every 30 minutes. On the morning of the Ativan drip started. During the day he started having grunting respirations with continued tachypnea but was maintaining his vital signs. This morning he is starting to drop his blood pressure. . Blood pressure was stable up until 25th am. He has not had a fever. Chest x-ray done showed new left lower lobe infiltrate. Intake and output not well recorded since he does not have a [place]. So the only thing I am seeing his IV intake. Today needs more O2 and does have (+) I/O. Difficult to say how much since output not able to be calculated without a pitt (placed 2 days ago). Weight up to 84.5. Plan: Levaquin 750 mg IV piggyback daily, Day #3 today. No change for abx. Blood cultures received and neg 05/12 and 05/15 Sputum cultures done. So far gram stain not helpful, culture still in progress this morning. ABG showed maintained oxygenation and no hypercapnea of acidosis Lactic acid was 1.9. Recheck CXR Daily weights Lasix 20 mg IVP (2) Alcohol withdrawal slowly improved on basis of pulse, BP, O2 need. Impression: He is now day 5 of being in the hospital with alcohol withdrawal. The initial 24 to 48 hours were actually relatively benign. He was tremulous, but alert, oriented. 23rd pm he is become disoriented, much more severely tremulous, tachycardic, hypertensive. An EKG was done 05/14 to make sure he was not in A. fib. It was sinus tach. He is now in the ICU. s/p day #4 bannana bag. Still w tachypnea. Plan: Ativan was every 30 minutes. Started on Ativan drip 05/14. can stop bannana bag, changed to oral liquid vitamins 05/16 Qualifiers: Complication of substance-induced condition: uncomplicated Qualified Code(s): F10.230 - Alcohol dependence with withdrawal, uncomplicated (3) Alcoholic cirrhosis of liver Impression: with splenomegaly. Also has Hep C and the status of that disease is uncertain. He has resultant portal hypertension with hepatosplenomegaly and thrombocytopenis. WBC is low and presumed to be from bone marrow suppression. he has been warned that the combination of his alcohol use plus his Hep C is lethal. Plan:Keep an eye in his platelets. Transfuse at the recommendations in a patient who has infection. Qualifiers: (4) Hypokalemia Impression: supplement po 40 meq tid for 3 doses on 05/13. On electrolyte replacement protocol (5) Hypertension Impression: resumed his listed metoprolol on 05/13 @ 25 mg po bid. Will increase to 50 mg po bid. Pulse went from 140's to 104-120 now. Then po changed to IV lopressor 05/15 since can't eat. Improving. Qualifiers: Hypertension type: essential hypertension Qualified Code(s): I10 - Essential (primary) hypertension (6) Nutrition Started on NG tube feed 05/16
[2019-05-17] MEDS ORDERED: FUROSEMIDE 20 MG/2 ML VIAL IVP SCH (11:00)
[2019-05-17] MEDS: LACTULOSE 10 GM /15 ML UDC NG SCH ×2 (11:31→22:53)
[2019-05-17] MEDS: levoFLOXacin 750 MG/150 ML 750 MG/150 ML BAG IV SCH (11:51)
[2019-05-17] MEDS: SODIUM CHLORIDE 0.9% 500 ML IV PRN (13:47)
--- NOTE | 2019-05-17 14:01 | XRAY Report ---
Reason: worse hypoxia Procedure Date: 05/17/2019 Accession Number: [id number] / [id number] Procedure: XR - Chest 1 View X-Ray CPT Code: 06951 FULL RESULT: EXAM: CHEST RADIOGRAPHY EXAM DATE: 05/17/2019 11:07 AM. CLINICAL HISTORY: Worse hypoxia. COMPARISON: CHEST 1 VIEW 05/16/2019 3:45 PM CHEST 1 VIEW 05/15/2019 7:54 AM CHEST 1 VIEW 05/12/2019 12:50 PM. TECHNIQUE: 1 view. FINDINGS: Lungs/Pleura: Stable mild bilateral diffuse airspace opacities. Stable left lower lobe retrocardiac consolidation. Stable small left pleural effusion. No pneumothorax. Mediastinum: Heart size upper limits of normal, stable Other: Suture anchors right humeral head most consistent with prior rotator cuff repair. Stable mild rotary dextroscoliosis of the thoracolumbar spine. Nasogastric tube side-port in the body of the stomach. Tip extends beyond the inferior margin of the image. IMPRESSION: 1. Stable left lower lobe retrocardiac consolidation may represent atelectasis and/or pneumonia. Stable small left pleural effusion. 2. Stable mild bilateral diffuse airspace disease. RADIA
[2019-05-17] MEDS ORDERED: POTASSIUM CHLORIDE 20 MEQ/15 ML UDC PO ONE (15:53)
[2019-05-17] MEDS: LORazepam 100MG/100ML D5W 100 ML IV PRN (18:29)
[2019-05-18] MEDS: METOPROLOL 5 MG/5 ML VIAL IVP SCH ×4 (00:41→17:45)
[2019-05-18 05:36] LABS: MAGNESIUM 1.4 mg/dL (1.7-2.8); PHOSPHORUS 1.6 mg/dL (2.5-4.6)
[2019-05-18] MEDS: SODIUM CHLORIDE FLUSH 0.9% 10 ML SYRINGE IVP SCH ×3 (06:07→18:03)
[2019-05-18] MEDS: PANTOPRAZOLE 40 MG VIAL IVP SCH (06:08)
[2019-05-18] MEDS ORDERED: MAGNESIUM SULFATE 2 GM in SODIUM CHLORIDE 0.9% 50 ML IV ONE (06:21)
--- NOTE | 2019-05-18 06:47 | XRAY Report ---
Reason: Worsening hypoxia. Procedure Date: 05/18/2019 Accession Number: [id number] / [id number] Procedure: XR - Chest 1 View X-Ray CPT Code: 49889 FULL RESULT: EXAM: CHEST RADIOGRAPHY EXAM DATE: 05/18/2019 06:20 AM. CLINICAL HISTORY: Worsening hypoxia. COMPARISON: CHEST 1 VIEW 05/17/2019 10:52 AM. TECHNIQUE: 1 view. FINDINGS: Lungs/Pleura: Pulmonary vascular congestion. Bibasilar atelectasis or consolidation, left worse than right. Small pleural effusions. No pneumothorax. Mediastinum: Within exam limitations, there is mild cardiomegaly. Other: Enteric tube extends into the stomach. IMPRESSION: 1. Cardiomegaly and pulmonary vascular congestion with bibasilar atelectasis or consolidation, left worse than right. 2. Small pleural effusions. 3. Enteric tube in the stomach. RADIA
[2019-05-18 07:25] LABS: CALCIUM 7.3 mg/dL (8.5-10.3); CREATININE 0.6 mg/dL (0.6-1.2)
[2019-05-18] MEDS: MIN OIL/DIMETHICON/COCONUT OIL 92 GM TUBE TOP PRN ×2 (07:35→12:18)
[2019-05-18] MEDS: FUROSEMIDE 20 MG/2 ML VIAL IVP SCH (07:35)
[2019-05-18] MEDS ORDERED: POTASSIUM PHOSPHATE 15 MMOL in SODIUM CHLORIDE 0.9% 250 ML IV ONE (07:59)
[2019-05-18] MEDS ORDERED: MAGNESIUM SULFATE 2 GRAM 2 GM/50 ML BAG IV ONE (08:00)
[2019-05-18] MEDS: NICOTINE 14 MG PATCH TOP SCH (08:29)
[2019-05-18] MEDS: LACTULOSE 10 GM /15 ML UDC NG SCH ×2 (08:29→21:00)
--- NOTE | 2019-05-18 08:54 | HISTORY & PHYSICAL EXAMINATION ---
History - Past Medical History Cardiovascular: reports: Hypertension Respiratory: reports: COPD Neuro: reports: Seizure disorder Endocrine/Autoimmune: reports: None GI: reports: None : reports: None HEENT: reports: None Psych: reports: None Musculoskeletal: reports: Chronic back pain Derm: reports: None MRSA Hx?: No - Past Surgical History Ortho: reports: Rotator cuff repair, Other - POLST Patient has POLST: No Meds/Allgy - Home Medications Home Medications: Ambulatory Orders Medication Instructions Recorded Confirmed Alprazolam [Xanax] 0.5 mg PO Q6HR PRN 01/21/19 05/12/19 Metoprolol Succinate [Toprol Xl] 25 mg PO DAILY 05/16/19 05/16/19 - Allergies Allergies/Adverse Reactions: Allergies Allergy/AdvReac Type Severity Reaction Status Date / Time No Known Drug Allergies Allergy Verified 05/12/19 12:24 Exam - Vital Signs Vital Signs: Vital Signs x48h Temp Pulse Resp BP BP Pulse Ox 05/18/19 08:00 36.5 C 135 H 48 H 114/97 H 98 05/18/19 07:27 36.8 C 05/18/19 07:00 125 H 50 H 133/100 H 97 05/18/19 06:07 126/93 H 05/18/19 06:00 124 H 38 H 126/93 H 97 05/18/19 05:00 133 H 46 H 127/95 H 96 05/18/19 04:00 125 H 60 H 128/99 H 98 05/18/19 03:00 128 H 41 H 126/94 H 95 05/18/19 02:00 127 H 48 H 133/104 H 94 05/18/19 01:00 121 H 51 H 131/100 H 98 Conclusion/Plan - Problem List (1) Left lower lobe pneumonia Conclusion/Plan: Patient was admitted May 12. Did well on low-dose Ativan overnight into the . The evening of the deteriorated with regards to tremulousness, tach ycardia, hypertension, and Ativan increased to every 30 minutes. On the morning of the Ativan drip started. During the day he started having grunting respirations with continued tachypnea but was maintaining his vital signs. This morning he is starting to drop his blood pressure. . Blood pressure was stable up until 25th am. He has not had a fever. Chest x-ray done showed new left lower lobe infiltrate. Intake and output not well recorded since he does not have a Pitt. So the only thing I am seeing his IV intake. Today needs more O2 and does have (+) I/O. Difficult to say how much since output not able to be calculated without a pitt (placed 2 days ago). Weight up to 84.5. Started on lasix 20 mg IV and increased to 40 mg IV since he continued to need more oxygen. Now down to 98% on 2 liters. REspiratory rate is 30's to 50's not 60's Plan: Levaquin 750 mg IV piggyback daily, Day #4 today. No change for abx. Blood cultures received and neg 05/12 and 05/15 Sputum cultures done. So far gram stain not helpful, culture still in progress this morning. ABG showed maintained oxygenation and no hypercapnea of acidosis Lactic acid was 1.9. Rechecked CXR on 05/17 with increased opacities at bases. ?fluid overload now. Daily weights show weight increased from 74Kg to 84.5 kg Lasix 40 mg IVP to continue (2) Alcohol withdrawal slowly improved on basis of pulse, BP, O2 need. Impression: He is now day 6 of being in the hospital with alcohol withdrawal. The initial 24 to 48 hours were actually relatively benign. He was tremulous, but alert, oriented. 23 pm he is become disoriented, much more severely tremulous, tachycardic, hypertensive. An EKG was done 05/14 to make sure he was not in A. fib. It was sinus tach. He is now in the ICU. s/p day #4 bannana bag. Still w tachypnea. Plan: Ativan was every 30 minutes. Started on Ativan drip 05/14. can stop bannana bag, changed to oral liquid vitamins 05/16 try to wean off ativan now. Qualifiers: Complication of substance-induced condition: uncomplicated Qualified Code(s): F10.230 - Alcohol dependence with withdrawal, uncomplicated (3) Alcoholic cirrhosis of liver Impression: with splenomegaly. Also has Hep C and the status of that disease is uncertain. He has resultant portal hypertension with hepatosplenomegaly and thrombocytopenis. WBC is low and presumed to be from bone marrow suppression. he has been warned that the combination of his alcohol use plus his Hep C is lethal. Ammonia was high to 70's and started on NG lactulose 05/17. Plan:Keep an eye in his platelets. Transfuse at the recommendations in a patient who has infection. Qualifiers: (4) Hypokalemia Impression: supplement po 40 meq tid for 3 doses on 05/13. On electrolyte replacement protocol (5) Hypertension Impression: resumed his listed metoprolol on 05/13 @ 25 mg po bid. Will increase to 50 mg po bid. Pulse went from 140's to 104-120 now. Then po changed to IV lopressor 05/15 since can't eat. Improving. 114-138/93-100 Qualifiers: Hypertension type: essential hypertension Qualified Code(s): I10 - Essential (primary) hypertension (6) Nutrition Started on NG tube feed 05/16 - Lab Results Fish Bones: 05/16/19 07:24 05/18/19 05:13
--- NOTE | 2019-05-18 08:57 | PROVIDER PROGRESS NOTE ---
Subjective - Prog Note Date Prog Note Date: 05/18/19 Prog Note Time: 10:08 - Subjective Subjective: This morning, he is getting tachycardic above his baseline. Up to the 140s again. Respiratory rate was initially in the 30s and is now back up to 60 again . Blood pressure little low. Chest x-ray yesterday showed worsening bibasilar infiltrates and he was started on Lasix. That Lasix was increased from 20 mg to 40 mg by manager student services. Blood gas was done to make sure I did not need to put him on BiPAP and his pH is 7.48, PCO2 34, PO2 48, bicarb 25 and base excess 1.9. Residuals on his tube feedings are 400. Current Medications - Current Medications Current Medications: Active Medications Furosemide (Lasix Inj 20mg Vial) 40 mg IVP DAILY [facility] Last Admin: 05/18/19 07:35 Dose: 40 mg Lorazepam (Ativan) 100 mls @ 5 mls/hr IV .Q20H PRN; Protocol PRN Reason: ALCOHOL WITHDRAWAL Last Titration: 05/18/19 08:00 Dose: 1.6 mg/hr, 1.6 mls/hr Levofloxacin (Levaquin 750 Mg/150 Ml) 750 mg in 150 mls @ 100 mls/hr IV Q24H [facility] Last Infusion: 05/17/19 13:21 Dose: Infused Sodium Chloride (Normal Saline 0.9%) 500 mls @ 0 mls/hr IV Q24H PRN PRN Reason: TKO RATE Last Infusion: 05/18/19 07:35 Dose: 0 mls/hr Magnesium Sulfate (Magnesium Sulfate) 2 gm in 50 mls @ 50 mls/hr IV ONCE ONE Stop: 05/18/19 08:59 Last Admin: 05/18/19 07:34 Dose: 50 mls/hr Potassium Phosphate 15 mmol/ (Sodium Chloride) 255 mls @ 63 mls/hr IV ONCE ONE; Protocol Stop: 05/18/19 12:01 Last Admin: 05/18/19 08:40 Dose: 63 mls/hr Lactulose (Enulose) 30 gm NG BID [facility] Last Admin: 05/18/19 08:29 Dose: 30 gm Lorazepam (Ativan Inj (Vial)) 2 mg IVP Q30M PRN; Protocol PRN Reason: CIWA >8 Last Admin: 05/14/19 09:30 Dose: 2 mg Metoprolol Tartrate (Lopressor Inj) 5 mg IVP Q6HR [facility] Last Admin: 05/18/19 06:07 Dose: 5 mg Mineral Oil (Cavilon) 1 applic TOP PRN PRN PRN Reason: Skin Care Last Admin: 05/18/19 07:35 Dose: 1 applic Nicotine (Nicoderm) 1 patch TOP DAILY [facility] Last Admin: 05/18/19 08:29 Dose: 1 patch Ondansetron HCl (Zofran Inj) 4 mg IVP Q6HR PRN PRN Reason: Nausea / Vomiting Pantoprazole Sodium (Protonix) 40 mg IVP QDAC [facility] Last Admin: 05/18/19 06:08 Dose: 40 mg Sodium Chloride (Normal Saline Flush 0.9%) 10 ml IVP PRN PRN PRN Reason: NEEDED PER PROVIDER ORDERS Last Admin: 05/17/19 11:43 Dose: 10 ml Sodium Chloride (Normal Saline Flush 0.9%) 10 ml IVP 0100,0900,1700 [facility] Last Admin: 05/18/19 07:35 Dose: 10 ml Alprazolam [Xanax] 0.5 mg PO Q6HR PRN 01/21/19 Metoprolol Succinate [Toprol Xl] 25 mg PO DAILY 05/16/19 Objective - Vital Signs/Intake & Output Reviewed Vital Signs: Yes Vital Signs: Vital Signs Temp Pulse Resp BP BP Pulse Ox 05/18/19 08:00 36.5 C 135 H 48 H 114/97 H 98 05/18/19 07:27 36.8 C 05/18/19 07:00 125 H 50 H 133/100 H 97 05/18/19 06:07 126/93 H 05/18/19 06:00 124 H 38 H 126/93 H 97 05/18/19 05:00 133 H 46 H 127/95 H 96 Intake & Output: Intake & Output 05/15/19 05/16/19 05/17/19 05/18/19 23:59 23:59 23:59 23:59 Intake Total 4540.700 3625.700 4499.487 587.294 Output Total 455 431 8073 730 Balance 3820.700 2751.700 1204.487 -142.706 - Objective General Appearance: positive: Other (Not responding to voice. Does respond to sternal rub. Fast panting respirations. Gurgling from phlegm in the back of his throat. If you remove the phlegm the gurgling sound stops. He is down to 1 mg ativan and not wakin up) Eyes Bilateral: positive: PERRL, EOMI Eyes: OU Scleral icterus ENT: positive: Dry mucous membranes Neck: positive: No JVD. negative: Stiff neck, Carotid bruit Respiratory: positive: Other (Most of his breath sounds come from the gurgling phlegm in the back of his throat. If that is suctioned and cleared, he has relatively clear lung sounds that is quite startling. He continues to pants, but no use of accessory muscles. Occasionally he does use his abdominal muscles to help him breathe but his rib cage is not retracting and sternocleidomastoid muscles are not retracting) Cardiovascular: positive: Regular rate & rhythm, Tachycardia, Systolic murmur. negative: Gallop/S4, Friction rub Abdomen: positive: No organomegaly, Nml bowel sounds, No distention, Other (400 cc residual today). negative: Guarding, Rebound Skin: positive: Warm, Dry Extremities: positive: Pedal edema (reponds to pain with withdrawal but not to voice. no spontaneous movement.) Neurologic/Psychiatric: positive: Other (responds to sternal rub. Barely opens eyes rarely. Will bite on yankaur when suctioned and will let go when RN asks him to open mouth. No spontaneous movements.) - Lab Results Fish Bones: 05/16/19 07:24 05/18/19 05:13 Other Labs: Lab Results x24hrs 05/18/19 05/18/19 05/17/19 Range/Units 05:13 05:05 04:56 Sodium 145 (135-145) mmol/L Potassium 3.8 (3.5-5.0) mmol/L Chloride 117 H (101-111) mmol/L Carbon Dioxide 21 (21-32) mmol/L Anion Gap 7.0 (6-13) BUN 11 (6-20) mg/dL Creatinine 0.6 (0.6-1.2) mg/dL Estimated GFR (MDRD) 137 (>89) Glucose 140 H (70-100) mg/dL Calcium 7.3 L (8.5-10.3) mg/dL Phosphorus 1.6 L (2.5-4.6) mg/dL Magnesium 1.4 L (1.7-2.8) mg/dL B-Natriuretic Peptide 2048 H (5-100) pg/mL - Diagnostic Imaging Diagnostic Imaging Results: positive: Final report reviewed (Today's chest x-ray shows cardiomegaly and pulmonary vascular congestion with bibasilar atelectasis or consolidation. Left worse than right. Small pleural effusions. Enteric tube in stomach.) Assessment/Plan - Problem List (1) Left lower lobe pneumonia Impression: Patient was admitted May 12. Did well on low-dose Ativan overnight into the . The evening of the deteriorated with regards to tremulousness, tachycardia, hypertension, and Ativan increased to every 30 minutes. On the morning of the Ativan drip started. During the day he started having grunting respirations with continued tachypnea but was maintaining his vital signs. This morning he is starting to drop his blood pressure. . Blood pressure was stable up until 25th am. He has not had a fever. Chest x-ray done showed new left lower lobe infiltrate. Intake and output not well recorded since he does not have a Pitt. So the only thing I am seeing his IV intake. Today needs more O2 and does have (+) I/O. Difficult to say how much since output not able to be calculated without a pitt (placed 2 days ago). Weight up to 84.5. Started on lasix 20 mg IV and increased to 40 mg IV since he continued to need more oxygen. Now down to 98% on 2 liters. REspiratory rate is 30's to 50's not 60's but can still be high. 1500 cc out in an hour and now since this am 2500 cc out. Plan: Levaquin 750 mg IV piggyback daily, Day #4 today. No change for abx. Blood cultures received and neg 05/12 and 05/15 Sputum cultures done. So far gram stain not helpful, culture still in progress this morning. ABG today showed maintained oxygenation and no hypercapnea of acidosis Lactic acid was 1.9. Rechecked CXR on 05/17 and 05/18 with increased opacities at bases. [place] to be fluid overloaded. Daily weights show weight increased from 74Kg to 84.5 kg Lasix 40 mg IVP to continue (2) Alcohol withdrawal slowly improved on basis of pulse, BP, O2 need. Impression: He is now day 6 of being in the hospital with alcohol withdrawal. The initial 24 to 48 hours were actually relatively benign. He was tremulous, but alert, or iented. 23rd pm he is become disoriented, much more severely tremulous, tachycardic, hypertensive. An EKG was done 05/14 to make sure he was not in A. fib. It was sinus tach. He is now in the ICU. s/p day #4 bannana bag. Still w tachypnea. Plan: Ativan was every 30 minutes. Started on Ativan drip 05/14. can stop bannana bag, changed to oral liquid vitamins 05/16 try to wean off ativan now. Qualifiers: Complication of substance-induced condition: uncomplicated Qualified Code(s): F10.230 - Alcohol dependence with withdrawal, uncomplicated (3) Alcoholic cirrhosis of liver Impression: with splenomegaly. Also has Hep C and the status of that disease is uncertain. He has resultant portal hypertension with hepatosplenomegaly and thrombocytopenis. WBC is low and presumed to be from bone marrow suppression. he has been warned that the combination of his alcohol use plus his Hep C is lethal. Ammonia was high to 70's and started on NG lactulose 05/17. Plan:Keep an eye in his platelets. Transfuse at the recommendations in a patient who has infection. Qualifiers: (4) Hypokalemia Impression: supplement po 40 meq tid for 3 doses on 05/13. On electrolyte replacement protocol (5) Hypertension Impression: resumed his listed metoprolol on 05/13 @ 25 mg po bid. Will increase to 50 mg po bid. Pulse went from 140's to 104-120 now. Then po changed to IV lopressor 05/15 since can't eat. Improving. 114-138/93-100 Qualifiers: Hypertension type: essential hypertension Qualified Code(s): I10 - Essential (primary) hypertension (6) Nutrition Started on NG tube feed 05/16 but will stop today since residual too high.
[2019-05-18 10:48] LABS: ABG PCO2 34 mmHg (34-45); ABG PH 7.48 (7.35-7.45); ABG PO2 48 mmHg (80-100)
[2019-05-18 10:49] LABS: ABG BASE EXCESS 1.9 mmol/L (-2.0-3.0); ABG OXYGEN SATURATION 86 % (94-98); ALLEN TEST POSITIVE
[2019-05-18] MEDS: levoFLOXacin 750 MG/150 ML 750 MG/150 ML BAG IV SCH (12:12)
[2019-05-18] MEDS: SODIUM CHLORIDE 0.9% 500 ML IV PRN (12:13)
[2019-05-18] MEDS ORDERED: AMIODARONE 360 MG/200 ML 200 ML IV ONE (17:57)
[2019-05-18] MEDS ORDERED: AMIODARONE 150 MG/100 ML 100 ML IV ONE (17:57)
[2019-05-18] MEDS ORDERED: AMIODARONE 360 MG/200 ML 200 ML IV SCH (18:00)
[2019-05-18] MEDS: DIGOXIN 500 MCG/2 ML AMP IVP SCH (18:53)
[2019-05-19] MEDS: METOPROLOL 5 MG/5 ML VIAL IVP SCH ×4 (00:08→17:23)
[2019-05-19] MEDS: MIN OIL/DIMETHICON/COCONUT OIL 92 GM TUBE TOP PRN ×2 (00:15→04:30)
[2019-05-19] MEDS: DIGOXIN 500 MCG/2 ML AMP IVP SCH ×3 (00:58→12:49)
[2019-05-19] MEDS: SODIUM CHLORIDE FLUSH 0.9% 10 ML SYRINGE IVP SCH ×3 (00:58→17:24)
[2019-05-19 06:01] LABS: ALBUMIN 2.5 g/dL (3.2-5.5); ALBUMIN/GLOBULIN RATIO 0.6 (1.0-2.2); CALCIUM 7.6 mg/dL (8.5-10.3); CREATININE 0.6 mg/dL (0.6-1.2); MAGNESIUM 1.6 mg/dL (1.7-2.8); PHOSPHORUS 2.6 mg/dL (2.5-4.6); TOTAL PROTEIN 6.6 g/dL (6.7-8.2)
[2019-05-19] MEDS ORDERED: MAGNESIUM SULFATE 2 GRAM 2 GM/50 ML BAG IV ONE (06:03)
[2019-05-19] MEDS: PANTOPRAZOLE 40 MG VIAL IVP SCH (06:55)
--- NOTE | 2019-05-19 07:49 | PROVIDER PROGRESS NOTE ---
Subjective - Prog Note Date Prog Note Date: 05/19/19 Prog Note Time: 07:49 - Subjective Subjective: Because of prolonged QT syndrome on baseline EKG, I did not start amiodarone yesterday and started him on digoxin. Pulse rate was in the 140s and this morn ing is 114-118 In spite of no ativan since yesterday, not waking up Current Medications - Current Medications Current Medications: Active Medications Digoxin (Lanoxin Inj) 250 mcg IVP Q6H [facility] Stop: 05/19/19 13:01 Last Admin: 05/19/19 06:55 Dose: 250 mcg Furosemide (Lasix Inj 20mg Vial) 40 mg IVP DAILY [facility] Last Admin: 05/18/19 07:35 Dose: 40 mg Lorazepam (Ativan) 100 mls @ 5 mls/hr IV .Q20H PRN; Protocol PRN Reason: ALCOHOL WITHDRAWAL Last Titration: 05/18/19 12:05 Dose: 0 mg/hr, 0 mls/hr Levofloxacin (Levaquin 750 Mg/150 Ml) 750 mg in 150 mls @ 100 mls/hr IV Q24H [facility] Stop: 05/22/19 11:59 Last Infusion: 05/18/19 13:45 Dose: Infused Sodium Chloride (Normal Saline 0.9%) 500 mls @ 0 mls/hr IV Q24H PRN PRN Reason: TKO RATE Last Infusion: 05/18/19 13:00 Dose: 20 mls/hr Lactulose (Enulose) 30 gm NG BID [facility] Last Admin: 05/18/19 21:00 Dose: 30 gm Lorazepam (Ativan Inj (Vial)) 2 mg IVP Q30M PRN; Protocol PRN Reason: CIWA >8 Last Admin: 05/14/19 09:30 Dose: 2 mg Metoprolol Tartrate (Lopressor Inj) 5 mg IVP Q6HR [facility] Last Admin: 05/19/19 06:04 Dose: 5 mg Mineral Oil (Cavilon) 1 applic TOP PRN PRN PRN Reason: Skin Care Last Admin: 05/19/19 04:30 Dose: 1 applic Nicotine (Nicoderm) 1 patch TOP DAILY [facility] Last Admin: 05/18/19 08:29 Dose: 1 patch Ondansetron HCl (Zofran Inj) 4 mg IVP Q6HR PRN PRN Reason: Nausea / Vomiting Pantoprazole Sodium (Protonix) 40 mg IVP QDAC [facility] Last Admin: 05/19/19 06:55 Dose: 40 mg Sodium Chloride (Normal Saline Flush 0.9%) 10 ml IVP PRN PRN PRN Reason: NEEDED PER PROVIDER ORDERS Last Admin: 05/17/19 11:43 Dose: 10 ml Sodium Chloride (Normal Saline Flush 0.9%) 10 ml IVP 0100,0900,1700 [facility] Last Admin: 05/19/19 00:58 Dose: 10 ml Alprazolam [Xanax] 0.5 mg PO Q6HR PRN 01/21/19 Metoprolol Succinate [Toprol Xl] 25 mg PO DAILY 05/16/19 Objective - Vital Signs/Intake & Output Reviewed Vital Signs: Yes Vital Signs: Vital Signs Temp Pulse Pulse Resp BP BP Pulse Ox 05/19/19 07:00 118 H 33 H 130/81 H 98 05/19/19 06:55 114 H 05/19/19 06:04 142/99 H 05/19/19 06:00 138 H 36 H 142/99 H 97 05/19/19 05:00 132 H 38 H 140/88 H 98 05/19/19 04:00 36.1 C L 137 H 35 H 133/94 H 97 Intake & Output: Intake & Output 05/16/19 05/17/19 05/18/19 05/19/19 23:59 23:59 23:59 23:59 Intake Total 3625.700 4499.487 1754.714 50 Output Total 874 3295 4110 303 Balance 2751.700 1204.487 -2355.286 -253 - Objective General Appearance: positive: Other (laying on back, mouth open breathing, no response except ot painful stimuli) Eyes Bilateral: positive: PERRL Eyes: OU Scleral icterus ENT: positive: Dry mucous membranes (bc of open mouth), Other (poor dentition) Neck: positive: No JVD. negative: Stiff neck, Carotid bruit Respiratory: positive: Chest non-tender, Rhonchi, Other (resp rate in the 30's). negative: Wheezes, Rales Cardiovascular: positive: Regular rate & rhythm, Tachycardia (down to 110-117), Systolic murmur. negative: Gallop/S4, Friction rub Abdomen: positive: Non-tender (in that no grimacing), Nml bowel sounds, No distention (residual is 0 now, was 400 yesterday and tube feed held) Skin: positive: Warm, Dry Extremities: positive: Full ROM, Pedal edema Neurologic/Psychiatric: positive: Other (respnds to pain by grimace, withdraws, no spontaneous movement. Eyes not openin to voice or touch) - Lab Results Fish Bones: 05/16/19 07:24 05/19/19 05:26 Other Labs: Lab Results x24hrs 05/19/19 05/18/19 05/17/19 Range/Units 05:26 09:35 07:35 Bld Gas Analysis Time 0945 Cancelled Sample Site RIGHT RADIAL Cancelled Patient Temperature Cancelled ABG pH 7.48 H Cancelled ABG pCO2 34 Cancelled ABG pO2 48 L* Cancelled ABG HCO3 25.0 Cancelled ABG Total CO2 26.0 Cancelled ABG O2 Saturation 86 L* Cancelled ABG Oximetry Spot Check Cancelled ABG Base Excess 1.9 Cancelled Ap Test POSITIVE Cancelled Respiration Rate Cancelled Room Air Cancelled O2 Delivery Device NASAL CANNULA Cancelled O2 Liters/Min 6.00 Cancelled Vent Mode Cancelled FiO2 Cancelled Tidal Volume Cancelled PEEP Cancelled Pressure Support Vent Cancelled EPAP Cancelled IPAP Cancelled Sodium 143 (135-145) mmol/L Potassium 3.8 (3.5-5.0) mmol/L Chloride 110 (101-111) mmol/L Carbon Dioxide 22 (21-32) mmol/L Anion Gap 11.0 (6-13) BUN 14 (6-20) mg/dL Creatinine 0.6 (0.6-1.2) mg/dL Estimated GFR (MDRD) 137 (>89) Glucose 99 (70-100) mg/dL Calcium 7.6 L (8.5-10.3) mg/dL Phosphorus 2.6 (2.5-4.6) mg/dL Magnesium 1.6 L (1.7-2.8) mg/dL Total Bilirubin 4.0 H (0.2-1.0) mg/dL AST 69 H (10-42) IU/L ALT 31 (10-60) IU/L Alkaline Phosphatase 56 (42-121) IU/L Total Protein 6.6 L (6.7-8.2) g/dL Albumin 2.5 L (3.2-5.5) g/dL Globulin 4.1 (2.1-4.2) g/dL Albumin/Globulin Ratio 0.6 L (1.0-2.2) Prealbumin 5 L (18-45) mg/dL Assessment/Plan - Problem List (1) Atrial fibrillation with RVR Impression: He had an initial EKG that showed atrial fibrillation on admission. I reviewed the EKG and felt he was sinus rhythm. But repeat EKG yesterday shows that the tachycardia that I thought was sinus tachycardia has been a flutter or atrial fibrillation. I attempted amiodarone yesterday but because of prolonged QT syndrome on EKG opted to just slow him down with digoxin. As such she is getting digoxin and Lopressor with heart rate now in the low 100s. I am not going to anticoagulate at this time because of thrombocytopenia. Plan: Continue Lopressor and digoxin (2) Left lower lobe pneumonia Impression: Patient was admitted May 12. Did well on low-dose Ativan overnight into the . The evening of the deteriorated with regards to tremulousness, tachycardia, hypertension, and Ativan increased to every 30 minutes. On the morning of the Ativan drip started. During the day he started having grunting respirations with continued tachypnea but was maintaining his vital signs. This morning he is starting to drop his blood pressure. . Blood pressure was stable up until 25th am. He has not had a fever. Chest x-ray done showed new left lower lobe infiltrate. Intake and output not well recorded since he does not have a Pitt. So the only thing I am seeing his IV intake. Today needs more O2 and does have (+) I/O. Difficult to say how much since o utput not able to be calculated without a pitt (placed 2 days ago). Weight up to 84.5. Started on lasix 20 mg IV and increased to 40 mg IV since he continued to need more oxygen. Now down to 98% on 2 liters. REspiratory rate is 30's to 50's not 60's but can still be high. 1500 cc out in an hour 0n 05/18 after his first dose and then 2500 cc out by late morning yesterday. Plan: Levaquin 750 mg IV piggyback daily, Day #5 today. No change for abx. Blood cultures received and neg 05/12 and 05/15 Sputum cultures done. So far gram stain not helpful, culture still in progress this morning. ABG today showed maintained oxygenation and no hypercapnea of acidosis Lactic acid was 1.9. Rechecked CXR on 05/17 and 05/18 with increased opacities at bases. [place] to be fluid overloaded. Daily weights show weight increased from 74Kg to 84.5 kg Lasix 40 mg IVP to continue (3) Alcohol withdrawal slowly improved on basis of pulse, BP, O2 need but his encephalopathy is not improving. Impression: He is now day 7 of being in the hospital with alcohol withdrawal. The initial 24 to 48 hours were actually relatively benign. He was tremulous, but alert, oriented. 23 pm he is become disoriented, much more severely tremulous, tachycardic, hypertensive. An EKG was done 05/14 to make sure he was not in A. fib. It was sinus tach. But review of tele shows him to be fib. EKG shows afib. He is still in the ICU. s/p day #4 bannana bag. Still w tachypnea but instead of 60's>40's and today 30's. Plan: Ativan was every 30 minutes. Started on Ativan drip 05/14. Stopped 05/18. can stop bannana bag, changed to oral liquid vitamins 05/16 Qualifiers: Complication of substance-induced condition: uncomplicated Qualified Co de(s): F10.230 - Alcohol dependence with withdrawal, uncomplicated (4) Alcoholic cirrhosis of liver Impression: with splenomegaly. Also has Hep C and the status of that disease is uncertain. He has resultant portal hypertension with hepatosplenomegaly and thrombocytopenis. WBC is low and presumed to be from bone marrow suppression. he has been warned that the combination of his alcohol use plus his Hep C is lethal. Ammonia was high to 70's and started on NG lactulose 05/17. Plan:Keep an eye in his platelets. Transfuse at the recommendations in a patient who has infection. Qualifiers: (5) Hypokalemia Impression: supplement po 40 meq tid for 3 doses on 05/13. On electrolyte replacement protocol (6) Hypertension Impression: resumed his listed metoprolol on 05/13 @ 25 mg po bid. Will increase to 50 mg po bid. Pulse went from 140's to 104-120 now. Then po changed to IV lopressor 05/15 since can't eat. Improving. 130-142/81-99 Qualifiers: Hypertension type: essential hypertension Qualified Code(s): I10 - Essential (primary) hypertension (7) Nutrition Started on NG tube feed 05/16 but will stop today since residual too high.
[2019-05-19] MEDS ORDERED: METOCLOPRAMIDE 10 MG/2 ML VIAL IVP PRN (08:12)
[2019-05-19] MEDS: FUROSEMIDE 20 MG/2 ML VIAL IVP SCH (08:16)
[2019-05-19] MEDS: LACTULOSE 10 GM /15 ML UDC NG SCH ×2 (08:16→20:27)
[2019-05-19] MEDS: NICOTINE 14 MG PATCH TOP SCH (08:17)
[2019-05-19] MEDS ORDERED: SODIUM CHLORIDE 0.9% 500 ML ONE (09:22)
[2019-05-19] MEDS: CHLORHEXIDINE GLUCONATE 15 ML UDC PO SCH ×2 (09:47→20:27)
[2019-05-19] MEDS: levoFLOXacin 750 MG/150 ML 750 MG/150 ML BAG IV SCH (11:39)
[2019-05-19] MEDS: METOCLOPRAMIDE 10 MG/2 ML VIAL IVP SCH ×2 (12:47→17:26)
[2019-05-20] MEDS: METOPROLOL 5 MG/5 ML VIAL IVP SCH ×4 (00:02→18:14)
[2019-05-20] MEDS: METOCLOPRAMIDE 10 MG/2 ML VIAL IVP SCH ×4 (00:02→18:13)
[2019-05-20] MEDS: SODIUM CHLORIDE FLUSH 0.9% 10 ML SYRINGE IVP SCH ×3 (00:11→18:13)
[2019-05-20] MEDS: MIN OIL/DIMETHICON/COCONUT OIL 92 GM TUBE TOP PRN ×2 (02:30→03:30)
[2019-05-20 05:13] LABS: ALBUMIN 2.5 g/dL (3.2-5.5); BILIRUBIN,DIRECT 1.6 mg/dL (0.1-0.5); BILIRUBIN,TOTAL 3.5 mg/dL (0.2-1.0); CREATININE 0.7 mg/dL (0.6-1.2); PHOSPHORUS 1.7 mg/dL (2.5-4.6); TOTAL PROTEIN 6.8 g/dL (6.7-8.2)
[2019-05-20] MEDS: PANTOPRAZOLE 40 MG VIAL IVP SCH (06:05)
[2019-05-20] MEDS ORDERED: MAGNESIUM SULFATE 2 GRAM 2 GM/50 ML BAG IV ONE (06:41)
[2019-05-20] MEDS ORDERED: POTASSIUM PHOSPHATE 15 MMOL in SODIUM CHLORIDE 0.9% 250 ML IV ONE ×2 (08:00→10:00)
[2019-05-20] MEDS: LACTULOSE 10 GM /15 ML UDC NG SCH ×2 (08:14→21:03)
[2019-05-20] MEDS: CHLORHEXIDINE GLUCONATE 15 ML UDC PO SCH ×2 (08:16→21:03)
[2019-05-20] MEDS: FUROSEMIDE 20 MG/2 ML VIAL IVP SCH (08:18)
[2019-05-20] MEDS: NICOTINE 14 MG PATCH TOP SCH (08:20)
[2019-05-20] MEDS: SODIUM CHLORIDE 0.9% 500 ML IV PRN (11:32)
[2019-05-20] MEDS: levoFLOXacin 750 MG/150 ML 750 MG/150 ML BAG IV SCH (12:10)
--- NOTE | 2019-05-20 12:15 | PROVIDER PROGRESS NOTE ---
Assessment/Plan - Problem List (1) Atrial fibrillation with RVR Assessment/Plan: I reviewed the rhytm strips and HRs since admission: He has been in new onset Afib since presentation, then he also has Aflutter with RVR (no sinus tachycardia). The QT interval is not reliable when there is Afib or Aflutter in the meandering baseline. Continue to monitor K and Mg and replace if low. Yesterday, he got IV Dig loaded with 4 doses of 250 mcg. Will check a serum Dig level (off the a.m. serum in the lab) and continue to use Dig for rate control. Continue iv Metoprolol q6h, if his MAP is >65. Will check a troponin, since it was not checked at admission and cycle x3 if suspicion of abnormal. Will obtain an Echo to establish chamber sizes and LV contractility. Continue telemetry. He is not a candidate for anticoagulation or anti-platelet agents, for stroke prophylaxis, since he is thrombocytopenic. (2) Hypotension Assessment/Plan: Unclear if this is from tachycardia, infection, or hypovolemia. Will obtain a Lactic acid level, troponin and Echo. Continue to treat with meds to slow down HR and treat infection. (3) Obtundation Assessment/Plan: Thisis most likely be his slow awakening recovery after being on iv Ativan for many days. Will add Thiamine iv daily. Continue support with ng feeds and Gonzalez, turn and reposition. (4) Alcohol withdrawal Qualifiers: Complication of substance-induced condition: with unspecified complication Qualified Code(s): F10.239 - Alcohol dependence with withdrawal, unspecified Assessment/Plan: He has had alcohol withdrawal seizures in the past, but not this admission. This time he went into withdrawal 24-48 hours after admission and needed iv Ativan drip in the ICU, which was stopped 2 days ago. He is not awakening yet, after Ativan was stopped. Continue to monitor in ICU. (5) Left lower lobe pneumonia Assessment/Plan: He desaturated today. Will recheck a CXR, portable. Continue empiric iv antibiotics. (6) Pleural effusion Assessment/Plan: He desaturated today. This may be parapneumonic or from CHF (BNP was >2000 3 days ago.). Will obtain an Echo (to evaluate LVEF), which he has not had this admission or ever at this institution. He may have an alcoholic cardiomyopathy. Continue daily iv Lasix and may need to decrease the ng nutrition rate to decrease total liquid Intake. He may also need Spironolactone per ng, depending on LV and RV findings. Continue Gonzalez to monitor I's and O's and since he is obtunded in ICU. (7) Alcoholic cirrhosis of liver Qualifiers: Assessment/Plan: He has abnormal LFTs (AST > ALT), elevated INR indicating poor synthesis and thrombocytopenia. Continue to monitor these labs intermittently or daily. (8) Hypomagnesemia Assessment/Plan: Replace. Monitor daily. (9) Hepatitis C Qualifiers: Viral hepatitis chronicity: chronic Assessment/Plan: Chronic. Follow LFTs intermittently. (10) Nutrition impaired due to imbalance of nutrients Assessment/Plan: Ng tube for feeds and Lactulose is in place. His residuals were >400 cc but this has improved after Reglan was started, to improve motility. 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 (12) Hx of essential hypertension Assessment/Plan: He was on Metoprolol only for HTN before admission. He has mostly been hypotensive since admission. - Current Meds Current Meds: Current Medications Generic Name Dose Route Start Last Admin Trade Name Freq PRN Reason Stop Dose Admin Chlorhexidine Gluconate 15 ml 05/19/19 09:00 05/20/19 08:16 Peridex PO 15 ml BID MIGUELITO Administration Furosemide 40 mg 05/18/19 07:00 05/20/19 08:18 Lasix Inj 20mg Vial IVP 40 mg DAILY MIGUELITO Administration Lorazepam 100 mls @ 5 mls/hr 05/14/19 09:00 05/18/19 12:05 Ativan IV 0 mg/hr .Q20H PRN 0 mls/hr ALCOHOL WITHDRAWAL Titration Protocol 5 MG/HR Levofloxacin 750 mg in 150 mls @ 100 mls/hr 05/15/19 12:00 05/19/19 13:20 Levaquin 750 Mg/150 Ml IV 05/22/19 11:59 Infused Q24H MIGUELITO Infusion Sodium Chloride 500 mls @ 0 mls/hr 05/15/19 13:41 05/20/19 11:32 Normal Saline 0.9% IV 20 mls/hr Q24H PRN Administration TKO RATE TKO Potassium Phosphate 15 mmol/ 255 mls @ 63 mls/hr 05/20/19 10:00 05/20/19 10:00 Sodium Chloride IV 05/20/19 14:02 63 mls/hr ONCE ONE Administration Protocol Lactulose 30 gm 05/17/19 11:00 05/20/19 08:14 Enulose NG 30 gm BID MIGUELITO Administration Lorazepam 2 mg 05/14/19 06:59 05/14/19 09:30 Ativan Inj (Vial) IVP 2 mg Q30M PRN Administration CIWA >8 Protocol Metoclopramide HCl 5 mg 05/19/19 12:00 05/20/19 06:05 Reglan Inj IVP 5 mg Q6HR MIGUELITO Administration Metoprolol Tartrate 5 mg 05/15/19 00:00 05/20/19 06:04 Lopressor Inj IVP 5 mg Q6HR MIGUELITO Administration Mineral Oil 1 applic 05/15/19 00:07 05/20/19 03:30 Cavilon TOP 1 applic PRN PRN Administration Skin Care Nicotine 1 patch 05/13/19 21:55 05/20/19 08:20 Nicoderm TOP 1 patch DAILY MIGUELITO Administration Pantoprazole Sodium 40 mg 05/14/19 10:30 05/20/19 06:05 Protonix IVP 40 mg QDAC MIGUELITO Administration Sodium Chloride 10 ml 05/12/19 16:40 05/17/19 11:43 Normal Saline Flush 0.9% IVP 10 ml PRN PRN Administration NEEDED PER PROVIDER ORDERS Sodium Chloride 10 ml 05/12/19 17:00 05/20/19 08:20 Normal Saline Flush 0.9% IVP 10 ml 0100,0900,1700 MIGUELITO Administration - Lab Result Fish Bone Diagrams: 05/16/19 07:24 05/20/19 04:45 - Additional Planning My Orders: My Active Orders 05/20/19 05:00 DIGOXIN [CHEM] Urgent Subjective - Subjective Patient Reports: Other (Obtunded) Objective Vital Signs: Vital Signs - 24 hr 05/19/19 05/19/19 05/19/19 12:49 14:00 15:00 Temperature Heart Rate 118 H Heart Rate [ 133 H 132 H Monitoring electrodes] Respiratory 34 H 43 H Rate Blood Pressure Blood Pressure 113/64 123/68 [Right Brachial artery] O2 Saturation 99 96 07/29/19 07/29/19 07/29/19 16:00 17:00 17:23 Temperature 36.6 C Heart Rate Heart Rate [ 139 H 149 H Monitoring electrodes] Respiratory 39 H 36 H Rate Blood Pressure 134/95 H Blood Pressure 141/93 H 134/95 H [Right Brachial artery] O2 Saturation 93 99 05/19/19 05/19/19 05/19/19 18:00 19:00 20:00 Temperature 37.1 C 36.4 C L Heart Rate Heart Rate [ 115 H 126 H 133 H Monitoring electrodes] Respiratory 37 H 38 H 39 H Rate Blood Pressure Blood Pressure 128/72 94/57 L 86/67 L [Right Brachial artery] O2 Saturation 100 100 100 05/19/19 05/19/19 05/19/19 20:26 21:00 22:00 Temperature 36.9 C Heart Rate Heart Rate [ 118 H 133 H 132 H Monitoring electrodes] Respiratory 42 H 38 H 40 H Rate Blood Pressure Blood Pressure 132/82 H 119/97 H [Right Brachial artery] O2 Saturation 100 100 97 05/19/19 05/20/19 05/20/19 23:00 00:00 00:02 Temperature 37.3 C Heart Rate Heart Rate [ 137 H 106 H Monitoring electrodes] Respiratory 33 H 35 H Rate Blood Pressure 125/86 H Blood Pressure 131/96 H 125/86 H [Right Brachial artery] O2 Saturation 98 100 05/20/19 05/20/19 05/20/19 01:00 02:00 03:00 Temperature Heart Rate Heart Rate [ 114 H 131 H 117 H Monitoring electrodes] Respiratory 34 H 41 H 37 H Rate Blood Pressure Blood Pressure 137/83 H 103/60 140/79 H [Right Brachial artery] O2 Saturation 99 99 100 05/20/19 05/20/19 05/20/19 04:00 05:00 06:04 Temperature Heart Rate Heart Rate [ 117 H 117 H Monitoring electrodes] Respiratory 37 H 39 H Rate Blood Pressure 116/82 H Blood Pressure 129/77 124/86 H [Right Brachial artery] O2 Saturation 95 99 05/20/19 05/20/19 05/20/19 06:28 07:00 08:00 Temperature 36.3 C L Heart Rate Heart Rate [ 91 113 H 117 H Monitoring electrodes] Respiratory 44 H 32 H 36 H Rate Blood Pressure Blood Pressure 123/80 139/91 H 139/84 H [Right Brachial artery] O2 Saturation 100 98 98 05/20/19 05/20/19 05/20/19 09:00 10:00 11:00 Temperature Heart Rate Heart Rate [ 152 H 142 H 146 H Monitoring electrodes] Respiratory 39 H 35 H 37 H Rate Blood Pressure Blood Pressure 121/84 H 142/93 H 81/56 L [Right Brachial artery] O2 Saturation 95 99 96 05/20/19 12:00 Temperature 36.4 C L Heart Rate Heart Rate [ 134 H Monitoring electrodes] Respiratory 39 H Rate Blood Pressure Blood Pressure 113/81 H [Right Brachial artery] O2 Saturation 97 Oxygen O2 Source [With Activity] Room air O2 Source high flow I&O (Last 24 Hrs): Intake and Output Totals x24h 05/18/19 05/19/19 05/20/19 23:59 23:59 23:59 Intake Total 4203.906 3069.333 1860 Output Total 4110 2313 1152 Balance -2355.286 -963.667 708 General: Other (Obtunded) HEENT: Atraumatic Neck: Supple Neuro: Other (Obtunded, later in afternoon he tarted to open eyes and track) Cardiovascular: Other (Tachy) Respiratory: Other (On O2 supplemental) Abdomen: Soft Extremities: No edema - Results Results: Laboratory Results WBC 3.9 x10^3/uL (4.8-10.8) L 05/16/19 07:24 RBC 2.93 10^6/uL (4.70-6.10) L 05/16/19 07:24 Hgb 10.5 g/dL (14.0-18.0) L 05/16/19 07:24 Hct 32.1 % (42.0-52.0) L 05/16/19 07:24 MCV 109.6 fL (80.0-94.0) H 05/16/19 07:24 MCH 35.8 pg (27.0-31.0) H 05/16/19 07:24 MCHC 32.7 g/dL (32.0-36.0) 05/16/19 07:24 RDW 15.1 % (12.0-15.0) H 05/16/19 07:24 Plt Count 39 10^3/uL (130-450) L 05/16/19 07:24 MPV 11.2 fL (7.4-11.4) 05/16/19 07:24 Neut # (Auto) 2.1 10^3/uL (1.5-6.6) 05/16/19 07:24 Lymph # (Auto) 1.1 10^3/uL (1.5-3.5) L 05/16/19 07:24 [place] # (Auto) 0.8 10^3/uL (0.0-1.0) 05/16/19 07:24 Eos # (Auto) 0.0 10^3/uL (0.0-0.7) 05/16/19 07:24 Baso # (Auto) 0.0 10^3/uL (0.0-0.1) 05/16/19 07:24 Absolute Nucleated RBC 0.00 x10^3/uL 05/16/19 07:24 Total Counted 100 05/15/19 04:55 Band Neuts % (Manual) 2 % (0-10) 05/15/19 04:55 Abnorm Lymph % (Manual) 0 % 05/15/19 04:55 Nucleated RBC % 0.0 /100WBC 05/16/19 07:24 Neutrophils # (Manual) 3.0 10^3/uL (1.5-6.6) 05/15/19 04:55 Lymphocytes # (Manual) 1.7 10^3/uL (1.5-3.5) 05/15/19 04:55 Monocytes # (Manual) 0.5 10^3/uL (0.0-1.0) 05/15/19 04:55 Eosinophils # (Manual) 0.0 10^3/uL (0-0.7) 05/15/19 04:55 Basophils # (Manual) 0.1 10^3/uL (0-0.1) 05/15/19 04:55 Differential Comment MANUAL DIFFERENTIAL 05/15/19 04:55 Manual Slide Review Indicated 05/16/19 07:24 WBC Morphology NORMAL APPEARANCE (NORMAL) 05/16/19 07:24 Platelet Estimate DECREASED (<130,000) (NORMAL) 05/16/19 07:24 Platelet Morphology RARE GIANT PLATELETS (NORMAL) 05/16/19 07:24 RBC Morph Micro Appear NORMAL APPEARANCE (NORMAL) 05/15/19 04:55 RBC Morph Micro Appear 1+ MACROCYTOSIS (NORMAL) 1+ POLYCHROMASIA (NORMAL) 05/16/19 07:24 RBC Morph Micro Appear 1+ MACROCYTOSIS (NORMAL) 1+ POLYCHROMASIA (NORMAL) 05/16/19 07:24 PT 19.4 secs (9.9-12.6) H 05/15/19 04:55 INR 1.7 (0.8-1.2) H 05/15/19 04:55 APTT 36.1 secs (24.9-33.3) H 05/12/19 12:45 Bld Gas Analysis Time 0945 05/18/19 09:35 Sample Site RIGHT RADIAL 05/18/19 09:35 Patient Temperature Cancelled 05/17/19 07:35 ABG pH 7.48 (7.35-7.45) H 05/18/19 09:35 ABG pCO2 34 mmHg (34-45) 05/18/19 09:35 ABG pO2 48 mmHg (80-100) L* 05/18/19 09:35 ABG HCO3 25.0 mmol/L (22.0-26.0) 05/18/19 09:35 ABG Total CO2 26.0 MMOL/L (21.0-29.0) 05/18/19 09:35 ABG O2 Saturation 86 % (94-98) L* 05/18/19 09:35 ABG Oximetry Spot Check Cancelled 05/17/19 07:35 ABG Base Excess 1.9 mmol/L (-2.0-3.0) 05/18/19 09:35 Ap Test POSITIVE 05/18/19 09:35 VBG pH 7.385 (7.31-7.41) 05/16/19 07:25 VBG pCO2 22.7 mmHg (41-51) L 05/13/19 23:04 VBG pO2 95.3 mmHg (25-47) H 05/13/19 23:04 VBG HCO3 19.1 mmol/L (23-28) L 05/13/19 23:04 VBG Total CO2 19.8 mmol/L (24-29) L 05/13/19 23:04 VBG O2 Saturation 97.7 % (60-80) H 05/13/19 23:04 VBG Base Excess -1.5 mmol/L (-2 - +2) 05/13/19 23:04 Ionized Calcium 0.96 mmol/L (1.15-1.33) L 05/16/19 07:25 Respiration Rate Cancelled 05/17/19 07:35 Room Air Cancelled 05/17/19 07:35 O2 Delivery Device NASAL CANNULA 05/18/19 09:35 O2 Liters/Min 6.00 LPM 05/18/19 09:35 Vent Mode Cancelled 05/17/19 07:35 FiO2 Cancelled 05/17/19 07:35 Tidal Volume Cancelled 05/17/19 07:35 PEEP Cancelled 05/17/19 07:35 Pressure Support Vent Cancelled 05/17/19 07:35 EPAP Cancelled 05/17/19 07:35 IPAP Cancelled 05/17/19 07:35 Sodium 145 mmol/L (135-145) 05/20/19 04:45 Potassium 3.7 mmol/L (3.5-5.0) 05/20/19 04:45 Chloride 109 mmol/L (101-111) 05/20/19 04:45 Carbon Dioxide 24 mmol/L (21-32) 05/20/19 04:45 Anion Gap 12.0 (6-13) 05/20/19 04:45 BUN 19 mg/dL (6-20) 05/20/19 04:45 Creatinine 0.7 mg/dL (0.6-1.2) 05/20/19 04:45 Estimated GFR (MDRD) 114 (>89) 05/20/19 04:45 Glucose 136 mg/dL (70-100) H 05/20/19 04:45 Lactic Acid 1.9 mmol/L (0.5-2.2) 05/15/19 12:05 Calcium 8.0 mg/dL (8.5-10.3) L 05/20/19 04:45 Phosphorus 1.7 mg/dL (2.5-4.6) L 05/20/19 04:45 Magnesium 1.7 mg/dL (1.7-2.8) 05/20/19 04:45 Total Bilirubin 3.5 mg/dL (0.2-1.0) H 05/20/19 04:45 Direct Bilirubin 1.6 mg/dL (0.1-0.5) H 05/20/19 04:45 AST 55 IU/L (10-42) H 05/20/19 04:45 ALT 26 IU/L (10-60) 05/20/19 04:45 Alkaline Phosphatase 70 IU/L (42-121) 05/20/19 04:45 Ammonia 53.0 umol/L (7-35) H 05/20/19 04:45 Total Creatine Kinase 304 IU/L (22-269) H 05/13/19 23:04 Troponin I High Sens 15.2 pg/mL (2.3-19.7) 05/12/19 12:45 B-Natriuretic Peptide 2048 pg/mL (5-100) H 05/17/19 04:56 Total Protein 6.8 g/dL (6.7-8.2) 05/20/19 04:45 Albumin 2.5 g/dL (3.2-5.5) L 05/20/19 04:45 Globulin 4.3 g/dL (2.1-4.2) H 05/20/19 04:45 Albumin/Globulin Ratio 0.6 (1.0-2.2) L 05/19/19 05:26 Prealbumin 5 mg/dL (18-45) L 05/19/19 05:26 Lipase 38 U/L (22-51) 05/12/19 12:45 TSH 1.35 uIU/mL (0.34-5.60) 05/12/19 12:45 Urine Color YELLOW 05/12/19 13:30 Urine Clarity CLEAR (CLEAR) 05/12/19 13:30 Urine pH 7.0 PH (5.0-7.5) 05/12/19 13:30 Ur Specific [place] 1.010 (1.002-1.030) 05/12/19 13:30 Urine Protein 30 mg/dL (NEGATIVE) H 05/12/19 13:30 Urine Glucose (UA) NEGATIVE mg/dL (NEGATIVE) 05/12/19 13:30 Urine Ketones NEGATIVE mg/dL (NEGATIVE) 05/12/19 13:30 Urine Occult Blood TRACE-INTA (NEGATIVE) 05/12/19 13:30 Urine Nitrite NEGATIVE (NEGATIVE) 05/12/19 13:30 Urine Bilirubin NEGATIVE (NEGATIVE) 05/12/19 13:30 Urine Urobilinogen >=8.0 E.U./dL (NORMAL) H 05/12/19 13:30 Ur Leukocyte Esterase NEGATIVE (NEGATIVE) 05/12/19 13:30 Urine RBC 0-5 /HPF (0-5) 05/12/19 13:30 Urine WBC 0-3 /HPF (0-3) 05/12/19 13:30 Ur Squamous Epith Cells NONE SEEN (<= Few) 05/12/19 13:30 Urine Bacteria None Seen /HPF (None Seen) 05/12/19 13:30 Ur Microscopic Review INDICATED 05/12/19 13:30 Urine Culture Comments NOT INDICATED 05/12/19 13:30 Nasal Screen MRSA (PCR) NEGATIVE (NEGATIVE) 05/14/19 00:50 Salicylates < 4.0 mg/dL 05/12/19 12:45 Urine Opiates Screen NEGATIVE (NEGATIVE) 05/12/19 13:30 Ur Oxycodone Screen NEGATIVE (NEGATIVE) 05/12/19 13:30 Urine Methadone Screen NEGATIVE (NEGATIVE) 05/12/19 13:30 Ur Propoxyphene Screen NEGATIVE (NEGATIVE) 05/12/19 13:30 Acetaminophen < 10 ug/mL (10-30) L 05/12/19 12:45 Ur Barbiturates Screen NEGATIVE (NEGATIVE) 05/12/19 13:30 Ur Tricyclics Screen NEGATIVE (NEGATIVE) 05/12/19 13:30 Ur Phencyclidine Scrn NEGATIVE (NEGATIVE) 05/12/19 13:30 Ur Amphetamine Screen NEGATIVE (NEGATIVE) 05/12/19 13:30 U Methamphetamines Scrn NEGATIVE (NEGATIVE) 05/12/19 13:30 U Benzodiazepines Scrn POSITIVE (NEGATIVE) H 05/12/19 13:30 Urine Cocaine Screen NEGATIVE (NEGATIVE) 05/12/19 13:30 U Cannabinoids Screen NEGATIVE (NEGATIVE) 05/12/19 13:30 Ethyl Alcohol 131.1 mg/dL 05/12/19 12:45 Blood Type O POSITIVE 05/12/19 13:38 Blood Type Recheck O POSITIVE 05/12/19 13:38 Antibody Screen NEGATIVE 05/12/19 13:38 - Procedures Procedures: Procedures INSERTION OF ENDOTRACHEAL AIRWAY INTO TRACHEA, VIA OPENING (08/19/18) RESPIRATORY VENTILATION, 24-96 CONSECUTIVE HOURS (08/19/18)
[2019-05-20] MEDS ORDERED: METOPROLOL 5 MG/5 ML VIAL IVP SCH (12:25)
[2019-05-20 12:40] LABS: DIGOXIN 0.7 ng/mL
[2019-05-20] MEDS ORDERED: DIGOXIN 125 MCG TABLET PO SCH (13:00)
[2019-05-20] MEDS ORDERED: SPIRONOLACTONE 25 MG TABLET PO SCH (13:00)
[2019-05-20 13:52] LABS: TROPONIN I 0.28 ng/mL (<0.49)
[2019-05-20] MEDS: THIAMINE INJ 500 MG in SODIUM CHLORIDE 0.9% 50 ML IV SCH (14:16)
--- NOTE | 2019-05-20 14:50 | XRAY Report ---
Reason: Desaturating, F/U infiltrate and pleural effuion Procedure Date: 05/20/2019 Accession Number: [id number] / [id number] Procedure: XR - Chest 1 View X-Ray CPT Code: 16556 FULL RESULT: EXAM: CHEST RADIOGRAPHY EXAM DATE: 05/20/2019 01:12 PM. CLINICAL HISTORY: Desaturating, followup infiltrate and pleural effusion. COMPARISON: CHEST 1 VIEW 05/18/2019 6:20 AM. TECHNIQUE: 1 view. FINDINGS: Lungs/Pleura: Increased pulmonary markings at the right lung base with the left lung base not seen. No sizable pleural effusion or pneumothorax. Mediastinum: Stable cardiomediastinal silhouette with redemonstration of cardiomegaly. Other: Enteric tube terminates with tip below the diaphragm and outside the inferior confines of the radiograph. IMPRESSION: Limited radiograph with suggestion of basilar infiltrate pneumonia versus atelectasis. RADIA
[2019-05-21] MEDS: METOPROLOL 5 MG/5 ML VIAL IVP SCH ×4 (00:17→18:13)
[2019-05-21] MEDS: METOCLOPRAMIDE 10 MG/2 ML VIAL IVP SCH ×4 (00:17→18:13)
[2019-05-21] MEDS: SODIUM CHLORIDE FLUSH 0.9% 10 ML SYRINGE IVP SCH ×3 (00:18→17:01)
[2019-05-21 04:54] LABS: BASOPHILS % (AUTO) 0.6 %; EOSINOPHILS % (AUTO) 0.5 %; HGB - HEMOGLOBIN 12.2 g/dL (14.0-18.0); MEAN CORPUSCULAR HEMOGLOBIN 35.3 pg (27.0-31.0); MEAN CORPUSCULAR HGB CONC 31.8 g/dL (32.0-36.0); MEAN PLATELET VOLUME 11.4 fL (7.4-11.4); MONOCYTES % (AUTO) 18.9 %; NEUTROPHILS % (AUTO) 64.3 %; PLT - PLATELET COUNT 152 10^3/uL (130-450); RED BLOOD COUNT 3.46 10^6/uL (4.70-6.10); RED CELL DISTRIBUTION WIDTH 15.6 % (12.0-15.0); WHITE BLOOD COUNT 8.5 x10^3/uL (4.8-10.8)
[2019-05-21 04:58] LABS: CALCIUM 8.5 mg/dL (8.5-10.3); CREATININE 0.7 mg/dL (0.6-1.2)
[2019-05-21 04:59] LABS: ABNORMAL LYMPHS % (MANUAL) 0 %
[2019-05-21 05:26] LABS: BAND NEUTROPHILS % (MANUAL) 3 %; DIFFERENTIAL COMMENT MANUAL DIFFERENTIAL; LYMPHOCYTES # (MANUAL) 1.5 10^3/uL (1.5-3.5); LYMPHOCYTES % (MANUAL) 18 %; MONOCYTES # (MANUAL) 1.4 10^3/uL (0.0-1.0); PLATELET ESTIMATE, MANUAL NORMAL (130-450,000) (NORMAL); RBC MORPHOLOGY (MULTIPLE) NORMAL APPEARANCE (NORMAL)
[2019-05-21] MEDS: PANTOPRAZOLE 40 MG VIAL IVP SCH (06:20)
[2019-05-21 06:24] LABS: MAGNESIUM 1.9 mg/dL (1.7-2.8)
[2019-05-21] MEDS: THIAMINE INJ 500 MG in SODIUM CHLORIDE 0.9% 50 ML IV SCH (08:25)
[2019-05-21] MEDS: NICOTINE 14 MG PATCH TOP SCH (09:17)
[2019-05-21] MEDS: DIGOXIN 125 MCG TABLET PO SCH (09:17)
[2019-05-21] MEDS: LACTULOSE 10 GM /15 ML UDC NG SCH ×2 (09:20→21:13)
[2019-05-21] MEDS: CHLORHEXIDINE GLUCONATE 15 ML UDC PO SCH ×2 (09:21→21:13)
--- NOTE | 2019-05-21 10:24 | ADVANCE CARE PLANNING NOTE ---
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
--- NOTE | 2019-05-21 10:28 | PROVIDER PROGRESS NOTE ---
Assessment/Plan - Problem List (1) Hypotension Assessment/Plan: He still is intermittently hypotensive when he is very tachycardic. No pressors have been needed. IV Lasix and Spironolactone will be stopped, since with Cor Pulmonale he needs fluid for pre-load into the LV to improve cardiac output. (2) Atrial fibrillation with RVR Assessment/Plan: Continue qid Metoprolol and daily Dig both per ng. After Dig loading on 05/19, his Dig level was 0.7 on 05/20, therefpre Dig was continued. Will check Dig level intermittently. (3) Obtundation Assessment/Plan: Yesterdsy, he started to open eyes and track. Today, he is flaccid and with no gag. Will obtain a head CT >>> it was done STAT and showed no acute findings but an old stroke with atrophy. He is now 3 days off iv Ativan drip. On prior admissions, he has needed several days to awaken after sedation used for alcohol withdrawal. Continue supportive care in the ICU. (4) Cor pulmonale Assessment/Plan: This was a new finding by Echo done yesterday. The Echo was ordered due to new onset afib this admission, and high BNP plus ple ural effusion making systolic heart failure a concern. The Echo found normal LV size and systolic function, but very dilated RV with poor RV function. The most likely etiology is prior smoking with COPD or due to longstanding or severe pulmonary pathology. A PE was not ruled out this admission, as cause for the new onset Afib. A VQ scan may be read as indeterminate due to the LLL PNA. Will obtain a chest CT >> it was done while he was having a head CT and showed alot of secretions in the bronchi, atelectasis of dependant lobes and improvement of pleural effusions. Will add Mucinex and Ropinerol to help with secretions. (5) Left lower lobe pneumonia Assessment/Plan: Continue empiric antibiotics and add Mucinex and Ropinerole to aid with secretions. His FIO2 was increased to 100% today. He is a DNI. (6) Alcoholic cirrhosis of liver Qualifiers: Ascites presence: without ascites Qualified Code(s): K70.30 - Alcoholic cirrhosis of liver without ascites Assessment/Plan: Continue Lactulose per ng Continue Thiamine replacement. Plan 3 days of 500 mg iv, then 100 mg daily either iv or it will be changed to po if he is more awake (7) Hypomagnesemia Assessment/Plan: Replaced. Follow in labs intermittently. (8) Hepatitis C Qualifiers: Viral hepatitis chronicity: chronic Assessment/Plan: Chronic (9) Nutrition impaired due to imbalance of nutrients Assessment/Plan: Continue ng feeds and Reglan (10) Anemia Qualifiers: Anemia type: folate deficiency Folate deficiency anemia type: other folate deficiency Qualified Code(s): D52.8 - Other folate deficiency anemias Assessment/Plan: Continue replacement (11) Hx of essential hypertension Assessment/Plan: He has mostly been hypotensove while here, whenever he is very tachycardic (12) Pleural effusion Assessment/Plan: Resolved by CXR done yesterday. Will stop daily scheduled Lasix and Spironolactone (13) Alcohol withdrawal Qualifiers: Complication of substance-induced condition: with unspecified complication Qualified Code(s): F10.239 - Alcohol dependence with withdrawal, unspecified Assessment/Plan: Resolved - Current Meds Current Meds: Current Medications Generic Name Dose Route Start Last Admin Trade Name Freq PRN Reason Stop Dose Admin Chlorhexidine Gluconate 15 ml 05/19/19 09:00 05/21/19 09:21 Peridex PO 15 ml BID MIGUELITO Administration Digoxin 125 mcg 05/20/19 13:00 05/21/19 09:17 Lanoxin PO 125 mcg DAILY MIGUELITO Administration Lorazepam 100 mls @ 5 mls/hr 05/14/19 09:00 05/18/19 12:05 Ativan IV Infused .Q20H PRN Titration ALCOHOL WITHDRAWAL Protocol 5 MG/HR Levofloxacin 750 mg in 150 mls @ 100 mls/hr 05/15/19 12:00 05/20/19 13:10 Levaquin 750 Mg/150 Ml IV 05/22/19 11:59 Infused Q24H MIGUELITO Infusion Sodium Chloride 500 mls @ 0 mls/hr 05/15/19 13:41 05/21/19 09:00 Normal Saline 0.9% IV 20 mls/hr Q24H PRN Infusion TKO RATE TKO Thiamine HCl 500 mg/ Sodium 55 mls @ 100 mls/hr 05/20/19 14:00 05/21/19 09:00 Chloride IV 05/23/19 13:59 Infused DAILY MIGUELITO Infusion Lactulose 30 gm 05/17/19 11:00 05/21/19 09:20 Enulose NG 30 gm BID MIGUELITO Administration Lorazepam 2 mg 05/14/19 06:59 05/14/19 09:30 Ativan Inj (Vial) IVP 2 mg Q30M PRN Administration CIWA >8 Protocol Metoclopramide HCl 5 mg 05/19/19 12:00 05/21/19 06:21 Reglan Inj IVP 5 mg Q6HR MIGUELITO Administration Metoprolol Tartrate 5 mg 05/20/19 18:00 05/21/19 06:21 Lopressor Inj IVP 5 mg Q6HR MIGUELITO Administration Mineral Oil 1 applic 05/15/19 00:07 05/20/19 03:30 Cavilon TOP 1 applic PRN PRN Administration Skin Care Nicotine 1 patch 05/13/19 21:55 05/21/19 09:17 Nicoderm TOP 1 patch DAILY MIGUELITO Administration Pantoprazole Sodium 40 mg 05/14/19 10:30 05/21/19 06:20 Protonix IVP 40 mg QDAC MIGUELITO Administration Sodium Chloride 10 ml 05/12/19 16:40 05/17/19 11:43 Normal Saline Flush 0.9% IVP 10 ml PRN PRN Administration NEEDED PER PROVIDER ORDERS Sodium Chloride 10 ml 05/12/19 17:00 05/21/19 08:30 Normal Saline Flush 0.9% IVP 10 ml 0100,0900,1700 MIGUELITO Administration - Lab Result Fish Bone Diagrams: 05/21/19 04:30 05/21/19 04:30 - Additional Planning My Orders: My Active Orders 05/20/19 12:18 Echo Transthoracic Complete [ECHO] Routine 05/20/19 13:00 Digoxin [Lanoxin] 125 mcg PO DAILY 05/20/19 14:00 Thiamine Inj [Vitamin B-1 Inj] 500 mg Sodium Chloride 0.9% [Normal Saline 0.9%] 50 ml IV DAILY 05/20/19 18:00 Metoprolol Inj [Lopressor Inj] 5 mg IVP Q6HR Subjective - Subjective Nursing Reports: Other (Obtunded, open mouth breathing, no gag reflex as of about 1100) Objective Vital Signs: Vital Signs - 24 hr 05/20/19 05/20/19 05/20/19 11:00 12:00 12:10 Temperature 36.4 C L Heart Rate [ 146 H 134 H Monitoring electrodes] Respiratory 37 H 39 H Rate Blood Pressure 113/81 H Blood Pressure 81/56 L 113/81 H [Right Brachial artery] O2 Saturation 96 97 05/20/19 05/20/19 05/20/19 12:50 13:00 14:00 Temperature Heart Rate [ 127 H 115 H Monitoring electrodes] Respiratory 33 H 23 32 H Rate Blood Pressure Blood Pressure 131/72 H 82/57 L [Right Brachial artery] O2 Saturation 97 95 05/20/19 05/20/19 05/20/19 15:00 16:00 17:00 Temperature 36.4 C L Heart Rate [ 133 H 111 H 133 H Monitoring electrodes] Respiratory 36 H 39 H 29 H Rate Blood Pressure Blood Pressure 93/68 95/59 L 121/78 [Right Brachial artery] O2 Saturation 97 98 98 05/20/19 05/20/19 05/20/19 18:00 18:14 19:00 Temperature Heart Rate [ 112 H 115 H Monitoring electrodes] Respiratory 40 H 30 H Rate Blood Pressure 127/79 Blood Pressure 127/79 121/77 [Right Brachial artery] O2 Saturation 93 96 05/20/19 05/20/19 05/20/19 19:58 21:00 22:00 Temperature 37.4 C Heart Rate [ 132 H 111 H 129 H Monitoring electrodes] Respiratory 38 H 40 H 35 H Rate Blood Pressure Blood Pressure 128/70 86/58 L 127/81 H [Right Brachial artery] O2 Saturation 96 93 92 05/20/19 05/21/19 05/21/19 23:00 00:00 00:17 Temperature 37.2 C Heart Rate [ 132 H 136 H Monitoring electrodes] Respiratory 40 H 12 Rate Blood Pressure 148/87 H Blood Pressure 141/96 H 148/87 H [Right Brachial artery] O2 Saturation 98 97 05/21/19 05/21/19 05/21/19 01:00 02:00 03:27 Temperature Heart Rate [ 127 H 131 H 127 H Monitoring electrodes] Respiratory 33 H 35 H 26 H Rate Blood Pressure Blood Pressure 149/97 H 133/74 H 154/85 H [Right Brachial artery] O2 Saturation 97 97 96 05/21/19 05/21/19 05/21/19 04:00 05:00 06:00 Temperature 37.1 C Heart Rate [ 129 H 131 H 132 H Monitoring electrodes] Respiratory 32 H 32 H 33 H Rate Blood Pressure Blood Pressure 160/93 H 143/85 H 156/98 H [Right Brachial artery] O2 Saturation 95 95 95 05/21/19 05/21/19 05/21/19 06:21 07:00 08:00 Temperature Heart Rate [ 123 H 65 Monitoring electrodes] Respiratory 41 H 14 Rate Blood Pressure 156/98 H Blood Pressure 126/74 129/88 H [Right Brachial artery] O2 Saturation 92 94 05/21/19 05/21/19 09:00 10:00 Temperature Heart Rate [ 65 123 H Monitoring electrodes] Respiratory 30 H 30 H Rate Blood Pressure Blood Pressure 121/69 153/107 H [Right Brachial artery] O2 Saturation 97 89 L Oxygen O2 Source [With Activity] Room air O2 Source Nasal cannula I&O (Last 24 Hrs): Intake and Output Totals x24h 05/19/19 05/20/19 05/21/19 23:59 23:59 23:59 Intake Total 9421.563 5341 2052.666 Output Total 2313 1613 497 Balance -516.462 0096 1555.666 General: Other (Obtunded, flaccid) HEENT: Mucous membr. moist/pink Neck: Supple Neuro: Other (Obtunded, flaccid, neg babinski) Cardiovascular: No murmurs, Other (Irreg, tachy) Respiratory: Other (On O2 mask, scattered rhonchi) Extremities: Other (1+ hand and arm edema) - Results Results: Laboratory Results WBC 8.5 x10^3/uL (4.8-10.8) 05/21/19 04:30 RBC 3.46 10^6/uL (4.70-6.10) L 05/21/19 04:30 Hgb 12.2 g/dL (14.0-18.0) L 05/21/19 04:30 Hct 38.4 % (42.0-52.0) L 05/21/19 04:30 MCV 111.0 fL (80.0-94.0) H 05/21/19 04:30 MCH 35.3 pg (27.0-31.0) H 05/21/19 04:30 MCHC 31.8 g/dL (32.0-36.0) L 05/21/19 04:30 RDW 15.6 % (12.0-15.0) H 05/21/19 04:30 Plt Count 152 10^3/uL (130-450) 05/21/19 04:30 MPV 11.4 fL (7.4-11.4) 05/21/19 04:30 Neut # (Auto) Not Reportable 05/21/19 04:30 Lymph # (Auto) Not Reportable 05/21/19 04:30 [place] # (Auto) Not Reportable 05/21/19 04:30 Eos # (Auto) Not Reportable 05/21/19 04:30 Baso # (Auto) Not Reportable 05/21/19 04:30 Absolute Nucleated RBC Not Reportable 05/21/19 04:30 Total Counted 100 05/21/19 04:30 Band Neuts % (Manual) 3 % (0-10) 05/21/19 04:30 Abnorm Lymph % (Manual) 0 % 05/21/19 04:30 Nucleated RBC % Not Reportable 05/21/19 04:30 Neutrophils # (Manual) 5.6 10^3/uL (1.5-6.6) 05/21/19 04:30 Lymphocytes # (Manual) 1.5 10^3/uL (1.5-3.5) 05/21/19 04:30 Monocytes # (Manual) 1.4 10^3/uL (0.0-1.0) H 05/21/19 04:30 Eosinophils # (Manual) 0.0 10^3/uL (0-0.7) 05/21/19 04:30 Basophils # (Manual) 0.0 10^3/uL (0-0.1) 05/21/19 04:30 Differential Comment MANUAL DIFFERENTIAL 05/21/19 04:30 Manual Slide Review Indicated 05/16/19 07:24 WBC Morphology NORMAL APPEARANCE (NORMAL) 05/16/19 07:24 Platelet Estimate NORMAL (130-450,000) (NORMAL) 05/21/19 04:30 Platelet Morphology RARE GIANT PLATELETS (NORMAL) 05/16/19 07:24 RBC Morph Micro Appear 1+ MACROCYTOSIS (NORMAL) 1+ POLYCHROMASIA (NORMAL) 05/16/19 07:24 RBC Morph Micro Appear 1+ MACROCYTOSIS (NORMAL) 1+ POLYCHROMASIA (NORMAL) 05/16/19 07:24 RBC Morph Micro Appear NORMAL APPEARANCE (NORMAL) 05/21/19 04:30 PT 19.4 secs (9.9-12.6) H 05/15/19 04:55 INR 1.7 (0.8-1.2) H 05/15/19 04:55 APTT 36.1 secs (24.9-33.3) H 05/12/19 12:45 Bld Gas Analysis Time 0945 05/18/19 09:35 Sample Site RIGHT RADIAL 05/18/19 09:35 Patient Temperature Cancelled 05/17/19 07:35 ABG pH 7.48 (7.35-7.45) H 05/18/19 09:35 ABG pCO2 34 mmHg (34-45) 05/18/19 09:35 ABG pO2 48 mmHg (80-100) L* 05/18/19 09:35 ABG HCO3 25.0 mmol/L (22.0-26.0) 05/18/19 09:35 ABG Total CO2 26.0 MMOL/L (21.0-29.0) 05/18/19 09:35 ABG O2 Saturation 86 % (94-98) L* 05/18/19 09:35 ABG Oximetry Spot Check Cancelled 05/17/19 07:35 ABG Base Excess 1.9 mmol/L (-2.0-3.0) 05/18/19 09:35 Ap Test POSITIVE 05/18/19 09:35 VBG pH 7.385 (7.31-7.41) 05/16/19 07:25 VBG pCO2 22.7 mmHg (41-51) L 05/13/19 23:04 VBG pO2 95.3 mmHg (25-47) H 05/13/19 23:04 VBG HCO3 19.1 mmol/L (23-28) L 05/13/19 23:04 VBG Total CO2 19.8 mmol/L (24-29) L 05/13/19 23:04 VBG O2 Saturation 97.7 % (60-80) H 05/13/19 23:04 VBG Base Excess -1.5 mmol/L (-2 - +2) 05/13/19 23:04 Ionized Calcium 0.96 mmol/L (1.15-1.33) L 05/16/19 07:25 Respiration Rate Cancelled 05/17/19 07:35 Room Air Cancelled 05/17/19 07:35 O2 Delivery Device NASAL CANNULA 05/18/19 09:35 O2 Liters/Min 6.00 LPM 05/18/19 09:35 Vent Mode Cancelled 05/17/19 07:35 FiO2 Cancelled 05/17/19 07:35 Tidal Volume Cancelled 05/17/19 07:35 PEEP Cancelled 05/17/19 07:35 Pressure Support Vent Cancelled 05/17/19 07:35 EPAP Cancelled 05/17/19 07:35 IPAP Cancelled 05/17/19 07:35 Sodium 149 mmol/L (135-145) H 05/21/19 04:30 Potassium 3.9 mmol/L (3.5-5.0) 05/21/19 04:30 Chloride 110 mmol/L (101-111) 05/21/19 04:30 Carbon Dioxide 28 mmol/L (21-32) 05/21/19 04:30 Anion Gap 11.0 (6-13) 05/21/19 04:30 BUN 20 mg/dL (6-20) 05/21/19 04:30 Creatinine 0.7 mg/dL (0.6-1.2) 05/21/19 04:30 Estimated GFR (MDRD) 114 (>89) 05/21/19 04:30 Glucose 140 mg/dL (70-100) H 05/21/19 04:30 Lactic Acid 1.4 mmol/L (0.5-2.2) 05/20/19 13:02 Calcium 8.5 mg/dL (8.5-10.3) 05/21/19 04:30 Phosphorus 3.0 mg/dL (2.5-4.6) 05/21/19 04:30 Magnesium 1.9 mg/dL (1.7-2.8) 05/21/19 04:30 Total Bilirubin 3.5 mg/dL (0.2-1.0) H 05/20/19 04:45 Direct Bilirubin 1.6 mg/dL (0.1-0.5) H 05/20/19 04:45 AST 55 IU/L (10-42) H 05/20/19 04:45 ALT 26 IU/L (10-60) 05/20/19 04:45 Alkaline Phosphatase 70 IU/L (42-121) 05/20/19 04:45 Ammonia 53.0 umol/L (7-35) H 05/20/19 04:45 Total Creatine Kinase 304 IU/L (22-269) H 05/13/19 23:04 Troponin I 0.26 ng/mL (<0.49) 05/21/19 08:25 Troponin I High Sens 229.4 pg/mL (2.3-19.7) H* 05/21/19 08:25 B-Natriuretic Peptide 2048 pg/mL (5-100) H 05/17/19 04:56 Total Protein 6.8 g/dL (6.7-8.2) 05/20/19 04:45 Albumin 2.5 g/dL (3.2-5.5) L 05/20/19 04:45 Globulin 4.3 g/dL (2.1-4.2) H 05/20/19 04:45 Albumin/Globulin Ratio 0.6 (1.0-2.2) L 05/19/19 05:26 Prealbumin 5 mg/dL (18-45) L 05/19/19 05:26 Lipase 38 U/L (22-51) 05/12/19 12:45 TSH 1.35 uIU/mL (0.34-5.60) 05/12/19 12:45 Urine Color YELLOW 05/12/19 13:30 Urine Clarity CLEAR (CLEAR) 05/12/19 13:30 Urine pH 7.0 PH (5.0-7.5) 05/12/19 13:30 Ur Specific Kennan 1.010 (1.002-1.030) 05/12/19 13:30 Urine Protein 30 mg/dL (NEGATIVE) H 05/12/19 13:30 Urine Glucose (UA) NEGATIVE mg/dL (NEGATIVE) 05/12/19 13:30 Urine Ketones NEGATIVE mg/dL (NEGATIVE) 05/12/19 13:30 Urine Occult Blood TRACE-INTA (NEGATIVE) 05/12/19 13:30 Urine Nitrite NEGATIVE (NEGATIVE) 05/12/19 13:30 Urine Bilirubin NEGATIVE (NEGATIVE) 05/12/19 13:30 Urine Urobilinogen >=8.0 E.U./dL (NORMAL) H 05/12/19 13:30 Ur Leukocyte Esterase NEGATIVE (NEGATIVE) 05/12/19 13:30 Urine RBC 0-5 /HPF (0-5) 05/12/19 13:30 Urine WBC 0-3 /HPF (0-3) 05/12/19 13:30 Ur Squamous Epith Cells NONE SEEN (<= Few) 05/12/19 13:30 Urine Bacteria None Seen /HPF (None Seen) 05/12/19 13:30 Ur Microscopic Review INDICATED 05/12/19 13:30 Urine Culture Comments NOT INDICATED 05/12/19 13:30 Nasal Screen MRSA (PCR) NEGATIVE (NEGATIVE) 05/14/19 00:50 Last Dose Date UNKNOWN 05/20/19 04:45 Last Dose Time UNKNOWN 05/20/19 04:45 Digoxin 0.7 ng/mL 05/20/19 04:45 Salicylates < 4.0 mg/dL 05/12/19 12:45 Urine Opiates Screen NEGATIVE (NEGATIVE) 05/12/19 13:30 Ur Oxycodone Screen NEGATIVE (NEGATIVE) 05/12/19 13:30 Urine Methadone Screen NEGATIVE (NEGATIVE) 05/12/19 13:30 Ur Propoxyphene Screen NEGATIVE (NEGATIVE) 05/12/19 13:30 Acetaminophen < 10 ug/mL (10-30) L 05/12/19 12:45 Ur Barbiturates Screen NEGATIVE (NEGATIVE) 05/12/19 13:30 Ur Tricyclics Screen NEGATIVE (NEGATIVE) 05/12/19 13:30 Ur Phencyclidine Scrn NEGATIVE (NEGATIVE) 05/12/19 13:30 Ur Amphetamine Screen NEGATIVE (NEGATIVE) 05/12/19 13:30 U Methamphetamines Scrn NEGATIVE (NEGATIVE) 05/12/19 13:30 U Benzodiazepines Scrn POSITIVE (NEGATIVE) H 05/12/19 13:30 Urine Cocaine Screen NEGATIVE (NEGATIVE) 05/12/19 13:30 U Cannabinoids Screen NEGATIVE (NEGATIVE) 05/12/19 13:30 Ethyl Alcohol 131.1 mg/dL 05/12/19 12:45 Blood Type O POSITIVE 05/12/19 13:38 Blood Type Recheck O POSITIVE 05/12/19 13:38 Antibody Screen NEGATIVE 05/12/19 13:38 - Procedures Procedures: Procedures INSERTION OF ENDOTRACHEAL AIRWAY INTO TRACHEA, VIA OPENING (08/19/18) RESPIRATORY VENTILATION, 24-96 CONSECUTIVE HOURS (08/19/18)
[2019-05-21] MEDS: levoFLOXacin 750 MG/150 ML 750 MG/150 ML BAG IV SCH (11:45)
[2019-05-21] MEDS ORDERED: IOVERSOL 320 100 ML VIAL IVP ONE (12:14)
--- NOTE | 2019-05-21 13:03 | CT Report ---
Reason: No gag reflex, obtunded after iv Ativan stopped Procedure Date: 05/21/2019 Accession Number: [id number] / [id number] Procedure: CT - Head W/O Stroke Protocol CPT Code: FULL RESULT: EXAM: CT HEAD EXAM DATE: 05/21/2019 12:19 PM. CLINICAL HISTORY: Reportedly no gag reflex and obtunded after intravenous Ativan which was DC'd 3 days ago. Clinical concern for stroke. COMPARISON: HEAD W/O 01/21/2019 5:34 PM. TECHNIQUE: Multiaxial CT images were obtained from the foramen magnum to the vertex. Reformats: Sagittal and coronal. IV contrast: None. In accordance with CT protocol optimization, one or more of the following dose reduction techniques were utilized for this exam: automated exposure control, adjustment of mA and/or KV based on patient size, or use of iterative reconstructive technique. FINDINGS: Diffuse atrophy. 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 Stable ventriculomegaly, probably from brain volume loss. No evidence for acute hemorrhage or stroke. Enteric tube. Partially visualized findings of poor dentition, dental decay. Intact calvarium. No acute sinus or mastoid fluid opacity. IMPRESSION: No CT evidence for acute abnormality or significant change from prior head CT. RADIA The critical test notification system was initiated by Dr. Carlos Griffith at 12:27 PM on 05/21/2019. The above critical test findings were discussed with Kiara Paez by Dr. Carlos Griffith at 12:33 PM on 05/21/2019.
--- NOTE | 2019-05-21 13:19 | CT Report ---
Reason: Desaturating, new Cor Pulmonale afib Procedure Date: 05/21/2019 Accession Number: [id number] / [id number] Procedure: CT - ANGIO CHEST W/WO CPT Code: FULL RESULT: EXAM: CT ANGIOGRAM CHEST EXAM DATE: 05/21/2019 12:21 PM. CLINICAL HISTORY: Desaturating, new Cor Pulmonale afib. COMPARISON: CHEST W/O 08/23/2018 7:38 PM. TECHNIQUE: Routine helical imaging was performed through the chest in the pulmonary arterial phase. IV Contrast: Optiray 320 80ML. Reconstructions: Coronal 3-D MIP reconstructions.Sagittal and coronal. In accordance with CT protocol optimization, one or more of the following dose reduction techniques were utilized for this exam: automated exposure control, adjustment of mA and/or KV based on patient size, or use of iterative reconstructive technique. FINDINGS: Pulmonary Arteries: Diagnostic quality: There are areas with mildly to moderately degraded assessment in the segmental right lower lobe pulmonary arteries related to motion. No definitive filling defects are identified on the right or left. No evidence for acute or chronic pulmonary emboli. RV/LV is within normal limits. There is no interventricular septal bowing. There is no reflux of contrast material in the IVC. Lungs/Pleura: Moderate motion artifact. Mild dependent consolidation suggesting atelectasis in the posterior basal right lower lobe. Moderate consolidation throughout the basilar left lower lobe, decreased from before. No generalized interstitial abnormality. Minimal centrilobular emphysema in the upper lungs. No pleural fluid with resolution of the left-sided effusion seen before. No pneumothorax. Even accounting for motion artifact, there is a large amount of mucus in the bronchus intermedius on the right and in the left lower lobe bronchus. Mediastinum: Heart size is normal. No lymphadenopathy. Nasogastric tube courses into the gastric fundus. Thoracic Aorta: Minimal calcification. No abnormal dilation. Upper Abdomen: Unremarkable. Other: Mild bilateral gynecomastia. Mild generalized thoracic kyphosis with mild multilevel thoracic degenerative disk disease. Tendon anchors in the right humeral head. IMPRESSION: 1. No definite pulmonary embolism. Assessment is moderately degraded by motion particularly in the right lower lobe. 2. Large amount of mucus in the bronchus intermedius on the right and in the left lower lobe bronchus. 3. Moderate consolidation suggesting atelectasis or possibly pneumonitis in the posterior basal right lower lobe and involving the majority of the basilar left lower lobe. RADIA
[2019-05-21] MEDS: SODIUM CHLORIDE 0.9% 500 ML IV PRN (13:30)
[2019-05-21] MEDS: MIN OIL/DIMETHICON/COCONUT OIL 92 GM TUBE TOP PRN (14:15)
[2019-05-21] MEDS ORDERED: BENZOCAINE/TETRACAINE/BUTAMBEN 20 GM TOP PRN (18:03)
[2019-05-21] MEDS ORDERED: SALIVA STIMULANT SPRAY 44.3 ML BOTTLE PO PRN (18:03)
[2019-05-21] MEDS ORDERED: SCOPOLAMINE PATCH TOP SCH (19:00)
[2019-05-21 19:15] LABS: BILIRUBIN,URINE NEGATIVE (NEGATIVE); GLUCOSE, URINE (UA) NEGATIVE (NEGATIVE); KETONES,URINE (UA) NEGATIVE (NEGATIVE); LEUKOCYTE ESTERASE, URINE NEGATIVE (NEGATIVE); NITRITE,URINE NEGATIVE (NEGATIVE); OCCULT BLOOD,URINE MODERATE (NEGATIVE); PH,URINE 6.5 PH (5.0-7.5); PROTEIN,URINE 100 mg/dL (NEGATIVE); UROBILINOGEN,URINE 2 E.U./dL (NORMAL)
[2019-05-21 19:23] LABS: CLARITY,URINE CLEAR (CLEAR)
[2019-05-21 19:24] LABS: BACTERIA,URINE None Seen /HPF (None Seen); RBC,URINE TNTC /HPF (0-5); SQUAMOUS EPITHELIAL CELL,UR NONE SEEN (<= Few)
[2019-05-21] MEDS ORDERED: rOPINIRole 0.25 MG TABLET PO SCH (21:00)
[2019-05-21] MEDS: guaiFENesin 100 MG/5 ML UDC NG SCH (21:13)
[2019-05-22] MEDS: SODIUM CHLORIDE FLUSH 0.9% 10 ML SYRINGE IVP SCH ×2 (00:06→09:07)
[2019-05-22] MEDS: METOCLOPRAMIDE 10 MG/2 ML VIAL IVP SCH ×3 (00:06→12:01)
[2019-05-22] MEDS: METOPROLOL 5 MG/5 ML VIAL IVP SCH ×3 (00:06→12:02)
[2019-05-22] MEDS: ACETAMINOPHEN 1,000 MG/100 ML 100 ML IV PRN ×2 (02:00→12:40)
[2019-05-22] MEDS ORDERED: LEVALBUTEROL 1.25 MG/3 ML NEB INH PRN (02:07)
[2019-05-22 02:32] LABS: EOSINOPHILS % (AUTO) 0.1 %; HGB - HEMOGLOBIN 12.1 g/dL (14.0-18.0); MEAN CORPUSCULAR HEMOGLOBIN 35.4 pg (27.0-31.0); MEAN CORPUSCULAR HGB CONC 30.8 g/dL (32.0-36.0); MEAN CORPUSCULAR VOLUME 114.9 fL (80.0-94.0); PLT - PLATELET COUNT 156 10^3/uL (130-450); RED BLOOD COUNT 3.42 10^6/uL (4.70-6.10)
[2019-05-22 02:36] LABS: BASOPHILS % (AUTO) 0.3 %; LYMPHOCYTES % (AUTO) 5.8 %; MEAN PLATELET VOLUME 11.2 fL (7.4-11.4); MONOCYTES % (AUTO) 11.1 %; RED CELL DISTRIBUTION WIDTH 15.6 % (12.0-15.0); WHITE BLOOD COUNT 11.8 x10^3/uL (4.8-10.8)
[2019-05-22 02:40] LABS: ABNORMAL LYMPHS % (MANUAL) 0 %
[2019-05-22 02:45] LABS: ALBUMIN 2.5 g/dL (3.2-5.5); ALBUMIN/GLOBULIN RATIO 0.5 (1.0-2.2); BILIRUBIN,TOTAL 2.8 mg/dL (0.2-1.0); CALCIUM 8.5 mg/dL (8.5-10.3); CREATININE 0.7 mg/dL (0.6-1.2); MAGNESIUM 1.9 mg/dL (1.7-2.8); PHOSPHORUS 2.4 mg/dL (2.5-4.6); TOTAL PROTEIN 7.6 g/dL (6.7-8.2)
[2019-05-22] MEDS ORDERED: SODIUM CHLORIDE 0.9% 1,000 ML IV SCH (03:00)
[2019-05-22] MEDS: PIPERACILLIN/TAZOBACTAM 3.375 GM in SODIUM CHLORIDE 0.9% MINIBAG 100 ML IV SCH ×2 (03:09→10:10)
[2019-05-22 03:16] LABS: BAND NEUTROPHILS % (MANUAL) 5 %; LYMPHOCYTES # (MANUAL) 1.1 10^3/uL (1.5-3.5); LYMPHOCYTES % (MANUAL) 9 %; MONOCYTES # (MANUAL) 0.9 10^3/uL (0.0-1.0); PLATELET ESTIMATE, MANUAL NORMAL (130-450,000) (NORMAL)
[2019-05-22 03:17] LABS: DIFFERENTIAL COMMENT MANUAL DIFFERENTIAL
[2019-05-22] MEDS ORDERED: POTASSIUM PHOSPHATE 15 MMOL in SODIUM CHLORIDE 0.9% 250 ML IV ONE (06:00)
[2019-05-22] MEDS: PANTOPRAZOLE 40 MG VIAL IVP SCH (06:10)
[2019-05-22] MEDS ORDERED: rifAXIMin 550 MG TABLET PO SCH (09:00)
[2019-05-22] MEDS: guaiFENesin 100 MG/5 ML UDC NG SCH (09:05)
[2019-05-22] MEDS: DIGOXIN 125 MCG TABLET PO SCH (09:06)
[2019-05-22] MEDS: NICOTINE 14 MG PATCH TOP SCH (09:06)
[2019-05-22] MEDS: LACTULOSE 10 GM /15 ML UDC NG SCH (09:06)
--- NOTE | 2019-05-22 09:08 | Discharge Plan ---
Discharge Plan Problem Reviewed?: Yes Disposition: 02 Transfer Acute Care Hosp No Smoking: If you smoke, Please STOP! Call for help.
[2019-05-22] MEDS: CHLORHEXIDINE GLUCONATE 15 ML UDC PO SCH (09:14)
[2019-05-22] MEDS: THIAMINE INJ 500 MG in SODIUM CHLORIDE 0.9% 50 ML IV SCH (10:40)
--- NOTE | 2019-05-22 10:47 | DISCHARGE SUMMARY ---
Discharge Summary Admit Date: 05/12/19 Discharge Date: 05/22/19 Discharging Provider: Dr Kiara Paez Primary Care Provider: SANTIAGO Gage Code Status: Do Not Attempt Resuscitation Condition at Discharge: Serious Discharge Disposition: 02 Transfer Acute Care Hosp Discharge Facility Name: [facility] - DIAGNOSES Admission Diagnoses: 1) Alcohol withdrawal 2) Dehydration 3) New onset Afib, with RVR 4) Cirrhosis of liver with thrombocytopenia 5) Hx of alcohol withdrawal seizures 6) HTN 7) Hx of Hepatitis C Discharge Diagnoses with Status of Each Condition: See Hospital course below - HPI History of Present Illness: This is a 63-year-old male with chronic alcohol abuse, hepatitis C, chronic alcoholic liver disease, admitted here with alcohol withdrawal seizures in March 2018, June 2018, July 2018 and has had several encounters in the emergency room related to alcohol. He continues to drink several glasses of vodka a day. He presented this time with complaints of unsteadiness and weakness and was found to be dehydrated, in new Afib with RVR and in early alcohol withdrawal. He was admitted for management. - HOSPITAL COURSE Hospital Course: (1) Hypotension He is intermittently hypotensive during this admission, which occurs when he is very tachycardic. No pressors have been needed. IV Lasix and Spironolactone were needed for pleural effusion treatment, but were stopped on 05/21/19. Troponins were not positive for an NV. An Echo was done that showed normal LV size and contractility but newly found RV dilation and depressed RV function, consistent with cor pulmonale. (2) Atrial fibrillation with RVR He was on qid Metoprolol for hypertension before admission, which was continued here for heart rate control and he was Digitalized and daily Dig was continued, both via ng. After Dig loading on 05/19/19, his Dig level was 0.7 on 05/20/19. Thyroid testing was normal (TSH 1.35). He is not a candidate for aspirin or anti coagulation use. A CT of the chest was done 05/21/19 which showed no pulmonary embolism however multiple pulmonary and bronchial abnormalities were found (see below) (3) Coma The patient was on an IV Ativan drip for several days to manage his alcohol withdrawal. Ativan was stopped but he has not awakened (except for opening his eyes briefly) since that time, which is 4 days now. He is flaccid and began to have no gag reflex yesterday. Thus, a STAT head CT was done yesterday. It showed no acute findings but an old stroke with atrophy. I reached out to the First Assistant at [facility], requesting transfer for higher level of care (including Neurology consultants) and the patient was accepted in transfer. (4) Left lower lobe pneumonia After admission, he developed a cough and desaturated. A CXR showed a LLL infiltrate. He was put on empiric iv antibiotics and nebulizers. He has required escalating FIO2 settings. His respirations do appear labored intermittently, but he has not needed intubation. On 05/22/19, his WBC (which was improving from 7.7 to 3.9) increased to 11. (5) Cor pulmonale This was a new finding by Echo done this admission. The Echo was ordered due to new onset Afib this admission, and high BNP in the plus pleural effusion making systolic heart failure a concern. The Echo found normal LV size and systolic function, but very dilated RV with poor RV function. The most likely etiology is prior smoking with COPD or due to longstanding or recurrent pulmonary pathology. A chest CT was done 05/21/19, when his oxygenation worsened, and it showed emphysema in the upper lungs, large amount of mucous in the both bronchi, moderate atelectasis or infiltrates of the postero-basal right and majority of the basilar left lower lobe. The request for transfer to higher level of care was also needed for Pulmonary consultation and possible bronchoscopy. (6) Alcoholic cirrhosis of liver He has chronic low plts (30K), and elevated INR (1.6). His LFTs are mildly elevated and bilirubin is 2. He is icteric. His serum ammonia level has been 79, 53, 77. He has been managed with Lactulose per ng and today new Rifaximine was started. He was also getting Thiamine replacement: 3 days of 500 mg iv, then 100 mg daily was planned. (7) Hypomagnesemia Low Mg was replaced and labs monitored intermittently. (8) Hx of Hepatitis C He did not know if he ever received Interferon. (9) Nutrition impaired due to imbalance of nutrients Feedings were started via ng tube for several days, and Reglan was added to help with residuals. The ng feedings were stopped on 05/22/19, due to concern for aspiration, based on the chest CT report. (10) Anemia His Hgb runs 12 to 10.5 with MCV of 102-109. He was started on Iron and Folate supplements. (11) Hx of essential hypertension He has mostly been hypotensive while here, mostly whenever he is very tachycardic. (12) Pleural effusion This developed after admission along with the infiltrate. It resolved per CXR done 05/20/19, and his daily scheduled Lasix and Spironolactone were stopped. (13) Alcohol withdrawal Resolved (14) Code Status This was requested by family to be DNR, per the Nicturnist, but we have no POLST on file here. - ALLERGIES Allergies/Adverse Reactions: Allergies Allergy/AdvReac Type Severity Reaction Status Date / Time No Known Drug Allergies Allergy Verified 05/12/19 12:24 - MEDICATIONS Home Medications: Ambulatory Orders Medication Instructions Recorded Confirmed Alprazolam [Xanax] 0.5 mg PO Q6HR PRN 01/21/19 05/12/19 Metoprolol Succinate [Toprol Xl] 25 mg PO DAILY 05/16/19 05/16/19 - PHYSICAL EXAM AT DISCHARGE General Appearance: positive: Lethargic, Other (Flaccid) Eyes Bilateral: positive: Other (Eyes closed) ENT: positive: Dry mucous membranes, Other (Poor dentition) Neck: positive: Other (Large newton, difficult exam) Respiratory: positive: Rhonchi Cardiovascular: positive: No murmur, Irregularly irregular Abdomen: positive: No distention, Other (Decreaed bowel sounds) Skin: positive: Warm, Other (Icteric) Neurologic/Psychiatric: positive: Other (Comatose, however he withdraws to pain) Babinski Reflex: Right: Absent, Left: Absent - LABS Result Diagrams: 05/22/19 02:25 05/22/19 02:25 - DIAGNOSTIC IMAGING Diagnostic Imaging Results: Final report reviewed - FOLLOW UP Follow Up: This will be determined after his stay at [facility] - TIME SPENT Time Spent in Discharge (Minutes): 60
[2019-05-22 12:07] VITALS: BP 169/107
== END 2019-05-22 13:00 | disposition short-term general hospital (02) | DRG 896 ==
LOC: ED 12:20 → MS2 16:40 → ICU 05-14 00:30 → UNDODISIN 05-22 13:00
PROVIDERS: ADMIT Specialist; ATTEND Internal Medicine
DX: F10.239 Alcohol dependence with withdrawal, unspecified (principal); F10.231 Alcohol dependence with withdrawal delirium; J69.0 Pneumonitis due to inhalation of food and vomit; D61.818 Other pancytopenia; K74.60 Unspecified cirrhosis of liver; E87.2 Acidosis; F17.200 Nicotine dependence, unspecified, uncomplicated; K76.6 Portal hypertension; I48.92 Unspecified atrial flutter; Z87.09 Personal history of other diseases of the respiratory system; R40.2424 Glasgow coma scale score 9-12, 24 hours or more after hospital admission; T42.4X5A Adverse effect of benzodiazepines, initial encounter; Y92.230 Patient room in hospital as the place of occurrence of the external cause; E83.42 Hypomagnesemia; E83.39 Other disorders of phosphorus metabolism; E86.0 Dehydration; I48.91 Unspecified atrial fibrillation; G31.9 Degenerative disease of nervous system, unspecified; K70.30 Alcoholic cirrhosis of liver without ascites; I95.9 Hypotension, unspecified; I27.81 Cor pulmonale (chronic); I11.9 Hypertensive heart disease without heart failure; J43.9 Emphysema, unspecified; I45.81 Long QT syndrome; D52.8 Other folate deficiency anemias; D69.59 Other secondary thrombocytopenia; B18.2 Chronic viral hepatitis C; K70.10 Alcoholic hepatitis without ascites; R16.2 Hepatomegaly with splenomegaly, not elsewhere classified; E87.6 Hypokalemia; F10.229 Alcohol dependence with intoxication, unspecified; G57.93 Unspecified mononeuropathy of bilateral lower limbs; R29.6 Repeated falls; Y90.6 Blood alcohol level of 120-199 mg/100 ml; Z66 Do not resuscitate; Z72.0 Tobacco use; Z79.899 Other long term (current) drug therapy; Z86.73 Personal history of transient ischemic attack (TIA), and cerebral infarction without residual deficits; Z86.19 Personal history of other infectious and parasitic diseases
CPT/HCPCS: 36415; 36600; 70450; 71045; 71275; 80048; 80053; 80076; 80162; 81001; 82040; 82140; 82310; 82330; 82550; 82803; 83605; 83690; 83735; 83880; 84100; 84132; 84134; 84443; 84484; 85025; 85610; 85730; 86850; 86900; 86901; 87040; 87070; 87077; 87150; 87181; 87205; 93005; 93306; 94640; 96361; 96374; 96375; 99284; 99285; A6250; A9270; J0131; J2060; J2765; J3411; J3490; J7040; J7120; J8499; Q9967; 80306; 80307; 80320; 80329; 81003; 87086